=== PATIENT | female | born 1940 | race Caucasian/White ===

== ENCOUNTER 2020-02-29 08:32 | Outpatient (CLI) | payer MEDICARE, SELFPAY ==
[2020-02-29 09:10] LABS: Basophils Absolute Auto 0.1 K/mm3 (0.0-0.1); Basophils Percent Auto 1.2 % (0.2-1.2); Eosinophils Absolute Auto 0.9 K/mm3 (0-0.3); Eosinophils Percent Auto 10.5 % (0-4.4); Hemoglobin 12.3 g/dL (12.0-15.0); Immature Granulocyte Absolute 0.03 K/mm3 (0.00-0.031); Immature Granulocyte Percent A 0.4 % (0-0.5); Lymphocytes Absolute Auto 2.34 K/mm3 (0.9-3.2); Lymphocytes Percent Auto 28.6 % (18.3-44.2); Mean Corpuscular HGB Conc 31.5 g/dl (32-36); Mean Corpuscular Hemoglobin 29.5 pg (26-34); Mean Corpuscular Volume 93.5 fl (80-100); Mean Platelet Volume 9.7 fl (7.4-10.4); Monocytes Absolute Auto 0.5 K/mm3 (0.1-0.6); Monocytes Percent Auto 5.5 % (2.6-8.5); Neutrophils Absolute Auto 4.4 K/mm3 (1.3-6.7); Neutrophils Percent Auto 53.8 % (45.5-73.1); Platelet Count Result 266 k/mm3 (150-375); Red Blood Count 4.17 M/mm3 (4.2-5.4); Red Cell Distribution Width 13.2 % (11.5-14.5); White Blood Count 8.2 K/mm3 (4.5-10.0)
[2020-02-29 09:19] LABS: Hemoglobin A1C 6.5 % (<5.7)
[2020-02-29 09:22] LABS: Alanine Aminotransferase 9 U/L (4-35); Alkaline Phosphatase 69 U/L (38-126); Aspartate Amino Transferase 20 U/L (14-36); Bilirubin,Total < 0.1 mg/dL (0.2-1.3); Blood Urea Nitrogen 19 mg/dL (7-17); Carbon Dioxide 26 mmol/L (22-30); Chloride 103 mmol/L (98-107); Cholesterol 100 mg/dL (0-200); Estimated Glomerular Filt Rate > 60; Glucose 110 mg/dL (65-105); HDL Direct 25 mg/dL; Potassium 4.1 mmol/L (3.4-5.0); Sodium 139 mmol/L (137-145); Triglycerides 174 mg/dL (<150); Uric Acid 5.6 mg/dL (2.5-7.5)
[2020-02-29 09:33] LABS: LDL Cholesterol Direct 48 mg/dL
[2020-02-29 09:51] LABS: Total Triiodothyronine (T3) 0.96 NG/ML (0.97-1.69)
[2020-02-29 10:04] LABS: Free T4 Free Thyroxine 1.19 ng/mL (0.78-2.19); Vitamin D 25 Hydroxy 30.6 ng/mL
[2020-02-29 15:39] LABS: Creatinine Urine 116.5 mg/dL
[2020-02-29 15:44] LABS: MALB Creatinine Ratio 34.9 mg/g (0-30); Microalbumin Urine Random 40.7 mg/L (0-16.7)
== END 2020-02-29 08:33 | disposition home or self-care (01) ==
PROVIDERS: PCP Family Medicine; Visit Provider Nurse Practitioner Family
DX: E11.42 Type 2 diabetes mellitus with diabetic polyneuropathy (principal); E78.1 Pure hyperglyceridemia; E78.2 Mixed hyperlipidemia; E03.9 Hypothyroidism, unspecified; R53.83 Other fatigue; I10 Essential (primary) hypertension; M10.9 Gout, unspecified; E55.9 Vitamin D deficiency, unspecified; R80.9 Proteinuria, unspecified
CPT/HCPCS: 36415; 80053; 80061; 82043; 82306; 83036; 84439; 84443; 84480; 84550; 85025

== ENCOUNTER 2020-05-04 14:08 | Observation (INO) | payer MEDICARE, SELFPAY ==
[2020-05-04] VITALS (14 sets, daily range): BP systolic 97–158; BP diastolic 53–98; PULSE 75–97; RESP 10–24; TEMP 36.3–36.4; O2SAT 95–100
--- NOTE | ~2020-05-04 | CT_ITS ---
EXAMINATION: CT brain wo con INDICATION: Confusion COMPARISON: 08/03/2016 TECHNIQUE: Standard unenhanced head CT. The dose-length product (DLP) was 681.00 mGy-cm. The mA was a djusted according to patient size. Iterative reconstruction technique was employed. FINDINGS: There is no acute intraparenchymal hemorrhage. No evidence of mass lesion. No evidence of a cute infarction. There is mild periventricular and subcortical hypodensity probably related to small vessel ischemic disease. There is mild prominence of the sulci and ventricles related to cerebral atr ophy. Intracranial calcified cerebral atherosclerosis is noted. There are no extra-axial collections. There is no mass effect or midline shift. Changes in the globes are likely from ocular lens surgery. The visualized sinuses and mastoid air cells are well aerated. IMPRESSION: 1. No acute intracranial abnormality. 2. Age related findings. Reviewed, dictated and finalized at location A.
--- NOTE | ~2020-05-04 | XR_ITS ---
XR hip RT 2V w AP pelvis 05/04/2020 16:24 Indication: Right hip pain after fall Procedure: AP pelvis and 2 views right hip Comparison: 09/10/2013 Findings: There are is mild osteoarthritis of the hips. No acute fracture or traumatic malalignment. No focal soft tissue abnormality. No radiopaque foreign bodies. Note is made of slight internal rotat ion of the right hip, possibly positional. Impression: 1: No acute fracture. Reviewed, dictated and finalized at location A. Impression: 1: No acute fracture.
--- NOTE | ~2020-05-04 | XR_ITS ---
XR chest 1V 05/04/2020 16:25 Indication: Confusion. Smoker. Diabetes. Procedure: AP view of the chest Comparison: Comparison to multiple prior studies sequentially, with oldest reviewed study dated 10/19. Findings: Borderline heart size. The lateral upper lobe infiltrates. Shallow inspiration. No pleural effusion or pneumothorax. There are cholecystectomy clips. Impression: 1: Bilateral upper lobe infiltrates may represent atelectasis/scarring or pneumonia. Cannot exclude m ediastinal lymphadenopathy. Reviewed, dictated and finalized at location A. Impression: 1: Bilateral upper lobe infiltrates may represent atelectasis/scarring or pneum onia. Cannot exclude mediastinal lymphadenopathy.
--- NOTE | 2020-05-04 14:14 | ECG_ITS ---
Measurements Intervals [place] Rate: 95 P: 18 SD: 154 QRS: 14 QRSD: 85 T: 77 QT: 314 QTc: 395 Interpretive Statements SINUS RHYTHM BORDERLINE R WAVE PROGRESSION, ANTERIOR LEADS BASELINE ARTIFACT- II, III BORDERLINE ECG Electronically Signed On 05-04-2020 14:30:51 CDT by Enrico Garcia D.O.
[2020-05-04] MEDS: SODIUM CHLORIDE 0.9% IV 1,000 ML 999 ML IV CONT (14:25)
[2020-05-04 14:35] LABS: Glucose Point of Care 143 (65-105)
--- NOTE | 2020-05-04 14:36 | ED.AMS ---
HPI - Altered Mental Status General Chief Complaint: Altered Mental Status Stated Complaint: UNRESPONSIVE EPISODE Time Seen by Provider: 05/04/20 14:14 Source: family and EMS History of Present Illness HPI narrative: 80 years old white female brought to the emergency room by ambulance with unresponsiveness. Patient was seen last time okay at 1:30 AM, usually patient sleeps up to 1 PM every day. Today her try to give her extra time for sleeping, after 1 PM try to wake up and was unresponsive. reports that patient been to 3 different physician this week and 4 other physicians last week with a lot of adjustment of medications. Patient also on fentanyl patch for chronic scoliosis and chronic back pain and peripheral neuropathy. History of diabetes, hypertension, hyperlipidemia, hypothyroidism. The denies that patient smokes, drink or use drugs. Patient received the Narcan by ambulance without any effect. At 1630 patient became awake, alert and oriented x4, denying any symptoms. Related Data Home Medications Medication Instructions Recorded Confirmed fentanyl 75 mcg/hr transdermal 1 patch TRANSDERM Q72H 07/14/19 patch gabapentin 800 mg tablet 800 mg PO DAILY 07/14/19 insulin glargine 100 unit/mL (3 100 unit SUB-Q DAILY 07/14/19 mL) subcutaneous pen metoprolol succinate 50 mg capsule 50 mg PO DAILY 07/14/19 sprinkle, ext. release 24 hr amlodipine 5 PO 05/04/20 hydrocodone-acetaminophen 05/04/20 Allergies Allergy/AdvReac Type Severity Reaction Status Date / Time codeine Allergy Severe SYNCOPAL Verified 07/14/19 13:34 SPELLS Penicillins Allergy Unknown Anaphylaxis Verified 07/14/19 13:34 Review of Systems Review of Systems: ROS unobtainable: Yes unobtainable due to mental status PMFSH Past Medical History Medical History Charcot's joint, right ankle and foot Diabetes Diabetic ulcer of right foot Lower extremity weakness Vision loss Social History Social History Smoking status: Former smoker Smoking end date: 08/12/86 Alcohol intake: never Gender identity (if verbalized by the patient): Female Exam Narrative: Exam Narrative: General appearance: Well-developed, well-nourished, unresponsive, responds to painful stimulation by withdrawing arms. Skin: Normal color Head: Normocephalic, nontraumatic Eyes: Clear conjunctiva ENT: Oropharynx normal, ears normal, nose normal Neck: Supple, nontender Chest and respiratory: Airway patent, no respiratory distress, no accessory muscle use Heart: Regular rate/rhythm Abdomen: Soft, nontender, no organomegaly, quiet bowel sounds Vascular: Normal peripheral pulses, normal capillary refill. Musculoskeletal: Normal range of motion, nontender back, right lower leg is shortened and externally rotated compared to the left 1 Neurologic: Responding only to painful stimulation by arm withdrawal. Course Course Emergency Course: Stable Reevaluation(s) Reevaluation #1: Currently patient is awake, alert oriented x4, denying any symptoms. Patient denies any fever, headache, flank bite, muscle aches,. Patient feels great and would like to go home Date: 05/04/20 Time: 16:56 Vital Signs Vital signs: Vital Signs Pulse Rate 97 05/04/20 14:11 Respiratory Rate 24 H 05/04/20 14:11 Blood Pressure 158/74 H 05/04/20 14:11 Pulse Oximetry 99 05/04/20 14:11 Temperature 36.3 C L 05/04/20 16:32 Pulse Rate 87 05/04/20 16:32 Respiratory Rate 10 L 05/04/20 16:32 Blood Pressure 104/53 L 05/04/20 16:32 Pulse Oximetry 95 05/04/20 16:32 MDM - Alter
[2020-05-04 14:40] LABS: Alveolar/Arterial O2 Gradient 126.3 mmHg; Base Excess ABG -1.7 mEq/l (+/-2.0); Fractional Inspired Oxygen 36 %; HCO3 ABG 24.1 mEq/l (22.0-26.0); Oxygen Content ABG 17.9 %vol (16.0-22.0); Oxyhemoglobin 94.1 % THb (90.0-100.0); PCO2 ABG 44.9 mmHg (35.0-45.0); PO2 ABG 78.3 mmHg (80.0-100.0); PO2 FiO2 Ratio Arterial Blood 2.18 %; Total Hemoglobin 13.5 g/dL (12.0-18.0); pH ABG 7.348 (7.350-7.450)
[2020-05-04 14:42] LABS: Device NASAL CANNULA; Site Drawn LEFT BRACHIAL
[2020-05-04 15:14] LABS: Add Urine Microscopic? YES; Appearance Urine Clear (Clear); Bilirubin Urine Negative (Negative); Blood Urine Negative (Negative); Color Urine Yellow (Yellow); Glucose Urine UA Negative (Negative); Ketones Urine Negative (Negative); Leukocyte Esterase Ur Negative LEU/UL (Negative); Mucus Urine Rare /lpf; Nitrate Urine Negative (Negative); Protein Urine 1+ mg/dL (Negative); RBC Urine 21-50 /hpf (0-2); Specific Grav Ur 1.025 (1.001-1.035); Squamous Epithelial Cell Urine Rare /hpf (Few); Urobilinogen Urine Negative mg/dL (<2.0); WBC Urine 0-3 /hpf
[2020-05-04 15:34] LABS: Basophils Absolute Auto 0.1 K/mm3 (0.0-0.1); Basophils Percent Auto 0.5 % (0.2-1.2); Eosinophils Absolute Auto 0.4 K/mm3 (0-0.3); Eosinophils Percent Auto 3.2 % (0-4.4); Hematocrit 41.4 % (37.0-47.0); Hemoglobin 12.7 g/dL (12.0-15.0); Immature Granulocyte Absolute 0.13 K/mm3 (0.00-0.031); Immature Granulocyte Percent A 1.2 % (0-0.5); Lymphocytes Absolute Auto 1.47 K/mm3 (0.9-3.2); Lymphocytes Percent Auto 13.3 % (18.3-44.2); Mean Corpuscular HGB Conc 30.7 g/dl (32-36); Mean Corpuscular Hemoglobin 30.7 pg (26-34); Mean Platelet Volume 9.4 fl (7.4-10.4); Monocytes Absolute Auto 0.6 K/mm3 (0.1-0.6); Monocytes Percent Auto 5.3 % (2.6-8.5); Neutrophils Absolute Auto 8.5 K/mm3 (1.3-6.7); Neutrophils Percent Auto 76.5 % (45.5-73.1); Platelet Count Result 338 k/mm3 (150-375); Red Blood Count 4.14 M/mm3 (4.2-5.4); Red Cell Distribution Width 13.4 % (11.5-14.5); White Blood Count 11.1 K/mm3 (4.5-10.0)
[2020-05-04 15:39] LABS: Amphetamine Screen Urine Negative (Negative); Barbiturate Screen Urine Negative (Negative); Benzodiazepines Screen Urine Negative (Negative); Cannabinoid Screen Urine Negative (Negative); Cocaine Screen Urine Negative (Negative); Methadone Screen Urine Negative (Negative); Opiate Screen Urine Positive (Negative); Phencyclidine Screen Urine Negative (Negative)
[2020-05-04 15:49] LABS: Alanine Aminotransferase 13 U/L (4-35); Albumin Level 3.3 g/dL (3.5-5.1); Alkaline Phosphatase 62 U/L (38-126); Anion Gap 5 mmol/L (8-16); Aspartate Amino Transferase 19 U/L (14-36); Bilirubin,Total 0.3 mg/dL (0.2-1.3); Blood Urea Nitrogen 40 mg/dL (7-17); Calcium 8.3 mg/dL (8.4-10.2); Carbon Dioxide 25 mmol/L (22-30); Chloride 104 mmol/L (98-107); Creatine Kinase 54 U/L (30-135); Estimated CRCL calculation 39 ml/min; Estimated Glomerular Filt Rate 54; Glucose 159 mg/dL (65-105); Lactic Acid Reflex 2.2 mmol/L (0.7-2.1); Potassium 4.9 mmol/L (3.4-5.0); Sodium 134 mmol/L (137-145)
[2020-05-04 15:50] LABS: INR 1.1; Prothrombin Time 13.4 Seconds (11.1-14.7)
[2020-05-04 15:51] LABS: Partial Thromboplastin Time 28.5 SECONDS (22.3-36.8)
--- NOTE | 2020-05-04 17:41 | PC.NURSE ---
Patient now A&Ox4, speech clear and able to follow commands.
[2020-05-04 17:52] LABS: Ammonia < 9 umol/L (9-30)
[2020-05-04 18:32] LABS: Reflex Lactic Acid Yes or No Add Lactic
[2020-05-04 19:13] LABS: Lactic Acid 1.3 mmol/L (0.7-2.1)
--- NOTE | 2020-05-04 19:40 | ADMGEN ---
This patient, Melissa Rodriguez, was admitted to 3 [facility] Surg Room 304-01. Patient/family oriented to hospital policies and general routines including ID bracelet, bed and alarms, visiting hours, pain management, procedures, bathroom and other care routines, personal items, smoking policy, room service/diet, and visiting hours. Valuables list has been completed. Information on how to activate the Rapid Response Team has been discussed. Patient/Family are encouraged to report perceived risks to care and to ask questions if they do not understand what they are told or what they should do.
[2020-05-05] VITALS (8 sets, daily range): BP systolic 114–149; BP diastolic 57–79; PULSE 79–105; RESP 12–18; TEMP 36.5–36.9; O2SAT 95–98
[2020-05-05 00:15] LABS: Glucose Point of Care 181 (65-105)
[2020-05-05] MEDS: LEVOTHYROXINE SODIUM 100 MCG TABLET PO (05:46)
[2020-05-05 07:49] LABS: Anion Gap 5 mmol/L (8-16); Blood Urea Nitrogen 26 mg/dL (7-17); Carbon Dioxide 26 mmol/L (22-30); Chloride 103 mmol/L (98-107); Estimated CRCL calculation 53 ml/min; Estimated Glomerular Filt Rate > 60; Glucose 168 mg/dL (65-105); Potassium 4.5 mmol/L (3.4-5.0); Sodium 134 mmol/L (137-145)
[2020-05-05 08:05] LABS: Glucose Point of Care 156 (65-105)
[2020-05-05 09:03] LABS: Glucose Point of Care 188 (65-105)
[2020-05-05] MEDS: GABAPENTIN 400 MG CAPSULE 800 MG PO ×2 (09:37→12:40)
[2020-05-05] MEDS: NORTRIPTYLINE HCL 25 MG CAPSULE 50 MG PO (09:38)
[2020-05-05] MEDS: INSULIN GLARGINE (*BKC) 100 UNITS/ML 22 UNITS SUB-Q (09:38)
[2020-05-05] MEDS: DOXYCYCLINE HYCLATE 100 MG TABLET PO (09:38)
[2020-05-05] MEDS: amLODIPine BESYLATE 5 MG TABLET 10 MG PO (09:40)
[2020-05-05] MEDS: PROPRANOLOL HCL 20 MG TABLET PO (09:40)
--- NOTE | 2020-05-05 09:56 | PM.SD ---
Same Day Admit/Disch: HPI History of Present Illness Chief complaint: Unresponsiveness/Opiod dependent Narrative: Melissa Rodriguez is a 80 year old female with known hypertension, hypercholesterolemia, DMII, DDD and scoliosis with subsequent chronic back pain on chronic opioids, peripheral neuropathy who presented to the ED on 05/04 via EMS from home with reports of being unresponsive. Patient is now A&Ox4 for me. She is a fair historian and understands she was unarousable yesterday, but is unable to tell me details about what brought her in to the hospital. Most history obtained via EMR and (with patient's permission). states she had a good day the day prior and states she stayed up fairly late (until about 0130 on 05/04); she was in her normal state of health. On morning of 05/04, states she was difficult to arouse and called her son who is an RN; took vitals which were reportedly normal and was still unable to arouse the patient after multiple attempts that morning and afternoon; the son thus instructed the to call 911. Per ER and job lithographer notes, Narcan was given en route to the ED with little effect and multiple fentanyl patches were removed from the patient. The patient reportedly then became arousable around 16:30 yesterday afternoon, near her baseline mentation. It was suspected patient likely had unintentional opioid overdose vs polypharmacy and was admitted for this reason. Today, patient only is complaining of her chronic bilateral lower extremity pain and chronic back pain; requesting pain medication. No other complaints at the moment. Denies f/c/s, recent illness, myalgias/arthralgias, headaches, dizziness, lightheadedness, changes in v/h, cp/palpitations, sob/cough, n/v/d/c, abd pain, changes in BMs, dysuria, hematuria, cloudy urine, calf pain/swelling. Upon examination and further questioning, an abrasion is noted over left knee which she states she received after she fell at home. She and her note that she has been falling recently and is concerned she is becoming deconditioned as she has not been moving as much. Patient states she may be interested in Home Health therapy if she qualifies. While in the ED, patient was noted to be hypoxic and placed on 4L O2 NC which has since been weaned down to RA PMFSH Past Medical History Medical History Charcot's joint, right ankle and foot DDD (degenerative disc disease) Diabetes Diabetic ulcer of right foot GERD (gastroesophageal reflux disease) History of amputation of right great toe History of trigger finger Hypercholesteremia Hypertension Hypothyroid Lower extremity weakness Melanoma Nose Neuropathy Osteomyelitis Vision loss Surgical History Surgical History History of appendectomy History of bladder surgery Bladder tie up History of cholecystectomy (~1992) History of hysterectomy (~1983) History of tonsillectomy Family History Family History Mother Emphysema lung Father Emphysema lung Sibling Hypertension Emphysema lung Social History Social History (Updated 05/05/20 @ 10:10 by Delvin Resendiz PA-C) Social History: Patient lives at home with her Pritesh. She wishes to be a Full Code. Her PCP is Dr. Cristina. Smoking status: Former smoker Second hand tobacco smoke exposure: No Smoking end date: 08/12/87 Alcohol intake: never Substance use: never Gender identity (if verbalized by the patient): Female Spiritual care concerns: No Same Day Admit/Disch: Med Pre-admit Medications Home Medications Medication Instructions Recorded Confirmed Type fentanyl 75 mcg/hr transdermal 1 patch TRANSDERM Q72H 07/14/19 05/04/20 History patch gabapentin 800 mg tablet 800 mg PO TID 07/14/19 05/04/20 History insulin glargine 100 unit
[2020-05-05] MEDS: HYDROcodone/acetaminophen (*CRX) 5-325 MG TABLET 1 TAB PO (10:37)
[2020-05-05 12:50] LABS: Glucose Point of Care 189 (65-105)
--- NOTE | 2020-05-05 13:27 | PC.NURSE ---
On 05/05/20, the student, [Yas Hernandez ], provided care and completed [facility] documentation on this patient. I have reviewed the student's documentation and agree with the findings.
== END 2020-05-05 15:15 | disposition home health service (06) ==
LOC: ANHED 17:01 → ANH3MEDSUR 17:15
PROVIDERS: Admitting Provider Family Medicine; Emergency Provider Emergency Medicine; PCP Family Medicine; Visit Provider Physician Assistant
DX: J96.01 Acute respiratory failure with hypoxia (principal); F11.20 Opioid dependence, uncomplicated; I10 Essential (primary) hypertension; E11.40 Type 2 diabetes mellitus with diabetic neuropathy, unspecified; E78.00 Pure hypercholesterolemia, unspecified; M41.9 Scoliosis, unspecified; G89.29 Other chronic pain; M54.9 Dorsalgia, unspecified; M79.605 Pain in left leg; M79.604 Pain in right leg; R53.1 Weakness; E03.9 Hypothyroidism, unspecified; K21.9 Gastro-esophageal reflux disease without esophagitis; Z79.4 Long term (current) use of insulin; Z87.891 Personal history of nicotine dependence
CPT/HCPCS: 36415; 36600; 51701; 70450; 71045; 73502; 80048; 80053; 80307; 81001; 82140; 82550; 82805; 82948; 83605; 84443; 85025; 85610; 85730; 87040; 93005; 96360; 97161; 99285; A9270; G0378; J1815; J7030

== ENCOUNTER 2020-05-17 15:05 | Inpatient (IN) | payer MEDICARE, SELFPAY ==
[2020-05-17] VITALS (8 sets, daily range): BP systolic 112–137; BP diastolic 56–81; PULSE 70–109; RESP 18–28; TEMP 36.2–37.1; O2SAT 95–99; BMI 19.9
--- NOTE | ~2020-05-17 | CT_ITS ---
EXAMINATION: CT brain wo con INDICATION: Altered mental status COMPARISON: 05/04/2020 TECHNIQUE: Standard unenhanced head CT. The dose-length product (DLP) was 605.33 mGy-cm. The mA was a djusted according to patient size. Iterative reconstruction technique was employed. FINDINGS: There is no acute intraparenchymal hemorrhage. No evidence of mass lesion. No evidence of a cute infarction. There is mild periventricular and subcortical hypodensity probably related to small vessel ischemic disease. There is mild prominence of the sulci and ventricles related to cerebral atr ophy. Intracranial calcified cerebral atherosclerosis is noted. There are no extra-axial collections. There is no mass effect or midline shift. Changes in the globes are likely from ocular lens surgery. There is mild mucosal thickening of the paranasal sinuses. IMPRESSION: 1. No acute intracranial abnormality. 2. Age related findings. Reviewed, dictated and finalized at location A.
--- NOTE | ~2020-05-17 | XR_ITS ---
EXAMINATION: XR chest 1V DATE: 05/17/2020 16:31 INDICATION: Transient alteration of awareness TECHNIQUE: frontal view of the chest was obtained. COMPARISON: Chest radiograph dated 05/04/2020 FINDINGS: Persistent small lung volumes with mild elevation of the right hemidiaphragm. No focal airspace opaci ties, pulmonary edema, pleural effusion or pneumothorax. Cardiomediastinal silhouette is within hina l limits for AP technique. Post cystectomy clips in the right upper quadrant. Moderate to severe thor acic and upper lumbar spondylosis. IMPRESSION: 1. Chronic small lung volumes with no acute cardiopulmonary disease. Reviewed, dictated and finalized at location A.
--- NOTE | 2020-05-17 15:13 | ECG_ITS ---
Measurements Intervals [place] Rate: 102 P: 61 MA: 164 QRS: 46 QRSD: 94 T: 73 QT: 342 QTc: 446 Interpretive Statements SINUS TACHYCARDIA BASELINE ARTIFACT- I, II, III, AVL, AVF BORDERLINE ECG Electronically Signed On 05-17-2020 15:20:51 CDT by Enrico Garcia D.O.
[2020-05-17 15:21] LABS: Basophils Absolute Auto 0.1 K/mm3 (0.0-0.1); Basophils Percent Auto 0.5 % (0.2-1.2); Eosinophils Absolute Auto 0.1 K/mm3 (0-0.3); Eosinophils Percent Auto 0.4 % (0-4.4); Hematocrit 34.3 % (37.0-47.0); Hemoglobin 10.9 g/dL (12.0-15.0); Immature Granulocyte Percent A 1.1 % (0-0.5); Lymphocytes Absolute Auto 2.33 K/mm3 (0.9-3.2); Lymphocytes Percent Auto 12.6 % (18.3-44.2); Mean Corpuscular HGB Conc 31.8 g/dl (32-36); Mean Corpuscular Hemoglobin 30.9 pg (26-34); Mean Corpuscular Volume 97.2 fl (80-100); Mean Platelet Volume 9.9 fl (7.4-10.4); Monocytes Absolute Auto 0.6 K/mm3 (0.1-0.6); Monocytes Percent Auto 3.2 % (2.6-8.5); Neutrophils Absolute Auto 15.2 K/mm3 (1.3-6.7); Neutrophils Percent Auto 82.2 % (45.5-73.1); Platelet Count Result 354 k/mm3 (150-375); Red Blood Count 3.53 M/mm3 (4.2-5.4); White Blood Count 18.5 K/mm3 (4.5-10.0)
[2020-05-17 15:32] LABS: Alanine Aminotransferase 10 U/L (4-35); Albumin Level 3.4 g/dL (3.5-5.1); Alkaline Phosphatase 60 U/L (38-126); Anion Gap 13 mmol/L (8-16); Aspartate Amino Transferase 18 U/L (14-36); Bilirubin,Total 0.2 mg/dL (0.2-1.3); Blood Urea Nitrogen 16 mg/dL (7-17); Calcium 8.7 mg/dL (8.4-10.2); Carbon Dioxide 21 mmol/L (22-30); Chloride 103 mmol/L (98-107); Estimated CRCL calculation 35 ml/min; Estimated Glomerular Filt Rate 54; Glucose 152 mg/dL (65-105); Sodium 137 mmol/L (137-145)
[2020-05-17 16:04] LABS: Add Urine Microscopic? YES; Appearance Urine Clear (Clear); Bilirubin Urine Negative (Negative); Blood Urine 2+ (Negative); Color Urine Yellow (Yellow); Glucose Urine UA Negative (Negative); Ketones Urine Negative (Negative); Leukocyte Esterase Ur Negative LEU/UL (Negative); Mucus Urine Rare /lpf; Nitrate Urine Negative (Negative); Protein Urine Negative (Negative); RBC Urine >75 /hpf (0-2); Specific Grav Ur 1.015 (1.001-1.035); Squamous Epithelial Cell Urine Rare /hpf (Few); Urobilinogen Urine Negative mg/dL (<2.0); WBC Urine 0-3 /hpf
--- NOTE | 2020-05-17 16:06 | ED.GENADULT ---
HPI - General Adult General Chief complaint: Weakness Stated complaint: LETHARGY/CONFUSION Time Seen by Provider: 05/17/20 15:24 Source: patient and EMS History of Present Illness HPI narrative: Patient is a 80 y/o female brought in by EMS for altered mental status and low BP today. states that patient had low BS of 44 last night. He gave her juice, feed her and brought her BS up. This morning, patient was acting confused. Visiting nurse was checking on her this morning and found her BP was 80/50. states that he removed Fentanyl patch. EMS was summoned and patient was given IVF and brought here. Patient is poor historian and unable to provide reliable history. Related Data Home Medications Medication Instructions Recorded Confirmed fentanyl 75 mcg/hr transdermal 1 patch TRANSDERM Q72H 07/14/19 05/17/20 patch gabapentin 800 mg tablet 800 mg PO TID 07/14/19 05/17/20 insulin glargine 100 unit/mL (3 30 unit SUB-Q QAM AND QPM 07/14/19 05/17/20 mL) subcutaneous pen amlodipine 10 mg PO DAILY 05/04/20 05/17/20 doxycycline hyclate 100 mg PO BID 05/04/20 05/17/20 hydrocodone-acetaminophen 1 tablet PO Q6H PRN 05/04/20 05/17/20 levothyroxine 100 mcg PO QAM 05/04/20 05/17/20 losartan 50 mg PO QPM 05/04/20 05/17/20 metformin 1,000 mg PO BID 05/04/20 05/17/20 mometasone 1 applic TOPICAL DAILY 05/04/20 05/17/20 nortriptyline 50 mg PO BID 05/04/20 05/17/20 pramipexole 0.75 mg PO TID 05/04/20 05/17/20 propranolol 20 mg PO Q12H 05/04/20 05/17/20 Allergies Allergy/AdvReac Type Severity Reaction Status Date / Time codeine Allergy Severe SYNCOPAL Verified 05/17/20 15:10 SPELLS Penicillins Allergy Unknown Anaphylaxis Verified 05/17/20 15:10 Review of Systems Review of Systems: ROS unobtainable: Yes unobtainable due to mental status PMFSH Past Medical History Medical History (Updated 05/18/20 @ 14:44 by Moni Morales MD) Charcot's joint, right ankle and foot Chronic pain DDD (degenerative disc disease) Diabetes Diabetic nephropathy Diabetic ulcer of right foot GERD (gastroesophageal reflux disease) History of amputation of right great toe History of trigger finger Hypercholesteremia Hypertension Hypothyroid Lower extremity weakness Melanoma Nose Neuropathy Osteomyelitis Vision loss Surgical History Surgical History (Updated 05/17/20 @ 22:06 by Florina Garcia DO) History of appendectomy History of bladder suspension procedure History of cholecystectomy (~1992) History of hysterectomy (~1983) History of tonsillectomy Family History Family History Mother Emphysema lung Father Emphysema lung Sibling Hypertension Emphysema lung Social History Social History Social History: Patient lives at home with her Pritesh. She wishes to be a Full Code. Her PCP is Dr. Cristina. Smoking packs per day: 1 Smoking cigarettes per day: 20.0 Years smoked: 10 Smoking pack-years: 10.00 Smoking status: Former smoker Second hand tobacco smoke exposure: No Smoking end date: 08/12/87 Alcohol intake: former Substance use: never Gender identity (if verbalized by the patient): Female Spiritual care concerns: No Exam Const: General: no acute distress and ill appearing Orientation/consciousness: oriented to person, oriented to place and confusion HENMT: Head: normocephalic Ears: external ears normal General nose exam: Normal external nose present Eyes: General: appearance normal, both eyes and all related structures Conjunctivae: conjunctivae normal Neck: Neck: normal visual inspection and full ROM Chest: Chest palpation & inspection: normal inspection of the chest and no tenderness Resp: Effort & Inspection: normal respiratory effort Auscultation: clear to auscultation bilaterally Cardio: Rate: regular rate Rhythm: regular rhythm GI: GI Palp: No abdominal
[2020-05-17 17:00] LABS: Lactic Acid Reflex 2.9 mmol/L (0.7-2.1)
[2020-05-17 19:47] LABS: Reflex Lactic Acid Yes or No Add Lactic
[2020-05-17 20:28] LABS: Lactic Acid 1.2 mmol/L (0.7-2.1)
--- NOTE | 2020-05-17 20:30 | ADMGEN ---
This patient, Melissa Rodriguez, was admitted to [facility] Surg Room 317-01. Patient/family oriented to hospital policies and general routines including ID bracelet, bed and alarms, visiting hours, pain management, procedures, bathroom and other care routines, personal items, smoking policy, room service/diet, and visiting hours. Valuables list has been completed. Information on how to activate the Rapid Response Team has been discussed. Patient/Family are encouraged to report perceived risks to care and to ask questions if they do not understand what they are told or what they should do.
--- NOTE | 2020-05-17 21:57 | PM.IMHP ---
H&P: HPI History of Present Illness Date/Time: 05/17/20 22:30 Chief complaint: altered mental status Narrative: Melissa Rodriguez is a 80 year old female with a past medical history of hypertension, insulin-dependent diabetes mellitus and chronic opioid dependence who presented to the ER from home via EMS due to altered mental status. The patient evidently had a low blood sugar the night before down to 44. Her has been summer child caregiver juice and food and her blood sugar came up to the 80s. This morning the patient was acting confused again in the visiting nurse checked the patient's blood pressure and found to be 80/50. The removed the patient's fentanyl patches. According to the EMS radio report the patient had [address] The patient was given IV fluids in the field and brought to the ER. The patient is relatively good historian reported that she has been feeling well since her last hospitalization in April. She presented at that time for an unintentional narcotic overdose. Her symptoms were similar to her presentation today. She denies any nausea, vomiting, fever, chills, cough, congestion or recent ill contacts. She has chronic wound to her right 3rd toe and prior amputation of her right great toe. She has chronic pain in her feet and back bilaterally. She denies any dysuria, hematuria, hematochezia or melena. She has not had any recent changes in her home medications. Her glucoses at home have been running in the low 100s. Her Accu-Cheks at bedtime running right at 100. In the ER the patient's white count was noted to be elevated 18,000 her lactic acid was elevated at 2.9. The patient had received Levaquin in the ER prior to blood cultures being drawn. ER physician had also written for vancomycin. The patient's blood pressure was normal on arrival to the ER and has remained normal since admission. Review of Systems Review of Systems: Narrative: 12 systems were reviewed with pertinent positives and negatives per HPI. Except as documented in the HPI, all other systems were reviewed and are negative. [facility] Past Medical History Medical History (Updated 05/18/20 @ 01:54 by Florina Garcia DO) Charcot's joint, right ankle and foot Chronic pain DDD (degenerative disc disease) Diabetes Diabetic nephropathy Diabetic ulcer of right foot GERD (gastroesophageal reflux disease) History of amputation of right great toe History of trigger finger Hypercholesteremia Hypertension Hypothyroid Lower extremity weakness Melanoma Nose Neuropathy Osteomyelitis Vision loss Surgical History Surgical History (Updated 05/17/20 @ 22:06 by Florina Garcia DO) History of appendectomy History of bladder suspension procedure History of cholecystectomy (~1992) History of hysterectomy (~1983) History of tonsillectomy Family History Family History Mother Emphysema lung Father Emphysema lung Sibling Hypertension Emphysema lung Social History Social History Social History: Patient lives at home with her Pritesh. She wishes to be a Full Code. Her PCP is Dr. Cristina. Smoking packs per day: 1 Smoking cigarettes per day: 20.0 Years smoked: 10 Smoking pack-years: 10.00 Smoking status: Former smoker Second hand tobacco smoke exposure: No Smoking end date: 08/12/87 Alcohol intake: former Substance use: never Gender identity (if verbalized by the patient): Female Spiritual care concerns: No Meds Home Medications and Allergies Home Medications Medication Instructions Recorded Confirmed Type fentanyl 75 mcg/hr transdermal 1 patch TRANSDERM Q72H 07/14/19 05/17/20 History patch gabapentin 800 mg tablet 800 mg PO TID 07/14/19 05/17/20 History insulin glargine 100 unit/mL (3 30 unit SUB-Q QAM AND QPM 07/14/19 05/17/20 History mL) subcutaneous pen amlodipine 10 mg
[2020-05-17] MEDS: PRAMIPEXOLE 0.25 MG TABLET 0.75 MG PO (23:52)
[2020-05-17] MEDS: LOSARTAN POTASSIUM 50 MG TABLET PO (23:52)
[2020-05-17] MEDS: PROPRANOLOL HCL 20 MG TABLET PO (23:52)
[2020-05-18] VITALS (14 sets, daily range): BP systolic 93–154; BP diastolic 57–77; PULSE 80–99; RESP 16–18; TEMP 36.6–37.3; O2SAT 91–98; BMI 19.9
[2020-05-18 01:13] LABS: Glucose Point of Care 127 (65-105)
--- NOTE | 2020-05-18 01:21 | PC.NURSE ---
05/17/2020 0051 The LR bolus finished after the patient had 2 IVPB that had to be ran first.
[2020-05-18] MEDS: LEVOTHYROXINE SODIUM 100 MCG TABLET PO (05:55)
[2020-05-18 06:17] LABS: Basophils Absolute Auto 0.1 K/mm3 (0.0-0.1); Basophils Percent Auto 0.6 % (0.2-1.2); Eosinophils Absolute Auto 0.1 K/mm3 (0-0.3); Eosinophils Percent Auto 1.3 % (0-4.4); Hematocrit 33.5 % (37.0-47.0); Hemoglobin 10.7 g/dL (12.0-15.0); Immature Granulocyte Absolute 0.11 K/mm3 (0.00-0.031); Lymphocytes Absolute Auto 1.52 K/mm3 (0.9-3.2); Lymphocytes Percent Auto 14.4 % (18.3-44.2); Mean Corpuscular HGB Conc 31.9 g/dl (32-36); Mean Corpuscular Hemoglobin 30.5 pg (26-34); Mean Corpuscular Volume 95.4 fl (80-100); Mean Platelet Volume 10.1 fl (7.4-10.4); Monocytes Absolute Auto 0.5 K/mm3 (0.1-0.6); Monocytes Percent Auto 4.3 % (2.6-8.5); Neutrophils Absolute Auto 8.2 K/mm3 (1.3-6.7); Neutrophils Percent Auto 78.4 % (45.5-73.1); Platelet Count Result 318 k/mm3 (150-375); Red Blood Count 3.51 M/mm3 (4.2-5.4); Red Cell Distribution Width 13.6 % (11.5-14.5); White Blood Count 10.5 K/mm3 (4.5-10.0)
[2020-05-18] MEDS: HYDROcodone/acetaminophen (*CRX) 5-325 MG TABLET 1 TAB PO ×2 (08:10→23:27)
[2020-05-18 08:32] LABS: Anion Gap 10 mmol/L (8-16); Blood Urea Nitrogen 9 mg/dL (7-17); Calcium 8.7 mg/dL (8.4-10.2); Carbon Dioxide 27 mmol/L (22-30); Chloride 102 mmol/L (98-107); Estimated CRCL calculation 53 ml/min; Estimated Glomerular Filt Rate > 60; Glucose 81 mg/dL (65-105); Potassium 3.5 mmol/L (3.4-5.0); Sodium 139 mmol/L (137-145)
[2020-05-18 09:14] LABS: Thyroid Stimulating Hormone Reflex 0.883 uIU/mL (0.465-4.68)
[2020-05-18] MEDS: GABAPENTIN 300 MG CAPSULE 600 MG PO ×2 (09:32→17:28)
[2020-05-18] MEDS: amLODIPine BESYLATE 5 MG TABLET 10 MG PO (09:33)
[2020-05-18] MEDS: PRAMIPEXOLE 0.25 MG TABLET 0.75 MG PO ×3 (09:33→17:28)
[2020-05-18] MEDS: DOXYCYCLINE HYCLATE 100 MG TABLET PO ×2 (09:33→17:28)
[2020-05-18] MEDS: ENOXAPARIN 40 MG/0.4 ML SYRINGE SUB-Q (09:33)
[2020-05-18] MEDS: PROPRANOLOL HCL 20 MG TABLET PO ×2 (09:34→22:04)
[2020-05-18] MEDS: NORTRIPTYLINE HCL 25 MG CAPSULE 50 MG PO ×2 (09:34→17:28)
[2020-05-18] MEDS: metFORMIN HCL 500 MG TABLET 1000 MG PO ×2 (09:45→17:29)
[2020-05-18] MEDS: MAGNESIUM SULF 2 GM/WATER 50ML 2 GM/50 ML BAG IVPB (09:46)
--- NOTE | 2020-05-18 10:22 | PM.IMPN ---
Progress Note: A&P Assessment and Plan (1) Opioid dependence: Qualifiers: Substance use status: uncomplicated Qualified Code(s): F11.20 - Opioid dependence, uncomplicated Code(s): F11.20 - Opioid dependence, uncomplicated Status: Acute Assessment and Plan: Per EMS radio report the patient had [address] Patient denies this and thinks she only had one on at the time. Same issues on previous hospital stay as well. She is open to just staying with PO norco for now. Will hold the patient's home fentanyl patch; likely continue to hold after discharge as it appears patient may not be able to manage this Will continue at decreased home [place] to 1 tablet every 8 hours as needed. Monitor F/u with PCP for further adjustments (2) Diabetes: Code(s): E11.9 - Type 2 diabetes mellitus without complications Status: Acute Assessment and Plan: The patient has been euglycemic here but it sounds as if she has been running lower at home. A1c 6.0. She takes Lantus 30 u Qam and Qpm Will hold the patient's long-acting insulin for now; if this improves, then will start with 30 u lantus at night. director of retention consult has been placed Continue home metformin Accuchecks ACHS, hypoglycemia protocol, correctional insulin, diabetic diet (3) Leukocytosis: Code(s): D72.829 - Elevated white blood cell count, unspecified Status: Acute Assessment and Plan: Uncertain etiology. WBC 10.5k today. The patient is not having fevers. She does have a wound to her right foot however this does not appear to be acutely infected. The patient had received Levaquin and vancomycin from the ER; which have sinced been stopped.. Blood cultures are pending but they were drawn after Levaquin administration. Will hold off on any additional antibiotic administration at this time as patient does not appear to have an obvious source of acute infection. Will continue to monitor. Will repeat CBC in a.m. (4) Hypothyroid: Code(s): E03.9 - Hypothyroidism, unspecified Status: Acute Assessment and Plan: TSH WNL continue home levothyroxine (5) Neuropathy: Code(s): G62.9 - Polyneuropathy, unspecified Status: Acute Assessment and Plan: Cr cl 35 yesterday; pharmacy recommended reducing dose and frequency continue reduced dosing/frequency of home gabapentin BMP in the morning; if improved, then will likely discharge on home dose (6) Hypertension: Code(s): I10 - Essential (primary) hypertension Status: Acute Assessment and Plan: BP 120s sys this morning Continue home anytihypertensives Subjective Date/time seen: 05/18/20 10:22 Interval history: Patient is a 80 yo F with history of hypertension, insulin-dependent diabetes mellitus and chronic opioid dependence known to myself from previous hospital stay last month who is seen in follow up for episode of hypoglycemia and subsequent unresponsiveness while at home; patient also had [address] in field per EMS radio report. Today, patient feel well. No complaints today. She is A&Ox4. She does not occasionally having an upset stomach that comes and goes; this has been going on for several weeks and is not related to any meals or movement, etc. Otherwise no other complaints. She also has been placed on Doxycycline as outpatient, but does not know why or by whom; does not report any signs or symptoms of infection. Denies f/c/s, myalgias/arthralgias, headaches, dizziness, lightheadedness, cp/palpitations, sob/cough, n/v/d/c, abd pain, changes in BMs, dysuria, hematuria, cloudy urine, calf pain/swelling. Review of Systems Review of Systems: All sy
[2020-05-18 12:02] LABS: Glucose Point of Care 155 (65-105)
[2020-05-18] MEDS: TRIAMCINOLONE ACET 0.1% CREAM 15 GM TUBE 1 APPLIC TOPICAL (17:28)
[2020-05-18] MEDS: LOSARTAN POTASSIUM 50 MG TABLET PO (17:28)
[2020-05-18 17:46] LABS: Glucose Point of Care 103 (65-105)
[2020-05-18 23:15] LABS: Glucose Point of Care 139 (65-105)
[2020-05-19] VITALS: PULSE 84
[2020-05-19 02:00] VITALS: BP 127/76; PULSE 85; RESP 16; TEMP 36.9; O2SAT 94
[2020-05-19 04:00] VITALS: PULSE 88
[2020-05-19 05:16] VITALS: BP 125/79; PULSE 84; RESP 16; TEMP 37; O2SAT 95
[2020-05-19] MEDS: LEVOTHYROXINE SODIUM 100 MCG TABLET PO (05:47)
[2020-05-19 06:41] LABS: Basophils Absolute Auto 0.1 K/mm3 (0.0-0.1); Basophils Percent Auto 0.7 % (0.2-1.2); Eosinophils Absolute Auto 0.2 K/mm3 (0-0.3); Eosinophils Percent Auto 1.6 % (0-4.4); Hematocrit 32.4 % (37.0-47.0); Hemoglobin 10.6 g/dL (12.0-15.0); Immature Granulocyte Absolute 0.11 K/mm3 (0.00-0.031); Lymphocytes Percent Auto 15.1 % (18.3-44.2); Mean Corpuscular HGB Conc 32.7 g/dl (32-36); Mean Corpuscular Volume 91.8 fl (80-100); Mean Platelet Volume 9.2 fl (7.4-10.4); Monocytes Absolute Auto 0.6 K/mm3 (0.1-0.6); Monocytes Percent Auto 5.6 % (2.6-8.5); Neutrophils Absolute Auto 8.1 K/mm3 (1.3-6.7); Platelet Count Result 322 k/mm3 (150-375); Red Blood Count 3.53 M/mm3 (4.2-5.4); Red Cell Distribution Width 13.4 % (11.5-14.5); White Blood Count 10.6 K/mm3 (4.5-10.0)
[2020-05-19 06:55] LABS: Anion Gap 10 mmol/L (8-16); Blood Urea Nitrogen 8 mg/dL (7-17); Calcium 8.8 mg/dL (8.4-10.2); Carbon Dioxide 26 mmol/L (22-30); Chloride 103 mmol/L (98-107); Estimated CRCL calculation 53 ml/min; Estimated Glomerular Filt Rate > 60; Glucose 134 mg/dL (65-105); Magnesium 1.2 mg/dL (1.6-2.3); Potassium 3.6 mmol/L (3.4-5.0); Sodium 139 mmol/L (137-145)
[2020-05-19 08:24] LABS: Glucose Point of Care 130 (65-105)
--- NOTE | 2020-05-19 08:33 | PM.DS ---
DS: Admitting Diagnosis Admitting Diagnosis Admitting Diagnosis: altered mental status DS: Discharge Diagnosis Discharge Diagnosis (1) Opioid dependence: Qualifiers: Substance use status: uncomplicated Qualified Code(s): F11.20 - Opioid dependence, uncomplicated Code(s): F11.20 - Opioid dependence, uncomplicated Status: Acute Assessment and Plan: Per EMS radio report the patient had [address] Patient denies this and thinks she only had one on at the time. Same issues on previous hospital stay as well. She is open to just staying with PO norco for now. Will hold the patient's home fentanyl patch at discharge Will continue at decreased home [place] to 1 tablet every 8 hours as needed as she seemed to have tolerated during her stay F/u with PCP for further adjustments (2) Diabetes: Code(s): E11.9 - Type 2 diabetes mellitus without complications Status: Acute Assessment and Plan: The patient has been euglycemic here but it sounds as if she has been running lower at home. A1c 6.0. She takes Lantus 30 u Qam and Qpm, although states they have been in the process of decreasing this already. 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 WBC 10.6k today; stable. The patient is not having fevers. She does have a wound to her right foot however this does not appear to be acutely infected; Wound Care recs noted. The patient had received Levaquin and vancomycin from the ER; which have since been stopped. Blood cultures are negative to date but they were drawn after Levaquin administration. Will hold off on any additional antibiotic administration at this time as patient does not appear to have an obvious source of acute infection. CBC in 1 week F/u with PCP (4) Hypothyroid: Code(s): E03.9 - Hypothyroidism, unspecified Status: Acute Assessment and Plan: TSH WNL continue home levothyroxine (5) Neuropathy: Code(s): G62.9 - Polyneuropathy, unspecified Status: Acute Assessment and Plan: Cr cl 35 yesterday; pharmacy recommended reducing dose and frequency Will resume at home dose (6) Hypertension: Code(s): I10 - Essential (primary) hypertension Status: Acute Assessment and Plan: BP 120s sys this morning Continue home anytihypertensives (7) Hypomagnesemia: Code(s): E83.42 - Hypomagnesemia Status: Acute Assessment and Plan: Mag 1.2 today; replaced prior to discharge Mag level in 1 week F/u with PCP DS: Summary Hospital Course Reason for hospitalization: AMS, hypoglycemic event at home Hospital Course: Patient is a 80 yo F with past medical history of hypertension, insulin-dependent diabetes mellitus and chronic opioid dependence who presented to the ER on 05/17 from home via EMS due to altered mental status. The patient evidently had a low blood sugar the night before down to 44 but improved with juice. HH nurse visiting house took blood pressure and found to be 80/50 thus EMS was summoned. Per EMS radio report, patient also had [address] Patient was given IV fluids in the field and brought to the ER. While in the ER, she was found to have leukocytosis and was given IV l
[2020-05-19] MEDS: MAGNESIUM SULF 2 GM/WATER 50ML 2 GM/50 ML BAG IVPB (08:39)
[2020-05-19] MEDS: ENOXAPARIN 40 MG/0.4 ML SYRINGE SUB-Q (08:44)
[2020-05-19] MEDS: GABAPENTIN 300 MG CAPSULE 600 MG PO (08:44)
[2020-05-19] MEDS: amLODIPine BESYLATE 5 MG TABLET 10 MG PO (08:44)
[2020-05-19] MEDS: PRAMIPEXOLE 0.25 MG TABLET 0.75 MG PO (08:44)
[2020-05-19 08:45] VITALS: PULSE 96
[2020-05-19] MEDS: TRIAMCINOLONE ACET 0.1% CREAM 15 GM TUBE 1 APPLIC TOPICAL (08:45)
[2020-05-19] MEDS: SILVERGEL (ELTA) 45 ML 1 APPLIC TOPICAL (08:45)
[2020-05-19] MEDS: DOXYCYCLINE HYCLATE 100 MG TABLET PO (08:45)
[2020-05-19] MEDS: PROPRANOLOL HCL 20 MG TABLET PO (08:45)
[2020-05-19] MEDS: metFORMIN HCL 500 MG TABLET 1000 MG PO (08:45)
[2020-05-19] MEDS: NORTRIPTYLINE HCL 25 MG CAPSULE 50 MG PO (08:46)
[2020-05-19] MEDS: HYDROcodone/acetaminophen (*CRX) 5-325 MG TABLET 1 TAB PO (10:58)
[2020-05-19] MEDS: INSULIN GLARGINE (*BKC) 100 UNITS/ML 15 UNITS SUB-Q (11:00)
== END 2020-05-19 11:45 | disposition home health service (06) | DRG 948 ==
LOC: ANHED 17:00 → ANH3MEDSUR 19:35
PROVIDERS: Emergency Medicine; Internal Medicine; Physician Assistant; Admitting Provider Family Medicine; Emergency Provider Emergency Medicine; PCP Family Medicine; Visit Provider Internal Medicine
DX: R41.82 Altered mental status, unspecified (principal); F11.20 Opioid dependence, uncomplicated; G89.29 Other chronic pain; E11.621 Type 2 diabetes mellitus with foot ulcer; L97.519 Non-pressure chronic ulcer of other part of right foot with unspecified severity; E11.610 Type 2 diabetes mellitus with diabetic neuropathic arthropathy; E11.21 Type 2 diabetes mellitus with diabetic nephropathy; E11.40 Type 2 diabetes mellitus with diabetic neuropathy, unspecified; I10 Essential (primary) hypertension; E03.9 Hypothyroidism, unspecified; D72.829 Elevated white blood cell count, unspecified; E78.00 Pure hypercholesterolemia, unspecified; E83.42 Hypomagnesemia; Z79.4 Long term (current) use of insulin; Z87.891 Personal history of nicotine dependence; Z85.820 Personal history of malignant melanoma of skin; Z89.411 Acquired absence of right great toe
CPT/HCPCS: 36415; 51701; 70450; 71045; 80048; 80053; 81001; 83036; 83605; 83735; 84443; 85025; 87040; 93005; 96365; 96367; 96372; 97161; 97165; 99285; A9270; G0378; J1650; J1815; J1956; J3370; J3475; J7120

== ENCOUNTER 2020-05-26 09:25 | Outpatient (CLI) | payer MEDICARE, SELFPAY ==
[2020-05-26 10:16] LABS: Hematocrit 38.3 % (37.0-47.0); Hemoglobin 12.2 g/dL (12.0-15.0); Mean Corpuscular HGB Conc 31.9 g/dl (32-36); Mean Corpuscular Hemoglobin 30.4 pg (26-34); Mean Corpuscular Volume 95.5 fl (80-100); Mean Platelet Volume 9.7 fl (7.4-10.4); Platelet Count Result 370 k/mm3 (150-375); Red Blood Count 4.01 M/mm3 (4.2-5.4); Red Cell Distribution Width 13.8 % (11.5-14.5); White Blood Count 10.4 K/mm3 (4.5-10.0)
[2020-05-26 10:20] LABS: Anion Gap 12 mmol/L (8-16); Blood Urea Nitrogen 12 mg/dL (7-17); Calcium 9.5 mg/dL (8.4-10.2); Carbon Dioxide 27 mmol/L (22-30); Chloride 104 mmol/L (98-107); Estimated Glomerular Filt Rate > 60; Glucose 122 mg/dL (65-105); Magnesium 1.4 mg/dL (1.6-2.3); Potassium 4.2 mmol/L (3.4-5.0); Sodium 143 mmol/L (137-145)
== END 2020-05-26 09:26 | disposition home or self-care (01) ==
LOC: ANHLAB 09:29
PROVIDERS: PCP Family Medicine; Visit Provider Physician Assistant
DX: D72.829 Elevated white blood cell count, unspecified (principal); R41.82 Altered mental status, unspecified; E83.42 Hypomagnesemia
CPT/HCPCS: 36415; 80048; 83735; 85027

== ENCOUNTER 2020-10-13 10:18 | Outpatient (CLI) | payer MEDICARE, SELFPAY ==
[2020-10-13 10:47] LABS: Basophils Absolute Auto 0.1 K/mm3 (0.0-0.1); Basophils Percent Auto 1.2 % (0.2-1.2); Eosinophils Absolute Auto 0.4 K/mm3 (0-0.3); Eosinophils Percent Auto 3.6 % (0-4.4); Hematocrit 44.2 % (37.0-47.0); Hemoglobin 14.1 g/dL (12.0-15.0); Immature Granulocyte Absolute 0.04 K/mm3 (0.00-0.031); Immature Granulocyte Percent A 0.4 % (0-0.5); Lymphocytes Absolute Auto 2.26 K/mm3 (0.9-3.2); Lymphocytes Percent Auto 23.4 % (18.3-44.2); Mean Corpuscular HGB Conc 31.9 g/dl (32-36); Mean Corpuscular Hemoglobin 30.7 pg (26-34); Mean Corpuscular Volume 96.3 fl (80-100); Monocytes Absolute Auto 0.5 K/mm3 (0.1-0.6); Neutrophils Absolute Auto 6.4 K/mm3 (1.3-6.7); Neutrophils Percent Auto 66.4 % (45.5-73.1); Platelet Count Result 333 k/mm3 (150-375); Red Blood Count 4.59 M/mm3 (4.2-5.4); Red Cell Distribution Width 14.2 % (11.5-14.5); White Blood Count 9.6 K/mm3 (4.5-10.0)
[2020-10-13 10:59] LABS: Alanine Aminotransferase 10 U/L (4-35); Albumin Level 4.4 g/dL (3.5-5.1); Alkaline Phosphatase 64 U/L (38-126); Anion Gap 10 mmol/L (8-16); Aspartate Amino Transferase 21 U/L (14-36); Bilirubin,Total 0.5 mg/dL (0.2-1.3); Blood Urea Nitrogen 17 mg/dL (7-17); Calcium 9.5 mg/dL (8.4-10.2); Carbon Dioxide 24 mmol/L (22-30); Chloride 108 mmol/L (98-107); Estimated Glomerular Filt Rate > 60; Glucose 115 mg/dL (65-105); Potassium 4.3 mmol/L (3.4-5.0); Sodium 142 mmol/L (137-145)
[2020-10-13 11:30] LABS: Thyroid Stimulating Hormone 0.356 uIU/mL (0.465-4.680); Total Triiodothyronine (T3) 0.75 NG/ML (0.97-1.69)
[2020-10-13 11:49] LABS: Free T4 Free Thyroxine 1.28 ng/mL (0.78-2.19)
== END 2020-10-13 10:19 | disposition home or self-care (01) ==
PROVIDERS: PCP Family Medicine; Visit Provider Nurse Practitioner
DX: R63.4 Abnormal weight loss (principal); E03.9 Hypothyroidism, unspecified
CPT/HCPCS: 36415; 80053; 84439; 84443; 84480; 85025

== ENCOUNTER 2021-01-16 09:10 | Outpatient (CLI) | payer MEDICARE, SELFPAY ==
[2021-01-16 10:25] LABS: Free T4 Free Thyroxine 1.15 ng/mL (0.78-2.19)
[2021-01-16 16:20] LABS: Total Triiodothyronine (T3) 0.97 NG/ML (0.97-1.69)
== END 2021-01-16 09:11 | disposition home or self-care (01) ==
LOC: ANHLAB 09:15
PROVIDERS: PCP Family Medicine; Visit Provider Nurse Practitioner
DX: E03.9 Hypothyroidism, unspecified (principal)
CPT/HCPCS: 36415; 84439; 84443; 84480

== ENCOUNTER 2021-04-18 11:48 | Outpatient (CLI) | payer MEDICARE, SELFPAY ==
[2021-04-18 14:06] LABS: Total Triiodothyronine (T3) 0.88 NG/ML (0.97-1.69)
[2021-04-18 14:31] LABS: Free T4 Free Thyroxine 1.37 ng/mL (0.78-2.19)
== END 2021-04-18 11:49 | disposition home or self-care (01) ==
LOC: ANHLAB 11:52
PROVIDERS: PCP Family Medicine; Visit Provider Nurse Practitioner
DX: E03.9 Hypothyroidism, unspecified (principal)
CPT/HCPCS: 36415; 84439; 84443; 84480

== ENCOUNTER 2021-07-27 07:41 | Outpatient (RCR) | payer MEDICARE, SELFPAY ==
[2021-05-04 12:58] VITALS: BMI 20.2
== END 2021-08-02 23:59 | disposition home or self-care (01) ==
LOC: ANHWOC 07:41
PROVIDERS: PCP Family Medicine; Visit Provider Family Medicine
DX: S90.821D Blister (nonthermal), right foot, subsequent encounter (principal); S90.424D Blister (nonthermal), right lesser toe(s), subsequent encounter
CPT/HCPCS: 99212; A9270; G0463

== ENCOUNTER 2021-11-16 07:32 | Outpatient (RCR) | payer MEDICARE, SELFPAY ==
[2021-08-03 00:03] VITALS: BMI 20.2
== END 2021-11-22 23:59 | disposition home or self-care (01) ==
LOC: ANHWOC 07:32
PROVIDERS: PCP Family Medicine; Visit Provider Family Medicine
DX: S90.821D Blister (nonthermal), right foot, subsequent encounter (principal); S90.424D Blister (nonthermal), right lesser toe(s), subsequent encounter
CPT/HCPCS: 99212; 99213; A9270; G0463

== ENCOUNTER 2022-02-22 11:17 | Outpatient (CLI) | payer MEDICARE, SELFPAY ==
[2022-02-22 11:53] LABS: Basophils Absolute Auto 0.1 K/mm3 (0.0-0.1); Basophils Percent Auto 1.5 % (0.2-1.2); Eosinophils Percent Auto 12.3 % (0-4.4); Hematocrit 42.3 % (37.0-47.0); Hemoglobin 13.1 g/dL (12.0-15.0); Immature Granulocyte Absolute 0.02 K/mm3 (0.00-0.031); Immature Granulocyte Percent A 0.3 % (0-0.5); Lymphocytes Absolute Auto 1.43 K/mm3 (0.9-3.2); Lymphocytes Percent Auto 17.9 % (18.3-44.2); Mean Corpuscular Hemoglobin 31.9 pg (26-34); Mean Corpuscular Volume 102.9 fl (80-100); Mean Platelet Volume 10.3 fl (7.4-10.4); Monocytes Absolute Auto 0.5 K/mm3 (0.1-0.6); Platelet Count Result 237 k/mm3 (150-375); Red Blood Count 4.11 M/mm3 (4.2-5.4); Red Cell Distribution Width 11.5 % (11.5-14.5)
[2022-02-22 12:13] LABS: Alanine Aminotransferase 14 U/L (6-35); Albumin Level 4.6 g/dL (3.5-5.1); Alkaline Phosphatase 87 U/L (38-126); Anion Gap 8 mmol/L (8-16); Aspartate Amino Transferase 20 U/L (14-36); Bilirubin,Total 0.5 mg/dL (0.2-1.3); Blood Urea Nitrogen 15 mg/dL (7-17); Calcium 9.2 mg/dL (8.4-10.2); Carbon Dioxide 27 mmol/L (22-30); Chloride 105 mmol/L (98-107); Estimated Glomerular Filt Rate > 60; Glucose 261 mg/dL (65-110); Potassium 4.9 mmol/L (3.4-5.0); Sodium 140 mmol/L (137-145)
[2022-02-22 12:35] LABS: Hemoglobin A1C 8.4 % (<5.7)
[2022-02-22 15:44] LABS: Erythrocyte Sedimentation Rate 18 mm/hr (0-20)
== END 2022-02-22 11:18 | disposition home or self-care (01) ==
LOC: ANHLAB 11:25
PROVIDERS: PCP Family Medicine; Visit Provider Nurse Practitioner Family
DX: S99.929A Unspecified injury of unspecified foot, initial encounter (principal); L97.519 Non-pressure chronic ulcer of other part of right foot with unspecified severity; E11.621 Type 2 diabetes mellitus with foot ulcer; M14.671 Charcot's joint, right ankle and foot
CPT/HCPCS: 36415; 80053; 83036; 85025; 85652; 86140

== ENCOUNTER 2022-03-07 12:22 | Outpatient (CLI) | payer MEDICARE, SELFPAY ==
--- NOTE | 2022-03-07 12:30 | ECG_ITS ---
Measurements Intervals [place] Rate: 76 P: 38 NJ: 150 QRS: 5 QRSD: 84 T: 56 QT: 381 QTc: 431 Interpretive Statements SINUS RHYTHM BASELINE ARTIFACT- I, II, III, AVR, AVL, AVF, V3-V6 NORMAL ECG Electronically Signed On 03-07-2022 12:49:58 CDT by Enrico Garcia D.O.
== END 2022-03-07 12:23 | disposition home or self-care (01) ==
LOC: ANHSURGERY 12:28
PROVIDERS: PCP Family Medicine; Visit Provider Orthopaedic Surgery
DX: Z01.810 Encounter for preprocedural cardiovascular examination (principal); E78.00 Pure hypercholesterolemia, unspecified; E11.9 Type 2 diabetes mellitus without complications
CPT/HCPCS: 93005

== ENCOUNTER 2022-03-08 02:12 | Day surgery (SDC) | payer MEDICARE, SELFPAY ==
[2022-03-05 09:06] VITALS: BMI 22.5
--- NOTE | 2022-03-05 09:16 | PC.NURSE ---
Report to the Outpatient Waiting Room, entrance under the green pavilion located off [facility], at time 6:00 on date 03/08/22. OR Time: 8:00. - You and your visitor will be asked a series of questions to screen for COVID 19 for your protection. - Only one visitor is allowed at this time. - The patient visitor is requested to leave or wait in car when not with patient. - A mask is required within the hospital. Patients may have clear liquids (water, carbonated beverages, clear teas, apple juice) until 3 hours prior to surgery (5:00) with a maximum of 20 ounces. - No food from midnight until time of surgery Take the following medications with a SIP of water the morning of surgery: AMLODIPINE, GABAPENTIN, LEVOTHYROXINE, PRAMIPEXOLE, PROPRANOLOL, PAIN PILL (IF NEEDED) Medications to discontinue per physician: N/A Date to take last dose: N/A Please no make-up, nail serbian, hairspray, perfume, deodorant, or body powder the day of surgery. No jewelry (including any body piercings) or valuables the day of surgery, leave them at home. Please take a shower or bath the night before, or the morning of, surgery with an antibacterial soap. Wear comfortable, loose fitting clothing. - Jewelry must be removed prior to entering the operating room. Rings and piercings that are not removed may be cut off. - The hospital will not accept responsibility for valuables. - Please leave all valuables, including medications, at home the day of surgery. If you are going home after surgery, a licensed local [place] truck driver must drive you home. - NO public transportation without another adult. - We recommend that an adult stay with you for 24 hours following discharge. - We also recommend that you do not drive, make important decision, drink alcoholic beverages, or take any drugs that were not prescribed by your health care provider for at least 24 hours after your discharge time. Follow any additional instructions given to you from your surgeon. If you or anyone in your household have experienced Covid symptoms in the past week, please notify your surgeon or the nurse liaison at the phone number below for possible testing. Telephone instructions given to PT - CHARISSE MORRIS and asked if any additional questions and then verbalized understanding. Patient advised to call surgeon office or pre surgery nurse liaison [phone] if any additional questions.
--- NOTE | 2022-03-07 13:37 | WPDANESEPPF ---
Anes - Initial Pre Proc Eval Procedure: Operation Date: 03/08/22 08:00 Proposed Procedures p Right Foot Transmetatarsal Amputation - Floyd Hale MD Date/Time: 03/07/22 13:37 Surgeon: Floyd Hale MD Pre Op Diagnosis: rt foot exposed ortho hardware, diabetic foot ulce Patient Data Age: 81 Gender: F Height: 1.6 m Weight: 57.61 kg Allergies Allergy/AdvReac Type Severity Reaction Status Date / Time codeine Allergy Severe SYNCOPAL Verified 03/08/22 06:21 SPELLS Penicillins Allergy Unknown Anaphylaxis Verified 03/08/22 06:21 Home Medications Medication Instructions Recorded Confirmed Type gabapentin 800 mg tablet 800 mg PO TID 07/14/19 03/08/22 History amlodipine 5 mg tablet 10 mg PO DAILY 05/04/20 03/08/22 History levothyroxine 100 mcg tablet 100 mcg PO QAM 05/04/20 03/08/22 History losartan 50 mg tablet 50 mg PO QPM 05/04/20 03/08/22 History metformin 1,000 mg tablet 1,000 mg PO BID 05/04/20 03/08/22 History pramipexole 0.75 mg tablet 0.75 mg PO TID 05/04/20 03/08/22 History propranolol 20 mg tablet 20 mg PO Q12H 05/04/20 03/08/22 History naloxone 4 mg/actuation nasal 4 mg intranasal Q3M PRN opioid 05/05/20 03/05/22 Rx spray (Narcan) overdose #2 ea glucose 4 gram chewable tablet 4 g PO Q15M PRN hypoglycemia #10 05/19/20 03/05/22 Rx tabs hydrocodone 5 mg-acetaminophen 325 1 tablet PO Q8H PRN Pain (Scale 05/19/20 03/08/22 Rx mg tablet Score 4-6) #0 tabs silver 200 mcg/gram topical gel 1 applic topical PRN PRN Wound 05/19/20 03/05/22 Rx (Silver-Sept) Care #45 grams insulin glargine 100 unit/mL (3 5 unit subcut QAM 05/04/21 03/08/22 History mL) subcutaneous pen (Basaglar KwikPen U-100 Insulin) Patient hx anesthesia problems: none Family hx anesthesia problems: none Results Review: All pre-operative results and documents have been reviewed as part of the pre-operative evaluation. [facility] Past Medical History Medical History (Updated 02/20/22 @ 16:19 by AMANDA Salguero) Charcot's joint, right ankle and foot Chronic pain DDD (degenerative disc disease) Diabetes Diabetic nephropathy Diabetic ulcer of right foot Exposed orthopaedic hardware GERD (gastroesophageal reflux disease) History of amputation of right great toe History of trigger finger Hypercholesteremia Hypertension Hypothyroid Lower extremity weakness Melanoma Nose Neuropathy Osteomyelitis Vision loss Surgical History Surgical History History of appendectomy History of bladder suspension procedure History of cholecystectomy (~1992) History of hysterectomy (~1983) History of tonsillectomy Family History Family History Mother Emphysema lung Father Emphysema lung Sibling Hypertension Emphysema lung Social History Social History Social History: Patient lives at home with her Pritesh. She wishes to be a Full Code. Her PCP is Dr. Cristina. Smoking packs per day: 1 Smoking cigarettes per day: 20.0 Years smoked: 10 Smoking pack-years: 10.00 Smoking status: Former smoker Tobacco type: cigarettes Second hand tobacco smoke exposure: No Smoking end date: 08/12/87 Additional smoking assessment comments: QUIT IN THE 'S Alcohol intake: former Substance use: never Substance use type: does not use Living arrangements: with family Gender identity (if verbalized by the patient): Female Spiritual care concerns: No Anes - Eval Final PreProcedure Day of Procedure 03/07/22 13:37 Patient weight: obese Heart: regular rate and rhythm Lungs: clear to auscultation and normal air movement Airway: Mallampati scale class II Neurological: alert and oriented Last oral intake: >/= 8 hours ASA classification: III Emergent: no Anesthetic plan: proceed Anesthesia type and monitoring: general LMA Results Review: All
[2022-03-08] VITALS (10 sets, daily range): BP systolic 103–139; BP diastolic 56–90; PULSE 60–68; RESP 12–16; TEMP 36.3–37.1; O2SAT 91–97
--- NOTE | ~2022-03-08 | XR_ITS ---
EXAMINATION: XR surgery orthopedic DATE: 03/08/2022 09:20 INDICATION: Amputation of the toes of the right foot. TECHNIQUE: 2 fluoroscopic images of the right forefoot were obtained during procedure performed by Dr Cathleen Hale. Radiologist was not present for the imaging or procedure. The amount of fluoroscopy time u sed during this procedure was 0.1 minutes. COMPARISON: 02/20/2022 FINDINGS: Amputation of the first second fifth toes and heads of the metatarsals with osteotomies across the ne cks of the first second fifth metatarsals. No fractures identified. 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 Expected small amount of soft tissue gas at the operative bed. IMPRESSION: 1. Expected appearance post distal transmetatarsal osteotomies for amputations of the first-fifth toe s. See procedure note for further detail. Reviewed, dictated and finalized at location A. IMPRESSION: 1. Expected appearance post distal transmetatarsal osteotomies for amputations of the first-fifth toes. See procedure note for further detail.
[2022-03-08] MEDS: LACTATED RINGERS 1,000 ML 30 ML IV CONT (07:11)
[2022-03-08] MEDS: KETOROLAC 15 MG/ML VIAL (*BKC) IV PUSH (07:11)
--- NOTE | 2022-03-08 07:20 | PM.IMHP ---
H&P: HPI History of Present Illness Date/Time: 03/08/22 07:20 Chief Complaint: Right foot ulcer, deformity Narrative: 81yo woman with peripheral neuropathy and right toe ulcers with exposed hardware and bone. Unrelieved with standard wound care and po abx. Review of Systems Constitutional: Constitutional: Denies fever(s) Eyes: Eyes: Denies blurry vision ENT: Reports Normal hearing present Cardiovascular: Cardiovascular: Denies chest pain and Denies dyspnea Respiratory: Respiratory: Denies dyspnea and Denies wheezing Gastrointestinal: Gastrointestinal: Denies abdominal pain Genitourinary: Genitourinary: Denies urinary urgency Musculoskeletal: Musculoskeletal: Reports as per HPI and Denies numbness Integumentary/Breasts: Skin/Breast: Denies changing lesions and Denies sores Neurologic: Reports Normal hearing present, Denies behavioral changes, Denies confusion, Denies numbness and Denies convulsions Psychiatric: Psychiatric: Denies behavioral changes, Denies confusion and Denies hallucinations Endocrine: Endocrine: Denies heat intolerance Hematologic/Lymphatic: Hematologic/Lymphatic: Denies easy bleeding Allergic/Immunologic: Allergic/Immunologic: Denies wheezing PMFSH Past Medical History Medical History Charcot's joint, right ankle and foot Chronic pain DDD (degenerative disc disease) Diabetes Diabetic nephropathy Diabetic ulcer of right foot Exposed orthopaedic hardware GERD (gastroesophageal reflux disease) History of amputation of right great toe History of trigger finger Hypercholesteremia Hypertension Hypothyroid Lower extremity weakness Melanoma Nose Neuropathy Osteomyelitis Vision loss Surgical History Surgical History History of appendectomy History of bladder suspension procedure History of cholecystectomy (~1992) History of hysterectomy (~1983) History of tonsillectomy Family History Family History Mother Emphysema lung Father Emphysema lung Sibling Hypertension Emphysema lung Social History Social History Social History: Patient lives at home with her Pritesh. She wishes to be a Full Code. Her PCP is Dr. Cristina. Smoking packs per day: 1 Smoking cigarettes per day: 20.0 Years smoked: 10 Smoking pack-years: 10.00 Smoking status: Former smoker Tobacco type: cigarettes Second hand tobacco smoke exposure: No Smoking end date: 08/12/87 Additional smoking assessment comments: QUIT IN THE Alcohol intake: former Substance use: never Substance use type: does not use Living arrangements: with family Gender identity (if verbalized by the patient): Female Spiritual care concerns: No Meds Home Medications and Allergies Home Medications Medication Instructions Recorded Confirmed Type gabapentin 800 mg tablet 800 mg PO TID 07/14/19 03/08/22 History amlodipine 5 mg tablet 10 mg PO DAILY 05/04/20 03/08/22 History levothyroxine 100 mcg tablet 100 mcg PO QAM 05/04/20 03/08/22 History losartan 50 mg tablet 50 mg PO QPM 05/04/20 03/08/22 History metformin 1,000 mg tablet 1,000 mg PO BID 05/04/20 03/08/22 History pramipexole 0.75 mg tablet 0.75 mg PO TID 05/04/20 03/08/22 History propranolol 20 mg tablet 20 mg PO Q12H 05/04/20 03/08/22 History naloxone 4 mg/actuation nasal 4 mg intranasal Q3M PRN opioid 05/05/20 03/05/22 Rx spray (Narcan) overdose #2 ea glucose 4 gram chewable tablet 4 g PO Q15M PRN hypoglycemia #10 05/19/20 03/05/22 Rx tabs hydrocodone 5 mg-acetaminophen 325 1 tablet PO Q8H PRN Pain (Scale 05/19/20 03/08/22 Rx mg tablet Score 4-6) #0 tabs silver 200 mcg/gram topical gel 1 applic topical PRN PRN Wound 05/19/20 03/05/22 Rx (Silver-Sept) Care #45 grams insulin glargine 100 unit/mL (3 5 unit sub
--- NOTE | 2022-03-08 07:28 | WPDHPUPDATE1 ---
History and Physical Update Update Date/Time: 03/08/22 07:28 History and Physical has been reviewed, including an updated exam of the patient. There are NO changes in the patient's condition. Risks, benefits, and alternatives have been discussed and questions answered. Patient agrees to proceed with procedure.
[2022-03-08] MEDS: ceFAZolin 2 GM/D5W 50 ML 2 GM/50 ML BAG IVPB (08:07)
[2022-03-08] MEDS: BUPIVACAINE HCL 0.5% PF 30 ML VIAL INFILTRATE (08:26)
--- NOTE | 2022-03-08 09:37 | P.OP_ITS ---
Procedure Note - Detailed Date of Procedure 03/08/22 Pre-op Diagnosis rt foot exposed ortho hardware, diabetic foot ulce Post-op Diagnosis Same Procedure Performed Right foot transmetatarsal amputation. 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 Deformity of the lesser toes noted with exposed hardware from previous surgery. Patient has failed standard wound care treatment and is at risk for infection. Presents for operative treatment. There does not appear to be any way to salvage the toes. She is indicated for transmetatarsal amputation. Description of Procedure Patient identified in the preoperative holding. Informed consent given. Operative extremity marked. Patient received intravenous antibiotics. Patient brought to the operating room where underwent general anesthetic by anesthesia team. Positioned supine on operating room table. Time-out performed confirming the patient, site of the surgery and the plan. Right foot prepped draped usual sterile surgical fashion using ChloraPrep skin solution. The surgical incision utilizing a plantar based skin flap closure was mapped out on the foot with marker pen. Local anesthetic with 0.5% Marcaine was used. Elliptical incision was then made at the base of the lesser toes with a 15 blade knife. Hemostasis was controlled electrocautery. Dissection was then carried down to the neck of the metatarsals and retractors were placed. The sagittal saw was then used to sequentially cut the 1st through 5th metatarsals. This was then brought forward and released off of the plantar soft tissue as 1 specimen. The lesser toes were passed off as a specimen. Any exposed tendon or non viable tissue was debrided using a rongeur and the knife. Tourniquet was then let down which had been inflated at the start of the case. Any bleeding points were coagulated. Wound then thoroughly irrigated with saline solution. Deep tissue closed with 2-0 Vicryl interrupted suture. Subcutaneous tissue repaired with 3-0 Monocryl interrupted suture and skin repaired with 3-0 Prolene interrupted suture. Sterile dressing applied. The patient was then woken from anesthesia, extubated and taken to the recovery room in stable condition. All sponge, needle, instrument counts were correct at the end of the case. Estimated Blood Loss -10.0 Tourniquet Time 22 Drains No Packing No Pathology Yes (Transmetatarsal amputation lesser toe specimen) Complications None Condition Stable Disposition PACU
[2022-03-08 09:52] LABS: Glucose Point of Care 203 mg/dl (65-105)
--- NOTE | 2022-03-08 10:26 | SUR.PHASEI ---
dr covington aware glucose is 203. no orders at this time.
== END 2022-03-08 11:55 | disposition home or self-care (01) ==
PROVIDERS: PCP Family Medicine; Visit Provider Orthopaedic Surgery
PROC: (CPT 28805; principal; 2022-03-08 08:00)
DX: E11.621 Type 2 diabetes mellitus with foot ulcer (principal); L97.519 Non-pressure chronic ulcer of other part of right foot with unspecified severity; T84.89XA Other specified complication of internal orthopedic prosthetic devices, implants and grafts, initial encounter; Y83.8 Other surgical procedures as the cause of abnormal reaction of the patient, or of later complication, without mention of misadventure at the time of the procedure; E11.42 Type 2 diabetes mellitus with diabetic polyneuropathy; E11.610 Type 2 diabetes mellitus with diabetic neuropathic arthropathy; E11.21 Type 2 diabetes mellitus with diabetic nephropathy; I10 Essential (primary) hypertension; E78.00 Pure hypercholesterolemia, unspecified; E03.9 Hypothyroidism, unspecified; K21.9 Gastro-esophageal reflux disease without esophagitis; G89.29 Other chronic pain; Z87.891 Personal history of nicotine dependence; Z79.84 Long term (current) use of oral hypoglycemic drugs; Z79.4 Long term (current) use of insulin; Z79.891 Long term (current) use of opiate analgesic
CPT/HCPCS: 28805; 82948; 88305; 88311; 99199; J0690; J1885; J2405; J2704; J3010; J7120

== ENCOUNTER 2022-03-13 07:14 | Outpatient (RCR) | payer MEDICARE, SELFPAY ==
[2021-11-23 00:03] VITALS: BMI 20.2
--- NOTE | 2022-03-13 08:46 | PM.PNORT ---
Progress Note: A&P Assessment and Plan (1) S/P transmetatarsal amputation of foot: Code(s): Z89.439 - Acquired absence of unspecified foot Status: Acute Assessment and Plan: 5 days status post right foot transmetatarsal amputation. Incision remains well approximated. Sutures intact. Blister on the dorsal aspect of the lateral forefoot consistent with patient's previous history of blistering. Not related to surgical intervention. Recommend beginning daily dressing changes with transfer dressing, antifungal powder and covering dry. Patient to continue fracture boot with weight-bearing on the heel to avoid wound dehiscence. Patient to follow-up in 1 week for re-evaluation. We will plan for suture removal at 3 weeks postop. Patient may benefit from a viktor wound VAC dressing for optimal closure of the transmetatarsal amputation. We will await slowed drainage to begin wound VAC dressing. Patient and educated on dressing changes. 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 Reviewed signs and symptoms of infection including fever, chills, night sweats, nausea, vomiting, diarrhea, changes to the wound bed or purulent drainage to report to the ED immediately. Patient verbalized understanding. (3) Charcot's joint, right ankle and foot: Code(s): M14.671 - Charcot's joint, right ankle and foot Status: Acute Subjective Subjective Date/Time Seen: 03/13/22 08:46 Post Op day: 5 (Right TMA) Interval history: 81-year-old female presents to the [facility] 5 days status post right transmetatarsal amputation. No complaints in the interim. Doing well currently. Review of Systems Review of Systems: All systems reviewed & are unremarkable except as noted in HPI and below Exam Const: General: comfortable Resp: Effort & Inspection: normal respiratory effort Skin: Wounds: wounds noted ( See extremity) Extrem: Other: right transmetatarsal amputation with incision well approximated. Blister on the dorsal aspect of the foot which is common for the patient. Not related to surgical intervention. Moderate amount of serosanguineous drainage on dressing. Surrounding tissue without signs of active infection. No malodor. No purulence. Psych: Affect: normal affect Objective Data Meds/Results Medications: Active Medications Generic Name Dose Route Start Last Admin Trade Name Freq PRN Reason Stop Dose Admin Gentamicin Sulfate 1 applic 01/11/22 12:45 Gentamicin Sulfate 0.1% Oint 15 Gm Tube TOPICAL 04/13/22 23:55 PRN PRN Wound Care Tolnaftate 1 applic 01/11/22 12:45 Tolnaftate 1% Powder 45 Gm Btl TOPICAL 04/13/22 23:55 PRN PRN Wound Care Wound Care/Dressing Products 1 patch 01/11/22 12:45 Mepilex Transfer Drsg 6x8 TOPICAL 04/13/22 23:55 PRN PRN Wound Care
== END 2022-03-14 23:59 | disposition home or self-care (01) ==
LOC: ANHWOC 07:14
PROVIDERS: PCP Family Medicine; Referring Provider Nurse Practitioner Family; Visit Provider Orthopaedic Surgery
DX: S90.821D Blister (nonthermal), right foot, subsequent encounter (principal); S90.424D Blister (nonthermal), right lesser toe(s), subsequent encounter
CPT/HCPCS: 99212; A9270; G0463

== ENCOUNTER 2022-05-29 07:15 | Outpatient (RCR) | payer MEDICARE, SELFPAY ==
[2022-03-15 00:04] VITALS: BMI 20.2
--- NOTE | 2022-03-20 09:47 | P.PNOP_ITS ---
Progress Note: A&P Assessment and Plan (1) S/P transmetatarsal amputation of foot: Code(s): Z89.439 - Acquired absence of unspecified foot Status: Acute Assessment and Plan: 1 week, 5 days status post right foot transmetatarsal amputation. Incision remains well approximated. Sutures intact. Blister on the dorsal aspect of the lateral forefoot consistent with patient's previous history of blistering, impr oving. Not related to surgical intervention. Recommend continuing daily dressing changes with transfer dressing, antifungal powder, gentamicin to blister and covering dry. Patient to continue fracture boot with weight-bearing on the heel to avoid wound dehiscence. Patient to follow-up in 1 week for re-evaluation. We will plan for suture removal in 1 week postop. Patient may benefit from a viktor wound VAC dressing for optimal closure of the transmetatarsal amputation. We will await slowed drainage to begin wound VAC dressing, possibly next week if not closed. Patient and educated on dressing changes. 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 Reviewed signs and symptoms of infection including fever, chills, night sweats, nausea, vomiting, diarrhea, changes to the wound bed or purulent drainage to report to the ED immediately. Patient verbalized understanding. (3) Charcot's joint, right ankle and foot: Code(s): M14.671 - Charcot's joint, right ankle and foot Status: Acute Subjective Subjective Date/Time Seen: 03/20/22 09:47 Post Op day: 5 (1 week, 5 days s/p Right TMA) Interval history: 81-year-old female presents to the [facility] 1 week, 5 days status post right transmetatarsal amputation. No complaints in the interim. Doing well currently. Review of Systems Review of Systems: All systems reviewed & are unremarkable except as noted in HPI and below Exam Const: General: comfortable Resp: Effort & Inspection: normal respiratory effort Skin: Wounds: wounds noted ( See extremity) Extrem: Other: Right transmetatarsal amputation with incision well approximated. Blister on the dorsal aspect of the foot which is common for the patient. Not related to surgical intervention. Moderate amount of serosanguineous drainage on dressing. Surrounding tissue without signs of active infection. No malodor. No purulence. Psych: Affect: normal affect
--- NOTE | 2022-03-27 09:05 | P.PNOP_ITS ---
Progress Note: A&P Assessment and Plan (1) S/P transmetatarsal amputation of foot: Code(s): Z89.439 - Acquired absence of unspecified foot Status: Acute Assessment and Plan: Three weeks right transmetatarsal amputation. Improved healing. Sutures removed today. No open areas or areas of drainage. Continue with current dressing changes daily. May wash and bathe. Follow-up in 1 week for reassessment. Continue with fracture boot in the Interim. (2) Diabetes: Qualifiers: Diabetes mellitus type: type 2 Diabetes mellitus fdc insulin use: unspecified fdc insulin use status Diabetes mellitus complication status: with neurologic complications Diabetes mellitus complication detail: with polyneuropathy Qualified Code(s): E11.42 - Type 2 diabetes mellitus with diabetic polyneuropathy Code(s): E11.9 - Type 2 diabetes mellitus without complications Status: Acute Assessment and Plan: Discussed importance of proper nutrition, diabetic diet and medication compliance for optimal healing. Reviewed signs and symptoms of infection including fever, chills, night sweats, nausea, vomiting, diarrhea, changes to the wound bed or purulent drainage to report to the ED immediately. Patient verbalized understanding. (3) Charcot's joint, right ankle and foot: Code(s): M14.671 - Charcot's joint, right ankle and foot Status: Acute Subjective Subjective Date/Time Seen: 03/27/22 09:05 Post Op day: 19 Principal diagnosis: RT transmet Interval history: 81-year-old female presents to the [facility] clinic 2 week, 5 days status post right transmetatarsal amputation. No complaints in the interim. Doing well currently. Daily dressing changes. Minimal drainage. No pain. Exam Const: General: comfortable Resp: Effort & Inspection: normal respiratory effort Extrem: Other: Right transmetatarsal amputation with incision well approximated. Improved healing. No drainage. Surrounding tissue without signs of active infection. No malodor. No purulence. Psych: Affect: normal affect Objective Data Meds/Results Medications: Active Medications Generic Name Dose Route Start Last Admin Trade Name Freq PRN Reason Stop Dose Admin Gentamicin Sulfate 1 applic 03/20/22 09:00 Gentamicin Sulfate 0.1% Oint 15 Gm Tube TOPICAL 06/20/22 23:55 PRN PRN Wound Care Tolnaftate 1 applic 03/20/22 08:30 Tolnaftate 1% Powder 45 Gm Btl TOPICAL 06/20/22 23:55 PRN PRN Wound Care Wound Care/Dressing Products 1 patch 03/20/22 09:00 Mepilex Transfer Drsg 6x8 TOPICAL 06/20/22 23:55 PRN PRN Wound Care
--- NOTE | 2022-04-03 09:20 | PM.PNORT ---
Progress Note: A&P Assessment and Plan (1) S/P transmetatarsal amputation of foot: Code(s): Z89.439 - Acquired absence of unspecified foot Status: Acute Assessment and Plan: 3.5 weeks s/p right transmetatarsal amputation. Improved healing. Wound closed. No open areas or areas of drainage. Continue with current dressing changes daily. May wash and bathe. Follow-up in 1 week for reassessment. Continue with fracture boot in the interim. Patient will require custom orthotics/prosthesis/depth shoes. Patient requires custom fabricated orthosis. The patient is unable to be fit with a pre fabricated orthosis. Patient's condition is expected duration of greater than 1 year. Due to the patients orthopedic status with bone and soft tissue deformity, weakness, neurologic involvement custom fabricating is necessary to prevent tissue injury. The patient requires a custom orthosis for the above condition. 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 Reviewed signs and symptoms of infection including fever, chills, night sweats, nausea, vomiting, diarrhea, changes to the wound bed or purulent drainage to report to the ED immediately. Patient verbalized understanding. (3) Charcot's joint, right ankle and foot: Code(s): M14.671 - Charcot's joint, right ankle and foot Status: Acute Subjective Subjective Date/Time Seen: 04/03/22 09:20 Principal diagnosis: RT transmet Interval history: 81-year-old female presents to the [facility] wound clinic 3 weeks, 5 days status post right transmetatarsal amputation. No complaints in the interim. Doing well currently. Daily dressing changes. Minimal drainage. No pain. Exam Const: General: comfortable Resp: Effort & Inspection: normal respiratory effort Skin: Wounds: wounds noted ( See extremity) Extrem: Other: Right transmetatarsal amputation with incision well approximated. Improved healing. No drainage. Surrounding tissue without signs of active infection. No malodor. No purulence. Psych: Affect: normal affect Objective Data Meds/Results Medications: Active Medications Generic Name Dose Route Start Last Admin Trade Name Geoffq PRN Reason Stop Dose Admin Gentamicin Sulfate 1 applic 03/20/22 09:00 Gentamicin Sulfate 0.1% Oint 15 Gm Tube TOPICAL 06/20/22 23:55 PRN PRN Wound Care Tolnaftate 1 applic 03/20/22 08:30 Tolnaftate 1% Powder 45 Gm Btl TOPICAL 06/20/22 23:55 PRN PRN Wound Care Wound Care/Dressing Products 1 patch 03/20/22 09:00 Mepilex Transfer Drsg 6x8 TOPICAL 06/20/22 23:55 PRN PRN Wound Care
--- NOTE | 2022-04-10 09:07 | PM.PNORT ---
Progress Note: A&P Assessment and Plan (1) S/P transmetatarsal amputation of foot: Code(s): Z89.439 - Acquired absence of unspecified foot Status: Acute Assessment and Plan: 4.5 weeks s/p right transmetatarsal amputation. Incision well healed. No open skin/irritation on dorsal foot as previously noted. She does have a new small blister on the dorsal foot which is not open. Patient/ believe this is due to pressure from the fracture boot. Recommended adding Mepilex foam. Patient waiting for shoes/inserts to be made by [facility]. Follow-up in 3 weeks for reevaluation. Contact office sooner for signs of infection/new wounds. Continue fracture boot. Patient requires custom fabricated orthosis. The patient is unable to be fit with a pre fabricated orthosis. Patient's condition is expected duration of greater than 1 year. Due to the patients orthopedic status with bone and soft tissue deformity, weakness, neurologic involvement custom fabricating is necessary to prevent tissue injury. The patient requires a custom orthosis for the above condition. 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 Reviewed signs and symptoms of infection including fever, chills, night sweats, nausea, vomiting, diarrhea, changes to the wound bed or purulent drainage to report to the ED immediately. Patient verbalized understanding. (3) Charcot's joint, right ankle and foot: Code(s): M14.671 - Charcot's joint, right ankle and foot Status: Acute Subjective Subjective Date/Time Seen: 04/10/22 09:07 Principal diagnosis: RT transmet Interval history: 81-year-old female presents to the [facility] clinic 4 weeks, 5 days status post right transmetatarsal amputation. No complaints in the interim. Doing well currently. No open wounds. Small new blister on dorsal midfoot. Review of Systems Review of Systems: All systems reviewed & are unremarkable except as noted in HPI and below Exam Const: General: comfortable Resp: Effort & Inspection: normal respiratory effort Skin: Wounds: wounds noted ( See extremity) Extrem: Other: Right transmetatarsal amputation with incision well approximated. Improved healing. No drainage. Surrounding tissue without signs of active infection. No malodor. No purulence. Psych: Affect: normal affect Objective Data Meds/Results Medications: Active Medications Generic Name Dose Route Start Last Admin Trade Name Freq PRN Reason Stop Dose Admin Gentamicin Sulfate 1 applic 03/20/22 09:00 Gentamicin Sulfate 0.1% Oint 15 Gm Tube TOPICAL 06/20/22 23:55 PRN PRN Wound Care Tolnaftate 1 applic 03/20/22 08:30 Tolnaftate 1% Powder 45 Gm Btl TOPICAL 06/20/22 23:55 PRN PRN Wound Care Wound Care/Dressing Products 1 patch 03/20/22 09:00 Mepilex Transfer Drsg 6x8 TOPICAL 06/20/22 23:55 PRN PRN Wound Care
--- NOTE | 2022-05-01 12:15 | PCWOUND ---
WOCN NOTE Patient did not show up for appointment, left message.
--- NOTE | 2022-05-08 09:10 | P.PNOP_ITS ---
Progress Note: A&P Assessment and Plan (1) S/P transmetatarsal amputation of foot: Code(s): Z89.439 - Acquired absence of unspecified foot Status: Acute Assessment and Plan: 7.5 weeks s/p right transmetatarsal amputation. Incision well healed. Recurrent open skin/irritation on dorsal foot as previously noted. Continue daily dressing changes with gentamicin, Mepilex foam and antifungal powder. Patient waiting for shoes/inserts to be made by [facility]. Follow-up in 3 weeks for reevaluation. Contact office sooner for signs of infection/new wounds. Continue fracture boot. Patient requires custom fabricated orthosis. The patient is unable to be fit with a pre fabricated orthosis. Patient's condition is expected duration of greater than 1 year. Due to the patients orthopedic status with bone and soft tissue deformity, weakness, neurologic involvement custom fabricating is necessary to prevent tissue injury. The patient requires a custom orthosis for the above condition. 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 Reviewed signs and symptoms of infection including fever, chills, night sweats, nausea, vomiting, diarrhea, changes to the wound bed or purulent drainage to report to the ED immediately. Patient verbalized understanding. (3) Charcot's joint, right ankle and foot: Code(s): M14.671 - Charcot's joint, right ankle and foot Status: Acute Subjective Subjective Date/Time Seen: 05/08/22 09:10 Principal diagnosis: RT transmet Interval history: 81-year-old female presents to the [facility] wound clinic 7 weeks, 5 days status post right transmetatarsal amputation. No complaints in the interim. Doing well currently. Small recurrent blister on dorsal midfoot. Review of Systems Review of Systems: All systems reviewed & are unremarkable except as noted in HPI and below Exam Const: General: comfortable Resp: Effort & Inspection: normal respiratory effort Skin: Wounds: wounds noted ( See extremity) Extrem: Other: Right transmetatarsal amputation with incision well approximated. Improved healing. No drainage. Surrounding tissue without signs of active infection. No malodor. No purulence Open wound on the dorsal midfoot measures 2.5x1.0x0.1cm, 100% red/pink. Recurrent blister. Psych: Affect: normal affect Objective Data Meds/Results Medications: Active Medications Generic Name Dose Route Start Last Admin Trade Name Freq PRN Reason Stop Dose Admin Gentamicin Sulfate 1 applic 03/20/22 09:00 Gentamicin Sulfate 0.1% Oint 15 Gm Tube TOPICAL 06/20/22 23:55 PRN PRN Wound Care Tolnaftate 1 applic 03/20/22 08:30 Tolnaftate 1% Powder 45 Gm Btl TOPICAL 06/20/22 23:55 PRN PRN Wound Care Wound Care/Dressing Products 1 patch 03/20/22 09:00 Mepilex Transfer Drsg 6x8 TOPICAL 06/20/22 23:55 PRN PRN Wou
--- NOTE | 2022-05-29 09:22 | PM.PNORT ---
Progress Note: A&P Assessment and Plan (1) S/P transmetatarsal amputation of foot: Code(s): Z89.439 - Acquired absence of unspecified foot Status: Acute Assessment and Plan: 3 months status post right transmetatarsal amputation. Wound well healed. Waiting for custom insert with prosthetic. Will contact prosthetic company to try and facilitate. May continue with diabetic shoe in the interim. Daily skin check. Notify office for any changes. Otherwise follow-up in 2 months FOR EVALUATION PROSTHESIS. Subjective Subjective Date/Time Seen: 05/29/22 09:22 Post Op day: Three mo (3 mos) Principal diagnosis: RT transmet Interval history: 81-year-old female presents to the [facility] wound clinic 11 weeks, 5 days status post right transmetatarsal amputation. No complaints in the interim. Doing well currently. blister on dorsal midfoot healed. Exam Const: General: comfortable Resp: Effort & Inspection: normal respiratory effort Skin: Wounds: wounds noted ( See extremity) Extrem: Other: Right transmetatarsal amputation with incision well approximated. Well healed. No drainage/ no open areas. Surrounding tissue without signs of active infection. No malodor. No purulence Psych: Affect: normal affect Objective Data Meds/Results Medications: Active Medications Generic Name Dose Route Start Last Admin Trade Name Freq PRN Reason Stop Dose Admin Gentamicin Sulfate 1 applic 03/20/22 09:00 Gentamicin Sulfate 0.1% Oint 15 Gm Tube TOPICAL 06/20/22 23:55 PRN PRN Wound Care Tolnaftate 1 applic 03/20/22 08:30 Tolnaftate 1% Powder 45 Gm Btl TOPICAL 06/20/22 23:55 PRN PRN Wound Care Wound Care/Dressing Products 1 patch 03/20/22 09:00 Mepilex Transfer Drsg 6x8 TOPICAL 06/20/22 23:55 PRN PRN Wound Care Wound Care/Dressing Products 1 each 05/08/22 12:43 Foam Bandage (Mepilex 4x4) Bandage TOPICAL 08/07/22 23:55 PRN PRN Wound Care
== END 2022-06-18 23:59 | disposition home or self-care (01) ==
LOC: ANHWOC 07:15
PROVIDERS: PCP Family Medicine; Referring Provider Nurse Practitioner Family; Visit Provider Orthopaedic Surgery
DX: E11.621 Type 2 diabetes mellitus with foot ulcer (principal); L97.511 Non-pressure chronic ulcer of other part of right foot limited to breakdown of skin; M14.671 Charcot's joint, right ankle and foot
CPT/HCPCS: 99212; 99213; A9270; G0463

== ENCOUNTER 2022-07-31 08:26 | Outpatient (RCR) | payer MEDICARE, SELFPAY ==
--- NOTE | 2022-07-31 09:01 | PM.IMHP ---
H&P: HPI History of Present Illness Date/Time: 07/31/22 09:01 Chief Complaint: Right foot Charcot with transmetatarsal amputation Narrative: patient returns to [facility] for re-evaluation of the right foot. Five months status post transmetatarsal amputation. Still awaiting custom prosthesis. She has fabricated her own prosthesis in the interim. Review of Systems Constitutional: Constitutional: Denies fever(s) Eyes: Eyes: Denies blurry vision ENT: Reports Normal hearing present Cardiovascular: Cardiovascular: Denies chest pain and Denies dyspnea Respiratory: Respiratory: Denies dyspnea and Denies wheezing Gastrointestinal: Gastrointestinal: Denies abdominal pain Genitourinary: Genitourinary: Denies urinary urgency Musculoskeletal: Musculoskeletal: Reports as per HPI and Denies numbness Integumentary/Breasts: Skin/Breast: Denies changing lesions and Denies sores Neurologic: Reports Normal hearing present, Denies behavioral changes, Denies confusion, Denies numbness and Denies convulsions Psychiatric: Psychiatric: Denies behavioral changes, Denies confusion and Denies hallucinations Endocrine: Endocrine: Denies heat intolerance Hematologic/Lymphatic: Hematologic/Lymphatic: Denies easy bleeding Allergic/Immunologic: Allergic/Immunologic: Denies wheezing PMFSH Past Medical History Medical History Charcot's joint, right ankle and foot Chronic pain DDD (degenerative disc disease) Diabetes Diabetic nephropathy Diabetic ulcer of right foot Exposed orthopaedic hardware GERD (gastroesophageal reflux disease) History of amputation of right great toe History of trigger finger Hypercholesteremia Hypertension Hypothyroid Lower extremity weakness Melanoma Nose Neuropathy Osteomyelitis Vision loss Surgical History Surgical History History of appendectomy History of bladder suspension procedure History of cholecystectomy (~1992) History of hysterectomy (~1983) History of tonsillectomy S/P transmetatarsal amputation of foot Family History Family History Mother Emphysema lung Father Emphysema lung Sibling Hypertension Emphysema lung Social History Social History Social History: Patient lives at home with her Pritesh. She wishes to be a Full [employer]. Her PCP is Dr. Cristina. Smoking packs per day: 1 Smoking cigarettes per day: 20.0 Years smoked: 10 Smoking pack-years: 10.00 Smoking status: Former smoker Tobacco type: cigarettes Second hand tobacco smoke exposure: No Smoking end date: 08/12/87 Additional smoking assessment comments: QUIT IN THE Alcohol intake: former Substance use: never Substance use type: does not use Gender identity (if verbalized by the patient): Female Spiritual care concerns: No Meds Home Medications and Allergies Home Medications Medication Instructions Recorded Confirmed Type gabapentin 800 mg tablet 800 mg PO TID 07/14/19 03/20/22 History amlodipine 5 mg tablet 10 mg PO DAILY 05/04/20 03/20/22 History levothyroxine 100 mcg tablet 100 mcg PO QAM 05/04/20 03/20/22 History losartan 50 mg tablet 50 mg PO QPM 05/04/20 03/20/22 History metformin 1,000 mg tablet 1,000 mg PO BID 05/04/20 03/20/22 History pramipexole 0.75 mg tablet 0.75 mg PO TID 05/04/20 03/20/22 History propranolol 20 mg tablet 20 mg PO Q12H 05/04/20 03/20/22 History naloxone 4 mg/actuation nasal 4 mg intranasal Q3M PRN opioid 05/05/20 03/20/22 Rx spray (Narcan) overdose #2 ea glucose 4 gram chewable tablet 4 g PO Q15M PRN hypoglycemia #10 05/19/20 03/20/22 Rx tabs hydrocodone 5 mg-acetaminophen 325 1 tablet PO Q8H PRN Pain (Scale 05/19/20 03/20/22 Rx mg tablet Score 4-6) #0 tabs silver 200 mcg/gram topical
== END 2022-09-14 15:16 | disposition home or self-care (01) ==
LOC: ANHWOC 08:26
PROVIDERS: PCP Family Medicine; Referring Provider Orthopaedic Surgery; Visit Provider Nurse Practitioner Family
DX: E11.621 Type 2 diabetes mellitus with foot ulcer (principal); L97.511 Non-pressure chronic ulcer of other part of right foot limited to breakdown of skin; M14.671 Charcot's joint, right ankle and foot
CPT/HCPCS: 99212; G0463

== ENCOUNTER 2023-02-14 12:10 | Outpatient (CLI) | payer MEDICARE, SELFPAY ==
[2023-02-14 13:02] LABS: Basophils Absolute Auto 0.2 K/mm3 (0.0-0.1); Basophils Percent Auto 1.7 % (0.2-1.2); Eosinophils Absolute Auto 1.2 K/mm3 (0-0.3); Eosinophils Percent Auto 13.2 % (0-4.4); Hematocrit 42.9 % (37.0-47.0); Hemoglobin 13.1 g/dL (12.0-15.0); Immature Granulocyte Absolute 0.07 K/mm3 (0.00-0.031); Immature Granulocyte Percent A 0.8 % (0-0.5); Lymphocytes Absolute Auto 1.68 K/mm3 (0.9-3.2); Lymphocytes Percent Auto 18.7 % (18.3-44.2); Mean Corpuscular HGB Conc 30.5 g/dl (32-36); Mean Corpuscular Hemoglobin 31.5 pg (26-34); Mean Corpuscular Volume 103.1 fl (80-100); Monocytes Absolute Auto 0.5 K/mm3 (0.1-0.6); Monocytes Percent Auto 5.6 % (2.6-8.5); Neutrophils Absolute Auto 5.4 K/mm3 (1.3-6.7); Platelet Count Result 284 k/mm3 (150-375); Red Blood Count 4.16 M/mm3 (4.2-5.4)
[2023-02-14 13:24] LABS: Alanine Aminotransferase 24 U/L (6-35); Albumin Level 4.5 g/dL (3.5-5.1); Alkaline Phosphatase 56 U/L (38-126); Anion Gap 13 mmol/L (8-16); Aspartate Amino Transferase 35 U/L (14-36); Bilirubin,Total 0.3 mg/dL (0.2-1.3); Blood Urea Nitrogen 13 mg/dL (7-17); Carbon Dioxide 15 mmol/L (22-30); Chloride 113 mmol/L (98-107); Cholesterol 133 mg/dL (0-200); Estimated Glomerular Filt Rate > 60; Glucose 188 mg/dL (65-110); HDL Direct 34 mg/dL; Potassium 4.7 mmol/L (3.4-5.0); Sodium 141 mmol/L (137-145); Triglycerides 501 mg/dL (<150)
[2023-02-14 13:29] LABS: LDL Cholesterol Direct 39 mg/dL
[2023-02-14 13:41] LABS: Free T4 Free Thyroxine 1.23 ng/mL (0.78-2.19)
[2023-02-14 13:48] LABS: Hemoglobin A1C 8.4 % (<5.7); Thyroid Stimulating Hormone 0.188 uIU/mL (0.465-4.680); Total Triiodothyronine (T3) 0.85 NG/ML (0.97-1.69)
== END 2023-02-14 12:11 | disposition home or self-care (01) ==
PROVIDERS: PCP Family Medicine; Visit Provider Nurse Practitioner Adult Health
DX: I10 Essential (primary) hypertension (principal); E55.9 Vitamin D deficiency, unspecified; E11.9 Type 2 diabetes mellitus without complications; E78.5 Hyperlipidemia, unspecified; R53.1 Weakness; R53.83 Other fatigue
CPT/HCPCS: 36415; 80053; 80061; 83036; 84439; 84443; 84480; 85025

== ENCOUNTER 2023-02-16 11:12 | Outpatient (NON) | payer MEDICARE, SELFPAY ==
[2023-02-16 11:55] LABS: Creatinine Urine 92.7 mg/dL
[2023-02-16 12:00] LABS: Microalbumin Urine Random 130.7 mg/L (0-16.7)
== END 2023-02-16 11:13 | disposition home or self-care (01) ==
PROVIDERS: PCP Family Medicine; Visit Provider Family Medicine
DX: E55.9 Vitamin D deficiency, unspecified (principal); I10 Essential (primary) hypertension; E11.9 Type 2 diabetes mellitus without complications; E78.5 Hyperlipidemia, unspecified; R53.1 Weakness; R53.83 Other fatigue
CPT/HCPCS: 82043

== ENCOUNTER 2023-10-16 09:44 | Outpatient (CLI) | payer MEDICARE, SELFPAY ==
[2023-10-16 10:22] LABS: Basophils Absolute Auto 0.1 K/mm3 (0.0-0.1); Eosinophils Absolute Auto 0.5 K/mm3 (0-0.3); Eosinophils Percent Auto 4.8 % (0-4.4); Hematocrit 44.7 % (37.0-47.0); Hemoglobin 13.3 g/dL (12.0-15.0); Immature Granulocyte Percent A 0.9 % (0-0.5); Lymphocytes Absolute Auto 1.45 K/mm3 (0.9-3.2); Mean Corpuscular HGB Conc 29.8 g/dl (32-36); Mean Corpuscular Volume 104.2 fl (80-100); Mean Platelet Volume 9.9 fl (7.4-10.4); Monocytes Absolute Auto 0.4 K/mm3 (0.1-0.6); Monocytes Percent Auto 3.8 % (2.6-8.5); Neutrophils Absolute Auto 8.6 K/mm3 (1.3-6.7); Neutrophils Percent Auto 76.5 % (45.5-73.1); Platelet Count Result 351 k/mm3 (150-375); Red Blood Count 4.29 M/mm3 (4.2-5.4); Red Cell Distribution Width 13.4 % (11.5-14.5); White Blood Count 11.2 K/mm3 (4.5-10.0)
[2023-10-16 10:41] LABS: Hypochromasia 1+ (NORMAL); Platelet Estimate Adequate (Adequate); Schistocytes None Seen (NORMAL)
[2023-10-16 10:45] LABS: Hemoglobin A1C 8.4 % (<5.7)
[2023-10-16 10:47] LABS: Alanine Aminotransferase 15 U/L (6-35); Albumin Level 4.4 g/dL (3.5-5.1); Alkaline Phosphatase 95 U/L (38-126); Anion Gap 15 mmol/L (8-16); Aspartate Amino Transferase 24 U/L (14-36); Bilirubin,Total 0.6 mg/dL (0.2-1.3); Blood Urea Nitrogen 11 mg/dL (7-17); Calcium 9.5 mg/dL (8.4-10.2); Carbon Dioxide 15 mmol/L (22-30); Chloride 111 mmol/L (98-107); Cholesterol 164 mg/dL (0-200); Estimated Glomerular Filt Rate > 60; Glucose 178 mg/dL (65-110); HDL Direct 42 mg/dL; Potassium 4.5 mmol/L (3.4-5.0); Sodium 141 mmol/L (137-145); Triglycerides 322 mg/dL (<150)
[2023-10-16 11:00] LABS: LDL Cholesterol Direct 67 mg/dL
[2023-10-16 11:07] LABS: Free T4 Free Thyroxine 0.67 ng/mL (0.78-2.19)
== END 2023-10-16 09:45 | disposition home or self-care (01) ==
PROVIDERS: PCP Family Medicine; Visit Provider Family Medicine
DX: I10 Essential (primary) hypertension (principal); E11.9 Type 2 diabetes mellitus without complications; E78.5 Hyperlipidemia, unspecified; Z13.29 Encounter for screening for other suspected endocrine disorder
CPT/HCPCS: 36415; 80053; 80061; 83036; 84439; 84443; 84480; 85025

== ENCOUNTER 2024-04-09 11:40 | Outpatient (CLI) | payer MEDICARE, SELFPAY ==
[2024-04-09 12:25] LABS: Basophils Absolute Auto 0.1 K/mm3 (0.0-0.1); Basophils Percent Auto 0.8 % (0.2-1.2); Eosinophils Absolute Auto 0.9 K/mm3 (0-0.3); Eosinophils Percent Auto 8.2 % (0-4.4); Hematocrit 36.7 % (37.0-47.0); Hemoglobin 11.2 g/dL (12.0-15.0); Immature Granulocyte Absolute 0.07 K/mm3 (0.00-0.031); Immature Granulocyte Percent A 0.6 % (0-0.5); Lymphocytes Absolute Auto 1.86 K/mm3 (0.9-3.2); Lymphocytes Percent Auto 16.4 % (18.3-44.2); Mean Corpuscular HGB Conc 30.5 g/dl (32-36); Mean Corpuscular Hemoglobin 31.2 pg (26-34); Mean Corpuscular Volume 102.2 fl (80-100); Monocytes Absolute Auto 0.5 K/mm3 (0.1-0.6); Monocytes Percent Auto 4.6 % (2.6-8.5); Neutrophils Absolute Auto 7.8 K/mm3 (1.3-6.7); Neutrophils Percent Auto 69.4 % (45.5-73.1); Platelet Count Result 374 k/mm3 (150-375); Red Blood Count 3.59 M/mm3 (4.2-5.4); Red Cell Distribution Width 12.2 % (11.5-14.5); White Blood Count 11.3 K/mm3 (4.5-10.0)
[2024-04-09 12:48] LABS: Alanine Aminotransferase 8 U/L (6-35); Albumin Level 4.1 g/dL (3.5-5.1); Alkaline Phosphatase 56 U/L (38-126); Anion Gap 12 mmol/L (4-12); Aspartate Amino Transferase 17 U/L (14-36); Bilirubin,Total 0.3 mg/dL (0.2-1.3); Blood Urea Nitrogen 19 mg/dL (7-17); Calcium 9.4 mg/dL (8.4-10.2); Carbon Dioxide 24 mmol/L (22-30); Chloride 106 mmol/L (98-107); Cholesterol 116 mg/dL (0-200); Estimated Glomerular Filt Rate > 60; Glucose 149 mg/dL (65-110); HDL Direct 28 mg/dL; Potassium 4.4 mmol/L (3.4-5.0); Sodium 142 mmol/L (137-145); Triglycerides 167 mg/dL (<150)
[2024-04-09 12:59] LABS: LDL Cholesterol Direct 51 mg/dL
[2024-04-09 14:43] LABS: Hemoglobin A1C 8.5 % (<5.7)
== END 2024-04-09 11:41 | disposition home or self-care (01) ==
PROVIDERS: PCP Family Medicine; Visit Provider Registered Nurse
DX: E78.5 Hyperlipidemia, unspecified (principal); E11.9 Type 2 diabetes mellitus without complications; I10 Essential (primary) hypertension
CPT/HCPCS: 36415; 80053; 80061; 83036; 85025

== ENCOUNTER 2024-04-17 12:26 | Outpatient (CLI) | payer MEDICARE, SELFPAY ==
--- NOTE | 2024-04-17 13:00 | ECG_ITS ---
Test Date: 2024-04-17 13:08:01 Measurements Intervals [place] Rate: 70 P: 47 RI: 163 QRS: 4 QRSD: 85 T: 40 QT: 399 QTc: 431 Interpretive Statements SINUS RHYTHM BASELINE ARTIFACT- I, III, AVR, AVL, AVF, V1-V6 NORMAL ECG No previous ECG available for comparison Electronically Signed On 04-17-2024 15:33:03 CDT by Enrico Garcia D.O.
== END 2024-04-17 12:27 | disposition home or self-care (01) ==
PROVIDERS: PCP Family Medicine; Visit Provider Orthopaedic Surgery
DX: Z01.818 Encounter for other preprocedural examination (principal); E78.00 Pure hypercholesterolemia, unspecified; I10 Essential (primary) hypertension
CPT/HCPCS: 93005

== ENCOUNTER 2024-04-23 01:26 | Day surgery (SDC) | payer MEDICARE, SELFPAY ==
[2024-04-15 14:57] VITALS: BMI 21.2
--- NOTE | 2024-04-15 15:13 | PC.NURSE ---
Report to the Outpatient Waiting Room, entrance under the green pavilion located off [facility], at time on date . Planned Procedure Time: .? Time changes happen often and if your time is changed the preop area will call you the afternoon before. - You and your visitor will be asked to self-screen and do not enter if you have any COVID symptoms. Please call surgeon if you need to reschedule. - A mask is optional within the hospital at this time. Patients may have clear liquids (water, carbonated beverages, clear teas, apple juice) until 3 hours prior to surgery (09:00am) with a maximum of 20 ounces. - No food from midnight until time of surgery and no smoking Take only the following medications with a SIP of water on the morning of surgery: ___Amlodipine, Gabapentin, and Propanalol. Hydrocodone as needed for pain DO NOT STOP ANY OF YOUR OTHER PRESCRIPTION MEDICATIONS PRIOR TO SURGERY EXCEPT THE FOLLOWING Medications to discontinue per physician None Date to take last dose____None Please no make-up, nail yoruba, hairspray, perfume, deodorant, or body powder the day of surgery.? No jewelry (including any body piercings) or valuables the day of surgery, leave them at home.? Please take a shower or bath the night before, or the morning of, surgery with an antibacterial soap.? Wear comfortable, loose fitting clothing.? - Jewelry must be removed prior to entering the operating room.? Rings and piercings that are not removed may be cut off. - The hospital will not accept responsibility for valuables.? - Please leave all valuables, including medications, at home the day of surgery. If you are going home after surgery, a licensed class c driver must drive you home.? - NO public transportation without another adult if you receive anesthesia. - We recommend that an adult stay with you for 24 hours following discharge. - We also recommend that you do not drive, make important decision, drink alcoholic beverages, or take any drugs that were not prescribed by your health care provider for at least 24 hours after your discharge time. Follow any additional instructions given to you from your surgeon. Telephone instructions given to __patient and asked if any additional questions and then verbalized understanding. Patient advised to call surgeon office or pre surgery nurse liaison [phone] if any additional questions.
[2024-04-23] VITALS (7 sets, daily range): BP systolic 126–159; BP diastolic 66–92; PULSE 60–69; RESP 12–18; TEMP 36.4; O2SAT 95–100
--- NOTE | ~2024-04-23 | XR_ITS ---
EXAMINATION: XR surgery orthopedic DATE: 04/23/2024 13:54 INDICATION: Left foot transmetatarsal amputation TECHNIQUE: 4 fluoroscopic images of the left forefoot were obtained during procedure performed by Dr. Hale. Radiologist was not present for the imaging or procedure. The amount of fluoroscopy time us ed during this procedure was 0.1 minutes. COMPARISON: 04/14/2024 FINDINGS: Left forefoot amputation with osteotomies extending across the distal diaphysis of the first-fifth me tatarsals. Expected soft tissue tissue gas along the amputation margin which remains open at the time of imaging. IMPRESSION: 1. Expected appearance during left first-fifth transmetatarsal forefoot amputation. Reviewed, dictated and finalized at location B. IMPRESSION: 1. Expected appearance during left first-fifth transmetatarsal forefoot amputat ion.
--- NOTE | 2024-04-23 07:30 | WPDHPUPDATE1 ---
History and Physical Update Update Date/Time: 04/23/24 07:30 History and Physical has been reviewed, including an updated exam of the patient. There are NO changes in the patient's condition. Risks, benefits, and alternatives have been discussed and questions answered. Patient agrees to proceed with procedure.
[2024-04-23] MEDS: ACETAMINOPHEN 500 MG TABLET 1000 MG PO (11:04)
[2024-04-23] MEDS: KETOROLAC 15 MG/ML VIAL (*BKC) IV PUSH (11:06)
--- NOTE | 2024-04-23 12:23 | WPDANESEPPF ---
Anes - Initial Pre Proc Eval Procedure: Operation Date: 04/23/24 12:00 Proposed Procedures p Left Foot Transmetatarsal Amputation - Floyd Hale MD Date/Time: 04/23/24 12:23 Surgeon: Floyd Hale MD Pre Op Diagnosis: Left Foot Ulcer Patient Data Age: 84 Gender: F Height: 1.65 m Weight: 58.6 kg Last Vital Signs Temp 36.4 C L 04/23/24 10:19 Pulse 69 04/23/24 10:19 Resp 18 04/23/24 10:19 BP 126/70 04/23/24 10:19 Pulse Ox 95 04/23/24 10:19 O2 Del Method Room Air 04/23/24 10:19 Allergies Allergy/AdvReac Type Severity Reaction Status Date / Time codeine Allergy Severe SYNCOPAL Verified 04/23/24 10:28 SPELLS psyllium Allergy Severe Anaphylactic Verified 04/23/24 10:28 Shock Penicillins Allergy Unknown Anaphylaxis Verified 04/23/24 10:28 Home Medications Medication Instructions Recorded Confirmed Type gabapentin 800 mg tablet 800 mg PO TID 07/14/19 04/23/24 History amlodipine 5 mg tablet 10 mg PO DAILY 05/04/20 04/23/24 History levothyroxine 100 mcg tablet 100 mcg PO QAM 05/04/20 04/23/24 History losartan 50 mg tablet 50 mg PO QPM 05/04/20 04/23/24 History metformin 1,000 mg tablet 1,000 mg PO BID 05/04/20 04/23/24 History pramipexole 0.75 mg tablet 0.75 mg PO HS 05/04/20 04/23/24 History propranolol 20 mg tablet 20 mg PO Q12H 05/04/20 04/23/24 History naloxone 4 mg/actuation nasal 4 mg intranasal Q3M PRN opioid 05/05/20 04/23/24 Rx spray (Narcan) overdose #2 ea glucose 4 gram chewable tablet 4 g PO Q15M PRN hypoglycemia #10 05/19/20 04/23/24 Rx tabs gabapentin 100 mg capsule 100 mg PO TID 04/15/24 04/23/24 History hydrocodone 5 mg-acetaminophen 325 2 tablet PO Q6H PRN pain 04/15/24 04/23/24 History mg tablet insulin degludec 100 unit/mL (3 28 unit subcut HS 04/15/24 04/23/24 History mL) subcutaneous pen (Tresiba FlexTouch U-100 insulin) tacrolimus 0.1 % topical ointment 1 applic topical DAILY 04/15/24 04/23/24 History Patient hx anesthesia problems: none Family hx anesthesia problems: none Results Review: All pre-operative results and documents have been reviewed as part of the pre-operative evaluation. FORMERLY [facility], [facility]–1983 Past Medical History Medical History Charcot's joint, right ankle and foot Chronic pain DDD (degenerative disc disease) Diabetes Diabetic nephropathy Diabetic neuropathy associated with diabetes mellitus due to underlying condition Diabetic ulcer of right foot Exposed orthopaedic hardware Gangrene due to arterial insufficiency GERD (gastroesophageal reflux disease) History of trigger finger Hypercholesteremia Hypertension Hypothyroid Lower extremity weakness Melanoma Nose Neuropathy Osteomyelitis Vision loss Surgical History Surgical History History of amputation of right great toe History of appendectomy History of bladder suspension procedure History of cholecystectomy (~1992) History of hysterectomy (~1983) History of tonsillectomy S/P transmetatarsal amputation of foot Family History Family History Mother Emphysema lung Father Emphysema lung Sibling Hypertension Emphysema lung Social History Social History Social History: Patient lives at home with her Pritesh. She wishes to be a [employer]. Her PCP is Dr. Cristina. Smoking packs per day: 1 Smoking cigarettes per day: 20.0 Years smoked: 10 Smoking pack-years: 10.00 Smoking status: Former smoker Tobacco type: cigarettes Second hand tobacco smoke exposure: No Smoking end date: 08/12/87 Additional smoking assessment comments: QUIT IN THE 'S Alcohol intake: never Substance use: never Substance use type: does not use Living arrangements: with family Additional living arrangements comments:
[2024-04-23 12:39] LABS: Glucose Point of Care 179 mg/dl (65-105)
[2024-04-23] MEDS: ceFAZolin 2 GM/D5W 50 ML 2 GM/50 ML BAG IVPB (12:43)
[2024-04-23] MEDS: LACTATED RINGERS 1,000 ML 30 ML IV CONT (14:17)
--- NOTE | 2024-04-23 14:38 | W.PM.PROC2 ---
Procedure Note - Detailed Date of Procedure 04/23/24 Pre-op Diagnosis Left Foot Ulcer, Gangrene hallux Post-op Diagnosis Same Procedure Performed left transmetatarsal amputation, Excisional debridement of diabetic foot ulcer including muscular layer. 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 Status post transmetatarsal amputation on the right side. Presented with left plantar diabetic foot ulcer at the forefoot level with gangrene of the hallux and extending to the 2nd toe. Gangrene involving most of the hallux and at risk of infection with the ulcer and decreased blood flow. Presents for operative treatment. Findings Dry gangrene of the hallux from the mid proximal phalanx distal to the tip. Dysvascular and necrotic changes the distal tip the 2nd toe. Plantar diabetic foot ulcer which measures 3 x 4 cm. Description of Procedure Patient identified in the preoperative holding. Informed consent given. Operative extremity marked. Patient received intravenous antibiotics. Patient brought to the operating room where underwent general anesthetic by anesthesia team. Positioned supine on operating room table. Time-out performed confirming the patient, site of the surgery and the plan. Left foot prepped and draped in usual sterile surgical fashion using Betadine prep solution. There was an ulcer on the plantar aspect of the left forefoot which measured 4 x 3 cm and involved the muscular layer. 15 blade knife used to sharply excise skin, subcutaneous tissue and muscle from the ulcer site in the surrounding wound which was passed off. Any necrotic or devitalized tissue was excised and passed off. Viable tissue left in place. Wound then thoroughly irrigated and the ulcer closed with 3 0 Prolene interrupted suture. Gangrene of the hallux and 2nd toe then addressed. Dry gangrene of the hallux and dysvascular changes of the tip of the 2nd toe. No ability to heal the wound and no soft tissue coverage of the bone, Transmetatarsal amputation was indicated. Fifteen blade knife used to make fishmouth shaped incision at the base of the hallux and lesser toes. Hemostasis controlled with electrocautery. dissection carried from the dorsum of the foot to the metatarsal neck level of the hallux. Soft tissue elevated medially and laterally to allow for retractors to be placed. Distal 1st metatarsal Osteotomy performed with a sagittal saw. process was repeated for the lesser metatarsals from metatarsal 2 through 5 with retractors placed at the neck level and sagittal saw used to perform osteotomy from dorsum to plantar. Distal and of the metatarsal metatarsophalangeal joint and toe were then dissected from the soft tissue and the entire amputation specimen with 5 toes was passed off. Hemostasis controlled electrocautery. Any tendon elements were brought out of the wound and sharply transected. Thorough irrigation done. bone Ends smoothed with a rongeur. Wound thoroughly irrigated again. Wound closed with 2 0 Vicryl interrupted suture for the deep tissue and 3 O Prolene interrupted sutures for the skin. Sterile dressings applied. Patient awoke from anesthesia, extubated and taken to the recovery room in stable condition. All sponge needle and instrument counts correct at the end the case. Implants None Estimated Blood Loss 50 Tourniquet Time Total Tourniquet Time: 0 Drains No Packing No Pathology None sent Complications None Condition Stable Disposition PACU [facility] Billing Surgery - Charge Forward: Surgery Billing ([id number], [id number])
== END 2024-04-23 15:54 | disposition home or self-care (01) ==
PROVIDERS: PCP Family Medicine; Visit Provider Orthopaedic Surgery
PROC: (CPT 28805; principal; 2024-04-23 12:00)
DX: I96 Gangrene, not elsewhere classified (principal); E11.621 Type 2 diabetes mellitus with foot ulcer; L97.523 Non-pressure chronic ulcer of other part of left foot with necrosis of muscle; E11.610 Type 2 diabetes mellitus with diabetic neuropathic arthropathy; E11.40 Type 2 diabetes mellitus with diabetic neuropathy, unspecified; E11.21 Type 2 diabetes mellitus with diabetic nephropathy; M81.0 Age-related osteoporosis without current pathological fracture; G89.29 Other chronic pain; K21.9 Gastro-esophageal reflux disease without esophagitis; E78.00 Pure hypercholesterolemia, unspecified; I10 Essential (primary) hypertension; E03.9 Hypothyroidism, unspecified; Z79.84 Long term (current) use of oral hypoglycemic drugs; Z79.891 Long term (current) use of opiate analgesic; Z79.4 Long term (current) use of insulin; Z98.890 Other specified postprocedural states; Z89.411 Acquired absence of right great toe; Z90.49 Acquired absence of other specified parts of digestive tract; Z85.820 Personal history of malignant melanoma of skin; Z87.891 Personal history of nicotine dependence
CPT/HCPCS: 28805; 11043; 82948; 88305; 88311; 93005; 99199; A9270; J0690; J1885; J2405; J2704; J7120

== ENCOUNTER 2024-05-18 11:46 | Inpatient (IN) | payer MEDICARE, SELFPAY ==
[2024-05-18] VITALS (17 sets, daily range): BP systolic 121–192; BP diastolic 64–123; PULSE 103–141; RESP 16–30; TEMP 36.7–40.2; O2SAT 97–100; BMI 22.1
--- NOTE | ~2024-05-18 | CT_ITS ---
EXAMINATION: CT foot LT wo con DATE: 05/19/2024 10:50 INDICATION: Sepsis. TECHNIQUE: Computed tomography (CT) of the left foot was performed without intravenous contrast. Auto mated exposure control and iterative reconstruction technique were employed. The dose-length product was 536.81 mGy-cm. COMPARISON: Left foot radiographs 05/18/2024, 04/28/2024, 04/23/24 FINDINGS: There are changes of transmetatarsal amputation of the forefoot. There is gas in the first metatarsal with erosions of the medial base of first metatarsal. There are fractures of the plantar a spect of the ends of the stumps of the third and fourth metatarsals, which is a change from 04/23/24. There is early callus at the sites of amputation. There is soft tissue gas in the distal forefoot. IMPRESSION: 1. Osteomyelitis involving first metatarsal. 2. Fractures of the plantar aspects of the ends of the stumps of the third and fourth metatarsals, wh ich is a change from 04/23/2024. 3. Soft tissue gas in the distal forefoot. Reviewed, dictated and finalized at location A. IMPRESSION: 1. Osteomyelitis involving first metatarsal. 2. Fractures of the plantar aspects of the ends of the stumps of the third and fourth metatarsals, which is a change from 04/23/2024. 3. Soft tissue gas in the distal forefoot.
--- NOTE | ~2024-05-18 | XR_ITS ---
EXAMINATION: XR abdomen gastric tube insert DATE: 05/20/2024 14:02 INDICATION: Nasogastric tube placement. TECHNIQUE: An upright view of the abdomen was obtained. COMPARISON: None. FINDINGS: The lower abdomen is excluded. There are no dilated loops of bowel. The nasogastric tube ti p is in the stomach. Surgical clips in the right upper quadrant are likely from cholecystectomy. IMPRESSION: 1. Nasogastric tube tip in the stomach. Reviewed, dictated and finalized at location A.
--- NOTE | ~2024-05-18 | CT_ITS ---
CT cervical spine wo con Ordering provider: Delfino Cleary MD History: . Bacteremia . Comparison: None. Technique: CT of the cervical spine was performed without contrast. Sagittal and coronal reformatted images were also obtained and reviewed. Automated exposure control and iterative reconstruction emily hnique were employed. The dose-length product was 199.73 mGy-cm. FINDINGS: VERTEBRAE: Fusion of C6 and C7. No subluxation or acute fracture. The occipital condyles are intact. Degenerative changes. Bifid spinous process of C7 DISC SPACES: Degenerative disc disease at the level of C3-C4, C4-C5, C5-C6 and C6-C7. Multilevel unco vertebral joint osteoarthritic changes. Bilateral narrowing of the foramina at the level of C3-C4, C4 -C5 and C5-6. PARASPINOUS SOFT TISSUES: Bilateral carotid atherosclerotic changes. Nasogastric tube is seen. IMPRESSION: No acute osseous abnormality cervical spine. Multilevel degenerative disc disease, uncovertebral joint osteoarthritic changes, intervertebral fora kim narrowing and facet joint Reviewed, dictated and finalized at location A. IMPRESSION: No acute osseous abnormality cervical spine. Multilevel degenerative disc disease, uncovertebral joint osteoarthritic change s, intervertebral foraminal narrowing and facet joint
--- NOTE | ~2024-05-18 | XR_ITS ---
EXAMINATION: XR abdomen gastric tube rechec DATE: 05/22/2024 11:00 INDICATION: Nasogastric tube placement. TECHNIQUE: A supine view of the abdomen was obtained. COMPARISON: Abdomen radiograph 05/20/2024 FINDINGS: The lower abdomen is excluded. There are no dilated loops of bowel. The nasogastric tube ti p is in the stomach. Surgical clips in the right upper quadrant are likely from cholecystectomy. IMPRESSION: 1. Nasogastric tube tip in the stomach. Reviewed, dictated and finalized at location A.
--- NOTE | ~2024-05-18 | XR_ITS ---
EXAMINATION: XR lumbar puncture diagnostic DATE: 05/21/2024 18:03 INDICATION: Neck pain. Staphylococcus bacteremia. TECHNIQUE: The skin overlying the L2-L3 level was prepped and draped in usual sterile fashion. Subcu taneous 1% lidocaine was used for local anesthesia. A 20 gauge spinal needle was advanced under fluo roscopic guidance. The needle was removed and the entry site was cleaned and dressed. There were no immediate complications. Fluoroscopy exposure time was 0.1 minutes. The total number of images was 1. FINDINGS: Real-time fluoroscopy demonstrates the needle at the L2-L3 level. The opening pressure was 20 cm water (Normal range is variably defined as 6-20 cm water and up to 25 cm water in obese patient s. Pressure >25 cm water is one of the modified Dandy criteria for idiopathic intracranial hypertensi on). 15 mL of clear, pale yellow fluid was collected in 4 tubes. IMPRESSION: 1. Successful fluoro-guided lumbar puncture. 2. Abnormal pale yellow color of the fluid. Reviewed, dictated and finalized at location A.
--- NOTE | ~2024-05-18 | CT_ITS ---
EXAMINATION: CT chest abdomen pelvis wo con DATE: 05/21/2024 12:59 INDICATION: Fever. Bacteremia. TECHNIQUE: Computed tomography (CT) of the chest, abdomen, and pelvis was performed without intraveno us contrast. Automated exposure control and iterative reconstruction technique were employed. The dos e-length product was 654.80 mGy-cm. COMPARISON: CT 05/19/2024 FINDINGS: CHEST CT: There is mild scarring at the lung apices. There is chronic peripheral septal thickening in anterior left upper lobe. There is dependent atelectasis bilaterally. A calcified right lung nodule and calcif ied right hilar lymph nodes are consistent with old granulomatous disease. There are small pleural ef fusions. Left thyroid lobe is absent. The heart size is normal. There are coronary artery calcificati ons. There is a small pericardial effusion. The nasogastric tube tip is in the stomach. There is theo re cervical and thoracic spondylosis. ABDOMEN/PELVIS CT: There is moderate intrahepatic biliary duct dilatation. The spleen is normal. There are changes of ch olecystectomy. The common duct is dilated to 16 mm. The pancreas and adrenal glands are normal. There are cysts in the kidneys measuring up to 3.6 cm on the left. There is a 6 mm stone in right kidney. There are 2 stones in left kidney with the larger measuring 6 mm. The bladder is decompressed by Fole y catheter. There are no dilated loops of bowel. There is liquid stool in the colon suggesting diarrh ea. The appendix is normal. There is calcified atherosclerosis of the aorta and many of the other art eries. There are no pathologically enlarged lymph nodes. There is no free intraperitoneal fluid. Ther e is severe lumbar spondylosis. IMPRESSION: 1. Small pleural effusions. 2. Small pericardial effusion. 3. Moderate intrahepatic and extrahepatic biliary duct dilatation status post cholecystectomy. Consid er MRCP. Reviewed, dictated and finalized at location A. IMPRESSION: 1. Small pleural effusions. 2. Small pericardial effusion. 3. Moderate intrahepatic and extrahepatic biliary duct dilatation status post c holecystectomy. Consider MRCP.
--- NOTE | ~2024-05-18 | CT_ITS ---
Clinical Indication: Pain CT Scan of the Neck, Chest, Abdomen, and Pelvis without Contrast: Technique: Contiguous sections were acquired throughout the neck, chest, abdomen, and pelvis without IV contrast administration. Dose reduction technique was used on this scan by utilizing automated exp osure control and iterative reconstruction technique. The dose-length product (DLP) was 1087.60 mGy-c m. Findings: No abnormal soft tissue mass or lymphadenopathy seen in the neck. No fluid collection or cy stic lesion seen. Parapharyngeal fat preserved bilaterally. Parotid and submandibular glands are unre markable. Visualized aerodigestive tract unremarkable. Visualized paranasal sinuses and mastoid air c ells are clear. There is no evidence of any significant mediastinal, hilar or axillary lymphadenopathy. The mediastin al soft tissues appear normal. There is no evidence of pleural or pericardial effusion. Pulmonary evaluation suboptimal due to respiratory motion artifact. There is mild right basilar atele ctatic change. No suspicious pulmonary nodule or consolidation evident. The liver, spleen, pancreas, adrenals and right kidney are within normal limits. Dilated common bile duct is probably related to prior cholecystectomy. 8 mm nonobstructing left renal stone present. Ther e are atherosclerotic calcifications of the aorta. No lymphadenopathy. No bowel obstruction or bowel wall thickening. There is no evidence to suggest acute appendicitis. Vang catheter in place in the urinary bladder. No pelvic mass evident. No ascites. Extensive degener ative change of the spine noted. Impression: No acute abnormality evident. 8 mm nonobstructing left renal stone. Mild bibasilar atelectatic change. Dilated common bile duct is probably related to prior cholecystectomy. Reviewed, dictated and finalized at [facility]. Impression: No acute abnormality evident. 8 mm nonobstructing left renal stone. Mild bibasilar atelectatic change. Dilated common bile duct is probably related to prior cholecystectomy.
--- NOTE | ~2024-05-18 | XR_ITS ---
EXAMINATION: XR foot LT min 3V DATE: 05/18/2024 13:56 INDICATION: Left foot wound. TECHNIQUE: 3 views of left foot were obtained. COMPARISON: Left foot radiographs 04/28/2024, 04/14/2024 FINDINGS: There are changes of transmetatarsal amputation of the forefoot. There is irregularity of t he distal ends of the metatarsals. No acute fracture. Joint spaces are normal. Again seen is soft tis nino gas in the forefoot, which may be from recent surgery. IMPRESSION: 1. Irregularity of the distal ends of the bones status post transmetatarsal amputation without change , which may be the normal postoperative appearance. No specific evidence of osteomyelitis. Reviewed, dictated and finalized at location A. IMPRESSION: 1. Irregularity of the distal ends of the bones status post transmetatarsal amp utation without change, which may be the normal postoperative appearance. No sp ecific evidence of osteomyelitis.
--- NOTE | ~2024-05-18 | CT_ITS ---
EXAMINATION: CT brain wo con DATE: 05/19/2024 10:50 INDICATION: Altered level of consciousness. TECHNIQUE: Computed tomography (CT) of the head was performed without intravenous contrast. The mA wa s adjusted according to patient size. Iterative reconstruction technique was employed. The dose-lengt h product was 681.00 mGy-cm. COMPARISON: Head CT 05/17/2020 FINDINGS: There is an old infarct in right occipital lobe. There are scattered areas of low attenuati on in the cerebral white matter. There are old infarcts in the bilateral basal ganglia. There is no i ntracranial hemorrhage, acute infarction, or abnormal intracranial mass lesion. The ventricles are no rmal in size. There is mild mucosal thickening in the paranasal sinuses. There are likely changes of ocular lens replacement surgeries. The mastoid air cells are normal. IMPRESSION: 1. 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 2. Mild nonspecific cerebral white matter disease, which likely represents chronic small vessel ische flynn disease. Reviewed, dictated and finalized at location A. IMPRESSION: 1. 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 2. Mild nonspecific cerebral white matter disease, which likely represents log cooker inez small vessel ischemic disease.
--- NOTE | 2024-05-18 12:01 | ECG_ITS ---
Test Date: 2024-05-18 12:04:21 Measurements Intervals [place] Rate: 114 P: 40 [place]: 122 QRS: 5 QRSD: 80 T: 83 QT: 305 QTc: 420 Interpretive Statements SINUS TACHYCARDIA ALTERNATES WITH ECTOPIC ATRIAL RHYTHM POSSIBLE RIGHT VENTRICULAR CONDUCTION DELAY [RSR (QR) IN V1/V2] ABNORMAL RHYTHM ECG Compared to ECG 04/17/2024 13:08:01 ECTOPIC, NON SINUS ATRIAL RHYTHM NOTED Electronically Signed On 05-18-2024 14:44:24 CDT by Josiah Aaron M.D.
[2024-05-18 12:08] LABS: Glucose Point of Care > 500 mg/dl (65-105)
[2024-05-18 12:30] LABS: Alveolar/Arterial O2 Gradient 36.7 mmHg; Carboxyhemoglobin 0.8 % THb (0-2.0); Fractional Inspired Oxygen 21 %; HCO3 ABG 6.6 mEq/l (22.0-26.0); Methemoglobin ABG 0.1 %THb (0-1.5); Oxygen Content ABG 17.4 %vol (16.0-22.0); Oxygen Saturation ABG 96.4 % (95.0-100.0); Oxyhemoglobin 96.3 % THb (90.0-100.0); PO2 ABG 94.7 mmHg (80.0-100.0); PO2 FiO2 Ratio Arterial Blood 4.51 %; Reduced Hemoglobin 2.8 %THb (0-5.0); Total Hemoglobin 12.8 g/dL (12.0-18.0)
[2024-05-18 12:31] LABS: Device ROOM AIR; PCO2 ABG 15.3 mmHg (35.0-45.0); Site Drawn RIGHT BRACHIAL; pH ABG 7.255 (7.350-7.450)
--- NOTE | 2024-05-18 12:38 | ED.GENADULT ---
HPI - General Adult General Chief complaint: Wound/Laceration Stated complaint: pain all over Time Seen by Provider: 05/18/24 11:59 History of Present Illness HPI narrative: Patient is an 84-year-old female who present to ER with hyperglycemia. Patient is awake alert but from a provide a very thorough history. She reports she is being cared for by her and that he felt he could no longer care for her and sent her to the ER. She recently had a midfoot amputation left side performed last month. She was seen 1 week ago and there is no dehiscence the wound. Patient reports that she has run out of her insulin at home and has not been taking it. Ketones small upon entering room. Patient frail and ill-appearing. Related Data Home Medications Medication Instructions Recorded Confirmed gabapentin 800 mg tablet 800 mg PO TID 07/14/19 05/18/24 amlodipine 5 mg tablet 10 mg PO DAILY 05/04/20 05/18/24 levothyroxine 100 mcg tablet 100 mcg PO QAM 05/04/20 05/18/24 losartan 50 mg tablet 50 mg PO QPM 05/04/20 05/18/24 metformin 1,000 mg tablet 1,000 mg PO BID 05/04/20 05/18/24 pramipexole 0.75 mg tablet 0.75 mg PO HS 05/04/20 05/18/24 propranolol 20 mg tablet 20 mg PO Q12H 05/04/20 05/18/24 gabapentin 100 mg capsule 100 mg PO TID 04/15/24 05/18/24 insulin degludec 100 unit/mL (3 28 unit subcut HS 04/15/24 05/18/24 mL) subcutaneous pen (Tresiba FlexTouch U-100 insulin) tacrolimus 0.1 % topical ointment 1 applic topical DAILY 04/15/24 05/18/24 Allergies Allergy/AdvReac Type Severity Reaction Status Date / Time codeine Allergy Severe SYNCOPAL Verified 05/12/24 09:52 SPELLS psyllium Allergy Severe Anaphylactic Verified 05/12/24 09:52 Shock Penicillins Allergy Unknown Anaphylaxis Verified 05/12/24 09:52 Review of Systems Review of Systems: ROS unobtainable: Yes unobtainable due to medical condition PMFSH Past Medical History Medical History Charcot foot due to diabetes mellitus Charcot's joint, right ankle and foot Chronic pain Closed trimalleolar fracture of right ankle with delayed healing DDD (degenerative disc disease) Diabetes Diabetic nephropathy Diabetic neuropathy associated with diabetes mellitus due to underlying condition Diabetic ulcer of right foot Diabetic ulcer of toe of right foot associated with type 2 diabetes mellitus Exposed orthopaedic hardware Gangrene due to arterial insufficiency GERD (gastroesophageal reflux disease) History of trigger finger Hypercholesteremia Hypertension Hypothyroid Lower extremity weakness Melanoma Nose Neuropathy Non-pressure chronic ulcer of other part of right foot with muscle involvement without evidence of necrosis Osteomyelitis Polyneuropathy associated with underlying disease Type 2 diabetes mellitus with diabetic autonomic (poly)neuropathy Vision loss Surgical History Surgical History History of amputation of right great toe History of appendectomy History of bladder suspension procedure History of cholecystectomy (~1992) History of hysterectomy (~1983) History of tonsillectomy S/P transmetatarsal amputation of foot Family History Family History Mother Emphysema lung Father Emphysema lung Sibling Hypertension Emphysema lung Social History Social History Social History: Patient lives at home with her Pritesh. She wishes to be a [employer]. Her PCP is Dr. Cristina. Smoking packs per day: 1 Smoking cigarettes per day: 20.0 Years smoked: 10 Smoking pack-years: 10.00 Smoking status: Former smoker Tobacco type: cigarettes Second hand tobacco smoke exposure: No Smoking end date: 08/12/87 Additional smoking assessment comments: Unknown smoking end date and pack years Alcohol intake: never Substance use: never Substance use type: does not use Living arrangements: with family Additional living arrangements comments: Gender identity (if verbalized by the patient): Female Spiritual care concerns: No Exam Narrative: GENERAL: Ill-appearing, thin, and in mild distress. HEAD: Normocephalic, atraumatic. ENT: Dry mucous membranes. NECK: Supple. CHEST: Clear to auscultation. No respiratory distress. HEART: Tachycardic and regular. Normal peripheral pulses. ABDOMEN: Soft, nontender, nondistended. EXTREMITIES: Normal range of motion. No edema. Nonhealing left midfoot amputation is moist and foul in odor. No surrounding cellulitis pertinent drainage. Well-healed right midfoot amputation. SKIN: Warm, dry, no rash. NEURO: Alert and oriented x1. Course Course Emergency Course: Discussed with director experimental medicine and accepted by hospitalist. Ortho consulted. Broad spectrum abx for wound infection. Received 2L NS, insulin bolus >30 ml/kg, started on insulin drip and IVF. Critically ill. Vital Signs Vital signs: Vital Signs Temperature 98.1 F 05/18/24 11:50 Pulse Rate 119 H 05/18/24 11:50 Respiratory Rate 16 05/18/24 11:50 Blood Pressure 192/74 H 05/18/24 11:50 Pulse Oximetry 98 05/18/24 11:50 Oxygen Delivery Room Air 05/18/24 11:50 Temperature 103.2 F H 05/18/24 19:54 Pulse Rate 103 H 05/18/24 17:30 Respiratory Rate 21 H 05/18/24 17:30 Blood Pressure 121/84 05/18/24 18:01 Pulse Oximetry 100 05/18/24 17:30 Oxygen Delivery Room Air 05/18/24 11:56 Medical Decision Making Vital Signs Vital Signs: Vital Signs Temperature 98.1 F 05/18/24 11:50 Pulse Rate 119 H 05/18/24 11:50 Respiratory Rate 16 05/18/24 11:50 Blood Pressure 192/74 H 05/18/24 11:50 Pulse Oximetry 98 05/18/24 11:50 Oxygen Delivery Room Air 05/18/24 11:50 Temperature 103.2 F H 05/18/24 19:54 Pulse Rate 103 H 05/18/24 17:30 Respiratory Rate 21 H 05/18/24 17:30 Blood Pressure 121/84 05/18/24 18:01 Pulse Oximetry 100 05/18/24 17:30 Oxygen Delivery Room Air 05/18/24 11:56 Lab Data 05/18/24 12:38 05/18/24 18:45 Labs: Lab Results 05/18/24 05/18/24 05/18/24 Range/Units 12:00 12:13 12:37 WBC (4.5-10.0) K/mm3 RBC (4.2-5.4) M/mm3 Hgb (12.0-15.0) g/dL Hct (37.0-47.0) % MCV (80-100) fl MCH (26-34) pg MCHC (32-36) g/dl RDW (11.5-14.5) % Plt Count (150-375) k/mm3 MPV (7.4-10.4) fl Immature Gran % (Auto) (0-0.5) % Neut % (Auto) (45.5-73.1) % Lymph % (Auto) (18.3-44.2) % [place] % (Auto) (2.6-8.5) % Eos % (Auto) (0-4.4) % Baso % (Auto) (0.2-1.2) % Lymph # (Auto) (0.9-3.2) K/mm3 [place] # (Auto) (0.1-0.6) K/mm3 Eos # (Auto) (0-0.3) K/mm3 Baso # (Auto) (0.0-0.1) K/mm3 Abs Immat Gran (auto) (0.00-0.031) K/mm3 Absolute Neuts (auto) (1.3-6.7) K/mm3 Absolute Nucleated RBC (0.0-0.012) K/mm3 Nucleated RBC % (0.0-0.2) % Methemoglobin 0.1 (0-1.5) %THb Sodium (137-145) mmol/L Potassium (3.4-5.0) mmol/L Chloride (98-107) mmol/L Carbon Dioxide (22-30) mmol/L Anion Gap (4-12) mmol/L BUN (7-17) mg/dL Creatinine (0.7-1.0) mg/dL Estim Creat Clear Calc ml/min Estimated GFR (59 - ) Glucose (65-110) mg/dL POC Capillary Glucose > 500 H* (65-105) mg/dl Lactic Acid 2.5 H (0.7-2.0) mmol/L Calcium (8.4-10.2) mg/dL Phosphorus (2.5-4.5) mg/dL Magnesium (1.6-2.3) mg/dL Total Bilirubin (0.2-1.3) mg/dL AST (14-36) U/L ALT (6-35) U/L Alkaline Phosphatase (38-126) U/L Total Protein (6.3-8.2) g/dL Albumin (3.5-5.1) g/dL Beta-Hydroxybutyrate/Acetoacetate (0.02-0.27) mmol/L TSH (Reflex) (0.465-4.68) uIU/mL Random Cortisol Urine Color (Yellow) Urine Appearance (Clear) Urine pH (5.0-9.0) Ur Specific [place] (1.001-1.035) Urine Protein (Negative) mg/dL Urine Glucose (UA) (Negative) mg/dL Urine Ketones (Negative) mg/dL Ur Blood (Man) (Negative) Urine Nitrate (Negative) Urine Bilirubin (Negative) Urine Urobilinogen (<2.0) mg/dL Leukocyte Esterase Rfl (Negative) EMILEE/UL Urine RBC (0-2) /hpf Urine WBC (0-3) /hpf Ur Squamous Epith Cells (Few) /hpf Urine Bacteria /hpf Urine Casts 05/18/24 05/18/24 05/18/24 Range/Units 12:38 12:41 13:19 WBC 9.5 (4.5-10.0) K/mm3 RBC 3.76 L (4.2-5.4) M/mm3 Hgb 10.9 L (12.0-15.0) g/dL Hct 36.1 L (37.0-47.0) % MCV 96.0 (80-100) fl MCH 29.0 (26-34) pg MCHC 30.2 L (32-36) g/dl RDW 14.6 H (11.5-14.5) % Plt Count 263 (150-375) k/mm3 MPV 11.8 H (7.4-10.4) fl Immature Gran % (Auto) 1.5 H (0-0.5) % Neut % (Auto) 89.4 H (45.5-73.1) % Lymph % (Auto) 4.2 L (18.3-44.2) % [place] % (Auto) 3.4 (2.6-8.5) % Eos % (Auto) 1.0 (0-4.4) % Baso % (Auto) 0.5 (0.2-1.2) % Lymph # (Auto) 0.40 L (0.9-3.2) K/mm3 [place] # (Auto) 0.3 (0.1-0.6) K/mm3 Eos # (Auto) 0.1 (0-0.3) K/mm3 Baso # (Auto) 0.1 (0.0-0.1) K/mm3 Abs Immat Gran (auto) 0.14 H (0.00-0.031) K/mm3 Absolute Neuts (auto) 8.5 H (1.3-6.7) K/mm3 Absolute Nucleated RBC 0.000 (0.0-0.012) K/mm3 Nucleated RBC % 0.0 (0.0-0.2) % Methemoglobin (0-1.5) %THb Sodium (137-145) mmol/L Potassium (3.4-5.0) mmol/L Chloride (98-107) mmol/L Carbon Dioxide (22-30) mmol/L Anion Gap (4-12) mmol/L BUN (7-17) mg/dL Creatinine (0.7-1.0) mg/dL Estim Creat Clear Calc ml/min Estimated GFR (59 - ) Glucose (65-110) mg/dL POC Capillary Glucose (65-105) mg/dl Lactic Acid (0.7-2.0) mmol/L Calcium (8.4-10.2) mg/dL Phosphorus (2.5-4.5) mg/dL Magnesium (1.6-2.3) mg/dL Total Bilirubin (0.2-1.3) mg/dL AST (14-36) U/L ALT (6-35) U/L Alkaline Phosphatase (38-126) U/L Total Protein (6.3-8.2) g/dL Albumin (3.5-5.1) g/dL Beta-Hydroxybutyrate/Acetoacetate 5.62 H (0.02-0.27) mmol/L TSH (Reflex) 2.140 (0.465-4.68) uIU/mL Random Cortisol Urine Color Yellow (Yellow) Urine Appearance Clear (Clear) Urine pH 5.5 (5.0-9.0) Ur Specific [place] 1.028 (1.001-1.035) Urine Protein 3+ H (Negative) mg/dL Urine Glucose (UA) 3+ H (Negative) mg/dL Urine Ketones 3+ H (Negative) mg/dL Ur Blood (Man) 2+ H (Negative) Urine Nitrate Positive H (Negative) Urine Bilirubin Negative (Negative) Urine Urobilinogen 0.2 (<2.0) mg/dL Leukocyte Esterase Rfl Negative (Negative) EMILEE/UL Urine RBC 0-2 (0-2) /hpf Urine WBC 0-5 (0-3) /hpf Ur Squamous Epith Cells None seen (Few) /hpf Urine Bacteria Rare /hpf Urine Casts 3-5 05/18/24 05/18/24 05/18/24 Range/Units 13:49 14:25 15:05 WBC (4.5-10.0) K/mm3 RBC (4.2-5.4) M/mm3 Hgb (12.0-15.0) g/dL Hct (37.0-47.0) % MCV (80-100) fl MCH (26-34) pg MCHC (32-36) g/dl RDW (11.5-14.5) % Plt Count (150-375) k/mm3 MPV (7.4-10.4) fl Immature Gran % (Auto) (0-0.5) % Neut % (Auto) (45.5-73.1) % Lymph % (Auto) (18.3-44.2) % [place] % (Auto) (2.6-8.5) % Eos % (Auto) (0-4.4) % Baso % (Auto) (0.2-1.2) % Lymph # (Auto) (0.9-3.2) K/mm3 [place] # (Auto) (0.1-0.6) K/mm3 Eos # (Auto) (0-0.3) K/mm3 Baso # (Auto) (0.0-0.1) K/mm3 Abs Immat Gran (auto) (0.00-0.031) K/mm3 Absolute Neuts (auto) (1.3-6.7) K/mm3 Absolute Nucleated RBC (0.0-0.012) K/mm3 Nucleated RBC % (0.0-0.2) % Methemoglobin (0-1.5) %THb Sodium 142 (137-145) mmol/L Potassium 3.8 (3.4-5.0) mmol/L Chloride 112 H (98-107) mmol/L Carbon Dioxide < 5 L (22-30) mmol/L Anion Gap (4-12) mmol/L BUN 20 H (7-17) mg/dL Creatinine 0.90 (0.7-1.0) mg/dL Estim Creat Clear Calc 32 ml/min Estimated GFR 60 (59 - ) Glucose 468 H (65-110) mg/dL POC Capillary Glucose > 500 H* 459 H (65-105) mg/dl Lactic Acid (0.7-2.0) mmol/L Calcium 9.9 (8.4-10.2) mg/dL Phosphorus 2.9 (2.5-4.5) mg/dL Magnesium 1.7 (1.6-2.3) mg/dL Total Bilirubin 0.4 (0.2-1.3) mg/dL AST 34 (14-36) U/L ALT 28 (6-35) U/L Alkaline Phosphatase 130 H (38-126) U/L Total Protein 8.0 (6.3-8.2) g/dL Albumin 3.6 (3.5-5.1) g/dL Beta-Hydroxybutyrate/Acetoacetate (0.02-0.27) mmol/L TSH (Reflex) (0.465-4.68) uIU/mL Random Cortisol Pending Urine Color (Yellow) Urine Appearance (Clear) Urine pH (5.0-9.0) Ur Specific [place] (1.001-1.035) Urine Protein (Negative) mg/dL Urine Glucose (UA) (Negative) mg/dL Urine Ketones (Negative) mg/dL Ur Blood (Man) (Negative) Urine Nitrate (Negative) Urine Bilirubin (Negative) Urine Urobilinogen (<2.0) mg/dL Leukocyte Esterase Rfl (Negative) EMILEE/UL Urine RBC (0-2) /hpf Urine WBC (0-3) /hpf Ur Squamous Epith Cells (Few) /hpf Urine Bacteria /hpf Urine Casts ABG Data ABG results: 05/18/24 12:13 Puncture Site Right brachial ABG pH 7.255 L* ABG pCO2 15.3 L* ABG pO2 94.7 ABG PO2/FiO2 Ratio 4.51 ABG HCO3 6.6 L ABG O2 Saturation 96.4 ABG O2 Content 17.4 ABG Base Excess -18.0 A-a Gradient 36.7 Oxyhemoglobin 96.3 Carboxyhemoglobin 0.8 Reduced Hemoglobin 2.8 Total Hemoglobin 12.8 O2 Delivery Device Room air O2 Liters/Min Not Reportable FiO2 21 Imaging Data Radiologist's impression: ITS Impressions Foot X-Ray 05/18/24 14:50 IMPRESSION: 1. Irregularity of the distal ends of the bones status post transmetatarsal amputation without change, which may be the normal postoperative appearance. No specific evidence of osteomyelitis. ECG Data EKG #1: ECG completion date: 05/18/24 ECG completion time: 12:04 EKG Interpretation: tachycardia (114), sinus rhythm, non-specific ST changes, normal QRS, normal QT and NL axis Critical Care Time Critical Care Time Critical Care Time: Yes Total Critical Care Time: 35 Discharge Plan Discharge Clinical Impression: DKA (diabetic ketoacidosis), Postoperative wound infection Patient Disposition: Still a Patient Condition: Critical
[2024-05-18] MEDS: SODIUM CHLORIDE 0.9% IV 1,000 ML 999 ML IV CONT ×2 (12:48→13:53)
[2024-05-18] MEDS: INSULIN HUMAN REGULAR (*BKC) 100 UNITS/ML 8 UNITS IV PUSH (12:48)
[2024-05-18 12:54] LABS: Basophils Absolute Auto 0.1 K/mm3 (0.0-0.1); Basophils Percent Auto 0.5 % (0.2-1.2); Eosinophils Absolute Auto 0.1 K/mm3 (0-0.3); Hematocrit 36.1 % (37.0-47.0); Hemoglobin 10.9 g/dL (12.0-15.0); Immature Granulocyte Absolute 0.14 K/mm3 (0.00-0.031); Immature Granulocyte Percent A 1.5 % (0-0.5); Lymphocytes Percent Auto 4.2 % (18.3-44.2); Mean Corpuscular HGB Conc 30.2 g/dl (32-36); Mean Platelet Volume 11.8 fl (7.4-10.4); Monocytes Absolute Auto 0.3 K/mm3 (0.1-0.6); Monocytes Percent Auto 3.4 % (2.6-8.5); Neutrophils Absolute Auto 8.5 K/mm3 (1.3-6.7); Neutrophils Percent Auto 89.4 % (45.5-73.1); Platelet Count Result 263 k/mm3 (150-375); Red Blood Count 3.76 M/mm3 (4.2-5.4); Red Cell Distribution Width 14.6 % (11.5-14.5); White Blood Count 9.5 K/mm3 (4.5-10.0)
[2024-05-18 13:02] LABS: Lactic Acid Reflex 2.5 mmol/L (0.7-2.0)
[2024-05-18 13:29] LABS: Beta-Hydroxybutyrate/Acetoacetate 5.62 mmol/L (0.02-0.27)
[2024-05-18 13:36] LABS: Add Urine Microscopic? YES; Appearance Urine Clear (Clear); Bacteria Urine Rare /hpf; Bilirubin Urine Negative (Negative); Blood Urine 2+ (Negative); Color Urine Yellow (Yellow); Glucose Urine UA 3+ mg/dL (Negative); Ketones Urine 3+ mg/dL (Negative); Leukocyte Esterase Ur Negative LEU/UL (Negative); Nitrate Urine Positive (Negative); Protein Urine 3+ mg/dL (Negative); RBC Urine 0-2 /hpf (0-2); Specific Grav Ur 1.028 (1.001-1.035); Squamous Epithelial Cell Urine None Seen /hpf (Few); Urobilinogen Urine 0.2 mg/dL (<2.0); WBC Urine 0-5 /hpf (0-3); pH Urine 5.5 (5.0-9.0)
[2024-05-18 13:51] LABS: Glucose Point of Care > 500 mg/dl (65-105)
[2024-05-18] MEDS: INSULIN HUMAN REGULAR (*BKC) 100 UNITS in SODIUM CHLORIDE 0.9% IV 99 ML IV CONT (15:05)
[2024-05-18 15:12] LABS: Glucose Point of Care 459 mg/dl (65-105)
[2024-05-18] MEDS: SODIUM CHLORIDE 0.9% IV 1,000 ML 150 ML IV CONT ×2 (15:14→23:36)
[2024-05-18 15:34] LABS: Alanine Aminotransferase 28 U/L (6-35); Albumin Level 3.6 g/dL (3.5-5.1); Alkaline Phosphatase 130 U/L (38-126); Aspartate Amino Transferase 34 U/L (14-36); Bilirubin,Total 0.4 mg/dL (0.2-1.3); Blood Urea Nitrogen 20 mg/dL (7-17); Calcium 9.9 mg/dL (8.4-10.2); Carbon Dioxide < 5 mmol/L (22-30); Chloride 112 mmol/L (98-107); Estimated CRCL calculation 32 ml/min; Estimated Glomerular Filt Rate 60; Glucose 468 mg/dL (65-110); Magnesium 1.7 mg/dL (1.6-2.3); Phosphorus 2.9 mg/dL (2.5-4.5); Potassium 3.8 mmol/L (3.4-5.0); Sodium 142 mmol/L (137-145)
[2024-05-18 15:50] LABS: Reflex Lactic Acid Yes or No Add Lactic
[2024-05-18] MEDS: CEFEPIME 2 GM/NS 50 ML 2 GM/50 ML BAG IVPB (16:05)
[2024-05-18] MEDS: metroNIDAZOLE 500 MG/ISO 100ML 500 MG/100 ML BAG 100 MG IVPB ×2 (16:06→23:15)
[2024-05-18 16:19] LABS: Glucose Point of Care 425 mg/dl (65-105)
[2024-05-18] MEDS: VANCOMYCIN 1,250 MG/NS 250 ML 1,250 MG/250 ML BAG 166.67 MG IVPB (16:26)
--- NOTE | 2024-05-18 16:35 | P.HP_ITS ---
H&P: HPI History of Present Illness Date/Time: 05/18/24 16:35 Chief Complaint: DKA, diabetic foot infection with sepsis Narrative: This is an 84-year-old female patient admitted to the ICU with diagnosis of DKA sepsis left diabetic foot infection altered mental status. Per patient's patient has not been feeling well for about 5 days and has not been wanting to take her medication at home. Patient's was very upset at time of my evaluation and the patient had altered mentation unable to answer questions. Additional information received by reviewing records from previous visits as well as emergency department visit. Reports show that patient had a left midfoot amputation about 3 weeks ago she has been at home has been states he can no longer take care of her. She has run out of insulin and surgical site reported to have dehisced. This was bandaged thoroughly and not removed by this provider for visualization. Patient found to be in DKA with severely depleted carbon dioxide, elevated beta hydroxybutyrate, elevated serum glucose and arterial pH of 7.25. Patient exhibiting Kussmaul respirations leading to hyperventilation syndrome with initial pCO2 of 15. Patient will open eyes to pain and loud voice not following commands not answering questions mumbling unintelligibly. Patient also noted to be afebrile in the ICU with increased tachycardia. Now throwing frequent PVCs on bedside telemetry monitoring per my independent interpretation. Review of Systems Review of Systems: ROS unobtainable: Yes unobtainable due to medical condition PMFSH Past Medical History Medical History Charcot foot due to diabetes mellitus Charcot's joint, right ankle and foot Chronic pain Closed trimalleolar fracture of right ankle with delayed healing DDD (degenerative disc disease) Diabetes Diabetic nephropathy Diabetic neuropathy associated with diabetes mellitus due to underlying condition Diabetic ulcer of right foot Diabetic ulcer of toe of right foot associated with type 2 diabetes mellitus Exposed orthopaedic hardware Gangrene due to arterial insufficiency GERD (gastroesophageal reflux disease) History of trigger finger Hypercholesteremia Hypertension Hypothyroid Lower extremity weakness Melanoma Nose Neuropathy Non-pressure chronic ulcer of other part of right foot with muscle involvement without evidence of necrosis Osteomyelitis Polyneuropathy associated with underlying disease Type 2 diabetes mellitus with diabetic autonomic (poly)neuropathy Vision loss Surgical History Surgical History History of amputation of right great toe History of appendectomy History of bladder suspension procedure History of cholecystectomy (~1992) History of hysterectomy (~1983) History of tonsillectomy S/P transmetatarsal amputation of foot Family History Family History Mother Emphysema lung Father Emphysema lung Sibling Hypertension Emphysema lung Social History Social History Social History: Patient lives at home with her Pritesh. She wishes to be a Full [employer]. Her PCP is Dr. Cristina. Smoking packs per day: 1 Smoking cigarettes per day: 20.0 Years smoked: 10 Smoking pack-years: 10.00 Smoking status: Former smoker Tobacco type: cigarettes Second hand tobacco smoke exposure: No Smoking end date: 08/12/87 Additional smoking assessment comments: Unknown smoking end date and pack years Alcohol intake: never Substance use: never Substance use type: does not use Living arrangements: with family Additional living arrangements comments: Gender identity (if verbalized by the patient): Female Spiritual care concerns: No Meds Home Medications and Allergies Home Medications Medication Instructions Recorded Confirmed Type gabapentin 800 mg tablet 800 mg PO TID 07/14/19 05/18/24 History amlodipine 5 mg tablet 10 mg PO DAILY 05/04/20 05/18/24 History levothyroxine 100 mcg tablet 100 mcg PO QAM 05/04/20 05/18/24 History losartan 50 mg tablet 50 mg PO QPM 05/04/20 05/18/24 History metformin 1,000 mg tablet 1,000 mg PO BID 05/04/20 05/18/24 History pramipexole 0.75 mg tablet 0.75 mg PO HS 05/04/20 05/18/24 History propranolol 20 mg tablet 20 mg PO Q12H 05/04/20 05/18/24 History glucose 4 gram chewable tablet 4 g PO Q15M PRN hypoglycemia #10 05/19/20 05/18/24 Rx tabs gabapentin 100 mg capsule 100 mg PO TID 04/15/24 05/18/24 History insulin degludec 100 unit/mL (3 28 unit subcut HS 04/15/24 05/18/24 History mL) subcutaneous pen (Tresiba FlexTouch U-100 insulin) tacrolimus 0.1 % topical ointment 1 applic topical DAILY 04/15/24 05/18/24 History hydrocodone 5 mg-acetaminophen 325 2 tablet PO Q6H PRN pain #30 tabs 04/23/24 05/18/24 Rx mg tablet Allergies Allergy/AdvReac Type Severity Reaction Status Date / Time codeine Allergy Severe SYNCOPAL Verified 05/12/24 09:52 SPELLS psyllium Allergy Severe Anaphylactic Verified 05/12/24 09:52 Shock Penicillins Allergy Unknown Anaphylaxis Verified 05/12/24 09:52 Vital Signs Vital Signs - 24 hr 05/18/24 11:50 05/18/24 11:56 05/18/24 11:56 Temperature 36.7 C Pulse Rate 119 H 119 H Respiratory Rate 16 Blood Pressure 192/74 H Pulse Oximetry 98 99 Oxygen Delivery Room Air Room Air 05/18/24 14:48 05/18/24 14:48 05/18/24 15:01 Temperature Pulse Rate 108 H 110 H 105 H Respiratory Rate 30 H 17 17 Blood Pressure 172/79 H 172/79 H 162/70 H Pulse Oximetry 100 100 100 Oxygen Delivery 05/18/24 15:16 Temperature Pulse Rate 108 H Respiratory Rate 17 Blood Pressure 167/67 H Pulse Oximetry 99 Oxygen Delivery Exam Narrative: GENERAL: Ill-appearing, thin, altered mental status and Kussmaul respirations HEAD: Normocephalic, atraumatic. ENT: Dry mucous membranes. NECK: Supple. CHEST: Clear to auscultation. HEART: Tachycardic and regular with missed beats correlating to PVCs on bedside monitor. Normal peripheral pulses. ABDOMEN: Soft, nontender, nondistended. EXTREMITIES: Normal range of motion. No edema. Left midfoot amputation with clean bandaging/adithya wrap in place, defer exam to Orthopedis/Wound care tomorrow. SKIN: Hot to touch, dry, no rash. NEURO: Responds to painful stimuli and loud verbal, mumbling unintelligibly, not following commands but does localize to pain H&P: Results Labs Labs: Short CBC 05/18/24 Range/Units 12:38 WBC 9.5 (4.5-10.0) K/mm3 Hgb 10.9 L (12.0-15.0) g/dL Hct 36.1 L (37.0-47.0) % Plt Count 263 (150-375) k/mm3 BMP 05/18/24 14:25 Sodium 142 Potassium 3.8 Chloride 112 H Carbon Dioxide < 5 L BUN 20 H Creatinine 0.90 Glucose 468 H Calcium 9.9 Liver Function 05/18/24 Range/Units 14:25 Total Bilirubin 0.4 (0.2-1.3) mg/dL AST 34 (14-36) U/L ALT 28 (6-35) U/L Alkaline Phosphatase 130 H (38-126) U/L Albumin 3.6 (3.5-5.1) g/dL Urine 05/18/24 Range/Units 13:19 Urine Color Yellow (Yellow) Urine Appearance Clear (Clear) Urine pH 5.5 (5.0-9.0) Ur Specific [place] 1.028 (1.001-1.035) Urine Protein 3+ H (Negative) mg/dL Urine Glucose (UA) 3+ H (Negative) mg/dL ABG ABG results: PH 7.255, pCO2 critically low at 15.3, PO2 94.7, HC03 significantly low at 6.6, base excess -18 Interpretation: Metabolic acidosis with severe yet incomplete respiratory compensation mechanism Pulse Oximetry SpO2 results: 98-100% on room air Attestation: I personally reviewed and interpreted this pulse oximetry as follows: Interpretation: No need for supplemental oxygenation at this time ECG Attestation: I personally reviewed and interpreted this ECG as follows: ECG completion date: 05/18/24 ECG completion time: 12:04 Prior ECG tracings: available for review Interpretation: Sinus tachycardia with alternating ectopic atrial rhythm, rate of 114 OK interval 122, QRS duration 80, QTC 420, QRS axis 5, no STEMI Imaging Left foot x-ray: Radiologist's impression: EXAMINATION: XR foot LT min 3V DATE: 05/18/2024 13:56 INDICATION: Left foot wound. TECHNIQUE: 3 views of left foot were obtained. COMPARISON: Left foot radiographs 04/28/2024, 04/14/2024 FINDINGS: There are changes of transmetatarsal amputation of the forefoot. There is irregularity of the distal ends of the metatarsals. No acute fracture. Joint spaces are normal. Again seen is soft tissue gas in the forefoot, which may be from recent surgery. IMPRESSION: 1. Irregularity of the distal ends of the bones status post transmetatarsal amputation without change, which may be the normal postoperative appearance. No specific evidence of osteomyelitis. Reviewed, dictated and finalized at location A. Assessment and Plan Assessment and plan (1) Diabetic ketoacidosis: Code(s): E11.10 - Type 2 diabetes mellitus with ketoacidosis without coma Status: Acute Assessment and Plan: Admit to ICU on insulin drip Anion gap unable to be calculated on initial complete metabolic panel due to CO2 less than 5 Q.4 hour metabolic panel and q.1 hour fingerstick glucose Altered level of consciousness on admission Full code status Hyperglycemia with metabolic acidosis and over compensation driving respiratory pCO2 very low Carbon dioxide less than 5 on CMP, HC03 6.6 on ABG Beta hydroxybutyrate 5.62 Patient given IV fluids and initiated on insulin drip in the emergency department Potassium being repleted with IV fluids Patient's mentation worsening, patient febrile and Kussmaul's leading to hyperventilation Bicarb 100 mEq IV push x1 and start 150 mEQ in 1 liter D5W at 50 mL/hr in addition to DKA order set fluids and 1 liter bolus LR (2) Diabetic foot infection: Code(s): E11.628 - Type 2 diabetes mellitus with other skin complications; L08.9 - Local infection of the skin and subcutaneous tissue, unspecified Status: Acute Assessment and Plan: Left foot s/p partial amputation with dehiscence and foul smelling wound reported by ER Cefepime, Flagyl, vancomycin initiated in the emergency department Orthopedics consulted as Dr. Crabtree has done prior amputation Wound consult ordered by Orthopedics Defer exam to consulting service (3) Sepsis: Qualifiers: Sepsis acute organ dysfunction status: unspecified Sepsis type: sepsis due to unspecified organism Qualified Code(s): A41.9 - Sepsis, unspecified organism Code(s): A41.9 - Sepsis, unspecified organism Status: Acute Assessment and Plan: Tachycardia, tachypnea, elevated lactic acid Patient is on cefepime Flagyl vancomycin for diabetic foot infection Altered LOC noted (4) Hypothyroid: Code(s): E03.9 - Hypothyroidism, unspecified Status: Acute Assessment and Plan: IV levothyroxine ordered along with TSH to assess for possible myxedema coma given altered LOC and not taking meds at home properly TSH normal (5) Abnormal urinalysis: Code(s): R82.90 - Unspecified abnormal findings in urine Status: Acute Assessment and Plan: Nitrate positive urine negative leukocyte esterase 0-5 white blood cells, urine culture in process and patient already receiving antibiotics for foot infection (6) Anemia: Code(s): D64.9 - Anemia, unspecified Status: Acute Assessment and Plan: Mild anemia noted on admission, prior history of mild anemia Will recheck in AM and expect drop s/p IV fluids Iron and B12/Folate labs ordered Iron low along with low saturation, elevated ferritin and normal b12/folate Consider iron transfusion tomorrow Plan Admit to ICU on insulin drip with Q 4 hour metabolic panels and q.1 hour fingerstick glucose until anion gap closes Code status: Full VTE prophylaxis: SCD due to anemia GI prophylaxis: famotidine IV BID Due to a high probability of clinically significant, life threatening deterioration, the patient required my highest level of preparedness to intervene emergently and I personally spent this critical care time directly and personally managing the patient. This critical care time included obtaining a history; examining the patient; pulse oximetry; ordering and review of studies; arranging urgent treatment with development of a management plan; evaluation of patient's response to treatment; frequent reassessment; and discussions with other providers. It was exclusive of separately billable procedures and treating other patients and teaching time. Please see Assessment and Plan section and the rest of the note for further information on patient assessment and treatment. Critical Care time: 85 minutes Quality VTE Prophylaxis VTE prophylaxis: mechanical ordered If No VTE Prophylaxis Answer both mechanical and pharmacologic: Reason no pharmacologic proph: medical contraindication active bleeding/bleeding risk Hospitalist MIPS Advance Care Plan I have confirmed that the patient's Advanced Care Plan is present, code status is documented, or surrogate decision maker is listed in patient medical record.: Yes Medication Reconciliation I have utilized all available resources to obtain, update and review the patients current medications (includes all prescriptions, OTC, herbals, cannabis, and nutritional supplements).: Yes The patient is not eligible for med reconciliation; the patient is in a emergent medical situation where delaying treatment would jeopardize the patients health.: Yes
--- NOTE | 2024-05-18 16:55 | PC.NURSE ---
Attempted to Call ICU for report at this time. Dry Mop Maker states that the nurse is bust right now and will call me in a few minutes.
[2024-05-18 17:25] LABS: Glucose Point of Care 375 mg/dl (65-105)
--- NOTE | 2024-05-18 18:48 | ADMGEN ---
This patient, Melissa Rodriguez, was admitted to Intensive Care Unit-7. Patient/family oriented to hospital policies and general routines including ID bracelet, bed and alarms, visiting hours, pain management, procedures, bathroom and other care routines, personal items, smoking policy, room service/diet, and visiting hours. Information on how to activate the Rapid Response Team has been discussed. Patient/Family are encouraged to report perceived risks to care and to ask questions if they do not understand what they are told or what they should do.
[2024-05-18 18:50] LABS: Glucose Point of Care 292 mg/dl (65-105)
[2024-05-18 19:18] LABS: Lactic Acid 2.9 mmol/L (0.7-2.0)
[2024-05-18 19:21] LABS: Blood Urea Nitrogen 16 mg/dL (7-17); Calcium 9.4 mg/dL (8.4-10.2); Carbon Dioxide < 5 mmol/L (22-30); Chloride 114 mmol/L (98-107); Estimated CRCL calculation 40 ml/min; Estimated Glomerular Filt Rate > 60; Glucose 331 mg/dL (65-110); Potassium 3.6 mmol/L (3.4-5.0); Sodium 142 mmol/L (137-145)
[2024-05-18] MEDS: SODIUM BICARBONATE 8.4% 50 MEQ/50 ML SYRINGE 100 MEQ IV PUSH (19:45)
[2024-05-18] MEDS: LACTATED RINGERS 1,000 ML 999 ML IV CONT (19:50)
[2024-05-18] MEDS: ACETAMINOPHEN 650 MG SUPPOSITORY RECTAL (19:54)
[2024-05-18 20:11] LABS: Glucose Point of Care 187 mg/dl (65-105)
[2024-05-18 20:12] LABS: Alveolar/Arterial O2 Gradient 55.5 mmHg; Carboxyhemoglobin 0.7 % THb (0-2.0); Fractional Inspired Oxygen 21 %; HCO3 ABG 16.2 mEq/l (22.0-26.0); Methemoglobin ABG 0.3 %THb (0-1.5); Oxygen Saturation ABG 94.9 % (95.0-100.0); Oxyhemoglobin 94.5 % THb (90.0-100.0); PO2 ABG 67.2 mmHg (80.0-100.0); Reduced Hemoglobin 4.5 %THb (0-5.0); Total Hemoglobin 10.5 g/dL (12.0-18.0); pH ABG 7.472 (7.350-7.450)
[2024-05-18] MEDS: LEVOTHYROXINE SODIUM INJ 100 MCG/5 ML VIAL 50 MCG IV PUSH (20:13)
[2024-05-18] MEDS: KCL 20 MEQ/D5/0.45% SOD CHL 1,000 ML 150 ML IV CONT (20:13)
[2024-05-18 20:14] LABS: Device ROOM AIR; Modified Allen's Test Pass; PCO2 ABG 22.6 mmHg (35.0-45.0); Site Drawn RIGHT RADIAL
[2024-05-18] MEDS: FAMOTIDINE 20 MG/2 ML VIAL IV PUSH (20:14)
[2024-05-18 20:18] LABS: MRSA (PCR) NOT DETECTED (NOT DETECTE)
[2024-05-18] MEDS: fentaNYL CITRATE INJ (*CRX) 100 MCG/2 ML VIAL 25 MCG IV PUSH (20:48)
[2024-05-18] MEDS: SODIUM BICARBONATE 8.4% 150 MEQ in DEXTROSE 5% 1,000 ML 950 ML 50 MEQ IV CONT (20:49)
[2024-05-18] MEDS: KCL 20 MEQ/SW 100 ML 100 ML 50 MEQ IVPB ×2 (20:50→23:46)
[2024-05-18] MEDS: KETOROLAC 15 MG/ML VIAL (*BKC) 10 MG IV PUSH (21:34)
[2024-05-18 21:37] LABS: Glucose Point of Care 212 mg/dl (65-105)
[2024-05-18 21:47] LABS: Iron 30 ug/dL (37-170)
[2024-05-18 21:51] LABS: Folic Acid 5.5 ng/mL (2.76->20)
[2024-05-18 21:55] LABS: Percent Iron Saturation 16 % (20-50)
[2024-05-18 22:50] LABS: Glucose Point of Care 297 mg/dl (65-105)
[2024-05-18 23:24] LABS: Anion Gap 16 mmol/L (4-12); Blood Urea Nitrogen 14 mg/dL (7-17); Calcium 8.8 mg/dL (8.4-10.2); Carbon Dioxide 12 mmol/L (22-30); Chloride 113 mmol/L (98-107); Estimated CRCL calculation 46 ml/min; Estimated Glomerular Filt Rate > 60; Glucose 311 mg/dL (65-110); Potassium 3.3 mmol/L (3.4-5.0); Sodium 141 mmol/L (137-145)
[2024-05-18 23:32] LABS: Glucose Point of Care 286 mg/dl (65-105)
[2024-05-19] VITALS (22 sets, daily range): BP systolic 118–159; BP diastolic 55–106; PULSE 91–123; RESP 18–33; TEMP 38.1–39.9; O2SAT 94–100; BMI 22.5
[2024-05-19 01:53] LABS: Glucose Point of Care 202 mg/dl (65-105)
[2024-05-19 01:53] LABS: Glucose Point of Care 257 mg/dl (65-105)
[2024-05-19 03:08] LABS: Glucose Point of Care 249 mg/dl (65-105)
--- NOTE | 2024-05-19 03:43 | PC.NURSE ---
Dr. Quiñones was contacted regarding inability to draw blood from the patient at this time despite multiple sticks. She VRBO to drop the insulin GTT to 1 and do not titrate it until we can obtain labs, which will hopefully be when the next agricultural extension specialist comes in at 0400.
[2024-05-19] MEDS: ACETAMINOPHEN 650 MG SUPPOSITORY RECTAL ×4 (04:21→23:40)
[2024-05-19 04:24] LABS: Glucose Point of Care 219 mg/dl (65-105)
[2024-05-19 04:37] LABS: Hematocrit 28.8 % (37.0-47.0); Hemoglobin 9.4 g/dL (12.0-15.0); Mean Corpuscular HGB Conc 32.6 g/dl (32-36); Mean Corpuscular Hemoglobin 29.1 pg (26-34); Mean Corpuscular Volume 89.2 fl (80-100); Platelet Count Result 215 k/mm3 (150-375); Red Blood Count 3.23 M/mm3 (4.2-5.4); Red Cell Distribution Width 14.3 % (11.5-14.5); White Blood Count 10.2 K/mm3 (4.5-10.0)
[2024-05-19 04:54] LABS: Lactic Acid Reflex 1.7 mmol/L (0.7-2.0)
[2024-05-19 04:57] LABS: Alanine Aminotransferase 28 U/L (6-35); Alkaline Phosphatase 121 U/L (38-126); Anion Gap 14 mmol/L (4-12); Aspartate Amino Transferase 78 U/L (14-36); Bilirubin,Total 0.4 mg/dL (0.2-1.3); Blood Urea Nitrogen 13 mg/dL (7-17); Calcium 8.6 mg/dL (8.4-10.2); Carbon Dioxide 15 mmol/L (22-30); Chloride 112 mmol/L (98-107); Estimated CRCL calculation 46 ml/min; Estimated Glomerular Filt Rate > 60; Glucose 255 mg/dL (65-110); Magnesium 1.1 mg/dL (1.6-2.3); Potassium 3.1 mmol/L (3.4-5.0); Sodium 141 mmol/L (137-145)
[2024-05-19 05:20] LABS: Band Neutrophils Percent 9 % (0-6); Lymphocytes Absolute Manual 0.51 K/mm3 (1.1-4.5); Monocytes Absolute Manual 0.61 K/mm3 (0.1-0.90); Monocytes Percent Manual 6 % (3-9); Neutrophils Absolute Manual 9.07 K/mm3 (1.7-7.2); Neutrophils Percent Manual 80 % (46-73); Platelet Estimate Adequate (Adequate); Total Cells Counted 100
[2024-05-19 05:21] LABS: Anisocytosis 1+; Burr Cells 1+; Schistocytes None Seen; Tear Drop Cells 1+
[2024-05-19 05:26] LABS: Erythrocyte Sedimentation Rate > 140 mm/hr (0-20)
[2024-05-19 05:27] LABS: Base Excess ABG -6.3 mEq/l (+/-2.0); Fractional Inspired Oxygen 21 %; HCO3 ABG 15.3 mEq/l (22.0-26.0); Oxygen Content ABG 13.4 %vol (16.0-22.0); Oxygen Saturation ABG 95.5 % (95.0-100.0); Oxyhemoglobin 94.7 % THb (90.0-100.0); PO2 ABG 68.5 mmHg (80.0-100.0); PO2 FiO2 Ratio Arterial Blood 3.26 %
[2024-05-19 05:28] LABS: Procalcitonin 12.6 ng/mL
[2024-05-19 05:28] LABS: Device OTHER DEVICE; Modified Allen's Test Pass; PCO2 ABG 20.2 mmHg (35.0-45.0); Site Drawn RIGHT RADIAL
[2024-05-19 05:29] LABS: pH ABG 7.497 (7.350-7.450)
[2024-05-19 05:30] LABS: Glucose Point of Care 257 mg/dl (65-105)
[2024-05-19 05:35] LABS: CRP 41.4 mg/dL (<1.0)
[2024-05-19] MEDS: fentaNYL CITRATE INJ (*CRX) 100 MCG/2 ML VIAL 25 MCG IV PUSH (06:25)
[2024-05-19] MEDS: metroNIDAZOLE 500 MG/ISO 100ML 500 MG/100 ML BAG 100 MG IVPB (06:56)
[2024-05-19] MEDS: CEFEPIME 1 GM/NS 50 ML 1 GM/50 ML BAG IVPB ×2 (06:57→17:04)
[2024-05-19 07:05] LABS: Glucose Point of Care 278 mg/dl (65-105)
[2024-05-19 07:53] LABS: Glucose Point of Care 297 mg/dl (65-105)
[2024-05-19] MEDS: FAMOTIDINE 20 MG/2 ML VIAL IV PUSH ×2 (08:44→20:31)
[2024-05-19] MEDS: MAGNESIUM SULF 2 GM/WATER 50ML 2 GM/50 ML BAG IVPB (08:45)
[2024-05-19] MEDS: POTASSIUM CHLORIDE INJ 40 MEQ in SODIUM CHLORIDE 0.9% IV 500 ML 130 MEQ IVPB ×2 (08:45→13:39)
[2024-05-19] MEDS: TACROLIMUS 0.1% 30 GM OINTMENT 1 APPLIC TOPICAL (08:45)
--- NOTE | 2024-05-19 08:48 | P.CONIN_ITS ---
Assessment and Plan Assessment and plan (1) DKA (diabetic ketoacidosis): Code(s): E11.10 - Type 2 diabetes mellitus with ketoacidosis without coma Status: Acute Assessment and Plan: DKA secondary to noncompliance and sepsis Patient was given IVF bolus and and is on infusion which will be continued Patient is currently on Insulin infusion and Q1H glucose monitoring being done Serial labs are being done Replace electrolytes as needed npo (2) Sepsis: Qualifiers: Sepsis acute organ dysfunction status: unspecified Sepsis type: sepsis due to unspecified organism Qualified Code(s): A41.9 - Sepsis, unspecified organism Code(s): A41.9 - Sepsis, unspecified organism Status: Acute Assessment and Plan: Patient has sepsis secondary to postop wound infection of the foot and possible UTI Foot x-ray 1. Irregularity of the distal ends of the bones status post transmetatarsal amputation without change, which may be the normal postoperative appearance. No specific evidence of osteomyelitis. Patient was seen by Orthopedics today and recommended local wound care at this time and no surgical intervention. Wound care consult and local wound care Blood cultures are growing Gram-positive cocci in clusters Urine cultures pending Lactic acid has normalized Continue IV fluids but discontinue IV fluids with bicarb Continue vancomycin, Flagyl and cefepime Obtain CT scan of neck chest abdomen foot to lack of good history (3) Postoperative wound infection: Code(s): T81.49XA - Infection following a procedure, other surgical site, initial encounter Status: Acute Assessment and Plan: See above (4) UTI (urinary tract infection): Code(s): N39.0 - Urinary tract infection, site not specified Status: Acute Assessment and Plan: See above (5) Pain: Code(s): R52 - Pain, unspecified Status: Acute Assessment and Plan: P.r.n. analgesic ordered (6) Encephalopathy: Code(s): G93.40 - Encephalopathy, unspecified Status: Acute Assessment and Plan: Nonfocal exam. Likely toxic metabolic encephalopathy. Will obtain head CT. (7) Hypothyroid: Code(s): E03.9 - Hypothyroidism, unspecified Status: Acute Assessment and Plan: Continue levothyroxine (8) Electrolyte abnormality: Code(s): E87.8 - Other disorders of electrolyte and fluid balance, not elsewhere classified Status: Acute Assessment and Plan: Replace low potassium and magnesium Plan DVT prophylaxis -Lovenox Nutrition - npo Code Status - Full Code Case discussed with orthopedics. Dr. Hale recommends local wound care at this time I had long discussion with patient's regarding patient's code status. He is struggling to make decision. I answered all his questions. He needs more time before making final decision.. Patient is full code at this time Total Critical Care Time - 40 minutes Due to a high probability of clinically significant, life threatening deterioration, the patient required my highest level of preparedness to intervene emergently and I personally spent this critical care time directly and personally managing the patient. This critical care time included obtaining a history; examining the patient; pulse oximetry; ordering and review of studies; arranging urgent treatment with development of a management plan; evaluation of patient's response to treatment; frequent reassessment; and discussions with other providers. It was exclusive of separately billable procedures and treating other patients and teaching time. Please see Assessment and Plan section and the rest of the note for further information on patient assessment and treatment [facility]ber Consult Note Consult date: 05/19/24 Reason for consult: DKA HPI: Melsisa Rodriguez is a 84 year old female with past medical history of diabetes and status post left transmetatarsal amputation and excisional debridement of diabetic foot ulcer of left foot on 04/23/24 presented to ER yesterday with chief complaint of feeling sick. Patient has been feeling unwell for last few days and not been a taking her regular medications. In ER patient was confused and unable to provide any meaningful history and history was obtained from patient's . Patient's states that he was unable to take care of her. She had run out of insulin and he felt that she was sick and did not give her medications. Her surgical wound also looked abnormal. Workup in the ER showed patient having elevated blood sugar, elevated beta hydroxybutyrate and metabolic acidosis. Patient was also tachycardic. Patient was given IV fluid bolus and started on IV fluids. Patient was started on broad-spectrum antibiotics. Patient was started on insulin infusion. Patient was admitted to ICU for further evaluation management. This morning when I evaluated the patient she is confused awake follows commands but appears uncomfortable. She states she came to the hospital because she was feeling sick. She is unable to provide any other meaningful detailed. On asking she was having pain she answered yes but again not tell me much details. Patient's states that she started complaining of pain in her neck but then she started hurting all over. He does not believe the patient had fever at home. She states that she is feeling cold. I was not able to obtain any other review of systems. Review of Systems Review of Systems: ROS unobtainable: Yes unobtainable due to medical condition and unobtainable due to mental status [facility] Past Medical History Medical History Charcot foot due to diabetes mellitus Charcot's joint, right ankle and foot Chronic pain Closed trimalleolar fracture of right ankle with delayed healing DDD (degenerative disc disease) Diabetes Diabetic nephropathy Diabetic neuropathy associated with diabetes mellitus due to underlying condition Diabetic ulcer of right foot Diabetic ulcer of toe of right foot associated with type 2 diabetes mellitus Exposed orthopaedic hardware Gangrene due to arterial insufficiency GERD (gastroesophageal reflux disease) History of trigger finger Hypercholesteremia Hypertension Hypothyroid Lower extremity weakness Melanoma Nose Neuropathy Non-pressure chronic ulcer of other part of right foot with muscle involvement without evidence of necrosis Osteomyelitis Polyneuropathy associated with underlying disease Type 2 diabetes mellitus with diabetic autonomic (poly)neuropathy Vision loss Surgical History Surgical History History of amputation of right great toe History of appendectomy History of bladder suspension procedure History of cholecystectomy (~1992) History of hysterectomy (~1983) History of tonsillectomy S/P transmetatarsal amputation of foot Family History Family History Mother Emphysema lung Father Emphysema lung Sibling Hypertension Emphysema lung Social History Social History Social History: Patient lives at home with her Pritesh. She wishes to be a Full Code. Her PCP is Dr. Cristina. Smoking packs per day: 1 Smoking cigarettes per day: 20.0 Years smoked: 10 Smoking pack-years: 10.00 Smoking status: Former smoker Tobacco type: cigarettes Second hand tobacco smoke exposure: No Smoking end date: 08/12/87 Additional smoking assessment comments: Unknown smoking end date and pack years Alcohol intake: never Substance use: never Substance use type: does not use Living arrangements: with family Additional living arrangements comments: Gender identity (if verbalized by the patient): Female Spiritual care concerns: No Meds Home Medications and Allergies Home Medications Medication Instructions Recorded Confirmed Type gabapentin 800 mg tablet 800 mg PO TID 07/14/19 05/18/24 History amlodipine 5 mg tablet 10 mg PO DAILY 05/04/20 05/18/24 History levothyroxine 100 mcg tablet 100 mcg PO QAM 05/04/20 05/18/24 History losartan 50 mg tablet 50 mg PO QPM 05/04/20 05/18/24 History metformin 1,000 mg tablet 1,000 mg PO BID 05/04/20 05/18/24 History pramipexole 0.75 mg tablet 0.75 mg PO HS 05/04/20 05/18/24 History propranolol 20 mg tablet 20 mg PO Q12H 05/04/20 05/18/24 History glucose 4 gram chewable tablet 4 g PO Q15M PRN hypoglycemia #10 05/19/20 05/18/24 Rx tabs gabapentin 100 mg capsule 100 mg PO TID 04/15/24 05/18/24 History insulin degludec 100 unit/mL (3 28 unit subcut HS 04/15/24 05/18/24 History mL) subcutaneous pen (Tresiba FlexTouch U-100 insulin) tacrolimus 0.1 % topical ointment 1 applic topical DAILY 04/15/24 05/18/24 History hydrocodone 5 mg-acetaminophen 325 2 tablet PO Q6H PRN pain #30 tabs 04/23/24 05/18/24 Rx mg tablet Allergies Allergy/AdvReac Type Severity Reaction Status Date / Time psyllium Allergy Severe Anaphylactic Verified 05/12/24 09:52 Shock Penicillins Allergy Unknown Anaphylaxis Verified 05/19/24 08:24 Vital Signs Vital Signs - 24 hr 05/18/24 11:50 05/18/24 11:56 05/18/24 11:56 Temperature 36.7 C Pulse Rate 119 H 119 H Respiratory Rate 16 Blood Pressure 192/74 H Pulse Oximetry 98 99 Oxygen Delivery Room Air Room Air Oxygen Flow Rate Fraction of Inspired Oxygen 05/18/24 14:48 05/18/24 14:48 05/18/24 15:01 Temperature Pulse Rate 108 H 110 H 105 H Respiratory Rate 30 H 17 17 Blood Pressure 172/79 H 172/79 H 162/70 H Pulse Oximetry 100 100 100 Oxygen Delivery Oxygen Flow Rate Fraction of Inspired Oxygen 05/18/24 15:16 05/18/24 15:31 05/18/24 15:46 Temperature Pulse Rate 108 H 104 H 113 H Respiratory Rate 17 22 H 18 Blood Pressure 167/67 H 155/70 H 161/123 H Pulse Oximetry 99 100 99 Oxygen Delivery Oxygen Flow Rate Fraction of Inspired Oxygen 05/18/24 16:01 05/18/24 16:31 05/18/24 16:45 Temperature Pulse Rate 108 H 110 H 113 H Respiratory Rate 23 H 27 H 25 H Blood Pressure 167/69 H 167/64 H 159/81 H Pulse Oximetry 100 100 Oxygen Delivery Oxygen Flow Rate Fraction of Inspired Oxygen 05/18/24 17:00 05/18/24 17:15 05/18/24 17:30 Temperature Pulse Rate 109 H 107 H 103 H Respiratory Rate 25 H 18 21 H Blood Pressure 152/74 H 163/75 H 156/77 H Pulse Oximetry 100 Oxygen Delivery Oxygen Flow Rate Fraction of Inspired Oxygen 05/18/24 18:01 05/18/24 19:54 05/19/24 02:25 Temperature 39.6 C H Pulse Rate 111 H Respiratory Rate Blood Pressure 121/84 Pulse Oximetry 96 Oxygen Delivery CPAP Oxygen Flow Rate Fraction of Inspired Oxygen 05/18/24 20:00 05/18/24 22:00 05/18/24 20:00 Temperature 39.7 C H Pulse Rate 141 H 122 H 132 H Respiratory Rate 26 H Blood Pressure 166/68 H Pulse Oximetry 97 Oxygen Delivery Oxygen Flow Rate Fraction of Inspired Oxygen 05/18/24 22:00 05/19/24 00:00 05/19/24 02:00 Temperature 40.2 C H Pulse Rate 122 H 115 H 112 H Respiratory Rate 26 H Blood Pressure 163/86 H Pulse Oximetry 100 Oxygen Delivery Oxygen Flow Rate Fraction of Inspired Oxygen 05/19/24 00:00 05/19/24 02:00 05/19/24 04:21 Temperature 39.3 C H 39.0 C H 39.9 C H Pulse Rate 111 H 112 H Respiratory Rate 25 H 18 Blood Pressure 121/55 L 129/106 H Pulse Oximetry 100 96 Oxygen Delivery Oxygen Flow Rate Fraction of Inspired Oxygen 05/19/24 04:00 05/19/24 04:00 05/19/24 06:00 Temperature 39.8 C H Pulse Rate 123 H 123 H 115 H Respiratory Rate 24 H Blood Pressure 149/70 H Pulse Oximetry 96 Oxygen Delivery Oxygen Flow Rate Fraction of Inspired Oxygen 05/19/24 06:00 05/19/24 00:00 05/19/24 04:00 Temperature 39.4 C H Pulse Rate 115 H Respiratory Rate 28 H Blood Pressure 158/75 H Pulse Oximetry 96 96 96 Oxygen Delivery Nasal Cannula CPAP Oxygen Flow Rate 4 Fraction of Inspired Oxygen 05/19/24 08:33 Temperature Pulse Rate Respiratory Rate Blood Pressure Pulse Oximetry 97 Oxygen Delivery Room Air Oxygen Flow Rate Fraction of Inspired Oxygen 21 Exam Narrative: General: Old frail female who is in mild distress secondary to pain, awake alert partially oriented Lungs/Chest: Trachea central Clear BS B/L, No crackles or wheezing. Cardiac: Tachycardic, regular Normal S1 S2. No murmurs Circulation: Pedal pulses are intact and symmetrical. Abdomen: Normal bowel sounds.. Soft. NT. ND. 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 Patient's foot was just examiner Orthopedics and a new dressing was placed I did not remove dressing again to examine the patient since it was already examine by wound and Orthopedics : Vang in place Neurologic: Follows commands. Moves all 4 extremities PERRL, AO x1 to place Skin: No Rash Results Labs 05/19/24 04:32 05/19/24 09:55 Labs: Impressions Foot X-Ray 05/18/24 14:50 IMPRESSION: 1. Irregularity of the distal ends of the bones status post transmetatarsal amputation without change, which may be the normal postoperative appearance. No specific evidence of osteomyelitis. Short CBC 05/18/24 05/19/24 Range/Units 12:38 04:32 WBC 9.5 10.2 H (4.5-10.0) K/mm3 Hgb 10.9 L 9.4 L (12.0-15.0) g/dL Hct 36.1 L 28.8 L (37.0-47.0) % Plt Count 263 215 (150-375) k/mm3 BMP 05/18/24 05/18/24 05/18/24 14:25 18:45 23:03 Sodium 142 142 141 Potassium 3.8 3.6 3.3 L Chloride 112 H 114 H 113 H Carbon Dioxide < 5 L < 5 L 12 L BUN 20 H 16 14 Creatinine 0.90 0.70 0.60 L Glucose 468 H 331 H 311 H Calcium 9.9 9.4 8.8 05/19/24 04:32 Sodium 141 Potassium 3.1 L Chloride 112 H Carbon Dioxide 15 L BUN 13 Creatinine 0.60 L Glucose 255 H Calcium 8.6 Liver Function 05/18/24 05/19/24 Range/Units 14:25 04:32 Total Bilirubin 0.4 0.4 (0.2-1.3) mg/dL AST 34 78 H (14-36) U/L ALT 28 28 (6-35) U/L Alkaline Phosphatase 130 H 121 (38-126) U/L Albumin 3.6 3.0 L (3.5-5.1) g/dL Urine 05/18/24 Range/Units 13:19 Urine Color Yellow (Yellow) Urine Appearance Clear (Clear) Urine pH 5.5 (5.0-9.0) Ur Specific [place] 1.028 (1.001-1.035) Urine Protein 3+ H (Negative) mg/dL Urine Glucose (UA) 3+ H (Negative) mg/dL ECG Interpretation: Sinus tachycardia with PACs Hospitalist MIPS Advance Care Plan I have confirmed that the patient's Advanced Care Plan is present, code status is documented, or surrogate decision maker is listed in patient medical record.: Yes Medication Reconciliation I have utilized all available resources to obtain, update and review the patients current medications (includes all prescriptions, OTC, herbals, cannabis, and nutritional supplements).: Yes
[2024-05-19 09:07] LABS: Glucose Point of Care 270 mg/dl (65-105)
[2024-05-19 09:48] LABS: Glucose Point of Care 306 mg/dl (65-105)
[2024-05-19] MEDS: MORPHINE SULFATE (*CRX) 2 MG/ML INJ IV PUSH ×3 (09:51→23:46)
[2024-05-19] MEDS: ENOXAPARIN 40 MG/0.4 ML SYRINGE SUB-Q (09:51)
[2024-05-19 10:14] LABS: Anion Gap 17 mmol/L (4-12); Blood Urea Nitrogen 12 mg/dL (7-17); Calcium 8.7 mg/dL (8.4-10.2); Carbon Dioxide 15 mmol/L (22-30); Chloride 109 mmol/L (98-107); Estimated CRCL calculation 40 ml/min; Estimated Glomerular Filt Rate > 60; Glucose 296 mg/dL (65-110); Sodium 141 mmol/L (137-145)
[2024-05-19] MEDS: KCL 20 MEQ/D5/0.45% SOD CHL 1,000 ML 150 ML IV CONT ×2 (11:10→22:31)
[2024-05-19 11:11] LABS: Glucose Point of Care 218 mg/dl (65-105)
[2024-05-19 11:49] LABS: Glucose Point of Care 154 mg/dl (65-105)
[2024-05-19] MEDS: SOD HYPOCHLORITE 1/4 STRENGTH 473 ML 1 APPLIC TOPICAL ×2 (12:34→20:32)
[2024-05-19 12:44] LABS: Glucose Point of Care 177 mg/dl (65-105)
[2024-05-19] MEDS: CLINDAMYCIN 600 MG/D5W 50 ML 600 MG/50 ML PIGGYBACK 100 MG IVPB ×2 (13:12→20:32)
[2024-05-19 13:54] LABS: Glucose Point of Care 197 mg/dl (65-105)
[2024-05-19 14:37] LABS: Glucose Point of Care 216 mg/dl (65-105)
[2024-05-19 14:48] LABS: Anion Gap 18 mmol/L (4-12); Blood Urea Nitrogen 10 mg/dL (7-17); Calcium 8.5 mg/dL (8.4-10.2); Carbon Dioxide 13 mmol/L (22-30); Chloride 110 mmol/L (98-107); Estimated CRCL calculation 40 ml/min; Estimated Glomerular Filt Rate > 60; Glucose 231 mg/dL (65-110); Potassium 3.5 mmol/L (3.4-5.0); Sodium 141 mmol/L (137-145)
--- NOTE | 2024-05-19 15:04 | PM.CNOR ---
Assessment and Plan Assessment and plan (1) Wound dehiscence, surgical: Qualifiers: Encounter type: subsequent encounter Qualified Code(s): T81.31XD - Disruption of external operation (surgical) wound, not elsewhere classified, subsequent encounter Code(s): T81.31XA - Disruption of external operation (surgical) wound, not elsewhere classified, initial encounter Status: Acute Assessment and Plan: patient under orthopedic service. 4 weeks status post left transmetatarsal amputation for gangrene. Known risk for wound dehiscence and wound healing problems given arterial insufficiency, neuropathy, diabetes. Some necrotic tissue and drainage at the end of the left foot wound dehiscence but overall does not look too bad. No erythema and no swelling. Reviewed with the patient's . Wound care team consult to start Dakin's solution dressing changes left foot. Started on antibiotics. We will continue to follow and monitor. CT scan of the left foot shows postsurgical changes. Would be fairly early to have osteomyelitis changes but will continue to monitor. Currently with Dakin's dressing changes and IV antibiotics. Patient is not a surgical candidate at this time given her medical and clinical picture (2) Diabetic ketoacidosis: Qualifiers: Diabetes mellitus type: type 2 Diabetes mellitus complication detail: without coma Qualified Code(s): E11.10 - Type 2 diabetes mellitus with ketoacidosis without coma Code(s): E11.10 - Type 2 diabetes mellitus with ketoacidosis without coma Status: Acute (3) Type 2 diabetes mellitus with diabetic autonomic (poly)neuropathy: Qualifiers: Diabetes mellitus correction insulin use: with correction use Qualified Code(s): E11.43 - Type 2 diabetes mellitus with diabetic autonomic (poly)neuropathy; Z79.4 - principal developer (current) use of insulin Code(s): E11.43 - Type 2 diabetes mellitus with diabetic autonomic (poly)neuropathy Status: Acute (4) Polyneuropathy associated with underlying disease: Code(s): G63 - Polyneuropathy in diseases classified elsewhere Status: Acute (5) Gangrene due to arterial insufficiency: Code(s): I77.1 - Stricture of artery; I96 - Gangrene, not elsewhere classified Status: Acute History of Present Illness HPI Consult date: 05/19/24 Requesting physician: Jae Smith MD Chief complaint: dka,post op wound infection Narrative: 84-year-old woman known to the Orthopedic Service for diabetes with neuropathy as well as peripheral arterial disease and previous foot ulcerations. Status post right transmetatarsal amputation. More recently 4 weeks status post left transmetatarsal amputation noted to be complicated by wound dehiscence at the 3 week postoperative mercedes. Over the weekend developed hyperglycemia and was admitted through the emergency room Yesterday. Patient was seen in the orthopedic office last week where sutures from left foot were removed. Some wound dehiscence and soft tissue necrosis were noted at that time. Patient does have peripheral arterial disease And is at increased risk for wound dehiscence and poor wound healing. Review of Systems Constitutional: Constitutional: Denies fever(s) Eyes: Eyes: Denies blurry vision ENT: Reports Normal hearing present Cardiovascular: Cardiovascular: Denies chest pain and Denies dyspnea Respiratory: Respiratory: Denies dyspnea and Denies wheezing Gastrointestinal: Gastrointestinal: Denies abdominal pain Genitourinary: Genitourinary: Denies urinary urgency Musculoskeletal: Musculoskeletal: Reports as per HPI and Denies numbness Integumentary/Breasts: Skin/Breast: Denies changing lesions and Denies sores Neurologic: Reports Normal hearing present, Denies behavioral changes, Denies confusion, Denies numbness and Denies convulsions Psychiatric: Psychiatric: Denies behavioral changes, Denies confusion and Denies hallucinations Endocrine: Endocrine: Denies heat intolerance Hematologic/Lymphatic: Hematologic/Lymphatic: Denies easy bleeding Allergic/Immunologic: Allergic/Immunologic: Denies wheezing [facility] Past Medical History Medical History (Updated 05/19/24 @ 15:15 by Floyd Hale MD) Charcot foot due to diabetes mellitus Charcot's joint, right ankle and foot Chronic pain Closed trimalleolar fracture of right ankle with delayed healing DDD (degenerative disc disease) Diabetes Diabetic nephropathy Diabetic neuropathy associated with diabetes mellitus due to underlying condition Diabetic ulcer of right foot Diabetic ulcer of toe of right foot associated with type 2 diabetes mellitus Exposed orthopaedic hardware Gangrene due to arterial insufficiency GERD (gastroesophageal reflux disease) History of trigger finger Hypercholesteremia Hypertension Hypothyroid Lower extremity weakness Melanoma Nose Neuropathy Non-pressure chronic ulcer of other part of right foot with muscle involvement without evidence of necrosis Osteomyelitis Polyneuropathy associated with underlying disease Type 2 diabetes mellitus with diabetic autonomic (poly)neuropathy Vision loss Wound dehiscence, surgical Surgical History Surgical History History of amputation of right great toe History of appendectomy History of bladder suspension procedure History of cholecystectomy (~1992) History of hysterectomy (~1983) History of tonsillectomy S/P transmetatarsal amputation of foot Family History Family History Mother Emphysema lung Father Emphysema lung Sibling Hypertension Emphysema lung Social History Social History Social History: Patient lives at home with her Pritesh. She wishes to be a Full Code. Her PCP is Dr. Cristina. Smoking packs per day: 1 Smoking cigarettes per day: 20.0 Years smoked: 10 Smoking pack-years: 10.00 Smoking status: Former smoker Tobacco type: cigarettes Second hand tobacco smoke exposure: No Smoking end date: 08/12/87 Additional smoking assessment comments: Unknown smoking end date and pack years Alcohol intake: never Substance use: never Substance use type: does not use Living arrangements: with family Additional living arrangements comments: Gender identity (if verbalized by the patient): Female Spiritual care concerns: No Meds Home Medications and Allergies Home Medications Medication Instructions Recorded Confirmed Type gabapentin 800 mg tablet 800 mg PO TID 07/14/19 05/18/24 History amlodipine 5 mg tablet 10 mg PO DAILY 05/04/20 05/18/24 History levothyroxine 100 mcg tablet 100 mcg PO QAM 05/04/20 05/18/24 History losartan 50 mg tablet 50 mg PO QPM 05/04/20 05/18/24 History metformin 1,000 mg tablet 1,000 mg PO BID 05/04/20 05/18/24 History pramipexole 0.75 mg tablet 0.75 mg PO HS 05/04/20 05/18/24 History propranolol 20 mg tablet 20 mg PO Q12H 05/04/20 05/18/24 History glucose 4 gram chewable tablet 4 g PO Q15M PRN hypoglycemia #10 05/19/20 05/18/24 Rx tabs gabapentin 100 mg capsule 100 mg PO TID 04/15/24 05/18/24 History insulin degludec 100 unit/mL (3 28 unit subcut HS 04/15/24 05/18/24 History mL) subcutaneous pen (Tresiba FlexTouch U-100 insulin) tacrolimus 0.1 % topical ointment 1 applic topical DAILY 04/15/24 05/18/24 History hydrocodone 5 mg-acetaminophen 325 2 tablet PO Q6H PRN pain #30 tabs 04/23/24 05/18/24 Rx mg tablet Allergies Allergy/AdvReac Type Severity Reaction Status Date / Time psyllium Allergy Severe Anaphylactic Verified 05/12/24 09:52 Shock Penicillins Allergy Unknown Anaphylaxis Verified 05/19/24 08:24 Vital Signs Vital Signs - 24 hr 05/18/24 15:16 05/18/24 15:31 05/18/24 15:46 Temperature Pulse Rate 108 H 104 H 113 H Respiratory Rate 17 22 H 18 Blood Pressure 167/67 H 155/70 H 161/123 H Pulse Oximetry 99 100 99 Oxygen Delivery Oxygen Flow Rate Fraction of Inspired Oxygen 05/18/24 16:01 05/18/24 16:31 05/18/24 16:45 Temperature Pulse Rate 108 H 110 H 113 H Respiratory Rate 23 H 27 H 25 H Blood Pressure 167/69 H 167/64 H 159/81 H Pulse Oximetry 100 100 Oxygen Delivery Oxygen Flow Rate Fraction of Inspired Oxygen 05/18/24 17:00 05/18/24 17:15 05/18/24 17:30 Temperature Pulse Rate 109 H 107 H 103 H Respiratory Rate 25 H 18 21 H Blood Pressure 152/74 H 163/75 H 156/77 H Pulse Oximetry 100 Oxygen Delivery Oxygen Flow Rate Fraction of Inspired Oxygen 05/18/24 18:01 05/18/24 19:54 05/19/24 02:25 Temperature 103.2 F H Pulse Rate 111 H Respiratory Rate Blood Pressure 121/84 Pulse Oximetry 96 Oxygen Delivery CPAP Oxygen Flow Rate Fraction of Inspired Oxygen 05/18/24 20:00 05/18/24 22:00 05/18/24 20:00 Temperature 103.5 F H Pulse Rate 141 H 122 H 132 H Respiratory Rate 26 H Blood Pressure 166/68 H Pulse Oximetry 97 Oxygen Delivery Oxygen Flow Rate Fraction of Inspired Oxygen 05/18/24 22:00 05/19/24 00:00 05/19/24 02:00 Temperature 104.4 F H Pulse Rate 122 H 115 H 112 H Respiratory Rate 26 H Blood Pressure 163/86 H Pulse Oximetry 100 Oxygen Delivery Oxygen Flow Rate Fraction of Inspired Oxygen 05/19/24 00:00 05/19/24 02:00 05/19/24 04:21 Temperature 102.8 F H 102.2 F H 103.8 F H Pulse Rate 111 H 112 H Respiratory Rate 25 H 18 Blood Pressure 121/55 L 129/106 H Pulse Oximetry 100 96 Oxygen Delivery Oxygen Flow Rate Fraction of Inspired Oxygen 05/19/24 04:00 05/19/24 04:00 05/19/24 06:00 Temperature 103.7 F H Pulse Rate 123 H 123 H 115 H Respiratory Rate 24 H Blood Pressure 149/70 H Pulse Oximetry 96 Oxygen Delivery Oxygen Flow Rate Fraction of Inspired Oxygen 05/19/24 06:00 05/19/24 00:00 05/19/24 04:00 Temperature 103.0 F H Pulse Rate 115 H Respiratory Rate 28 H Blood Pressure 158/75 H Pulse Oximetry 96 96 96 Oxygen Delivery Nasal Cannula CPAP Oxygen Flow Rate 4 Fraction of Inspired Oxygen 05/19/24 09:52 05/19/24 08:33 05/19/24 08:00 Temperature 102 F H 101.2 F H Pulse Rate 120 H Respiratory Rate 22 H Blood Pressure 159/82 H Pulse Oximetry 97 98 Oxygen Delivery Room Air Oxygen Flow Rate Fraction of Inspired Oxygen 21 05/19/24 10:00 05/19/24 10:50 05/19/24 08:00 Temperature 101.9 F H 101.3 F H Pulse Rate 101 H 120 H Respiratory Rate 26 H Blood Pressure 143/58 H Pulse Oximetry 96 Oxygen Delivery Oxygen Flow Rate Fraction of Inspired Oxygen 05/19/24 10:00 05/19/24 08:00 05/19/24 12:00 Temperature Pulse Rate 101 H 120 H 99 Respiratory Rate 22 H 24 H Blood Pressure Pulse Oximetry 98 96 Oxygen Delivery Room Air Room Air Oxygen Flow Rate Fraction of Inspired Oxygen 05/19/24 12:00 05/19/24 12:00 05/19/24 14:00 Temperature 101.5 F H Pulse Rate 99 99 114 H Respiratory Rate 24 H Blood Pressure 121/74 Pulse Oximetry 97 Oxygen Delivery Oxygen Flow Rate Fraction of Inspired Oxygen 05/19/24 14:00 05/19/24 13:59 Temperature 102.4 F H 102.5 F H Pulse Rate 114 H Respiratory Rate 23 H Blood Pressure 154/78 H Pulse Oximetry 96 Oxygen Delivery Oxygen Flow Rate Fraction of Inspired Oxygen Exam Const: General: in distress mild and ill appearing acutely; No comfortable Orientation/consciousness: oriented to person HENMT: Head: normal to inspection, normocephalic and atraumatic Neck: Neck: supple and nontender Chest: Chest palpation & inspection: normal inspection of the chest Resp: Effort & Inspection: abnormal respiratory pattern ( CPAP in place.) Extrem: Right upper extremity: normal to inspection Left upper extremity: normal to inspection Right lower extremity: ankle Details: normal to inspection, abnormal ROM Details: with range as follows (ankle dorsiflexion -10 degrees, plantar flexion 40?, inversion 15?, eversion 15?) and other ( good stability all directions); no tenderness, no swelling and no ecchymosis and foot Details: abnormal to inspection ( Status post transmetatarsal amputation with good healing), vascular exam Details: abnormal capillary refill ( transmetatarsal amputation); dorsalis pedis pulse absent, posterior tibial pulse absent and capillary refill abnormal, tendon exam Details: active flexion abnormal and active extension abnormal, motor-sensory exam Details: light-touch abnormal ( foot) and other ( surgical incision well healed) Left lower extremity: ankle Details: normal to inspection and abnormal ROM Details: with range as follows (ankle dorsiflexion -10 degrees, plantar flexion 40?, inversion 15?, eversion 15?); no tenderness and no swelling and foot Details: normal capillary refill, abnormal to inspection ( status post transmetatarsal amputation), vascular exam Details: abnormal capillary refill (foot); dorsalis pedis pulse absent, posterior tivial pulse absent and capillary refill abnormal, tendon exam active flexion abnormal of the great toe and active extension abnormal of the great toe and motor-sensory exam light-touch abnormal ( foot); no tenderness and no crepitus Other: left foot transmetatarsal amputation with wound dehiscence across the distal medial and distal lateral aspects. Necrotic tissue present in the wound bed. Purulent drainage noted and foul odor. No surrounding erythema and minimal swelling. No exposed bone Or tendon. Results Labs 05/19/24 04:32 05/19/24 14:29 Labs: Abnormal lab results 05/18/24 05/18/24 05/18/24 Range/Units 14:25 15:05 16:13 WBC (4.5-10.0) K/mm3 RBC (4.2-5.4) M/mm3 Hgb (12.0-15.0) g/dL Hct (37.0-47.0) % MPV (7.4-10.4) fl Neutrophils % (Manual) (46-73) % Band Neutrophils % (0-6) % Lymphocytes % (Manual) (18-44) % Abs Neuts (Manual) (1.7-7.2) K/mm3 Abs Lymphs (Manual) (1.1-4.5) K/mm3 ESR (0-20) mm/hr ABG pH (7.350-7.450) ABG pCO2 (35.0-45.0) mmHg ABG pO2 (80.0-100.0) mmHg ABG HCO3 (22.0-26.0) mEq/l ABG O2 Saturation (95.0-100.0) % ABG O2 Content (16.0-22.0) %vol Total Hemoglobin (12.0-18.0) g/dL Potassium (3.4-5.0) mmol/L Chloride 112 H (98-107) mmol/L Carbon Dioxide < 5 L (22-30) mmol/L Anion Gap (4-12) mmol/L BUN 20 H (7-17) mg/dL Creatinine (0.7-1.0) mg/dL Glucose 468 H (65-110) mg/dL POC Capillary Glucose 459 H 425 H (65-105) mg/dl Lactic Acid (0.7-2.0) mmol/L Magnesium (1.6-2.3) mg/dL Iron (37-170) ug/dL TIBC (261-462) ug/dL % Saturation (20-50) % Ferritin (11.1-264) ng/mL AST (14-36) U/L Alkaline Phosphatase 130 H (38-126) U/L C-Reactive Protein (<1.0) mg/dL Albumin (3.5-5.1) g/dL Beta-Hydroxybutyrate/Acetoacetate (0.02-0.27) mmol/L 05/18/24 05/18/24 05/18/24 Range/Units 17:22 18:38 18:45 WBC (4.5-10.0) K/mm3 RBC (4.2-5.4) M/mm3 Hgb (12.0-15.0) g/dL Hct (37.0-47.0) % MPV (7.4-10.4) fl Neutrophils % (Manual) (46-73) % Band Neutrophils % (0-6) % Lymphocytes % (Manual) (18-44) % Abs Neuts (Manual) (1.7-7.2) K/mm3 Abs Lymphs (Manual) (1.1-4.5) K/mm3 ESR (0-20) mm/hr ABG pH (7.350-7.450) ABG pCO2 (35.0-45.0) mmHg ABG pO2 (80.0-100.0) mmHg ABG HCO3 (22.0-26.0) mEq/l ABG O2 Saturation (95.0-100.0) % ABG O2 Content (16.0-22.0) %vol Total Hemoglobin (12.0-18.0) g/dL Potassium (3.4-5.0) mmol/L Chloride 114 H (98-107) mmol/L Carbon Dioxide < 5 L (22-30) mmol/L Anion Gap (4-12) mmol/L BUN (7-17) mg/dL Creatinine (0.7-1.0) mg/dL Glucose 331 H (65-110) mg/dL POC Capillary Glucose 375 H 292 H (65-105) mg/dl Lactic Acid 2.9 H (0.7-2.0) mmol/L Magnesium (1.6-2.3) mg/dL Iron 30 L (37-170) ug/dL TIBC 187 L (261-462) ug/dL % Saturation 16 L (20-50) % Ferritin 774.00 H (11.1-264) ng/mL AST (14-36) U/L Alkaline Phosphatase (38-126) U/L C-Reactive Protein (<1.0) mg/dL Albumin (3.5-5.1) g/dL Beta-Hydroxybutyrate/Acetoacetate (0.02-0.27) mmol/L 05/18/24 05/18/24 05/18/24 Range/Units 20:07 20:08 21:01 WBC (4.5-10.0) K/mm3 RBC (4.2-5.4) M/mm3 Hgb (12.0-15.0) g/dL Hct (37.0-47.0) % MPV (7.4-10.4) fl Neutrophils % (Manual) (46-73) % Band Neutrophils % (0-6) % Lymphocytes % (Manual) (18-44) % Abs Neuts (Manual) (1.7-7.2) K/mm3 Abs Lymphs (Manual) (1.1-4.5) K/mm3 ESR (0-20) mm/hr ABG pH 7.472 H (7.350-7.450) ABG pCO2 22.6 L* (35.0-45.0) mmHg ABG pO2 67.2 L (80.0-100.0) mmHg ABG HCO3 16.2 L (22.0-26.0) mEq/l ABG O2 Saturation 94.9 L (95.0-100.0) % ABG O2 Content 14.0 L (16.0-22.0) %vol Total Hemoglobin 10.5 L (12.0-18.0) g/dL Potassium (3.4-5.0) mmol/L Chloride (98-107) mmol/L Carbon Dioxide (22-30) mmol/L Anion Gap (4-12) mmol/L BUN (7-17) mg/dL Creatinine (0.7-1.0) mg/dL Glucose (65-110) mg/dL POC Capillary Glucose 187 H 212 H (65-105) mg/dl Lactic Acid (0.7-2.0) mmol/L Magnesium (1.6-2.3) mg/dL Iron (37-170) ug/dL TIBC (261-462) ug/dL % Saturation (20-50) % Ferritin (11.1-264) ng/mL AST (14-36) U/L Alkaline Phosphatase (38-126) U/L C-Reactive Protein (<1.0) mg/dL Albumin (3.5-5.1) g/dL Beta-Hydroxybutyrate/Acetoacetate (0.02-0.27) mmol/L 05/18/24 05/18/24 05/18/24 Range/Units 22:41 23:03 23:30 WBC (4.5-10.0) K/mm3 RBC (4.2-5.4) M/mm3 Hgb (12.0-15.0) g/dL Hct (37.0-47.0) % MPV (7.4-10.4) fl Neutrophils % (Manual) (46-73) % Band Neutrophils % (0-6) % Lymphocytes % (Manual) (18-44) % Abs Neuts (Manual) (1.7-7.2) K/mm3 Abs Lymphs (Manual) (1.1-4.5) K/mm3 ESR (0-20) mm/hr ABG pH (7.350-7.450) ABG pCO2 (35.0-45.0) mmHg ABG pO2 (80.0-100.0) mmHg ABG HCO3 (22.0-26.0) mEq/l ABG O2 Saturation (95.0-100.0) % ABG O2 Content (16.0-22.0) %vol Total Hemoglobin (12.0-18.0) g/dL Potassium 3.3 L (3.4-5.0) mmol/L Chloride 113 H (98-107) mmol/L Carbon Dioxide 12 L (22-30) mmol/L Anion Gap 16 H (4-12) mmol/L BUN (7-17) mg/dL Creatinine 0.60 L (0.7-1.0) mg/dL Glucose 311 H (65-110) mg/dL POC Capillary Glucose 297 H 286 H (65-105) mg/dl Lactic Acid (0.7-2.0) mmol/L Magnesium (1.6-2.3) mg/dL Iron (37-170) ug/dL TIBC (261-462) ug/dL % Saturation (20-50) % Ferritin (11.1-264) ng/mL AST (14-36) U/L Alkaline Phosphatase (38-126) U/L C-Reactive Protein (<1.0) mg/dL Albumin (3.5-5.1) g/dL Beta-Hydroxybutyrate/Acetoacetate (0.02-0.27) mmol/L 05/19/24 05/19/24 05/19/24 Range/Units 00:32 01:50 03:00 WBC (4.5-10.0) K/mm3 RBC (4.2-5.4) M/mm3 Hgb (12.0-15.0) g/dL Hct (37.0-47.0) % MPV (7.4-10.4) fl Neutrophils % (Manual) (46-73) % Band Neutrophils % (0-6) % Lymphocytes % (Manual) (18-44) % Abs Neuts (Manual) (1.7-7.2) K/mm3 Abs Lymphs (Manual) (1.1-4.5) K/mm3 ESR (0-20) mm/hr ABG pH (7.350-7.450) ABG pCO2 (35.0-45.0) mmHg ABG pO2 (80.0-100.0) mmHg ABG HCO3 (22.0-26.0) mEq/l ABG O2 Saturation (95.0-100.0) % ABG O2 Content (16.0-22.0) %vol Total Hemoglobin (12.0-18.0) g/dL Potassium (3.4-5.0) mmol/L Chloride (98-107) mmol/L Carbon Dioxide (22-30) mmol/L Anion Gap (4-12) mmol/L BUN (7-17) mg/dL Creatinine (0.7-1.0) mg/dL Glucose (65-110) mg/dL POC Capillary Glucose 202 H 257 H 249 H (65-105) mg/dl Lactic Acid (0.7-2.0) mmol/L Magnesium (1.6-2.3) mg/dL Iron (37-170) ug/dL TIBC (261-462) ug/dL % Saturation (20-50) % Ferritin (11.1-264) ng/mL AST (14-36) U/L Alkaline Phosphatase (38-126) U/L C-Reactive Protein (<1.0) mg/dL Albumin (3.5-5.1) g/dL Beta-Hydroxybutyrate/Acetoacetate (0.02-0.27) mmol/L 05/19/24 05/19/24 05/19/24 Range/Units 04:21 04:32 05:20 WBC 10.2 H (4.5-10.0) K/mm3 RBC 3.23 L (4.2-5.4) M/mm3 Hgb 9.4 L (12.0-15.0) g/dL Hct 28.8 L (37.0-47.0) % MPV 11.0 H (7.4-10.4) fl Neutrophils % (Manual) 80 H (46-73) % Band Neutrophils % 9 H (0-6) % Lymphocytes % (Manual) 5.0 L (18-44) % Abs Neuts (Manual) 9.07 H (1.7-7.2) K/mm3 Abs Lymphs (Manual) 0.51 L (1.1-4.5) K/mm3 ESR > 140 H (0-20) mm/hr ABG pH 7.497 H (7.350-7.450) ABG pCO2 20.2 L* (35.0-45.0) mmHg ABG pO2 68.5 L (80.0-100.0) mmHg ABG HCO3 15.3 L (22.0-26.0) mEq/l ABG O2 Saturation (95.0-100.0) % ABG O2 Content 13.4 L (16.0-22.0) %vol Total Hemoglobin 10.0 L (12.0-18.0) g/dL Potassium 3.1 L (3.4-5.0) mmol/L Chloride 112 H (98-107) mmol/L Carbon Dioxide 15 L (22-30) mmol/L Anion Gap 14 H (4-12) mmol/L BUN (7-17) mg/dL Creatinine 0.60 L (0.7-1.0) mg/dL Glucose 255 H (65-110) mg/dL POC Capillary Glucose 219 H (65-105) mg/dl Lactic Acid (0.7-2.0) mmol/L Magnesium 1.1 L (1.6-2.3) mg/dL Iron (37-170) ug/dL TIBC (261-462) ug/dL % Saturation (20-50) % Ferritin (11.1-264) ng/mL AST 78 H (14-36) U/L Alkaline Phosphatase (38-126) U/L C-Reactive Protein 41.4 H (<1.0) mg/dL Albumin 3.0 L (3.5-5.1) g/dL Beta-Hydroxybutyrate/Acetoacetate 0.50 H (0.02-0.27) mmol/L 05/19/24 05/19/24 05/19/24 Range/Units 05:28 06:50 07:42 WBC (4.5-10.0) K/mm3 RBC (4.2-5.4) M/mm3 Hgb (12.0-15.0) g/dL Hct (37.0-47.0) % MPV (7.4-10.4) fl Neutrophils % (Manual) (46-73) % Band Neutrophils % (0-6) % Lymphocytes % (Manual) (18-44) % Abs Neuts (Manual) (1.7-7.2) K/mm3 Abs Lymphs (Manual) (1.1-4.5) K/mm3 ESR (0-20) mm/hr ABG pH (7.350-7.450) ABG pCO2 (35.0-45.0) mmHg ABG pO2 (80.0-100.0) mmHg ABG HCO3 (22.0-26.0) mEq/l ABG O2 Saturation (95.0-100.0) % ABG O2 Content (16.0-22.0) %vol Total Hemoglobin (12.0-18.0) g/dL Potassium (3.4-5.0) mmol/L Chloride (98-107) mmol/L Carbon Dioxide (22-30) mmol/L Anion Gap (4-12) mmol/L BUN (7-17) mg/dL Creatinine (0.7-1.0) mg/dL Glucose (65-110) mg/dL POC Capillary Glucose 257 H 278 H 297 H (65-105) mg/dl Lactic Acid (0.7-2.0) mmol/L Magnesium (1.6-2.3) mg/dL Iron (37-170) ug/dL TIBC (261-462) ug/dL % Saturation (20-50) % Ferritin (11.1-264) ng/mL AST (14-36) U/L Alkaline Phosphatase (38-126) U/L C-Reactive Protein (<1.0) mg/dL Albumin (3.5-5.1) g/dL Beta-Hydroxybutyrate/Acetoacetate (0.02-0.27) mmol/L 05/19/24 05/19/24 05/19/24 Range/Units 08:42 09:44 09:55 WBC (4.5-10.0) K/mm3 RBC (4.2-5.4) M/mm3 Hgb (12.0-15.0) g/dL Hct (37.0-47.0) % MPV (7.4-10.4) fl Neutrophils % (Manual) (46-73) % Band Neutrophils % (0-6) % Lymphocytes % (Manual) (18-44) % Abs Neuts (Manual) (1.7-7.2) K/mm3 Abs Lymphs (Manual) (1.1-4.5) K/mm3 ESR (0-20) mm/hr ABG pH (7.350-7.450) ABG pCO2 (35.0-45.0) mmHg ABG pO2 (80.0-100.0) mmHg ABG HCO3 (22.0-26.0) mEq/l ABG O2 Saturation (95.0-100.0) % ABG O2 Content (16.0-22.0) %vol Total Hemoglobin (12.0-18.0) g/dL Potassium 3.0 L (3.4-5.0) mmol/L Chloride 109 H (98-107) mmol/L Carbon Dioxide 15 L (22-30) mmol/L Anion Gap 17 H (4-12) mmol/L BUN (7-17) mg/dL Creatinine (0.7-1.0) mg/dL Glucose 296 H (65-110) mg/dL POC Capillary Glucose 270 H 306 H (65-105) mg/dl Lactic Acid (0.7-2.0) mmol/L Magnesium (1.6-2.3) mg/dL Iron (37-170) ug/dL TIBC (261-462) ug/dL % Saturation (20-50) % Ferritin (11.1-264) ng/mL AST (14-36) U/L Alkaline Phosphatase (38-126) U/L C-Reactive Protein (<1.0) mg/dL Albumin (3.5-5.1) g/dL Beta-Hydroxybutyrate/Acetoacetate (0.02-0.27) mmol/L 05/19/24 05/19/24 05/19/24 Range/Units 11:09 11:42 12:41 WBC (4.5-10.0) K/mm3 RBC (4.2-5.4) M/mm3 Hgb (12.0-15.0) g/dL Hct (37.0-47.0) % MPV (7.4-10.4) fl Neutrophils % (Manual) (46-73) % Band Neutrophils % (0-6) % Lymphocytes % (Manual) (18-44) % Abs Neuts (Manual) (1.7-7.2) K/mm3 Abs Lymphs (Manual) (1.1-4.5) K/mm3 ESR (0-20) mm/hr ABG pH (7.350-7.450) ABG pCO2 (35.0-45.0) mmHg ABG pO2 (80.0-100.0) mmHg ABG HCO3 (22.0-26.0) mEq/l ABG O2 Saturation (95.0-100.0) % ABG O2 Content (16.0-22.0) %vol Total Hemoglobin (12.0-18.0) g/dL Potassium (3.4-5.0) mmol/L Chloride (98-107) mmol/L Carbon Dioxide (22-30) mmol/L Anion Gap (4-12) mmol/L BUN (7-17) mg/dL Creatinine (0.7-1.0) mg/dL Glucose (65-110) mg/dL POC Capillary Glucose 218 H 154 H 177 H (65-105) mg/dl Lactic Acid (0.7-2.0) mmol/L Magnesium (1.6-2.3) mg/dL Iron (37-170) ug/dL TIBC (261-462) ug/dL % Saturation (20-50) % Ferritin (11.1-264) ng/mL AST (14-36) U/L Alkaline Phosphatase (38-126) U/L C-Reactive Protein (<1.0) mg/dL Albumin (3.5-5.1) g/dL Beta-Hydroxybutyrate/Acetoacetate (0.02-0.27) mmol/L 05/19/24 05/19/24 05/19/24 Range/Units 13:37 14:29 14:34 WBC (4.5-10.0) K/mm3 RBC (4.2-5.4) M/mm3 Hgb (12.0-15.0) g/dL Hct (37.0-47.0) % MPV (7.4-10.4) fl Neutrophils % (Manual) (46-73) % Band Neutrophils % (0-6) % Lymphocytes % (Manual) (18-44) % Abs Neuts (Manual) (1.7-7.2) K/mm3 Abs Lymphs (Manual) (1.1-4.5) K/mm3 ESR (0-20) mm/hr ABG pH (7.350-7.450) ABG pCO2 (35.0-45.0) mmHg ABG pO2 (80.0-100.0) mmHg ABG HCO3 (22.0-26.0) mEq/l ABG O2 Saturation (95.0-100.0) % ABG O2 Content (16.0-22.0) %vol Total Hemoglobin (12.0-18.0) g/dL Potassium (3.4-5.0) mmol/L Chloride 110 H (98-107) mmol/L Carbon Dioxide 13 L (22-30) mmol/L Anion Gap 18 H (4-12) mmol/L BUN (7-17) mg/dL Creatinine (0.7-1.0) mg/dL Glucose 231 H (65-110) mg/dL POC Capillary Glucose 197 H 216 H (65-105) mg/dl Lactic Acid (0.7-2.0) mmol/L Magnesium (1.6-2.3) mg/dL Iron (37-170) ug/dL TIBC (261-462) ug/dL % Saturation (20-50) % Ferritin (11.1-264) ng/mL AST (14-36) U/L Alkaline Phosphatase (38-126) U/L C-Reactive Protein (<1.0) mg/dL Albumin (3.5-5.1) g/dL Beta-Hydroxybutyrate/Acetoacetate (0.02-0.27) mmol/L H & H 05/18/24 05/19/24 Range/Units 12:38 04:32 Hgb 10.9 L 9.4 L (12.0-15.0) g/dL Hct 36.1 L 28.8 L (37.0-47.0) % All other labs normal. Diagnostic results Ankle/Foot x-ray: image reviewed ( left foot radiographs show transmetatarsal amputation with no interval change compared to surgical radiographs. Irregular appearing distal aspect of the 4th and 5th metatarsal consistent with debridement at the time of surgery.) Ankle/Foot CT: image reviewed ( Left foot CT scan shows postsurgical changes of the distal aspect of the metatarsals including surgical debridement of the distal medial aspect of the 1st metatarsal and the ends of the 4th and 5th metatarsals. No new changes in bone appreciated. Soft tissue gas consistent with wound dehiscence )
[2024-05-19 15:45] LABS: Glucose Point of Care 250 mg/dl (65-105)
[2024-05-19] MEDS: VANCOMYCIN 1,000 MG/NS 250 ML 1,000 MG/250 ML BAG 250 MG IVPB (15:46)
--- NOTE | 2024-05-19 15:51 | P.PNIM_ITS ---
Progress Note: A&P Assessment and Plan (1) DKA (diabetic ketoacidosis): Code(s): E11.10 - Type 2 diabetes mellitus with ketoacidosis without coma Status: Acute Assessment and Plan: DKA secondary to noncompliance and sepsis Patient was given IVF bolus and and is on infusion which will be continued Patient is currently on Insulin infusion and Q1H glucose monitoring being done Serial labs are being done Replace electrolytes as needed npo (2) Sepsis: Qualifiers: Sepsis acute organ dysfunction status: unspecified Sepsis type: sepsis due to unspecified organism Qualified Code(s): A41.9 - Sepsis, unspecified organism Code(s): A41.9 - Sepsis, unspecified organism Status: Acute Assessment and Plan: Patient has sepsis secondary to postop wound infection of the foot and possible UTI Foot x-ray 1. Irregularity of the distal ends of the bones status post transmetatarsal amputation without change, which may be the normal postoperative appearance. No specific evidence of osteomyelitis. Patient was seen by Orthopedics and recommended local wound care at this time and no surgical intervention. Wound care consult and local wound care Blood cultures are growing Gram-positive cocci in clusters Urine cultures pending Lactic acid has normalized Continue IV fluids but discontinue IV fluids with bicarb Continue vancomycin, Flagyl and cefepime CT chest neck abdomen: No acute abnormality. 8 mm left renal stone nonobstructing. Dilated common bile duct due to prior cholecystectomy. Mild bibasilar atelectatic changes. Foot CT with osteomyelitis involving 1st metatarsal. Fracture of the plantar aspect of the ends of the stumps of the 3rd and 4th metatarsal which is changed from 04/23/2024. Soft tissue gas in the distal forefoot. (3) Postoperative wound infection: Code(s): T81.49XA - Infection following a procedure, other surgical site, initial enc ounter Status: Acute Assessment and Plan: See above (4) UTI (urinary tract infection): Code(s): N39.0 - Urinary tract infection, site not specified Status: Acute Assessment and Plan: See above (5) Pain: Code(s): R52 - Pain, unspecified Status: Acute Assessment and Plan: P.r.n. analgesic ordered (6) Encephalopathy: Code(s): G93.40 - Encephalopathy, unspecified Status: Acute Assessment and Plan: Nonfocal exam. Likely toxic metabolic encephalopathy. Will obtain head CT. (7) Hypothyroid: Code(s): E03.9 - Hypothyroidism, unspecified Status: Acute Assessment and Plan: Continue levothyroxine (8) Electrolyte abnormality: Code(s): E87.8 - Other disorders of electrolyte and fluid balance, not elsewhere classified Status: Acute Assessment and Plan: Replace low potassium and magnesium Plan DVT prophylaxis -Lovenox Nutrition - npo Code Status - Full Code Subjective Date/time seen: 05/19/24 15:51 Interval history: Events noted. Patient remains febrile. Confusion persist. Family at bedside and discussed with him Review of Systems Review of Systems: ROS unobtainable: Yes unobtainable due to mental status Exam Narrative: General: Old frail female somnolent not in acute distress Lungs/Chest: Trachea central Clear BS B/L, No crackles or wheezing. Cardiac: Mildly Tachycardic, regular Normal S1 S2. No murmurs Circulation: Pedal pulses are intact and symmetrical. Abdomen: Normal bowel sounds.. Soft. NT. ND. 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 Left foot status post amputation from midfoot with dressing in place : Vang in place Neurologic: Somnolent moving all extremities Skin: No Rash Objective Data Vital Signs Vital Signs: Vital Signs - 24 hr 05/18/24 16:01 05/18/24 16:31 05/18/24 16:45 Temperature Pulse Rate 108 H 110 H 113 H Respiratory Rate 23 H 27 H 25 H Blood Pressure 167/69 H 167/64 H 159/81 H Pulse Oximetry 100 100 Oxygen Delivery Oxygen Flow Rate Fraction of Inspired Oxygen 05/18/24 17:00 05/18/24 17:15 05/18/24 17:30 Temperature Pulse Rate 109 H 107 H 103 H Respiratory Rate 25 H 18 21 H Blood Pressure 152/74 H 163/75 H 156/77 H Pulse Oximetry 100 Oxygen Delivery Oxygen Flow Rate Fraction of Inspired Oxygen 05/18/24 18:01 05/18/24 19:54 05/19/24 02:25 Temperature 103.2 F H Pulse Rate 111 H Respiratory Rate Blood Pressure 121/84 Pulse Oximetry 96 Oxygen Delivery CPAP Oxygen Flow Rate Fraction of Inspired Oxygen 05/18/24 20:00 05/18/24 22:00 05/18/24 20:00 Temperature 103.5 F H Pulse Rate 141 H 122 H 132 H Respiratory Rate 26 H Blood Pressure 166/68 H Pulse Oximetry 97 Oxygen Delivery Oxygen Flow Rate Fraction of Inspired Oxygen 05/18/24 22:00 05/19/24 00:00 05/19/24 02:00 Temperature 104.4 F H Pulse Rate 122 H 115 H 112 H Respiratory Rate 26 H Blood Pressure 163/86 H Pulse Oximetry 100 Oxygen Delivery Oxygen Flow Rate Fraction of Inspired Oxygen 05/19/24 00:00 05/19/24 02:00 05/19/24 04:21 Temperature 102.8 F H 102.2 F H 103.8 F H Pulse Rate 111 H 112 H Respiratory Rate 25 H 18 Blood Pressure 121/55 L 129/106 H Pulse Oximetry 100 96 Oxygen Delivery Oxygen Flow Rate Fraction of Inspired Oxygen 05/19/24 04:00 05/19/24 04:00 05/19/24 06:00 Temperature 103.7 F H Pulse Rate 123 H 123 H 115 H Respiratory Rate 24 H Blood Pressure 149/70 H Pulse Oximetry 96 Oxygen Delivery Oxygen Flow Rate Fraction of Inspired Oxygen 05/19/24 06:00 05/19/24 00:00 05/19/24 04:00 Temperature 103.0 F H Pulse Rate 115 H Respiratory Rate 28 H Blood Pressure 158/75 H Pulse Oximetry 96 96 96 Oxygen Delivery Nasal Cannula CPAP Oxygen Flow Rate 4 Fraction of Inspired Oxygen 05/19/24 09:52 05/19/24 08:33 05/19/24 08:00 Temperature 102 F H 101.2 F H Pulse Rate 120 H Respiratory Rate 22 H Blood Pressure 159/82 H Pulse Oximetry 97 98 Oxygen Delivery Room Air Oxygen Flow Rate Fraction of Inspired Oxygen 21 05/19/24 10:00 05/19/24 10:50 05/19/24 08:00 Temperature 101.9 F H 101.3 F H Pulse Rate 101 H 120 H Respiratory Rate 26 H Blood Pressure 143/58 H Pulse Oximetry 96 Oxygen Delivery Oxygen Flow Rate Fraction of Inspired Oxygen 05/19/24 10:00 05/19/24 08:00 05/19/24 12:00 Temperature Pulse Rate 101 H 120 H 99 Respiratory Rate 22 H 24 H Blood Pressure Pulse Oximetry 98 96 Oxygen Delivery Room Air Room Air Oxygen Flow Rate Fraction of Inspired Oxygen 05/19/24 12:00 05/19/24 12:00 05/19/24 14:00 Temperature 101.5 F H Pulse Rate 99 99 114 H Respiratory Rate 24 H Blood Pressure 121/74 Pulse Oximetry 97 Oxygen Delivery Oxygen Flow Rate Fraction of Inspired Oxygen 05/19/24 14:00 05/19/24 13:59 05/19/24 14:55 Temperature 102.4 F H 102.5 F H 102.5 F H Pulse Rate 114 H Respiratory Rate 23 H Blood Pressure 154/78 H Pulse Oximetry 96 Oxygen Delivery Oxygen Flow Rate Fraction of Inspired Oxygen Intake/Output Intake/Output: Intake & Output 05/16/24 05/17/24 05/18/24 05/19/24 23:59 23:59 23:59 23:59 Intake Total 3445.1 2136.2 Output Total 1750 1000 Balance 1695.1 1136.2 Meds/Results Medications: Active Medications Generic Name Dose Route Start Last Admin Trade Name Freq PRN Reason Stop Dose Admin Acetaminophen 650 mg 05/19/24 09:33 05/19/24 13:59 Acetaminophen 650 Mg Suppository RECTAL 650 mg Q4H PRN Administration Mild Pain (1-3) or Fever Dextrose 12.5 gm 05/18/24 14:38 Dextrose 50% 25 Gm/50 Ml Syringe IV PUSH PRN PRN Hypoglycemia Protocol Enoxaparin Sodium 40 mg 05/19/24 09:10 05/19/24 09:51 Enoxaparin 40 Mg/0.4 Ml Syringe SUB-Q 40 mg DAILY JESSICA Administration Famotidine 20 mg 05/18/24 21:00 05/19/24 08:44 Famotidine 20 Mg/2 Ml Vial IV PUSH 20 mg Q12HR JESSICA Administration Glucagon 1 mg 05/18/24 14:38 Glucagon For Inj 1 Mg Vial IM PRN PRN Hypoglycemia Protocol Glucose 15 gm 05/18/24 14:38 Glucose Oral Gel 15 Gm Of Glucse In 37.5 Gm Tube PO PRN PRN Hypoglycemia Protocol Potassium Chloride/Dextrose/Sod Cl 1,000 mls @ 150 mls/hr 05/18/24 14:40 05/19/24 11:10 Kcl 20 Meq/D5/0.45% Sod Chl IV CONT 150 mls/hr .Q6H40M JESSICA Administration Dextrose/Sodium Chloride 1,000 mls @ 150 mls/hr 05/18/24 14:40 Dextrose 5% Sodium Chloride 0.45% IV CONT .Q6H40M [facility] Insulin Human Regular 100 100 mls @ 2 mls/hr 05/18/24 15:00 05/19/24 15:40 units/ Sodium Chloride IV CONT 1 units/hr .Q24H JESSICA 1 mls/hr Titration Protocol 2 UNITS/HR Dextrose 1,000 mls @ 100 mls/hr 05/18/24 14:38 Dextrose 5% 1,000 Ml IVPB PRN PRN Hypoglycemia Protocol Cefepime HCl 1 gm in 50 mls @ 100 mls/hr 05/19/24 06:00 05/19/24 06:57 Maxipime 1 Gm/Ns 50 Ml IVPB 100 mls/hr Q12H JESSICA Administration Vancomycin HCl 1,000 mg in 250 mls @ 250 mls/hr 05/19/24 16:00 05/19/24 15:46 Vancomycin 1,000 Mg/Ns 250 Ml IVPB 250 mls/hr Q24H JESSICA Administration Clindamycin Phosphate 600 mg in 50 mls @ 100 mls/hr 05/19/24 13:00 05/19/24 13:12 Clindamycin 600 Mg/D5w 50 Ml IVPB 100 mls/hr Q8H [facility] Administration Potassium Chloride 40 meq/ 520 mls @ 130 mls/hr 05/19/24 13:30 05/19/24 13:39 Sodium Chloride IVPB 05/19/24 17:29 130 mls/hr ONCE ONE Administration Levothyroxine Sodium 50 mcg 05/18/24 19:55 05/18/24 20:13 Levothyroxine Sodium Inj 100 Mcg/5 Ml Vial IV PUSH 50 mcg DAILY@0630 [facility] Administration Morphine Sulfate 2 mg 05/19/24 09:32 05/19/24 13:59 Morphine Sulfate (*Crx) 2 Mg/Ml Inj IV PUSH 2 mg Q3H PRN Administration Pain Rated 4-6 Morphine Sulfate 4 mg 05/19/24 09:33 Morphine Sulfate (*Crx) 4 Mg/Ml Inj IV PUSH Q3H PRN Pain Rated 7-10 Ondansetron HCl 4 mg 05/18/24 15:55 Ondansetron Inj 4 Mg/2 Ml Vial IV PUSH Q4H PRN Nausea Sodium Hypochlorite 1 applic 05/19/24 09:00 05/19/24 12:34 Sod Hypochlorite 1/4 Strength 473 Ml TOPICAL 1 applic Q12HR JESSICA Administration Tacrolimus 1 applic 05/19/24 09:00 05/19/24 08:45 Tacrolimus 0.1% 30 Gm Ointment TOPICAL 1 applic DAILY JESSICA Administration Radiology Results: ITS Impressions Foot X-Ray 05/18/24 14:50 IMPRESSION: 1. Irregularity of the distal ends of the bones status post transmetatarsal amputation without change, which may be the normal postoperative appearance. No specific evidence of osteomyelitis. Head CT 05/19/24 10:52 IMPRESSION: 1. 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 2. Mild nonspecific cerebral white matter disease, which likely represents chronic small vessel ischemic disease. Neck/Chest/Abdomen/Pelvis CT 05/19/24 11:56 Impression: No acute abnormality evident. 8 mm nonobstructing left renal stone. Mild bibasilar atelectatic change. Dilated common bile duct is probably related to prior cholecystectomy. Foot CT 05/19/24 12:31 IMPRESSION: 1. Osteomyelitis involving first metatarsal. 2. Fractures of the plantar aspects of the ends of the stumps of the third and fourth metatarsals, which is a change from 04/23/2024. 3. Soft tissue gas in the distal forefoot. Labs Labs: Laboratory Results - last 24 hr 05/18/24 05/18/24 05/18/24 12:41 14:25 16:13 WBC RBC Hgb Hct MCV MCH MCHC RDW Plt Count MPV Immature Gran % (Auto) Neut % (Auto) Lymph % (Auto) [place] % (Auto) Eos % (Auto) Baso % (Auto) Lymph # (Auto) [place] # (Auto) Eos # (Auto) Baso # (Auto) Abs Immat Gran (auto) Absolute Neuts (auto) Absolute Nucleated RBC Total Counted Neutrophils % (Manual) Band Neutrophils % Lymphocytes % (Manual) Monocytes % (Manual) Nucleated RBC % Abs Neuts (Manual) Abs Lymphs (Manual) Abs Monocytes (Manual) Platelet Estimate Anisocytosis Tear Drop Cells [place] Cells Schistocytes ESR Puncture Site ABG pH ABG pCO2 ABG pO2 ABG PO2/FiO2 Ratio ABG HCO3 ABG O2 Saturation ABG O2 Content ABG Base Excess A-a Gradient Oxyhemoglobin Carboxyhemoglobin Methemoglobin Reduced Hemoglobin Total Hemoglobin O2 Delivery Device O2 Liters/Min FiO2 Sodium Potassium Chloride Carbon Dioxide Anion Gap BUN Creatinine Estim Creat Clear Calc Estimated GFR Glucose POC Capillary Glucose 425 H Lactic Acid Calcium Magnesium Iron TIBC % Saturation Ferritin Total Bilirubin AST ALT Alkaline Phosphatase C-Reactive Protein Total Protein Albumin Vitamin B12 Folate Beta-Hydroxybutyrate/Acetoacetate Procalcitonin TSH (Reflex) 2.140 Random Cortisol 103.00 Nasal MRSA (PCR) 05/18/24 05/18/24 05/18/24 17:22 18:38 18:43 WBC RBC Hgb Hct MCV MCH MCHC RDW Plt Count MPV Immature Gran % (Auto) Neut % (Auto) Lymph % (Auto) [place] % (Auto) Eos % (Auto) Baso % (Auto) Lymph # (Auto) [place] # (Auto) Eos # (Auto) Baso # (Auto) Abs Immat Gran (auto) Absolute Neuts (auto) Absolute Nucleated RBC Total Counted Neutrophils % (Manual) Band Neutrophils % Lymphocytes % (Manual) Monocytes % (Manual) Nucleated RBC % Abs Neuts (Manual) Abs Lymphs (Manual) Abs Monocytes (Manual) Platelet Estimate Anisocytosis Tear Drop Cells Ana M Cells Schistocytes ESR Puncture Site ABG pH ABG pCO2 ABG pO2 ABG PO2/FiO2 Ratio ABG HCO3 ABG O2 Saturation ABG O2 Content ABG Base Excess A-a Gradient Oxyhemoglobin Carboxyhemoglobin Methemoglobin Reduced Hemoglobin Total Hemoglobin O2 Delivery Device O2 Liters/Min FiO2 Sodium Potassium Chloride Carbon Dioxide Anion Gap BUN Creatinine Estim Creat Clear Calc Estimated GFR Glucose POC Capillary Glucose 375 H 292 H Lactic Acid Calcium Magnesium Iron TIBC % Saturation Ferritin Total Bilirubin AST ALT Alkaline Phosphatase C-Reactive Protein Total Protein Albumin Vitamin B12 Folate Beta-Hydroxybutyrate/Acetoacetate Procalcitonin TSH (Reflex) Random Cortisol Nasal MRSA (PCR) Not detected 05/18/24 05/18/24 05/18/24 18:45 20:07 20:08 WBC RBC Hgb Hct MCV MCH MCHC RDW Plt Count MPV Immature Gran % (Auto) Neut % (Auto) Lymph % (Auto) [place] % (Auto) Eos % (Auto) Baso % (Auto) Lymph # (Auto) [place] # (Auto) Eos # (Auto) Baso # (Auto) Abs Immat Gran (auto) Absolute Neuts (auto) Absolute Nucleated RBC Total Counted Neutrophils % (Manual) Band Neutrophils % Lymphocytes % (Manual) Monocytes % (Manual) Nucleated RBC % Abs Neuts (Manual) Abs Lymphs (Manual) Abs Monocytes (Manual) Platelet Estimate Anisocytosis Tear Drop Cells [place] Cells Schistocytes ESR Puncture Site Right radial ABG pH 7.472 H ABG pCO2 22.6 L* ABG pO2 67.2 L ABG PO2/FiO2 Ratio 3.20 ABG HCO3 16.2 L ABG O2 Saturation 94.9 L ABG O2 Content 14.0 L ABG Base Excess -6.0 A-a Gradient 55.5 Oxyhemoglobin 94.5 Carboxyhemoglobin 0.7 Methemoglobin 0.3 Reduced Hemoglobin 4.5 Total Hemoglobin 10.5 L O2 Delivery Device Room air O2 Liters/Min Not Reportable FiO2 21 Sodium 142 Potassium 3.6 Chloride 114 H Carbon Dioxide < 5 L Anion Gap BUN 16 Creatinine 0.70 Estim Creat Clear Calc 40 Estimated GFR > 60 Glucose 331 H POC Capillary Glucose 187 H Lactic Acid 2.9 H Calcium 9.4 Magnesium Iron 30 L TIBC 187 L % Saturation 16 L Ferritin 774.00 H Total Bilirubin AST ALT Alkaline Phosphatase C-Reactive Protein Total Protein Albumin Vitamin B12 269.0 Folate 5.5 Beta-Hydroxybutyrate/Acetoacetate Procalcitonin TSH (Reflex) Random Cortisol Nasal MRSA (PCR) 05/18/24 05/18/24 05/18/24 21:01 22:41 23:03 WBC RBC Hgb Hct MCV MCH MCHC RDW Plt Count MPV Immature Gran % (Auto) Neut % (Auto) Lymph % (Auto) [place] % (Auto) Eos % (Auto) Baso % (Auto) Lymph # (Auto) [place] # (Auto) Eos # (Auto) Baso # (Auto) Abs Immat Gran (auto) Absolute Neuts (auto) Absolute Nucleated RBC Total Counted Neutrophils % (Manual) Band Neutrophils % Lymphocytes % (Manual) Monocytes % (Manual) Nucleated RBC % Abs Neuts (Manual) Abs Lymphs (Manual) Abs Monocytes (Manual) Platelet Estimate Anisocytosis Tear Drop Cells [place] Cells Schistocytes ESR Puncture Site ABG pH ABG pCO2 ABG pO2 ABG PO2/FiO2 Ratio ABG HCO3 ABG O2 Saturation ABG O2 Content ABG Base Excess A-a Gradient Oxyhemoglobin Carboxyhemoglobin Methemoglobin Reduced Hemoglobin Total Hemoglobin O2 Delivery Device O2 Liters/Min FiO2 Sodium 141 Potassium 3.3 L Chloride 113 H Carbon Dioxide 12 L Anion Gap 16 H BUN 14 Creatinine 0.60 L Estim Creat Clear Calc 46 Estimated GFR > 60 Glucose 311 H POC Capillary Glucose 212 H 297 H Lactic Acid Calcium 8.8 Magnesium Iron TIBC % Saturation Ferritin Total Bilirubin AST ALT Alkaline Phosphatase C-Reactive Protein Total Protein Albumin Vitamin B12 Folate Beta-Hydroxybutyrate/Acetoacetate Procalcitonin TSH (Reflex) Random Cortisol Nasal MRSA (PCR) 05/18/24 05/19/24 05/19/24 23:30 00:32 01:50 WBC RBC Hgb Hct MCV MCH MCHC RDW Plt Count MPV Immature Gran % (Auto) Neut % (Auto) Lymph % (Auto) [place] % (Auto) Eos % (Auto) Baso % (Auto) Lymph # (Auto) [place] # (Auto) Eos # (Auto) Baso # (Auto) Abs Immat Gran (auto) Absolute Neuts (auto) Absolute Nucleated RBC Total Counted Neutrophils % (Manual) Band Neutrophils % Lymphocytes % (Manual) Monocytes % (Manual) Nucleated RBC % Abs Neuts (Manual) Abs Lymphs (Manual) Abs Monocytes (Manual) Platelet Estimate Anisocytosis Tear Drop Cells [place] Cells Schistocytes ESR Puncture Site ABG pH ABG pCO2 ABG pO2 ABG PO2/FiO2 Ratio ABG HCO3 ABG O2 Saturation ABG O2 Content ABG Base Excess A-a Gradient Oxyhemoglobin Carboxyhemoglobin Methemoglobin Reduced Hemoglobin Total Hemoglobin O2 Delivery Device O2 Liters/Min FiO2 Sodium Potassium Chloride Carbon Dioxide Anion Gap BUN Creatinine Estim Creat Clear Calc Estimated GFR Glucose POC Capillary Glucose 286 H 202 H 257 H Lactic Acid Calcium Magnesium Iron TIBC % Saturation Ferritin Total Bilirubin AST ALT Alkaline Phosphatase C-Reactive Protein Total Protein Albumin Vitamin B12 Folate Beta-Hydroxybutyrate/Acetoacetate Procalcitonin TSH (Reflex) Random Cortisol Nasal MRSA (PCR) 05/19/24 05/19/24 05/19/24 03:00 04:21 04:32 WBC 10.2 H RBC 3.23 L Hgb 9.4 L Hct 28.8 L MCV 89.2 D MCH 29.1 MCHC 32.6 RDW 14.3 Plt Count 215 MPV 11.0 H Immature Gran % (Auto) Not Reportable Neut % (Auto) Not Reportable Lymph % (Auto) Not Reportable [place] % (Auto) Not Reportable Eos % (Auto) Not Reportable Baso % (Auto) Not Reportable Lymph # (Auto) Not Reportable [place] # (Auto) Not Reportable Eos # (Auto) Not Reportable Baso # (Auto) Not Reportable Abs Immat Gran (auto) Not Reportable Absolute Neuts (auto) Not Reportable Absolute Nucleated RBC Not Reportable Total Counted 100 Neutrophils % (Manual) 80 H Band Neutrophils % 9 H Lymphocytes % (Manual) 5.0 L Monocytes % (Manual) 6 Nucleated RBC % Not Reportable Abs Neuts (Manual) 9.07 H Abs Lymphs (Manual) 0.51 L Abs Monocytes (Manual) 0.61 Platelet Estimate Adequate Anisocytosis 1+ Tear Drop Cells 1+ Ana M Cells 1+ Schistocytes None seen ESR > 140 H Puncture Site ABG pH ABG pCO2 ABG pO2 ABG PO2/FiO2 Ratio ABG HCO3 ABG O2 Saturation ABG O2 Content ABG Base Excess A-a Gradient Oxyhemoglobin Carboxyhemoglobin Methemoglobin Reduced Hemoglobin Total Hemoglobin O2 Delivery Device O2 Liters/Min FiO2 Sodium 141 Potassium 3.1 L Chloride 112 H Carbon Dioxide 15 L Anion Gap 14 H BUN 13 Creatinine 0.60 L Estim Creat Clear Calc 46 Estimated GFR > 60 Glucose 255 H POC Capillary Glucose 249 H 219 H Lactic Acid 1.7 Calcium 8.6 Magnesium 1.1 L Iron TIBC % Saturation Ferritin Total Bilirubin 0.4 AST 78 H ALT 28 Alkaline Phosphatase 121 C-Reactive Protein 41.4 H Total Protein 7.0 Albumin 3.0 L Vitamin B12 Folate Beta-Hydroxybutyrate/Acetoacetate 0.50 H Procalcitonin 12.6 TSH (Reflex) Random Cortisol Nasal MRSA (PCR) 05/19/24 05/19/24 05/19/24 05:20 05:28 06:50 WBC RBC Hgb Hct MCV MCH MCHC RDW Plt Count MPV Immature Gran % (Auto) Neut % (Auto) Lymph % (Auto) [place] % (Auto) Eos % (Auto) Baso % (Auto) Lymph # (Auto) [place] # (Auto) Eos # (Auto) Baso # (Auto) Abs Immat Gran (auto) Absolute Neuts (auto) Absolute Nucleated RBC Total Counted Neutrophils % (Manual) Band Neutrophils % Lymphocytes % (Manual) Monocytes % (Manual) Nucleated RBC % Abs Neuts (Manual) Abs Lymphs (Manual) Abs Monocytes (Manual) Platelet Estimate Anisocytosis Tear Drop Cells [place] Cells Schistocytes ESR Puncture Site Right radial ABG pH 7.497 H ABG pCO2 20.2 L* ABG pO2 68.5 L ABG PO2/FiO2 Ratio 3.26 ABG HCO3 15.3 L ABG O2 Saturation 95.5 ABG O2 Content 13.4 L ABG Base Excess -6.3 A-a Gradient 57.0 Oxyhemoglobin 94.7 Carboxyhemoglobin Methemoglobin Reduced Hemoglobin Total Hemoglobin 10.0 L O2 Delivery Device Other device O2 Liters/Min Not Reportable FiO2 21 Sodium Potassium Chloride Carbon Dioxide Anion Gap BUN Creatinine Estim Creat Clear Calc Estimated GFR Glucose POC Capillary Glucose 257 H 278 H Lactic Acid Calcium Magnesium Iron TIBC % Saturation Ferritin Total Bilirubin AST ALT Alkaline Phosphatase C-Reactive Protein Total Protein Albumin Vitamin B12 Folate Beta-Hydroxybutyrate/Acetoacetate Procalcitonin TSH (Reflex) Random Cortisol Nasal MRSA (PCR) 05/19/24 05/19/24 05/19/24 07:42 08:42 09:44 WBC RBC Hgb Hct MCV MCH MCHC RDW Plt Count MPV Immature Gran % (Auto) Neut % (Auto) Lymph % (Auto) [place] % (Auto) Eos % (Auto) Baso % (Auto) Lymph # (Auto) [place] # (Auto) Eos # (Auto) Baso # (Auto) Abs Immat Gran (auto) Absolute Neuts (auto) Absolute Nucleated RBC Total Counted Neutrophils % (Manual) Band Neutrophils % Lymphocytes % (Manual) Monocytes % (Manual) Nucleated RBC % Abs Neuts (Manual) Abs Lymphs (Manual) Abs Monocytes (Manual) Platelet Estimate Anisocytosis Tear Drop Cells Ana M Cells Schistocytes ESR Puncture Site ABG pH ABG pCO2 ABG pO2 ABG PO2/FiO2 Ratio ABG HCO3 ABG O2 Saturation ABG O2 Content ABG Base Excess A-a Gradient Oxyhemoglobin Carboxyhemoglobin Methemoglobin Reduced Hemoglobin Total Hemoglobin O2 Delivery Device O2 Liters/Min FiO2 Sodium Potassium Chloride Carbon Dioxide Anion Gap BUN Creatinine Estim Creat Clear Calc Estimated GFR Glucose POC Capillary Glucose 297 H 270 H 306 H Lactic Acid Calcium Magnesium Iron TIBC % Saturation Ferritin Total Bilirubin AST ALT Alkaline Phosphatase C-Reactive Protein Total Protein Albumin Vitamin B12 Folate Beta-Hydroxybutyrate/Acetoacetate Procalcitonin TSH (Reflex) Random Cortisol Nasal MRSA (PCR) 05/19/24 05/19/24 05/19/24 09:55 11:09 11:42 WBC RBC Hgb Hct MCV MCH MCHC RDW Plt Count MPV Immature Gran % (Auto) Neut % (Auto) Lymph % (Auto) [place] % (Auto) Eos % (Auto) Baso % (Auto) Lymph # (Auto) [place] # (Auto) Eos # (Auto) Baso # (Auto) Abs Immat Gran (auto) Absolute Neuts (auto) Absolute Nucleated RBC Total Counted Neutrophils % (Manual) Band Neutrophils % Lymphocytes % (Manual) Monocytes % (Manual) Nucleated RBC % Abs Neuts (Manual) Abs Lymphs (Manual) Abs Monocytes (Manual) Platelet Estimate Anisocytosis Tear Drop Cells [place] Cells Schistocytes ESR Puncture Site ABG pH ABG pCO2 ABG pO2 ABG PO2/FiO2 Ratio ABG HCO3 ABG O2 Saturation ABG O2 Content ABG Base Excess A-a Gradient Oxyhemoglobin Carboxyhemoglobin Methemoglobin Reduced Hemoglobin Total Hemoglobin O2 Delivery Device O2 Liters/Min FiO2 Sodium 141 Potassium 3.0 L Chloride 109 H Carbon Dioxide 15 L Anion Gap 17 H BUN 12 Creatinine 0.70 Estim Creat Clear Calc 40 Estimated GFR > 60 Glucose 296 H POC Capillary Glucose 218 H 154 H Lactic Acid Calcium 8.7 Magnesium Iron TIBC % Saturation Ferritin Total Bilirubin AST ALT Alkaline Phosphatase C-Reactive Protein Total Protein Albumin Vitamin B12 Folate Beta-Hydroxybutyrate/Acetoacetate Procalcitonin TSH (Reflex) Random Cortisol Nasal MRSA (PCR) 05/19/24 05/19/24 05/19/24 12:41 13:37 14:29 WBC RBC Hgb Hct MCV MCH MCHC RDW Plt Count MPV Immature Gran % (Auto) Neut % (Auto) Lymph % (Auto) [place] % (Auto) Eos % (Auto) Baso % (Auto) Lymph # (Auto) [place] # (Auto) Eos # (Auto) Baso # (Auto) Abs Immat Gran (auto) Absolute Neuts (auto) Absolute Nucleated RBC Total Counted Neutrophils % (Manual) Band Neutrophils % Lymphocytes % (Manual) Monocytes % (Manual) Nucleated RBC % Abs Neuts (Manual) Abs Lymphs (Manual) Abs Monocytes (Manual) Platelet Estimate Anisocytosis Tear Drop Cells Ana M Cells Schistocytes ESR Puncture Site ABG pH ABG pCO2 ABG pO2 ABG PO2/FiO2 Ratio ABG HCO3 ABG O2 Saturation ABG O2 Content ABG Base Excess A-a Gradient Oxyhemoglobin Carboxyhemoglobin Methemoglobin Reduced Hemoglobin Total Hemoglobin O2 Delivery Device O2 Liters/Min FiO2 Sodium 141 Potassium 3.5 Chloride 110 H Carbon Dioxide 13 L Anion Gap 18 H BUN 10 Creatinine 0.70 Estim Creat Clear Calc 40 Estimated GFR > 60 Glucose 231 H POC Capillary Glucose 177 H 197 H Lactic Acid Calcium 8.5 Magnesium Iron TIBC % Saturation Ferritin Total Bilirubin AST ALT Alkaline Phosphatase C-Reactive Protein Total Protein Albumin Vitamin B12 Folate Beta-Hydroxybutyrate/Acetoacetate Procalcitonin TSH (Reflex) Random Cortisol Nasal MRSA (PCR) 05/19/24 05/19/24 14:34 15:40 WBC RBC Hgb Hct MCV MCH MCHC RDW Plt Count MPV Immature Gran % (Auto) Neut % (Auto) Lymph % (Auto) [place] % (Auto) Eos % (Auto) Baso % (Auto) Lymph # (Auto) [place] # (Auto) Eos # (Auto) Baso # (Auto) Abs Immat Gran (auto) Absolute Neuts (auto) Absolute Nucleated RBC Total Counted Neutrophils % (Manual) Band Neutrophils % Lymphocytes % (Manual) Monocytes % (Manual) Nucleated RBC % Abs Neuts (Manual) Abs Lymphs (Manual) Abs Monocytes (Manual) Platelet Estimate Anisocytosis Tear Drop Cells Ana M Cells Schistocytes ESR Puncture Site ABG pH ABG pCO2 ABG pO2 ABG PO2/FiO2 Ratio ABG HCO3 ABG O2 Saturation ABG O2 Content ABG Base Excess A-a Gradient Oxyhemoglobin Carboxyhemoglobin Methemoglobin Reduced Hemoglobin Total Hemoglobin O2 Delivery Device O2 Liters/Min FiO2 Sodium Potassium Chloride Carbon Dioxide Anion Gap BUN Creatinine Estim Creat Clear Calc Estimated GFR Glucose POC Capillary Glucose 216 H 250 H Lactic Acid Calcium Magnesium Iron TIBC % Saturation Ferritin Total Bilirubin AST ALT Alkaline Phosphatase C-Reactive Protein Total Protein Albumin Vitamin B12 Folate Beta-Hydroxybutyrate/Acetoacetate Procalcitonin TSH (Reflex) Random Cortisol Nasal MRSA (PCR)
[2024-05-19 17:03] LABS: Glucose Point of Care 268 mg/dl (65-105)
[2024-05-19] MEDS: KCL 20 MEQ/SW 100 ML 100 ML 50 MEQ IVPB (17:05)
[2024-05-19 18:46] LABS: Glucose Point of Care 229 mg/dl (65-105)
[2024-05-19 18:46] LABS: Glucose Point of Care 215 mg/dl (65-105)
[2024-05-19 19:41] LABS: Magnesium 1.9 mg/dL (1.6-2.3)
[2024-05-19 19:42] LABS: Anion Gap 14 mmol/L (4-12); Blood Urea Nitrogen 12 mg/dL (7-17); Calcium 8.3 mg/dL (8.4-10.2); Carbon Dioxide 14 mmol/L (22-30); Chloride 113 mmol/L (98-107); Estimated CRCL calculation 40 ml/min; Estimated Glomerular Filt Rate > 60; Glucose 245 mg/dL (65-110); Sodium 141 mmol/L (137-145)
[2024-05-19] MEDS: SODIUM CHLORIDE 0.9% IV 1,000 ML 150 ML IV CONT (21:30)
[2024-05-19 22:25] LABS: Glucose Point of Care 239 mg/dl (65-105)
[2024-05-19 22:25] LABS: Glucose Point of Care 241 mg/dl (65-105)
[2024-05-19 22:25] LABS: Glucose Point of Care 258 mg/dl (65-105)
[2024-05-19 23:31] LABS: Anion Gap 18 mmol/L (4-12); Blood Urea Nitrogen 12 mg/dL (7-17); Calcium 8.3 mg/dL (8.4-10.2); Carbon Dioxide 10 mmol/L (22-30); Chloride 112 mmol/L (98-107); Estimated CRCL calculation 40 ml/min; Estimated Glomerular Filt Rate > 60; Glucose 249 mg/dL (65-110); Potassium 3.8 mmol/L (3.4-5.0); Sodium 140 mmol/L (137-145)
[2024-05-20] VITALS (20 sets, daily range): BP systolic 123–163; BP diastolic 62–84; PULSE 87–123; RESP 19–37; TEMP 37.8–39.2; O2SAT 88–99
--- NOTE | 2024-05-20 | ECHO_ITS ---
Patient Info Name: Melissa Rodriguez Age: 84 years : 1940 Gender: Female Ht: 61 in Wt: 126 lbs BSA: 1.58 m2 HR: 100 bpm BP: 138 / 62 mmHg Heart Rhythm: Sinus Rhythm Technical Quality: Fair Exam Date: 05/20/2024 12:22 PM Exam Location: Echo Lab Patient Status: Inpatient Admit Date: 05/18/2024 Staff Ordering Physician: Delfino Cleary MD Director Commercial Sales: Ashwini Cage [facility] Attending Provider: Randall Ruano MD Exam Type: CA echo doppler color flow Study Info Indications - staph Bacteremia Complete two-dimensional, color flow and Doppler transthoracic echocardiogram is performed. Summary 1. Complete two-dimensional, color flow and Doppler transthoracic echocardiogram is performed. 2. Normal left ventricular size and overall mildly reduced systolic function. 3. Akinesis of the apical anterior wall, apex, apical inferior wall and apical lateral wall. 4. Wall motion abnormalities suspicious for previous infarction of these segments or takotsubo stress cardiomyopathy. 5. Minor tricuspid and pulmonic regurgitation. 6. No valvular vegetations identified. Left Ventricle Left ventricular chamber dimension is normal. Left ventricular systolic function is mildly reduced, estimated at 40-45%. The left ventricular diastolic function is grade I diastolic dysfunction. Right Ventricle Right ventricular chamber dimension is normal. Left Atria Left atrial chamber dimension is normal. Right Atria Right atrial chamber dimension is normal. Aortic Valve The aortic valve is normal. Pulmonic Valve The pulmonic valve is normal. There is mild pulmonic regurgitation. Mitral Valve The mitral valve has normal leaflets. Tricuspid Valve The tricuspid valve leaflets are normal. There is mild tricuspid valve regurgitation. Pericardium/Pleural The pericardium appears normal. Aorta The aortic root size at the sinus of Valsalva is normal. Left Ventricular Outflow Tract Name Value Normal LVOT 2D LVOT Diameter 2.1 cm LVOT Doppler LVOT Peak Gradient 3 mmHg LVOT Mean Gradient 1 mmHg LVOT VTI 15 cm LVOT VTI/AV VTI Ratio 0.7 LVOT Stroke Volume 49 ml LVOT CO 4.5 l/min LVOT CI 2.9 l/min/m2 Pulmonic Valve Name Value Normal PV Doppler PV Peak Gradient 4 mmHg PV Regurgitation Doppler WI Peak End Diastolic Velocity 84 cm/s Mitral Valve Name Value Normal MV Doppler MV Decel [place] 750 cm/s2 MV PHT 29 ms MV Area (PHT) 7.6 cm2 4.0-5.0 MV Diastolic Function MV E Peak Velocity 75 cm/s MV A Peak Velocity 104 cm/s MV E/A 0.7 MV Decel Time 100 ms Tricuspid Valve Name Value Normal TV Regurgitation Doppler TR Peak Velocity 320 cm/s TR Peak Gradient 29 mmHg Aorta Name Value Normal Ascending Aorta Ao Root Diameter (MM) 2.5 cm Ao Root Diam Index (MM) 1.6 cm/m2 Aortic Valve Name Value Normal AV Doppler AV Peak Velocity 126 cm/s AV Peak Gradient 6 mmHg AV Mean Gradient 3 mmHg AV VTI 20 cm AV Area (Cont Eq VTI) 2.5 cm2 >=3.0 AV Area (Cont Eq Juan A) 2.2 cm2 AV Regurgitation 2D LVOT Area 3.3 cm2 Ventricles Name Value Normal LV Dimensions 2D/MM IVS Diastolic Thickness (2D) 0.7 cm 0.6-1.0 IVS Diastole Thickness (MM) 1.1 cm 0.6-0.9 LVID Diastole (2D) 4.9 cm 3.8-5.2 LVID Diastole (MM) 5.8 cm 3.8-5.2 LVIW Diastolic Thickness (2D) 0.9 cm 0.6-0.9 LVIW Diastolic Thickness (MM) 1.0 cm 0.6-0.9 LVID Systole (2D) 3.4 cm 2.2-3.5 LVID Systole (MM) 4.2 cm 2.2-3.5 LVOT Diameter 2.1 cm LV Mass (2D Cubed) 136.28 g 67.00-162.00 LV Mass Index (2D Cubed) 86 g/m2 43-95 Relative Wall Thickness (2D) 0.38 LV Mass (MM Cubed) 234.24 g 67.00-162.00 LV Mass Index (MM Cubed) 148 g/m2 43-95 Relative Wall Thickness (MM) 0.34 LV Fractional Shortening/Ejection Fraction 2D/MM LV Fractional Shortening (2D) 31 % 27-45 LV Fractional Shortening (MM) 27 % 27-45 LV EF (MM Teicholz) 52 % 54-74 LV EF (2D Teicholz) 58 % 54-74 LV Diastolic Volume (4C MOD) 71 ml LV EF (4C MOD) 40 % LV Diastolic Volume (2C MOD) 69 ml LV EF (2C MOD) 41 % LV Diastolic Volume (BP MOD) 70 ml 46-106 LV Diastolic Volume Index (BP MOD) 45 ml/m2 29-61 LV Systolic Volume (BP MOD) 41 ml 14-42 LV Systolic Volume Index (BP MOD) 26 ml/m2 8-24 LV EF (BP MOD) 41 % 54-74 LV Diastolic Length (4C) 7.9 cm LV Systolic Length (4C) 7.6 cm LV Stroke Volume (4C MOD) 28 ml Atria Name Value Normal LA Dimensions LA Dimension (MM) 3.7 cm 2.7-3.8 LA Volume (4C A-L) 42 ml LA Volume (BP A-L) 53 ml RA Dimensions RA Area (4C) 10.2 cm2 <=18.0 Report Signatures
[2024-05-20 00:19] LABS: Glucose Point of Care 205 mg/dl (65-105)
[2024-05-20 00:23] LABS: Glucose Point of Care 263 mg/dl (65-105)
[2024-05-20 02:26] LABS: Glucose Point of Care 209 mg/dl (65-105)
[2024-05-20 02:26] LABS: Glucose Point of Care 209 mg/dl (65-105)
[2024-05-20] MEDS: INSULIN HUMAN REGULAR (*BKC) 100 UNITS in SODIUM CHLORIDE 0.9% IV 99 ML IV CONT (02:54)
[2024-05-20 03:38] LABS: Glucose Point of Care 196 mg/dl (65-105)
[2024-05-20 03:56] LABS: Anion Gap 15 mmol/L (4-12); Blood Urea Nitrogen 12 mg/dL (7-17); Calcium 8.4 mg/dL (8.4-10.2); Carbon Dioxide 15 mmol/L (22-30); Chloride 110 mmol/L (98-107); Estimated CRCL calculation 40 ml/min; Estimated Glomerular Filt Rate > 60; Glucose 201 mg/dL (65-110); Potassium 3.6 mmol/L (3.4-5.0); Sodium 140 mmol/L (137-145)
[2024-05-20] MEDS: MORPHINE SULFATE (*CRX) 2 MG/ML INJ IV PUSH ×2 (05:00→16:56)
[2024-05-20] MEDS: CLINDAMYCIN 600 MG/D5W 50 ML 600 MG/50 ML PIGGYBACK 100 MG IVPB ×2 (05:26→13:48)
[2024-05-20] MEDS: ACETAMINOPHEN 650 MG SUPPOSITORY RECTAL (06:02)
[2024-05-20] MEDS: CEFEPIME 1 GM/NS 50 ML 1 GM/50 ML BAG IVPB ×2 (06:10→16:57)
[2024-05-20] MEDS: MORPHINE SULFATE (*CRX) 4 MG/ML INJ IV PUSH ×4 (06:16→22:11)
[2024-05-20 06:44] LABS: Glucose Point of Care 211 mg/dl (65-105)
[2024-05-20 06:44] LABS: Glucose Point of Care 310 mg/dl (65-105)
[2024-05-20 06:44] LABS: Glucose Point of Care 237 mg/dl (65-105)
[2024-05-20 07:12] LABS: Hematocrit 32.1 % (37.0-47.0); Hemoglobin 10.2 g/dL (12.0-15.0); Mean Corpuscular HGB Conc 31.8 g/dl (32-36); Mean Corpuscular Hemoglobin 29.3 pg (26-34); Mean Corpuscular Volume 92.2 fl (80-100); Mean Platelet Volume 12.3 fl (7.4-10.4); Platelet Count Result 173 k/mm3 (150-375); Red Blood Count 3.48 M/mm3 (4.2-5.4); Red Cell Distribution Width 14.6 % (11.5-14.5); White Blood Count 10.9 K/mm3 (4.5-10.0)
[2024-05-20] MEDS: KCL 20 MEQ/D5/0.45% SOD CHL 1,000 ML 150 ML IV CONT (07:30)
[2024-05-20 07:34] LABS: Anion Gap 16 mmol/L (4-12); Blood Urea Nitrogen 12 mg/dL (7-17); Carbon Dioxide 12 mmol/L (22-30); Chloride 111 mmol/L (98-107); Potassium 3.8 mmol/L (3.4-5.0); Sodium 139 mmol/L (137-145)
[2024-05-20 07:35] LABS: Alanine Aminotransferase 34 U/L (6-35); Albumin Level 3.3 g/dL (3.5-5.1); Alkaline Phosphatase 155 U/L (38-126); Aspartate Amino Transferase 118 U/L (14-36); Calcium 8.3 mg/dL (8.4-10.2); Estimated CRCL calculation 40 ml/min; Estimated Glomerular Filt Rate > 60; Glucose 280 mg/dL (65-110); Magnesium 1.6 mg/dL (1.6-2.3)
[2024-05-20 07:49] LABS: Glucose Point of Care 285 mg/dl (65-105)
--- NOTE | 2024-05-20 07:59 | P.PNOP_ITS ---
Progress Note: A&P Assessment and Plan (1) UTI (urinary tract infection): Qualifiers: Urinary tract infection type: acute cystitis Hematuria presence: without hematuria Qualified Code(s): N30.00 - Acute cystitis without hematuria Code(s): N39.0 - Urinary tract infection, site not specified Status: Acute Assessment and Plan: Urine cultures with Staph aureus. Blood cultures with Staph aureus. Patient sepsis secondary to urinary tract infection with bacteremia. Left foot without signs of infection. (2) Wound dehiscence, surgical: Qualifiers: Encounter type: subsequent encounter Qualified Code(s): T81.31XD - Disruption of external operation (surgical) wound, not elsewhere classified, subsequent encounter Code(s): T81.31XA - Disruption of external operation (surgical) wound, not elsewhere classified, initial encounter Status: Acute Assessment and Plan: CT scan reviewed which shows postsurgical changes and no new findings of infection. Dressing changes morning. Overall appearance of foot improved with Dakin's dressing changes. No active drainage, no erythema, no swelling. Plan to continue with Dakin's dressing changes b.i.d. no surgical indication at this time. (3) S/P transmetatarsal amputation of foot: Qualifiers: Laterality: left Qualified Code(s): Z89.432 - Acquired absence of left foot Code(s): Z89.439 - Acquired absence of unspecified foot Status: Acute Assessment and Plan: 4 weeks status post left TMA. Complicated by wound dehiscence in patient with diabetes, neuropathy, arterial disease. Continue with current care with offloading, pressure relief and dressing changes b.i.d. Subjective Subjective Date/Time Seen: 05/20/24 07:59 Post Op day: 27days Principal diagnosis: LT TMA Interval history: Patient still in ICU. On CPAP. Left foot dressing change. Exam Const: General: in distress mild and ill appearing acutely; No comfortable Orientation/consciousness: oriented to person HENMT: Head: normal to inspection, normocephalic and atraumatic Neck: Neck: supple and nontender Chest: Chest palpation & inspection: normal inspection of the chest Resp: Effort & Inspection: abnormal respiratory pattern ( CPAP in place.) Extrem: Right upper extremity: normal to inspection Left upper extremity: normal to inspection Right lower extremity: ankle Details: normal to inspection, abnormal ROM Details: with range as follows (ankle dorsiflexion -10 degrees, plantar flexion 40?, inversion 15?, eversion 15?) and other ( good stability all directions); no tenderness, no swelling and no ecchymosis and foot Details: abnormal to inspection ( Status post transmetatarsal amputation with good healing), vascular exam Details: abnormal capillary refill ( transmetatarsal amputation); dorsalis pedis pulse absent, posterior tibial pulse absent and capillary refill abnormal, tendon exam Details: active flexion abnormal and active extension abnormal, motor-sensory exam Details: light-touch abnormal ( foot) and other ( surgical incision well healed) Left lower extremity: ankle Details: normal to inspection and abnormal ROM Details: with range as follows (ankle dorsiflexion -10 degrees, plantar flexion 40?, inversion 15?, eversion 15?); no tenderness and no swelling and foot Details: normal capillary refill, abnormal to inspection ( status post transmetatarsal amputation), vascular exam Details: abnormal capillary refill (foot); dorsalis pedis pulse absent, posterior tivial pulse absent and capillary refill abnormal, tendon exam active flexion abnormal of the great toe and active extension abnormal of the great toe and motor-sensory exam light-touch abnormal ( foot); no tenderness and no crepitus Other: left foot transmetatarsal amputation with wound dehiscence across the distal medial and distal lateral aspects. Necrotic tissue present in the wound bed. Purulent drainage noted and foul odor. No surrounding erythema and minimal swelling. No exposed bone Or tendon. Objective Data Vital Signs Vital Signs: Vital Signs - 24 hr 05/19/24 09:52 05/19/24 08:33 05/19/24 08:00 Temperature 102 F H 101.2 F H Pulse Rate 120 H Respiratory Rate 22 H Blood Pressure 159/82 H Pulse Oximetry 97 98 Oxygen Delivery Room Air Fraction of Inspired Oxygen 21 05/19/24 10:00 05/19/24 10:50 05/19/24 08:00 Temperature 101.9 F H 101.3 F H Pulse Rate 101 H 120 H Respiratory Rate 26 H Blood Pressure 143/58 H Pulse Oximetry 96 Oxygen Delivery Fraction of Inspired Oxygen 05/19/24 10:00 05/19/24 08:00 05/19/24 12:00 Temperature Pulse Rate 101 H 120 H 99 Respiratory Rate 22 H 24 H Blood Pressure Pulse Oximetry 98 96 Oxygen Delivery Room Air Room Air Fraction of Inspired Oxygen 05/19/24 12:00 05/19/24 12:00 05/19/24 14:00 Temperature 101.5 F H Pulse Rate 99 99 114 H Respiratory Rate 24 H Blood Pressure 121/74 Pulse Oximetry 97 Oxygen Delivery Fraction of Inspired Oxygen 05/19/24 14:00 05/19/24 13:59 05/19/24 14:55 Temperature 102.4 F H 102.5 F H 102.5 F H Pulse Rate 114 H Respiratory Rate 23 H Blood Pressure 154/78 H Pulse Oximetry 96 Oxygen Delivery Fraction of Inspired Oxygen 05/19/24 16:00 05/19/24 16:00 05/19/24 16:00 Temperature 102.3 F H Pulse Rate 96 96 96 Respiratory Rate 33 H 33 H Blood Pressure 132/57 L Pulse Oximetry 95 95 Oxygen Delivery Room Air Fraction of Inspired Oxygen 05/19/24 18:00 05/19/24 18:00 05/19/24 20:00 Temperature 100.8 F H 100.6 F H Pulse Rate 91 91 100 Respiratory Rate 29 H 26 H Blood Pressure 118/63 132/72 Pulse Oximetry 94 96 Oxygen Delivery Fraction of Inspired Oxygen 05/19/24 20:00 05/19/24 20:48 05/19/24 20:00 Temperature Pulse Rate 99 96 Respiratory Rate 24 H Blood Pressure Pulse Oximetry 96 Oxygen Delivery Room Air Room Air Fraction of Inspired Oxygen 05/19/24 23:40 05/19/24 22:00 05/19/24 22:00 Temperature 101.4 F H 101.0 F H Pulse Rate 97 97 Respiratory Rate 19 Blood Pressure 131/74 Pulse Oximetry 98 Oxygen Delivery Fraction of Inspired Oxygen 05/19/24 23:59 05/20/24 00:00 05/20/24 00:00 Temperature Pulse Rate 110 H 93 Respiratory Rate Blood Pressure Pulse Oximetry 99 Oxygen Delivery CPAP Room Air Fraction of Inspired Oxygen 05/20/24 00:00 05/20/24 02:00 05/20/24 04:00 Temperature 101.5 F H 100.9 F H 100.6 F H Pulse Rate 93 99 97 Respiratory Rate 24 H 25 H 25 H Blood Pressure 138/67 132/79 134/64 Pulse Oximetry 99 98 97 Oxygen Delivery Fraction of Inspired Oxygen 05/20/24 06:02 05/20/24 02:00 05/20/24 04:00 Temperature 101.6 F H Pulse Rate 99 104 H Respiratory Rate Blood Pressure Pulse Oximetry Oxygen Delivery Fraction of Inspired Oxygen 05/20/24 06:00 05/20/24 06:00 05/20/24 04:00 Temperature 101.6 F H Pulse Rate 100 100 Respiratory Rate 25 H Blood Pressure 138/62 Pulse Oximetry 97 Oxygen Delivery Room Air Fraction of Inspired Oxygen Intake/Output Intake/Output: Intake & Output 05/17/24 05/18/24 05/19/24 05/20/24 23:59 23:59 23:59 23:59 Intake Total 3445.1 3502.3 1276.0 Output Total 1750 2400 1400 Balance 1695.1 1102.3 -124.0 Meds/Results Medications: Active Medications Generic Name Dose Route Start Last Admin Trade Name Freq PRN Reason Stop Dose Admin Acetaminophen 650 mg 05/19/24 09:33 05/20/24 06:02 Acetaminophen 650 Mg Suppository RECTAL 650 mg Q4H PRN Administration Mild Pain (1-3) or Fever Dextrose 12.5 gm 05/18/24 14:38 Dextrose 50% 25 Gm/50 Ml Syringe IV PUSH PRN PRN Hypoglycemia Protocol Enoxaparin Sodium 40 mg 05/19/24 09:10 05/19/24 09:51 Enoxaparin 40 Mg/0.4 Ml Syringe SUB-Q 40 mg DAILY JESSICA Administration Famotidine 20 mg 05/18/24 21:00 05/19/24 20:31 Famotidine 20 Mg/2 Ml Vial IV PUSH 20 mg Q12HR JESSICA Administration Glucagon 1 mg 05/18/24 14:38 Glucagon For Inj 1 Mg Vial IM PRN PRN Hypoglycemia Protocol Glucose 15 gm 05/18/24 14:38 Glucose Oral Gel 15 Gm Of Glucse In 37.5 Gm Tube PO PRN PRN Hypoglycemia Protocol Potassium Chloride/Dextrose/Sod Cl 1,000 mls @ 150 mls/hr 05/18/24 14:40 05/20/24 07:30 Kcl 20 Meq/D5/0.45% Sod Chl IV CONT 150 mls/hr .Q6H40M JESSICA Administration Dextrose/Sodium Chloride 1,000 mls @ 150 mls/hr 05/18/24 14:40 Dextrose 5% Sodium Chloride 0.45% IV CONT .Q6H40M [facility] Insulin Human Regular 100 100 mls @ 3 mls/hr 05/18/24 15:00 05/20/24 06:37 units/ Sodium Chloride IV CONT 3 units/hr .Q24H JESSICA 3 mls/hr Titration Protocol 3 UNITS/HR Dextrose 1,000 mls @ 100 mls/hr 05/18/24 14:38 Dextrose 5% 1,000 Ml IVPB PRN PRN Hypoglycemia Protocol Cefepime HCl 1 gm in 50 mls @ 100 mls/hr 05/19/24 06:00 05/20/24 06:49 Maxipime 1 Gm/Ns 50 Ml IVPB Infused Q12H JESSICA Infusion Vancomycin HCl 1,000 mg in 250 mls @ 250 mls/hr 05/19/24 16:00 05/19/24 15:46 Vancomycin 1,000 Mg/Ns 250 Ml IVPB 250 mls/hr Q24H JESSICA Administration Clindamycin Phosphate 600 mg in 50 mls @ 100 mls/hr 05/19/24 13:00 05/20/24 06:47 Clindamycin 600 Mg/D5w 50 Ml IVPB Infused Q8H JESSICA Infusion Potassium Chloride 100 mls @ 50 mls/hr 05/20/24 07:55 Kcl 20 Meq/Sw 100 Ml IVPB 05/20/24 09:54 ONCE ONE Levothyroxine Sodium 50 mcg 05/18/24 19:55 05/18/24 20:13 Levothyroxine Sodium Inj 100 Mcg/5 Ml Vial IV PUSH 50 mcg DAILY@0630 JESSICA Administration Morphine Sulfate 2 mg 05/19/24 09:32 05/20/24 05:00 Morphine Sulfate (*Crx) 2 Mg/Ml Inj IV PUSH 2 mg Q3H PRN Administration Pain Rated 4-6 Morphine Sulfate 4 mg 05/19/24 09:33 05/20/24 06:16 Morphine Sulfate (*Crx) 4 Mg/Ml Inj IV PUSH 4 mg Q3H PRN Administration Pain Rated 7-10 Ondansetron HCl 4 mg 05/18/24 15:55 Ondansetron Inj 4 Mg/2 Ml Vial IV PUSH Q4H PRN Nausea Perflutren Lipid Microsphere 0 ml 05/20/24 07:55 Perflutren Lipid Microspheres 1.5 Ml Vial Diluted To 10 Ml Total Volume IV PUSH 05/23/24 07:57 ONCE PRN adequate visualization Protocol Sodium Hypochlorite 1 applic 05/19/24 09:00 05/19/24 20:32 Sod Hypochlorite 1/4 Strength 473 Ml TOPICAL 1 applic Q12HR JESSICA Administration Tacrolimus 1 applic 05/19/24 09:00 05/19/24 08:45 Tacrolimus 0.1% 30 Gm Ointment TOPICAL 1 applic DAILY JESSICA Administration Radiology Results: ITS Impressions Foot X-Ray 05/18/24 14:50 IMPRESSION: 1. Irregularity of the distal ends of the bones status post transmetatarsal amputation without change, which may be the normal postoperative appearance. No specific evidence of osteomyelitis. Head CT 05/19/24 10:52 IMPRESSION: 1. 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 2. Mild nonspecific cerebral white matter disease, which likely represents chronic small vessel ischemic disease. Neck/Chest/Abdomen/Pelvis CT 05/19/24 11:56 Impression: No acute abnormality evident. 8 mm nonobstructing left renal stone. Mild bibasilar atelectatic change. Dilated common bile duct is probably related to prior cholecystectomy. Foot CT 05/19/24 12:31 IMPRESSION: 1. Osteomyelitis involving first metatarsal. 2. Fractures of the plantar aspects of the ends of the stumps of the third and fourth metatarsals, which is a change from 04/23/2024. 3. Soft tissue gas in the distal forefoot. Labs Labs: Laboratory Results - last 24 hr 05/19/24 05/19/24 05/19/24 08:42 09:44 09:55 WBC RBC Hgb Hct MCV MCH MCHC RDW Plt Count MPV Immature Gran % (Auto) Neut % (Auto) Lymph % (Auto) [place] % (Auto) Eos % (Auto) Baso % (Auto) Lymph # (Auto) [place] # (Auto) Eos # (Auto) Baso # (Auto) Abs Immat Gran (auto) Absolute Neuts (auto) Absolute Nucleated RBC Nucleated RBC % Sodium 141 Potassium 3.0 L Chloride 109 H Carbon Dioxide 15 L Anion Gap 17 H BUN 12 Creatinine 0.70 Estim Creat Clear Calc 40 Estimated GFR > 60 Glucose 296 H POC Capillary Glucose 270 H 306 H Calcium 8.7 Magnesium Total Bilirubin AST ALT Alkaline Phosphatase Total Protein Albumin 05/19/24 05/19/24 05/19/24 11:09 11:42 12:41 WBC RBC Hgb Hct MCV MCH MCHC RDW Plt Count MPV Immature Gran % (Auto) Neut % (Auto) Lymph % (Auto) [place] % (Auto) Eos % (Auto) Baso % (Auto) Lymph # (Auto) [place] # (Auto) Eos # (Auto) Baso # (Auto) Abs Immat Gran (auto) Absolute Neuts (auto) Absolute Nucleated RBC Nucleated RBC % Sodium Potassium Chloride Carbon Dioxide Anion Gap BUN Creatinine Estim Creat Clear Calc Estimated GFR Glucose POC Capillary Glucose 218 H 154 H 177 H Calcium Magnesium Total Bilirubin AST ALT Alkaline Phosphatase Total Protein Albumin 05/19/24 05/19/24 05/19/24 13:37 14:29 14:34 WBC RBC Hgb Hct MCV MCH MCHC RDW Plt Count MPV Immature Gran % (Auto) Neut % (Auto) Lymph % (Auto) [place] % (Auto) Eos % (Auto) Baso % (Auto) Lymph # (Auto) [place] # (Auto) Eos # (Auto) Baso # (Auto) Abs Immat Gran (auto) Absolute Neuts (auto) Absolute Nucleated RBC Nucleated RBC % Sodium 141 Potassium 3.5 Chloride 110 H Carbon Dioxide 13 L Anion Gap 18 H BUN 10 Creatinine 0.70 Estim Creat Clear Calc 40 Estimated GFR > 60 Glucose 231 H POC Capillary Glucose 197 H 216 H Calcium 8.5 Magnesium Total Bilirubin AST ALT Alkaline Phosphatase Total Protein Albumin 05/19/24 05/19/24 05/19/24 15:40 16:56 17:39 WBC RBC Hgb Hct MCV MCH MCHC RDW Plt Count MPV Immature Gran % (Auto) Neut % (Auto) Lymph % (Auto) [place] % (Auto) Eos % (Auto) Baso % (Auto) Lymph # (Auto) [place] # (Auto) Eos # (Auto) Baso # (Auto) Abs Immat Gran (auto) Absolute Neuts (auto) Absolute Nucleated RBC Nucleated RBC % Sodium Potassium Chloride Carbon Dioxide Anion Gap BUN Creatinine Estim Creat Clear Calc Estimated GFR Glucose POC Capillary Glucose 250 H 268 H 229 H Calcium Magnesium Total Bilirubin AST ALT Alkaline Phosphatase Total Protein Albumin 05/19/24 05/19/24 05/19/24 18:43 19:27 19:46 WBC RBC Hgb Hct MCV MCH MCHC RDW Plt Count MPV Immature Gran % (Auto) Neut % (Auto) Lymph % (Auto) [place] % (Auto) Eos % (Auto) Baso % (Auto) Lymph # (Auto) [place] # (Auto) Eos # (Auto) Baso # (Auto) Abs Immat Gran (auto) Absolute Neuts (auto) Absolute Nucleated RBC Nucleated RBC % Sodium 141 Potassium 4.0 Chloride 113 H Carbon Dioxide 14 L Anion Gap 14 H BUN 12 Creatinine 0.70 Estim Creat Clear Calc 40 Estimated GFR > 60 Glucose 245 H POC Capillary Glucose 215 H 241 H Calcium 8.3 L Magnesium 1.9 Total Bilirubin AST ALT Alkaline Phosphatase Total Protein Albumin 05/19/24 05/19/24 05/19/24 21:18 22:20 23:10 WBC RBC Hgb Hct MCV MCH MCHC RDW Plt Count MPV Immature Gran % (Auto) Neut % (Auto) Lymph % (Auto) [place] % (Auto) Eos % (Auto) Baso % (Auto) Lymph # (Auto) [place] # (Auto) Eos # (Auto) Baso # (Auto) Abs Immat Gran (auto) Absolute Neuts (auto) Absolute Nucleated RBC Nucleated RBC % Sodium 140 Potassium 3.8 Chloride 112 H Carbon Dioxide 10 L Anion Gap 18 H BUN 12 Creatinine 0.70 Estim Creat Clear Calc 40 Estimated GFR > 60 Glucose 249 H POC Capillary Glucose 258 H 239 H Calcium 8.3 L Magnesium Total Bilirubin AST ALT Alkaline Phosphatase Total Protein Albumin 05/19/24 05/20/24 05/20/24 23:18 00:18 01:19 WBC RBC Hgb Hct MCV MCH MCHC RDW Plt Count MPV Immature Gran % (Auto) Neut % (Auto) Lymph % (Auto) [place] % (Auto) Eos % (Auto) Baso % (Auto) Lymph # (Auto) [place] # (Auto) Eos # (Auto) Baso # (Auto) Abs Immat Gran (auto) Absolute Neuts (auto) Absolute Nucleated RBC Nucleated RBC % Sodium Potassium Chloride Carbon Dioxide Anion Gap BUN Creatinine Estim Creat Clear Calc Estimated GFR Glucose POC Capillary Glucose 205 H 263 H 209 H Calcium Magnesium Total Bilirubin AST ALT Alkaline Phosphatase Total Protein Albumin 05/20/24 05/20/24 05/20/24 02:18 03:24 03:41 WBC RBC Hgb Hct MCV MCH MCHC RDW Plt Count MPV Immature Gran % (Auto) Neut % (Auto) Lymph % (Auto) [place] % (Auto) Eos % (Auto) Baso % (Auto) Lymph # (Auto) [place] # (Auto) Eos # (Auto) Baso # (Auto) Abs Immat Gran (auto) Absolute Neuts (auto) Absolute Nucleated RBC Nucleated RBC % Sodium 140 Potassium 3.6 Chloride 110 H Carbon Dioxide 15 L Anion Gap 15 H BUN 12 Creatinine 0.70 Estim Creat Clear Calc 40 Estimated GFR > 60 Glucose 201 H POC Capillary Glucose 209 H 196 H Calcium 8.4 Magnesium Total Bilirubin AST ALT Alkaline Phosphatase Total Protein Albumin 05/20/24 05/20/24 05/20/24 04:28 05:20 06:34 WBC RBC Hgb Hct MCV MCH MCHC RDW Plt Count MPV Immature Gran % (Auto) Neut % (Auto) Lymph % (Auto) [place] % (Auto) Eos % (Auto) Baso % (Auto) Lymph # (Auto) [place] # (Auto) Eos # (Auto) Baso # (Auto) Abs Immat Gran (auto) Absolute Neuts (auto) Absolute Nucleated RBC Nucleated RBC % Sodium Potassium Chloride Carbon Dioxide Anion Gap BUN Creatinine Estim Creat Clear Calc Estimated GFR Glucose POC Capillary Glucose 211 H 237 H 310 H Calcium Magnesium Total Bilirubin AST ALT Alkaline Phosphatase Total Protein Albumin 05/20/24 05/20/24 07:02 07:46 WBC 10.9 H RBC 3.48 L Hgb 10.2 L Hct 32.1 L MCV 92.2 MCH 29.3 MCHC 31.8 L RDW 14.6 H Plt Count 173 MPV 12.3 H Immature Gran % (Auto) Not Reportable Neut % (Auto) Not Reportable Lymph % (Auto) Not Reportable [place] % (Auto) Not Reportable Eos % (Auto) Not Reportable Baso % (Auto) Not Reportable Lymph # (Auto) Not Reportable [place] # (Auto) Not Reportable Eos # (Auto) Not Reportable Baso # (Auto) Not Reportable Abs Immat Gran (auto) Not Reportable Absolute Neuts (auto) Not Reportable Absolute Nucleated RBC Not Reportable Nucleated RBC % Not Reportable Sodium 139 Potassium 3.8 Chloride 111 H Carbon Dioxide 12 L Anion Gap 16 H BUN 12 Creatinine 0.70 Estim Creat Clear Calc 40 Estimated GFR > 60 Glucose 280 H POC Capillary Glucose 285 H Calcium 8.3 L Magnesium 1.6 Total Bilirubin 1.0 AST 118 H ALT 34 Alkaline Phosphatase 155 H Total Protein 7.0 Albumin 3.3 L
[2024-05-20] MEDS: ENOXAPARIN 40 MG/0.4 ML SYRINGE SUB-Q (08:15)
[2024-05-20] MEDS: SOD HYPOCHLORITE 1/4 STRENGTH 473 ML 1 APPLIC TOPICAL ×2 (08:16→21:00)
[2024-05-20] MEDS: FAMOTIDINE 20 MG/2 ML VIAL IV PUSH ×2 (08:16→20:26)
[2024-05-20] MEDS: KCL 20 MEQ/SW 100 ML 100 ML 50 MEQ IVPB (08:17)
[2024-05-20] MEDS: TACROLIMUS 0.1% 30 GM OINTMENT 1 APPLIC TOPICAL (08:20)
[2024-05-20 08:21] LABS: Band Neutrophils Percent 13 % (0-6); Lymphocytes Absolute Manual 0.32 K/mm3 (1.1-4.5); Neutrophils Absolute Manual 10.57 K/mm3 (1.7-7.2); Neutrophils Percent Manual 84 % (46-73); Total Cells Counted 100
[2024-05-20 08:22] LABS: Burr Cells 1+; Hypochromasia 1+; Platelet Estimate Adequate (Adequate); Schistocytes None Seen
--- NOTE | 2024-05-20 08:29 | P.PNINT_ITS ---
Progress Note: A&P Assessment and Plan (1) DKA (diabetic ketoacidosis): Code(s): E11.10 - Type 2 diabetes mellitus with ketoacidosis without coma Status: Acute Assessment and Plan: DKA secondary to noncompliance and sepsis Patient was given IVF bolus and and is on infusion which will be continued Patient is currently on Insulin infusion and Q1H glucose monitoring being done Serial labs are being done Replace electrolytes as needed npo (2) Sepsis: Qualifiers: Sepsis acute organ dysfunction status: unspecified Sepsis type: sepsis due to unspecified organism Qualified Code(s): A41.9 - Sepsis, unspecified organism Code(s): A41.9 - Sepsis, unspecified organism Status: Acute Assessment and Plan: Patient has sepsis secondary to postop wound infection of the foot, osteomyelitis, staph bacteremia, Staph UTI Foot x-ray 1. Irregularity of the distal ends of the bones status post transmetatarsal amputation without change, which may be the normal postoperative appearance. No specific evidence of osteomyelitis. Foot CT 05/19 IMPRESSION: 1. Osteomyelitis involving first metatarsal. 2. Fractures of the plantar aspects of the ends of the stumps of the third and fourth metatarsals, which is a change from 04/23/2024. 3. Soft tissue gas in the distal forefoot. CT neck/chest/abdomen No acute abnormality evident. 8 mm nonobstructing left renal stone. Mild bibasilar atelectatic change. Dilated common bile duct is probably related to prior cholecystectomy. Patient was seen by Orthopedics today and recommended local wound care at this time and no surgical intervention. Wound care consult and local wound care Blood and urine cultures are growing Staph aureus Lactic acid has normalized Continue IV fluids Continue vancomycin, clindamycin and cefepime Will repeat cultures after 48 hours Will check echocardiogram (3) Postoperative wound infection: Code(s): T81.49XA - Infection following a procedure, other surgical site, initial encounter Status: Acute Assessment and Plan: See above (4) UTI (urinary tract infection): Qualifiers: Urinary tract infection type: acute cystitis Hematuria presence: without hematuria Qualified Code(s): N30.00 - Acute cystitis without hematuria Code(s): N39.0 - Urinary tract infection, site not specified Status: Acute Assessment and Plan: See above (5) Pain: Code(s): R52 - Pain, unspecified Status: Acute Assessment and Plan: P.r.n. analgesic ordered (6) Encephalopathy: Code(s): G93.40 - Encephalopathy, unspecified Status: Acute Assessment and Plan: Nonfocal exam. Likely toxic metabolic encephalopathy. Head CT IMPRESSION: 1. 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 2. Mild nonspecific cerebral white matter disease, which likely represents chronic small vessel ischemic disease. (7) Hypothyroid: Code(s): E03.9 - Hypothyroidism, unspecified Status: Acute Assessment and Plan: Continue levothyroxine (8) Electrolyte abnormality: Code(s): E87.8 - Other disorders of electrolyte and fluid balance, not elsewhere classified Status: Acute Assessment and Plan: Replace low potassium and magnesium (9) Bacteremia: Code(s): R78.81 - Bacteremia Status: Acute Assessment and Plan: See above Plan DVT prophylaxis -Lovenox Nutrition - npo Code Status - Full Code Case discussed with orthopedics. Dr. Hale recommends local wound care at this time I had long discussion with patient's regarding patient's code status. He believes the patient would not want to go on a ventilator. He has himself receive CPR in the past and did okay and believes the patient would do fine with resuscitation in case of cardiac arrest. I tried to explain him multiple times that without mechanical ventilation CPR would not be successful in the event of cardiac arrest but he was adamant and wanted to maintain the modified code status of patient be okay with receiving CPR in the event of cardiac arrest but in no case being put on a ventilator would be against her wishes. Code status has been modified in the chart as per patient's 's request Total Critical Care Time - 30 minutes Due to a high probability of clinically significant, life threatening deterioration, the patient required my highest level of preparedness to intervene emergently and I personally spent this critical care time directly and personally managing the patient. This critical care time included obtaining a history; examining the patient; pulse oximetry; ordering and review of studies; arranging urgent treatment with development of a management plan; evaluation of patient's response to treatment; frequent reassessment; and discussions with other providers. It was exclusive of separately billable procedures and treating other patients and teaching time. Please see Assessment and Plan section and the rest of the note for further information on patient assessment and treatment Subjective Date/time seen: 05/20/24 Overnight events reviewed. Continues to have fevers Wore CPAP overnight Received morphine for pain early this morning and now drowsy and arousable to painful stimuli Continues to be on IV fluids and insulin infusion Other Vitals acceptable Review of Systems Review of Systems: ROS unobtainable: Yes unobtainable due to medical condition and unobtainable due to mental status Exam Narrative: General: Old frail female who is in mild distress secondary to pain, awake alert partially oriented Lungs/Chest: Trachea central Clear BS B/L, No crackles or wheezing. Cardiac: Tachycardic, regular Normal S1 S2. No murmurs Circulation: Pedal pulses are intact and symmetrical. Abdomen: Normal bowel sounds.. Soft. NT. ND. 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 Patient's foot was just examined Orthopedics and a new dressing was placed I did not remove dressing again to examine the patient since it was already examine by wound and Orthopedics : Vang in place Neurologic: Drowsy but arousable Moves all 4 extremities PERRL, AO x1 to place Skin: No Rash Objective Data Vital Signs Vital Signs: Vital Signs - 24 hr 05/19/24 09:52 05/19/24 08:33 05/19/24 10:00 Temperature 38.8 C H 38.8 C H Pulse Rate 101 H Respiratory Rate 26 H Blood Pressure 143/58 H Pulse Oximetry 97 96 Oxygen Delivery Room Air Fraction of Inspired Oxygen 21 05/19/24 10:50 05/19/24 10:00 05/19/24 12:00 Temperature 38.5 C H Pulse Rate 101 H 99 Respiratory Rate 24 H Blood Pressure Pulse Oximetry 96 Oxygen Delivery Room Air Fraction of Inspired Oxygen 05/19/24 12:00 05/19/24 12:00 05/19/24 14:00 Temperature 38.6 C H Pulse Rate 99 99 114 H Respiratory Rate 24 H Blood Pressure 121/74 Pulse Oximetry 97 Oxygen Delivery Fraction of Inspired Oxygen 05/19/24 14:00 05/19/24 13:59 05/19/24 14:55 Temperature 39.1 C H 39.2 C H 39.2 C H Pulse Rate 114 H Respiratory Rate 23 H Blood Pressure 154/78 H Pulse Oximetry 96 Oxygen Delivery Fraction of Inspired Oxygen 05/19/24 16:00 05/19/24 16:00 05/19/24 16:00 Temperature 39.1 C H Pulse Rate 96 96 96 Respiratory Rate 33 H 33 H Blood Pressure 132/57 L Pulse Oximetry 95 95 Oxygen Delivery Room Air Fraction of Inspired Oxygen 05/19/24 18:00 05/19/24 18:00 05/19/24 20:00 Temperature 38.2 C H 38.1 C H Pulse Rate 91 91 100 Respiratory Rate 29 H 26 H Blood Pressure 118/63 132/72 Pulse Oximetry 94 96 Oxygen Delivery Fraction of Inspired Oxygen 05/19/24 20:00 05/19/24 20:48 05/19/24 20:00 Temperature Pulse Rate 99 96 Respiratory Rate 24 H Blood Pressure Pulse Oximetry 96 Oxygen Delivery Room Air Room Air Fraction of Inspired Oxygen 05/19/24 23:40 05/19/24 22:00 05/19/24 22:00 Temperature 38.6 C H 38.3 C H Pulse Rate 97 97 Respiratory Rate 19 Blood Pressure 131/74 Pulse Oximetry 98 Oxygen Delivery Fraction of Inspired Oxygen 05/19/24 23:59 05/20/24 00:00 05/20/24 00:00 Temperature Pulse Rate 110 H 93 Respiratory Rate Blood Pressure Pulse Oximetry 99 Oxygen Delivery CPAP Room Air Fraction of Inspired Oxygen 05/20/24 00:00 05/20/24 02:00 05/20/24 04:00 Temperature 38.6 C H 38.3 C H 38.1 C H Pulse Rate 93 99 97 Respiratory Rate 24 H 25 H 25 H Blood Pressure 138/67 132/79 134/64 Pulse Oximetry 99 98 97 Oxygen Delivery Fraction of Inspired Oxygen 05/20/24 06:02 05/20/24 02:00 05/20/24 04:00 Temperature 38.7 C H Pulse Rate 99 104 H Respiratory Rate Blood Pressure Pulse Oximetry Oxygen Delivery Fraction of Inspired Oxygen 05/20/24 06:00 05/20/24 06:00 05/20/24 04:00 Temperature 38.7 C H Pulse Rate 100 100 Respiratory Rate 25 H Blood Pressure 138/62 Pulse Oximetry 97 Oxygen Delivery Room Air Fraction of Inspired Oxygen 05/20/24 08:00 Temperature 37.9 C H Pulse Rate 98 Respiratory Rate 23 H Blood Pressure 133/63 Pulse Oximetry 93 Oxygen Delivery Fraction of Inspired Oxygen Intake/Output Intake/Output: Intake & Output 10/06/24 10/07/24 10/08/24 10/09/24 23:59 23:59 23:59 23:59 Intake Total 3445.1 3502.3 1364.7 Output Total 1750 2400 1400 Balance 1695.1 1102.3 -35.3 Meds/Results Medications: Active Medications Generic Name Dose Route Start Last Admin Trade Name Freq PRN Reason Stop Dose Admin Acetaminophen 650 mg 05/19/24 09:33 05/20/24 06:02 Acetaminophen 650 Mg Suppository RECTAL 650 mg Q4H PRN Administration Mild Pain (1-3) or Fever Dextrose 12.5 gm 05/18/24 14:38 Dextrose 50% 25 Gm/50 Ml Syringe IV PUSH PRN PRN Hypoglycemia Protocol Enoxaparin Sodium 40 mg 05/19/24 09:10 05/20/24 08:15 Enoxaparin 40 Mg/0.4 Ml Syringe SUB-Q 40 mg DAILY JESSICA Administration Famotidine 20 mg 05/18/24 21:00 05/20/24 08:16 Famotidine 20 Mg/2 Ml Vial IV PUSH 20 mg Q12HR JESSICA Administration Glucagon 1 mg 05/18/24 14:38 Glucagon For Inj 1 Mg Vial IM PRN PRN Hypoglycemia Protocol Glucose 15 gm 05/18/24 14:38 Glucose Oral Gel 15 Gm Of Glucse In 37.5 Gm Tube PO PRN PRN Hypoglycemia Protocol Potassium Chloride/Dextrose/Sod Cl 1,000 mls @ 100 mls/hr 05/18/24 14:40 05/20/24 08:04 Kcl 20 Meq/D5/0.45% Sod Chl IV CONT 100 mls/hr .Q10H JESSICA Infusion Dextrose/Sodium Chloride 1,000 mls @ 100 mls/hr 05/18/24 14:40 Dextrose 5% Sodium Chloride 0.45% IV CONT .Q10H JESSICA Insulin Human Regular 100 100 mls @ 3.5 mls/hr 05/18/24 15:00 05/20/24 07:50 units/ Sodium Chloride IV CONT 3.5 units/hr .Q24H JESSICA 3.5 mls/hr Titration Protocol 3.5 UNITS/HR Dextrose 1,000 mls @ 100 mls/hr 05/18/24 14:38 Dextrose 5% 1,000 Ml IVPB PRN PRN Hypoglycemia Protocol Cefepime HCl 1 gm in 50 mls @ 100 mls/hr 05/19/24 06:00 05/20/24 06:49 Maxipime 1 Gm/Ns 50 Ml IVPB Infused Q12H JESSICA Infusion Vancomycin HCl 1,000 mg in 250 mls @ 250 mls/hr 05/19/24 16:00 05/19/24 15:46 Vancomycin 1,000 Mg/Ns 250 Ml IVPB 250 mls/hr Q24H JESSICA Administration Clindamycin Phosphate 600 mg in 50 mls @ 100 mls/hr 05/19/24 13:00 05/20/24 06:47 Clindamycin 600 Mg/D5w 50 Ml IVPB Infused Q8H JESSICA Infusion Potassium Chloride 100 mls @ 50 mls/hr 05/20/24 07:55 05/20/24 08:17 Kcl 20 Meq/Sw 100 Ml IVPB 05/20/24 09:54 50 mls/hr ONCE ONE Administration Levothyroxine Sodium 50 mcg 05/18/24 19:55 05/20/24 08:17 Levothyroxine Sodium Inj 100 Mcg/5 Ml Vial IV PUSH Not Given DAILY@0630 JESSICA Morphine Sulfate 2 mg 05/19/24 09:32 05/20/24 05:00 Morphine Sulfate (*Crx) 2 Mg/Ml Inj IV PUSH 2 mg Q3H PRN Administration Pain Rated 4-6 Morphine Sulfate 4 mg 05/19/24 09:33 05/20/24 06:16 Morphine Sulfate (*Crx) 4 Mg/Ml Inj IV PUSH 4 mg Q3H PRN Administration Pain Rated 7-10 Ondansetron HCl 4 mg 05/18/24 15:55 Ondansetron Inj 4 Mg/2 Ml Vial IV PUSH Q4H PRN Nausea Perflutren Lipid Microsphere 0 ml 05/20/24 07:55 Perflutren Lipid Microspheres 1.5 Ml Vial Diluted To 10 Ml Total Volume IV PUSH 05/23/24 07:57 ONCE PRN adequate visualization Protocol Sodium Hypochlorite 1 applic 05/19/24 09:00 05/20/24 08:16 Sod Hypochlorite 1/4 Strength 473 Ml TOPICAL 1 applic Q12HR JESSICA Administration Tacrolimus 1 applic 05/19/24 09:00 05/20/24 08:20 Tacrolimus 0.1% 30 Gm Ointment TOPICAL 1 applic DAILY JESSICA Administration Radiology Results: ITS Impressions Foot X-Ray 05/18/24 14:50 IMPRESSION: 1. Irregularity of the distal ends of the bones status post transmetatarsal amputation without change, which may be the normal postoperative appearance. No specific evidence of osteomyelitis. Head CT 05/19/24 10:52 IMPRESSION: 1. 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 2. Mild nonspecific cerebral white matter disease, which likely represents chronic small vessel ischemic disease. Neck/Chest/Abdomen/Pelvis CT 05/19/24 11:56 Impression: No acute abnormality evident. 8 mm nonobstructing left renal stone. Mild bibasilar atelectatic change. Dilated common bile duct is probably related to prior cholecystectomy. Foot CT 05/19/24 12:31 IMPRESSION: 1. Osteomyelitis involving first metatarsal. 2. Fractures of the plantar aspects of the ends of the stumps of the third and fourth metatarsals, which is a change from 04/23/2024. 3. Soft tissue gas in the distal forefoot. Labs Labs: Laboratory Results - last 24 hr 05/19/24 05/19/24 05/19/24 08:42 09:44 09:55 WBC RBC Hgb Hct MCV MCH MCHC RDW Plt Count MPV Immature Gran % (Auto) Neut % (Auto) Lymph % (Auto) [place] % (Auto) Eos % (Auto) Baso % (Auto) Lymph # (Auto) [place] # (Auto) Eos # (Auto) Baso # (Auto) Abs Immat Gran (auto) Absolute Neuts (auto) Absolute Nucleated RBC Total Counted Neutrophils % (Manual) Band Neutrophils % Lymphocytes % (Manual) Nucleated RBC % Abs Neuts (Manual) Abs Lymphs (Manual) Platelet Estimate Hypochromasia Mimbres Cells Schistocytes Sodium 141 Potassium 3.0 L Chloride 109 H Carbon Dioxide 15 L Anion Gap 17 H BUN 12 Creatinine 0.70 Estim Creat Clear Calc 40 Estimated GFR > 60 Glucose 296 H POC Capillary Glucose 270 H 306 H Lactic Acid Calcium 8.7 Magnesium Total Bilirubin AST ALT Alkaline Phosphatase Total Protein Albumin 05/19/24 05/19/24 05/19/24 11:09 11:42 12:41 WBC RBC Hgb Hct MCV MCH MCHC RDW Plt Count MPV Immature Gran % (Auto) Neut % (Auto) Lymph % (Auto) [place] % (Auto) Eos % (Auto) Baso % (Auto) Lymph # (Auto) [place] # (Auto) Eos # (Auto) Baso # (Auto) Abs Immat Gran (auto) Absolute Neuts (auto) Absolute Nucleated RBC Total Counted Neutrophils % (Manual) Band Neutrophils % Lymphocytes % (Manual) Nucleated RBC % Abs Neuts (Manual) Abs Lymphs (Manual) Platelet Estimate Hypochromasia [place]imbres Cells Schistocytes Sodium Potassium Chloride Carbon Dioxide Anion Gap BUN Creatinine Estim Creat Clear Calc Estimated GFR Glucose POC Capillary Glucose 218 H 154 H 177 H Lactic Acid Calcium Magnesium Total Bilirubin AST ALT Alkaline Phosphatase Total Protein Albumin 05/19/24 05/19/24 05/19/24 13:37 14:29 14:34 WBC RBC Hgb Hct MCV MCH MCHC RDW Plt Count MPV Immature Gran % (Auto) Neut % (Auto) Lymph % (Auto) [place] % (Auto) Eos % (Auto) Baso % (Auto) Lymph # (Auto) [place] # (Auto) Eos # (Auto) Baso # (Auto) Abs Immat Gran (auto) Absolute Neuts (auto) Absolute Nucleated RBC Total Counted Neutrophils % (Manual) Band Neutrophils % Lymphocytes % (Manual) Nucleated RBC % Abs Neuts (Manual) Abs Lymphs (Manual) Platelet Estimate Hypochromasia Ana M Cells Schistocytes Sodium 141 Potassium 3.5 Chloride 110 H Carbon Dioxide 13 L Anion Gap 18 H BUN 10 Creatinine 0.70 Estim Creat Clear Calc 40 Estimated GFR > 60 Glucose 231 H POC Capillary Glucose 197 H 216 H Lactic Acid Calcium 8.5 Magnesium Total Bilirubin AST ALT Alkaline Phosphatase Total Protein Albumin 05/19/24 05/19/24 05/19/24 15:40 16:56 17:39 WBC RBC Hgb Hct MCV MCH MCHC RDW Plt Count MPV Immature Gran % (Auto) Neut % (Auto) Lymph % (Auto) [place] % (Auto) Eos % (Auto) Baso % (Auto) Lymph # (Auto) [place] # (Auto) Eos # (Auto) Baso # (Auto) Abs Immat Gran (auto) Absolute Neuts (auto) Absolute Nucleated RBC Total Counted Neutrophils % (Manual) Band Neutrophils % Lymphocytes % (Manual) Nucleated RBC % Abs Neuts (Manual) Abs Lymphs (Manual) Platelet Estimate Hypochromasia Mimbres Cells Schistocytes Sodium Potassium Chloride Carbon Dioxide Anion Gap BUN Creatinine Estim Creat Clear Calc Estimated GFR Glucose POC Capillary Glucose 250 H 268 H 229 H Lactic Acid Calcium Magnesium Total Bilirubin AST ALT Alkaline Phosphatase Total Protein Albumin 05/19/24 05/19/24 05/19/24 18:43 19:27 19:46 WBC RBC Hgb Hct MCV MCH MCHC RDW Plt Count MPV Immature Gran % (Auto) Neut % (Auto) Lymph % (Auto) [place] % (Auto) Eos % (Auto) Baso % (Auto) Lymph # (Auto) [place] # (Auto) Eos # (Auto) Baso # (Auto) Abs Immat Gran (auto) Absolute Neuts (auto) Absolute Nucleated RBC Total Counted Neutrophils % (Manual) Band Neutrophils % Lymphocytes % (Manual) Nucleated RBC % Abs Neuts (Manual) Abs Lymphs (Manual) Platelet Estimate Hypochromasia Mimbres Cells Schistocytes Sodium 141 Potassium 4.0 Chloride 113 H Carbon Dioxide 14 L Anion Gap 14 H BUN 12 Creatinine 0.70 Estim Creat Clear Calc 40 Estimated GFR > 60 Glucose 245 H POC Capillary Glucose 215 H 241 H Lactic Acid Calcium 8.3 L Magnesium 1.9 Total Bilirubin AST ALT Alkaline Phosphatase Total Protein Albumin 05/19/24 05/19/24 05/19/24 21:18 22:20 23:10 WBC RBC Hgb Hct MCV MCH MCHC RDW Plt Count MPV Immature Gran % (Auto) Neut % (Auto) Lymph % (Auto) [place] % (Auto) Eos % (Auto) Baso % (Auto) Lymph # (Auto) [place] # (Auto) Eos # (Auto) Baso # (Auto) Abs Immat Gran (auto) Absolute Neuts (auto) Absolute Nucleated RBC Total Counted Neutrophils % (Manual) Band Neutrophils % Lymphocytes % (Manual) Nucleated RBC % Abs Neuts (Manual) Abs Lymphs (Manual) Platelet Estimate Hypochromasia [place]imbres Cells Schistocytes Sodium 140 Potassium 3.8 Chloride 112 H Carbon Dioxide 10 L Anion Gap 18 H BUN 12 Creatinine 0.70 Estim Creat Clear Calc 40 Estimated GFR > 60 Glucose 249 H POC Capillary Glucose 258 H 239 H Lactic Acid Calcium 8.3 L Magnesium Total Bilirubin AST ALT Alkaline Phosphatase Total Protein Albumin 05/19/24 05/20/24 05/20/24 23:18 00:18 01:19 WBC RBC Hgb Hct MCV MCH MCHC RDW Plt Count MPV Immature Gran % (Auto) Neut % (Auto) Lymph % (Auto) [place] % (Auto) Eos % (Auto) Baso % (Auto) Lymph # (Auto) [place] # (Auto) Eos # (Auto) Baso # (Auto) Abs Immat Gran (auto) Absolute Neuts (auto) Absolute Nucleated RBC Total Counted Neutrophils % (Manual) Band Neutrophils % Lymphocytes % (Manual) Nucleated RBC % Abs Neuts (Manual) Abs Lymphs (Manual) Platelet Estimate Hypochromasia Mimbres Cells Schistocytes Sodium Potassium Chloride Carbon Dioxide Anion Gap BUN Creatinine Estim Creat Clear Calc Estimated GFR Glucose POC Capillary Glucose 205 H 263 H 209 H Lactic Acid Calcium Magnesium Total Bilirubin AST ALT Alkaline Phosphatase Total Protein Albumin 05/20/24 05/20/24 05/20/24 02:18 03:24 03:41 WBC RBC Hgb Hct MCV MCH MCHC RDW Plt Count MPV Immature Gran % (Auto) Neut % (Auto) Lymph % (Auto) [place] % (Auto) Eos % (Auto) Baso % (Auto) Lymph # (Auto) [place] # (Auto) Eos # (Auto) Baso # (Auto) Abs Immat Gran (auto) Absolute Neuts (auto) Absolute Nucleated RBC Total Counted Neutrophils % (Manual) Band Neutrophils % Lymphocytes % (Manual) Nucleated RBC % Abs Neuts (Manual) Abs Lymphs (Manual) Platelet Estimate Hypochromasia Mimbres Cells Schistocytes Sodium 140 Potassium 3.6 Chloride 110 H Carbon Dioxide 15 L Anion Gap 15 H BUN 12 Creatinine 0.70 Estim Creat Clear Calc 40 Estimated GFR > 60 Glucose 201 H POC Capillary Glucose 209 H 196 H Lactic Acid Calcium 8.4 Magnesium Total Bilirubin AST ALT Alkaline Phosphatase Total Protein Albumin 05/20/24 05/20/24 05/20/24 04:28 05:20 06:34 WBC RBC Hgb Hct MCV MCH MCHC RDW Plt Count MPV Immature Gran % (Auto) Neut % (Auto) Lymph % (Auto) [place] % (Auto) Eos % (Auto) Baso % (Auto) Lymph # (Auto) [place] # (Auto) Eos # (Auto) Baso # (Auto) Abs Immat Gran (auto) Absolute Neuts (auto) Absolute Nucleated RBC Total Counted Neutrophils % (Manual) Band Neutrophils % Lymphocytes % (Manual) Nucleated RBC % Abs Neuts (Manual) Abs Lymphs (Manual) Platelet Estimate Hypochromasia Ana M Cells Schistocytes Sodium Potassium Chloride Carbon Dioxide Anion Gap BUN Creatinine Estim Creat Clear Calc Estimated GFR Glucose POC Capillary Glucose 211 H 237 H 310 H Lactic Acid Calcium Magnesium Total Bilirubin AST ALT Alkaline Phosphatase Total Protein Albumin 05/20/24 05/20/24 07:02 07:46 WBC 10.9 H RBC 3.48 L Hgb 10.2 L Hct 32.1 L MCV 92.2 MCH 29.3 MCHC 31.8 L RDW 14.6 H Plt Count 173 MPV 12.3 H Immature Gran % (Auto) Not Reportable Neut % (Auto) Not Reportable Lymph % (Auto) Not Reportable [place] % (Auto) Not Reportable Eos % (Auto) Not Reportable Baso % (Auto) Not Reportable Lymph # (Auto) Not Reportable [place] # (Auto) Not Reportable Eos # (Auto) Not Reportable Baso # (Auto) Not Reportable Abs Immat Gran (auto) Not Reportable Absolute Neuts (auto) Not Reportable Absolute Nucleated RBC Not Reportable Total Counted 100 Neutrophils % (Manual) 84 H Band Neutrophils % 13 H Lymphocytes % (Manual) 3.0 L Nucleated RBC % Not Reportable Abs Neuts (Manual) 10.57 H Abs Lymphs (Manual) 0.32 L Platelet Estimate Adequate Hypochromasia 1+ [place]imb[place] Cells 1+ Schistocytes None seen Sodium 139 Potassium 3.8 Chloride 111 H Carbon Dioxide 12 L Anion Gap 16 H BUN 12 Creatinine 0.70 Estim Creat Clear Calc 40 Estimated GFR > 60 Glucose 280 H POC Capillary Glucose 285 H Lactic Acid Cancelled Calcium 8.3 L Magnesium 1.6 Total Bilirubin 1.0 AST 118 H ALT 34 Alkaline Phosphatase 155 H Total Protein 7.0 Albumin 3.3 L Quality VTE Prophylaxis VTE prophylaxis: mechanical ordered
[2024-05-20 08:50] LABS: Glucose Point of Care 290 mg/dl (65-105)
[2024-05-20 08:58] LABS: Creatine Kinase 95 U/L (30-135)
[2024-05-20 09:50] LABS: Glucose Point of Care 309 mg/dl (65-105)
[2024-05-20] MEDS: MAGNESIUM SULF 2 GM/WATER 50ML 2 GM/50 ML BAG IVPB (10:15)
[2024-05-20 10:49] LABS: Glucose Point of Care 333 mg/dl (65-105)
[2024-05-20 11:41] LABS: Anion Gap 14 mmol/L (4-12); Blood Urea Nitrogen 12 mg/dL (7-17); Calcium 8.2 mg/dL (8.4-10.2); Carbon Dioxide 15 mmol/L (22-30); Chloride 109 mmol/L (98-107); Estimated CRCL calculation 40 ml/min; Estimated Glomerular Filt Rate > 60; Glucose 344 mg/dL (65-110); Potassium 3.7 mmol/L (3.4-5.0); Sodium 138 mmol/L (137-145)
[2024-05-20 11:49] LABS: Glucose Point of Care 342 mg/dl (65-105)
[2024-05-20] MEDS: SODIUM BICARBONATE 8.4% 50 MEQ/50 ML SYRINGE IV PUSH (12:04)
[2024-05-20 13:39] LABS: Glucose Point of Care 293 mg/dl (65-105)
--- NOTE | 2024-05-20 13:46 | PCNFU ---
Nutrition Follow-Up Complete: Inadequate Oral Intake as related to DKA as evidenced by poor po intake reported and confusion. Goal: Meet estimated nutritional needs. Patient has limited progress towards goal. We will continue current goal. Pt current nutrition is Glucerna 1.2. Nutrition recommendation: goal rate at 50 ml/hr Last recorded weight is 57.4 kg, up from 54 kg on admit. Bowel Motility: +BM reported 05/19 Labs Reviewed:Glu 280, Alb 3.3 Meds Noted: Lovenox, Vancomycin. Skin: Left mid foot amputation Additional Notes: Patient remains NPO. Discussions in rounds regarding NGT vs oral diet. Conference Assistant has ordered NGT feedings of Glucerna 1.2. Plans to start at 20 ml/hr, recommend advancing to 50 ml/hr. Tube feedings at goal rate providing 1320 kcal/66 gm protein. Flush 30 ml a 4 hours. Will monitor weight, labs, skin, diet orders, meds daily in ICU rounds and reassessing every Saturday and Saturday.
[2024-05-20] MEDS: SODIUM BICARBONATE TAB 650 MG TABLET 1300 MG FEED TUBE ×2 (13:47→16:57)
[2024-05-20] MEDS: POTASSIUM CHLORIDE 20 MEQ PACKET (FOR LIQUID) 40 MEQ FEED TUBE (13:48)
[2024-05-20 15:37] LABS: Glucose Point of Care 338 mg/dl (65-105)
--- NOTE | 2024-05-20 16:34 | P.PNIM_ITS ---
Progress Note: A&P Assessment and Plan (1) DKA (diabetic ketoacidosis): Code(s): E11.10 - Type 2 diabetes mellitus with ketoacidosis without coma Status: Acute Assessment and Plan: DKA secondary to noncompliance and sepsis. Patient was given IVF bolus and started on IVF. Started on insulin infusion with Q1H glucose monitoring Serial labs are being done. Anion gap still open. Replace electrolytes as needed (2) Sepsis: Qualifiers: Sepsis acute organ dysfunction status: unspecified Sepsis type: sepsis due to unspecified organism Qualified Code(s): A41.9 - Sepsis, unspecified organism Code(s): A41.9 - Sepsis, unspecified organism Status: Acute Assessment and Plan: Patient has sepsis secondary to postop wound infection of the foot, osteomyelitis, staph bacteremia, Staph UTI Foot x-ray showing irregularity of the distal ends of the bones status post transmetatarsal amputation without change, which may be the normal postoperative appearance. No specific evidence of osteomyelitis. Foot CT 05/19 showing osteomyelitis involving first metatarsal. Fractures of the plantar aspects of the ends of the stumps of the third and fourth metatarsals, which is a change from 04/23/2024. Soft tissue gas in the distal forefoot. CT neck/chest/abdomen/pelvis showing no acute abnormality evident but with 8mm nonobstructing left renal stone, mild bibasilar atelectatic changes and dilated common bile duct is probably related to prior cholecystectomy. Patient was seen by Orthopedics and recommended local wound care at this time and no surgical intervention. Started on Vancomycin, Flagyl and Cefepime. Flagyl stopped and clindamycin started 05/19 Wound care consulted for local wound care Blood and urine cultures are growing Staph aureus Lactic acid has normalized but still having fevers. Continue IV fluids Continue vancomycin, clinda and cefepime. Will repeat blood cultures after 48 hours Echocardiogram pending but may need GILBERTO Consider spinal imaging if persistent bacteremia or persistent pain. (3) Postoperative wound infection: Code(s): T81.49XA - Infection following a procedure, other surgical site, initial encounter Status: Acute Assessment and Plan: See above (4) UTI (urinary tract infection): Qualifiers: Urinary tract infection type: acute cystitis Hematuria presence: without hematuria Qualified Code(s): N30.00 - Acute cystitis without hematuria Code(s): N39.0 - Urinary tract infection, site not specified Status: Acute Assessment and Plan: See above (5) Pain: Code(s): R52 - Pain, unspecified Status: Acute Assessment and Plan: P.r.n. analgesic ordered (6) Encephalopathy: Code(s): G93.40 - Encephalopathy, unspecified Status: Acute Assessment and Plan: Nonfocal exam. 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 Likely related to toxic metabolic encephalopathy. Follow (7) Hypothyroid: Code(s): E03.9 - Hypothyroidism, unspecified Status: Acute Assessment and Plan: TSH normal. Continue levothyroxine (8) Electrolyte abnormality: Code(s): E87.8 - Other disorders of electrolyte and fluid balance, not elsewhere classified Status: Acute Assessment and Plan: Replace electrolytes as needed (9) Bacteremia: Code(s): R78.81 - Bacteremia Status: Acute Assessment and Plan: See above Plan DVT prophylaxis -Lovenox Nutrition - npo Code Status - Full Code Subjective Date/time seen: 05/20/24 16:34 Interval history: 84yo female with DM, HTN, and Charcot foot here for diabetic foot infection with sepsis. Assuming care. Chart reviewed. Patient somnolent but denies chest pain or abd pain. No foot pain. States her symptoms began as neck pain Exam Narrative: Tm 102.5 101.5 147/77 110 31 94% ra Gen - NARD lying semi-recumbent with cpap via nasal pillows in place Neck - pain with flexion and rotation Chest - mildly coarse BS. CV - RRR S1/S2 Abd - Soft, protuberant, +BS, NT. Ext - No pedal edema. Right forefoot amputation. Left foot dressing clean and dry. Neuro - somnolent Psych - pleasant and cooperative Skin - Warm and dry Objective Data Vital Signs Vital Signs: Vital Signs - 24 hr 05/19/24 18:00 05/19/24 18:00 05/19/24 20:00 Temperature 100.8 F H 100.6 F H Pulse Rate 91 91 100 Respiratory Rate 29 H 26 H Blood Pressure 118/63 132/72 Pulse Oximetry 94 96 Oxygen Delivery Fraction of Inspired Oxygen 05/19/24 20:00 05/19/24 20:48 05/19/24 20:00 Temperature Pulse Rate 99 96 Respiratory Rate 24 H Blood Pressure Pulse Oximetry 96 Oxygen Delivery Room Air Room Air Fraction of Inspired Oxygen 05/19/24 23:40 05/19/24 22:00 05/19/24 22:00 Temperature 101.4 F H 101.0 F H Pulse Rate 97 97 Respiratory Rate 19 Blood Pressure 131/74 Pulse Oximetry 98 Oxygen Delivery Fraction of Inspired Oxygen 05/19/24 23:59 05/20/24 00:00 05/20/24 00:00 Temperature Pulse Rate 110 H 93 Respiratory Rate Blood Pressure Pulse Oximetry 99 Oxygen Delivery CPAP Room Air Fraction of Inspired Oxygen 05/20/24 00:00 05/20/24 02:00 05/20/24 04:00 Temperature 101.5 F H 100.9 F H 100.6 F H Pulse Rate 93 99 97 Respiratory Rate 24 H 25 H 25 H Blood Pressure 138/67 132/79 134/64 Pulse Oximetry 99 98 97 Oxygen Delivery Fraction of Inspired Oxygen 05/20/24 06:02 05/20/24 02:00 05/20/24 04:00 Temperature 101.6 F H Pulse Rate 99 104 H Respiratory Rate Blood Pressure Pulse Oximetry Oxygen Delivery Fraction of Inspired Oxygen 05/20/24 06:00 05/20/24 06:00 05/20/24 04:00 Temperature 101.6 F H Pulse Rate 100 100 Respiratory Rate 25 H Blood Pressure 138/62 Pulse Oximetry 97 Oxygen Delivery Room Air Fraction of Inspired Oxygen 05/20/24 08:00 05/20/24 09:38 05/20/24 08:00 Temperature 100.2 F H Pulse Rate 98 87 Respiratory Rate 23 H Blood Pressure 133/63 Pulse Oximetry 93 95 Oxygen Delivery Room Air Fraction of Inspired Oxygen 21 05/20/24 08:00 05/20/24 10:00 05/20/24 12:00 Temperature 100.1 F H 100.3 F H Pulse Rate 96 98 Respiratory Rate 19 25 H Blood Pressure 123/81 130/67 Pulse Oximetry 95 94 Oxygen Delivery CPAP Fraction of Inspired Oxygen 05/20/24 14:00 05/20/24 10:00 05/20/24 16:00 Temperature 100.7 F H 101.5 F H Pulse Rate 96 97 110 H Respiratory Rate 30 H 31 H Blood Pressure 134/65 147/77 H Pulse Oximetry 96 94 Oxygen Delivery Fraction of Inspired Oxygen Intake/Output Intake/Output: Intake & Output 05/17/24 05/18/24 05/19/24 05/20/24 23:59 23:59 23:59 23:59 Intake Total 3445.1 3502.3 1479.7 Output Total 1750 2400 1400 Balance 1695.1 1102.3 79.7 Meds/Results Medications: Active Medications Generic Name Dose Route Start Last Admin Trade Name Freq PRN Reason Stop Dose Admin Acetaminophen 650 mg 05/19/24 09:33 05/20/24 06:02 Acetaminophen 650 Mg Suppository RECTAL 650 mg Q4H PRN Administration Mild Pain (1-3) or Fever Dextrose 12.5 gm 05/18/24 14:38 Dextrose 50% 25 Gm/50 Ml Syringe IV PUSH PRN PRN Hypoglycemia Protocol Enoxaparin Sodium 40 mg 05/19/24 09:10 05/20/24 08:15 Enoxaparin 40 Mg/0.4 Ml Syringe SUB-Q 40 mg DAILY JESSICA Administration Famotidine 20 mg 05/18/24 21:00 05/20/24 08:16 Famotidine 20 Mg/2 Ml Vial IV PUSH 20 mg Q12HR JESSICA Administration Glucagon 1 mg 05/18/24 14:38 Glucagon For Inj 1 Mg Vial IM PRN PRN Hypoglycemia Protocol Glucose 15 gm 05/18/24 14:38 Glucose Oral Gel 15 Gm Of Glucse In 37.5 Gm Tube PO PRN PRN Hypoglycemia Protocol Potassium Chloride/Dextrose/Sod Cl 1,000 mls @ 100 mls/hr 05/18/24 14:40 05/20/24 08:04 Kcl 20 Meq/D5/0.45% Sod Chl IV CONT 100 mls/hr .Q10H JESSICA Infusion Dextrose/Sodium Chloride 1,000 mls @ 50 mls/hr 05/18/24 14:40 Dextrose 5% Sodium Chloride 0.45% IV CONT .Q20H JESSICA Insulin Human Regular 100 100 mls @ 13 mls/hr 05/18/24 15:00 05/20/24 15:45 units/ Sodium Chloride IV CONT 13 units/hr .Q7H42M JESSICA 13 mls/hr Titration Protocol 13 UNITS/HR Dextrose 1,000 mls @ 100 mls/hr 05/18/24 14:38 Dextrose 5% 1,000 Ml IVPB PRN PRN Hypoglycemia Protocol Cefepime HCl 1 gm in 50 mls @ 100 mls/hr 05/19/24 06:00 05/20/24 06:49 Maxipime 1 Gm/Ns 50 Ml IVPB Infused Q12H JESSICA Infusion Vancomycin HCl 1,000 mg in 250 mls @ 250 mls/hr 05/19/24 16:00 05/19/24 15:46 Vancomycin 1,000 Mg/Ns 250 Ml IVPB 250 mls/hr Q24H JESSICA Administration Clindamycin Phosphate 600 mg in 50 mls @ 100 mls/hr 05/19/24 13:00 05/20/24 14:18 Clindamycin 600 Mg/D5w 50 Ml IVPB Infused Q8H JESSICA Infusion Levothyroxine Sodium 50 mcg 05/18/24 19:55 05/20/24 08:17 Levothyroxine Sodium Inj 100 Mcg/5 Ml Vial IV PUSH Not Given DAILY@0630 JESSICA Morphine Sulfate 2 mg 05/19/24 09:32 05/20/24 05:00 Morphine Sulfate (*Crx) 2 Mg/Ml Inj IV PUSH 2 mg Q3H PRN Administration Pain Rated 4-6 Morphine Sulfate 4 mg 05/19/24 09:33 05/20/24 12:50 Morphine Sulfate (*Crx) 4 Mg/Ml Inj IV PUSH 4 mg Q3H PRN Administration Pain Rated 7-10 Ondansetron HCl 4 mg 05/18/24 15:55 Ondansetron Inj 4 Mg/2 Ml Vial IV PUSH Q4H PRN Nausea Perflutren Lipid Microsphere 0 ml 05/20/24 07:55 Perflutren Lipid Microspheres 1.5 Ml Vial Diluted To 10 Ml Total Volume IV PUSH 05/23/24 07:57 ONCE PRN adequate visualization Protocol Sodium Bicarbonate 1,300 mg 05/20/24 13:00 05/20/24 13:47 Sodium Bicarbonate Tab 650 Mg Tablet FEED TUBE 1,300 mg BID JESSICA Administration Sodium Hypochlorite 1 applic 05/19/24 09:00 05/20/24 08:16 Sod Hypochlorite 1/4 Strength 473 Ml TOPICAL 1 applic Q12HR JESSICA Administration Tacrolimus 1 applic 05/19/24 09:00 05/20/24 08:20 Tacrolimus 0.1% 30 Gm Ointment TOPICAL 1 applic DAILY JESSICA Administration Radiology Results: ITS Impressions Foot X-Ray 05/18/24 14:50 IMPRESSION: 1. Irregularity of the distal ends of the bones status post transmetatarsal amputation without change, which may be the normal postoperative appearance. No specific evidence of osteomyelitis. Head CT 05/19/24 10:52 IMPRESSION: 1. 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 2. Mild nonspecific cerebral white matter disease, which likely represents chronic small vessel ischemic disease. Neck/Chest/Abdomen/Pelvis CT 05/19/24 11:56 Impression: No acute abnormality evident. 8 mm nonobstructing left renal stone. Mild bibasilar atelectatic change. Dilated common bile duct is probably related to prior cholecystectomy. Foot CT 05/19/24 12:31 IMPRESSION: 1. Osteomyelitis involving first metatarsal. 2. Fractures of the plantar aspects of the ends of the stumps of the third and fourth metatarsals, which is a change from 04/23/2024. 3. Soft tissue gas in the distal forefoot. Abdomen X-Ray 05/20/24 14:10 IMPRESSION: 1. Nasogastric tube tip in the stomach. Labs Labs: Laboratory Results - last 24 hr 05/19/24 05/19/24 05/19/24 16:56 17:39 18:43 WBC RBC Hgb Hct MCV MCH MCHC RDW Plt Count MPV Immature Gran % (Auto) Neut % (Auto) Lymph % (Auto) [place] % (Auto) Eos % (Auto) Baso % (Auto) Lymph # (Auto) [place] # (Auto) Eos # (Auto) Baso # (Auto) Abs Immat Gran (auto) Absolute Neuts (auto) Absolute Nucleated RBC Total Counted Neutrophils % (Manual) Band Neutrophils % Lymphocytes % (Manual) Nucleated RBC % Abs Neuts (Manual) Abs Lymphs (Manual) Platelet Estimate Hypochromasia Osteen Cells Schistocytes Sodium Potassium Chloride Carbon Dioxide Anion Gap BUN Creatinine Estim Creat Clear Calc Estimated GFR Glucose POC Capillary Glucose 268 H 229 H 215 H Lactic Acid Calcium Magnesium Total Bilirubin AST ALT Alkaline Phosphatase Total Creatine Kinase Total Protein Albumin 05/19/24 05/19/24 05/19/24 19:27 19:46 21:18 WBC RBC Hgb Hct MCV MCH MCHC RDW Plt Count MPV Immature Gran % (Auto) Neut % (Auto) Lymph % (Auto) [place] % (Auto) Eos % (Auto) Baso % (Auto) Lymph # (Auto) [place] # (Auto) Eos # (Auto) Baso # (Auto) Abs Immat Gran (auto) Absolute Neuts (auto) Absolute Nucleated RBC Total Counted Neutrophils % (Manual) Band Neutrophils % Lymphocytes % (Manual) Nucleated RBC % Abs Neuts (Manual) Abs Lymphs (Manual) Platelet Estimate Hypochromasia Ana M Cells Schistocytes Sodium 141 Potassium 4.0 Chloride 113 H Carbon Dioxide 14 L Anion Gap 14 H BUN 12 Creatinine 0.70 Estim Creat Clear Calc 40 Estimated GFR > 60 Glucose 245 H POC Capillary Glucose 241 H 258 H Lactic Acid Calcium 8.3 L Magnesium 1.9 Total Bilirubin AST ALT Alkaline Phosphatase Total Creatine Kinase Total Protein Albumin 05/19/24 05/19/24 05/19/24 22:20 23:10 23:18 WBC RBC Hgb Hct MCV MCH MCHC RDW Plt Count MPV Immature Gran % (Auto) Neut % (Auto) Lymph % (Auto) [place] % (Auto) Eos % (Auto) Baso % (Auto) Lymph # (Auto) [place] # (Auto) Eos # (Auto) Baso # (Auto) Abs Immat Gran (auto) Absolute Neuts (auto) Absolute Nucleated RBC Total Counted Neutrophils % (Manual) Band Neutrophils % Lymphocytes % (Manual) Nucleated RBC % Abs Neuts (Manual) Abs Lymphs (Manual) Platelet Estimate Hypochromasia Osteen Cells Schistocytes Sodium 140 Potassium 3.8 Chloride 112 H Carbon Dioxide 10 L Anion Gap 18 H BUN 12 Creatinine 0.70 Estim Creat Clear Calc 40 Estimated GFR > 60 Glucose 249 H POC Capillary Glucose 239 H 205 H Lactic Acid Calcium 8.3 L Magnesium Total Bilirubin AST ALT Alkaline Phosphatase Total Creatine Kinase Total Protein Albumin 05/20/24 05/20/24 05/20/24 00:18 01:19 02:18 WBC RBC Hgb Hct MCV MCH MCHC RDW Plt Count MPV Immature Gran % (Auto) Neut % (Auto) Lymph % (Auto) [place] % (Auto) Eos % (Auto) Baso % (Auto) Lymph # (Auto) [place] # (Auto) Eos # (Auto) Baso # (Auto) Abs Immat Gran (auto) Absolute Neuts (auto) Absolute Nucleated RBC Total Counted Neutrophils % (Manual) Band Neutrophils % Lymphocytes % (Manual) Nucleated RBC % Abs Neuts (Manual) Abs Lymphs (Manual) Platelet Estimate Hypochromasia Osteen Cells Schistocytes Sodium Potassium Chloride Carbon Dioxide Anion Gap BUN Creatinine Estim Creat Clear Calc Estimated GFR Glucose POC Capillary Glucose 263 H 209 H 209 H Lactic Acid Calcium Magnesium Total Bilirubin AST ALT Alkaline Phosphatase Total Creatine Kinase Total Protein Albumin 05/20/24 05/20/24 05/20/24 03:24 03:41 04:28 WBC RBC Hgb Hct MCV MCH MCHC RDW Plt Count MPV Immature Gran % (Auto) Neut % (Auto) Lymph % (Auto) [place] % (Auto) Eos % (Auto) Baso % (Auto) Lymph # (Auto) [place] # (Auto) Eos # (Auto) Baso # (Auto) Abs Immat Gran (auto) Absolute Neuts (auto) Absolute Nucleated RBC Total Counted Neutrophils % (Manual) Band Neutrophils % Lymphocytes % (Manual) Nucleated RBC % Abs Neuts (Manual) Abs Lymphs (Manual) Platelet Estimate Hypochromasia Ana M Cells Schistocytes Sodium 140 Potassium 3.6 Chloride 110 H Carbon Dioxide 15 L Anion Gap 15 H BUN 12 Creatinine 0.70 Estim Creat Clear Calc 40 Estimated GFR > 60 Glucose 201 H POC Capillary Glucose 196 H 211 H Lactic Acid Calcium 8.4 Magnesium Total Bilirubin AST ALT Alkaline Phosphatase Total Creatine Kinase Total Protein Albumin 05/20/24 05/20/24 05/20/24 05:20 06:34 06:58 WBC RBC Hgb Hct MCV MCH MCHC RDW Plt Count MPV Immature Gran % (Auto) Neut % (Auto) Lymph % (Auto) [place] % (Auto) Eos % (Auto) Baso % (Auto) Lymph # (Auto) [place] # (Auto) Eos # (Auto) Baso # (Auto) Abs Immat Gran (auto) Absolute Neuts (auto) Absolute Nucleated RBC Total Counted Neutrophils % (Manual) Band Neutrophils % Lymphocytes % (Manual) Nucleated RBC % Abs Neuts (Manual) Abs Lymphs (Manual) Platelet Estimate Hypochromasia Osteen Cells Schistocytes Sodium Potassium Chloride Carbon Dioxide Anion Gap BUN Creatinine Estim Creat Clear Calc Estimated GFR Glucose POC Capillary Glucose 237 H 310 H Lactic Acid Calcium Magnesium Total Bilirubin AST ALT Alkaline Phosphatase Total Creatine Kinase 95 Total Protein Albumin 05/20/24 05/20/24 05/20/24 07:02 07:46 08:48 WBC 10.9 H RBC 3.48 L Hgb 10.2 L Hct 32.1 L MCV 92.2 MCH 29.3 MCHC 31.8 L RDW 14.6 H Plt Count 173 MPV 12.3 H Immature Gran % (Auto) Not Reportable Neut % (Auto) Not Reportable Lymph % (Auto) Not Reportable [place] % (Auto) Not Reportable Eos % (Auto) Not Reportable Baso % (Auto) Not Reportable Lymph # (Auto) Not Reportable [place] # (Auto) Not Reportable Eos # (Auto) Not Reportable Baso # (Auto) Not Reportable Abs Immat Gran (auto) Not Reportable Absolute Neuts (auto) Not Reportable Absolute Nucleated RBC Not Reportable Total Counted 100 Neutrophils % (Manual) 84 H Band Neutrophils % 13 H Lymphocytes % (Manual) 3.0 L Nucleated RBC % Not Reportable Abs Neuts (Manual) 10.57 H Abs Lymphs (Manual) 0.32 L Platelet Estimate Adequate Hypochromasia 1+ Ana M Cells 1+ Schistocytes None seen Sodium 139 Potassium 3.8 Chloride 111 H Carbon Dioxide 12 L Anion Gap 16 H BUN 12 Creatinine 0.70 Estim Creat Clear Calc 40 Estimated GFR > 60 Glucose 280 H POC Capillary Glucose 285 H 290 H Lactic Acid Cancelled Calcium 8.3 L Magnesium 1.6 Total Bilirubin 1.0 AST 118 H ALT 34 Alkaline Phosphatase 155 H Total Creatine Kinase Total Protein 7.0 Albumin 3.3 L 05/20/24 05/20/24 05/20/24 09:48 10:47 11:16 WBC RBC Hgb Hct MCV MCH MCHC RDW Plt Count MPV Immature Gran % (Auto) Neut % (Auto) Lymph % (Auto) [place] % (Auto) Eos % (Auto) Baso % (Auto) Lymph # (Auto) [place] # (Auto) Eos # (Auto) Baso # (Auto) Abs Immat Gran (auto) Absolute Neuts (auto) Absolute Nucleated RBC Total Counted Neutrophils % (Manual) Band Neutrophils % Lymphocytes % (Manual) Nucleated RBC % Abs Neuts (Manual) Abs Lymphs (Manual) Platelet Estimate Hypochromasia Osteen Cells Schistocytes Sodium 138 Potassium 3.7 Chloride 109 H Carbon Dioxide 15 L Anion Gap 14 H BUN 12 Creatinine 0.70 Estim Creat Clear Calc 40 Estimated GFR > 60 Glucose 344 H POC Capillary Glucose 309 H 333 H Lactic Acid Calcium 8.2 L Magnesium Total Bilirubin AST ALT Alkaline Phosphatase Total Creatine Kinase Total Protein Albumin 05/20/24 05/20/24 05/20/24 11:47 13:37 15:34 WBC RBC Hgb Hct MCV MCH MCHC RDW Plt Count MPV Immature Gran % (Auto) Neut % (Auto) Lymph % (Auto) [place] % (Auto) Eos % (Auto) Baso % (Auto) Lymph # (Auto) [place] # (Auto) Eos # (Auto) Baso # (Auto) Abs Immat Gran (auto) Absolute Neuts (auto) Absolute Nucleated RBC Total Counted Neutrophils % (Manual) Band Neutrophils % Lymphocytes % (Manual) Nucleated RBC % Abs Neuts (Manual) Abs Lymphs (Manual) Platelet Estimate Hypochromasia Ana M Cells Schistocytes Sodium Potassium Chloride Carbon Dioxide Anion Gap BUN Creatinine Estim Creat Clear Calc Estimated GFR Glucose POC Capillary Glucose 342 H 293 H 338 H Lactic Acid Calcium Magnesium Total Bilirubin AST ALT Alkaline Phosphatase Total Creatine Kinase Total Protein Albumin
[2024-05-20 16:35] LABS: Glucose Point of Care 369 mg/dl (65-105)
[2024-05-20] MEDS: INSULIN HUMAN REGULAR (*BKC) 100 UNITS in SODIUM CHLORIDE 0.9% IV 99 ML 16 UNITS IV CONT (16:55)
[2024-05-20] MEDS: KCL 20 MEQ/D5/0.45% SOD CHL 1,000 ML 100 ML IV CONT (17:14)
--- NOTE | 2024-05-20 17:45 | PC.NURSE ---
Tylenol Suppository administered @ 1745 unable to document in OCT prior to order discontinuation.
[2024-05-20 18:36] LABS: Glucose Point of Care 351 mg/dl (65-105)
--- NOTE | 2024-05-20 18:48 | PC.NURSE ---
Patient spouse at bedside for entire shift. Unsure if spouse, Pritesh, is truly comprehending patient condition and treatment plan. He states that he hasn't slept in 3 days since Melissa was admitted and is unsure what to do with himself at home without her. He also stated that if she were to i'll go right behind her. Pritesh continues to try discussing what Melissa's wishes are with her, however she is disoriented to place, situation, and time; responding only to painful stimuli and occasionally her name. He reluctant to agree to enteral nutrition via NG tube earlier in shift and was insistent that she was capable of drinking and eating despite this RN witnessing a coughing episode with a wet oral sponge at 90 degrees prior to advancing diet to clear liquids. Administrative Support Coordinator had lengthy discussion with spouse to ensure he understood. Later several conversations held regarding her decline in condition despite best efforts in correct DKA and other disease processes and I am concerned that Pritesh is unable to appropriately make decisions for her at this time. Lengthy phone call with Zackary, step son to patient, about the concerns for Pritesh own health and mental state. He stated that he will attempt to call him and see if he will go home for rest. Patient's biological son, Anshul Celaya, who lives in [place] is unable to be reached by Pritesh after several attempts. More recently after several attempts to obtain labs for BMP and Vanc trough, phlebotomy, this RN, IV access service representative, were unsuccessful. Administrative Support Coordinator notified of need for better access and orders for central line obtained, see orders. Awaiting hospitalist for placement. Unable to obtain consent from spouse currently as he is on the phone with family.
[2024-05-20 19:39] LABS: Vancomycin Trough 7.9 ug/mL (10.0-20.0)
[2024-05-20 19:49] LABS: Glucose Point of Care 310 mg/dl (65-105)
--- NOTE | 2024-05-20 19:56 | PC.NURSE ---
Dr. Cleary notified of patient's current vital signs. 146/72 110 40 90% at 6L and temp 101.8. No further O2 changes at this time. D/C IV fluids. Titrate insulin down to 5units/hr and restart insulin titration protocol. Okay to switch tylenol from suppositories to NG route.
[2024-05-20] MEDS: VANCOMYCIN 1,000 MG/NS 250 ML 1,000 MG/250 ML BAG 250 MG IVPB (20:26)
[2024-05-20 21:03] LABS: Glucose Point of Care 281 mg/dl (65-105)
[2024-05-20 22:08] LABS: Glucose Point of Care 196 mg/dl (65-105)
[2024-05-20] MEDS: ACETAMINOPHEN ELIXIR 325 MG/10.15 ML UDC 650 MG FEED TUBE (22:11)
[2024-05-20 23:20] LABS: Glucose Point of Care 175 mg/dl (65-105)
[2024-05-21] VITALS (26 sets, daily range): BP systolic 112–173; BP diastolic 62–89; PULSE 85–119; RESP 15–24; TEMP 37.6–38.4; O2SAT 95–99
[2024-05-21 00:27] LABS: Glucose Point of Care 174 mg/dl (65-105)
[2024-05-21] MEDS: MORPHINE SULFATE (*CRX) 4 MG/ML INJ IV PUSH ×2 (02:10→05:21)
[2024-05-21 03:19] LABS: Glucose Point of Care 129 mg/dl (65-105)
[2024-05-21 03:19] LABS: Glucose Point of Care 145 mg/dl (65-105)
[2024-05-21 03:26] LABS: Glucose Point of Care 119 mg/dl (65-105)
[2024-05-21 04:09] LABS: Glucose Point of Care 113 mg/dl (65-105)
[2024-05-21 05:18] LABS: Glucose Point of Care 123 mg/dl (65-105)
[2024-05-21] MEDS: ACETAMINOPHEN ELIXIR 325 MG/10.15 ML UDC 650 MG FEED TUBE ×4 (05:21→23:10)
[2024-05-21 05:26] LABS: Hematocrit 32.8 % (37.0-47.0); Hemoglobin 10.8 g/dL (12.0-15.0); Mean Corpuscular HGB Conc 32.9 g/dl (32-36); Mean Corpuscular Hemoglobin 28.6 pg (26-34); Mean Platelet Volume 12.8 fl (7.4-10.4); Platelet Count Result 232 k/mm3 (150-375); Red Blood Count 3.77 M/mm3 (4.2-5.4); Red Cell Distribution Width 14.6 % (11.5-14.5); White Blood Count 18.9 K/mm3 (4.5-10.0)
[2024-05-21 05:39] LABS: Alanine Aminotransferase 31 U/L (6-35); Albumin Level 3.2 g/dL (3.5-5.1); Alkaline Phosphatase 187 U/L (38-126); Anion Gap 15 mmol/L (4-12); Aspartate Amino Transferase 74 U/L (14-36); Bilirubin,Total 0.5 mg/dL (0.2-1.3); Blood Urea Nitrogen 15 mg/dL (7-17); Calcium 8.1 mg/dL (8.4-10.2); Carbon Dioxide 20 mmol/L (22-30); Chloride 106 mmol/L (98-107); Estimated CRCL calculation 36 ml/min; Estimated Glomerular Filt Rate > 60; Glucose 110 mg/dL (65-110); Sodium 141 mmol/L (137-145)
[2024-05-21] MEDS: CEFEPIME 1 GM/NS 50 ML 1 GM/50 ML BAG IVPB (06:04)
[2024-05-21] MEDS: POTASSIUM CHLORIDE 20 MEQ PACKET (FOR LIQUID) 40 MEQ FEED TUBE ×2 (06:05→11:58)
[2024-05-21] MEDS: LEVOTHYROXINE SODIUM INJ 100 MCG/5 ML VIAL 50 MCG IV PUSH (06:06)
[2024-05-21 06:13] LABS: Band Neutrophils Percent 3 % (0-6); Lymphocytes Absolute Manual 1.89 K/mm3 (1.1-4.5); Lymphocytes Percent Manual 10 % (18-44); Monocytes Absolute Manual 0.94 K/mm3 (0.1-0.90); Monocytes Percent Manual 5 % (3-9); Neutrophils Absolute Manual 16.06 K/mm3 (1.7-7.2); Neutrophils Percent Manual 82 % (46-73)
[2024-05-21 06:14] LABS: Platelet Estimate Adequate (Adequate); Schistocytes None Seen
[2024-05-21 06:55] LABS: Glucose Point of Care 154 mg/dl (65-105)
--- NOTE | 2024-05-21 07:52 | PM.PNORT ---
Progress Note: A&P Assessment and Plan (1) UTI (urinary tract infection): Qualifiers: Urinary tract infection type: acute cystitis Hematuria presence: without hematuria Qualified Code(s): N30.00 - Acute cystitis without hematuria Code(s): N39.0 - Urinary tract infection, site not specified Status: Acute Assessment and Plan: Urine cultures with Staph aureus. Blood cultures with Staph aureus. Patient sepsis secondary to urinary tract infection with bacteremia. Left foot without signs of infection. (2) Wound dehiscence, surgical: Qualifiers: Encounter type: subsequent encounter Qualified Code(s): T81.31XD - Disruption of external operation (surgical) wound, not elsewhere classified, subsequent encounter Code(s): T81.31XA - Disruption of external operation (surgical) wound, not elsewhere classified, initial encounter Status: Acute Assessment and Plan: Dressing changed this morning. Overall appearance of foot continues to improve with Dakin's dressing changes. No active drainage, no erythema, no swelling. Plan to continue with Dakin's dressing changes b.i.d. no surgical indication at this time. IV abx. Pressure relief heels (3) S/P transmetatarsal amputation of foot: Qualifiers: Laterality: left Qualified Code(s): Z89.432 - Acquired absence of left foot Code(s): Z89.439 - Acquired absence of unspecified foot Status: Acute Assessment and Plan: 4 weeks status post left TMA. Complicated by wound dehiscence in patient with diabetes, neuropathy, arterial disease. Continue with current care with offloading, pressure relief and dressing changes b.i.d. Subjective Subjective Date/Time Seen: 05/21/24 07:52 Post Op day: 28days Principal diagnosis: LT TMA Interval history: Patient still in ICU. On CPAP. Left foot dressing change. Exam Const: General: in distress mild and ill appearing acutely; No comfortable HENMT: Head: normal to inspection, normocephalic and atraumatic Neck: Neck: supple and nontender Chest: Chest palpation & inspection: normal inspection of the chest Resp: Effort & Inspection: abnormal respiratory pattern ( CPAP in place.) Extrem: Right upper extremity: normal to inspection Left upper extremity: normal to inspection Right lower extremity: ankle Details: normal to inspection, abnormal ROM Details: with range as follows (ankle dorsiflexion -10 degrees, plantar flexion 40?, inversion 15?, eversion 15?) and other ( good stability all directions); no tenderness, no swelling and no ecchymosis and foot Details: abnormal to inspection ( Status post transmetatarsal amputation with good healing), vascular exam Details: abnormal capillary refill ( transmetatarsal amputation); dorsalis pedis pulse absent, posterior tibial pulse absent and capillary refill abnormal, tendon exam Details: active flexion abnormal and active extension abnormal, motor-sensory exam Details: light-touch abnormal ( foot) and other ( surgical incision well healed) Left lower extremity: ankle Details: normal to inspection and abnormal ROM Details: with range as follows (ankle dorsiflexion -10 degrees, plantar flexion 40?, inversion 15?, eversion 15?); no tenderness and no swelling and foot Details: normal capillary refill, abnormal to inspection ( status post transmetatarsal amputation), vascular exam Details: abnormal capillary refill (foot); dorsalis pedis pulse absent, posterior tivial pulse absent and capillary refill abnormal, tendon exam active flexion abnormal of the great toe and active extension abnormal of the great toe and motor-sensory exam light-touch abnormal ( foot); no tenderness and no crepitus Other: left foot transmetatarsal amputation with wound dehiscence across the distal medial and distal lateral aspects. Necrotic tissue present in the wound bed. No drainage. No surrounding erythema or swelling. No exposed bone or tendon. Objective Data Vital Signs Vital Signs: Vital Signs - 24 hr 05/20/24 08:00 05/20/24 09:38 05/20/24 08:00 Temperature 100.2 F H Pulse Rate 98 87 Respiratory Rate 23 H Blood Pressure 133/63 Pulse Oximetry 93 95 Oxygen Delivery Room Air Oxygen Flow Rate Fraction of Inspired Oxygen 21 05/20/24 08:00 05/20/24 10:00 05/20/24 12:00 Temperature 100.1 F H 100.3 F H Pulse Rate 96 98 Respiratory Rate 19 25 H Blood Pressure 123/81 130/67 Pulse Oximetry 95 94 Oxygen Delivery CPAP Oxygen Flow Rate Fraction of Inspired Oxygen 05/20/24 14:00 05/20/24 10:00 05/20/24 12:00 Temperature 100.7 F H Pulse Rate 96 97 Respiratory Rate 30 H Blood Pressure 134/65 Pulse Oximetry 96 Oxygen Delivery Room Air Oxygen Flow Rate Fraction of Inspired Oxygen 05/20/24 16:00 05/20/24 16:00 05/20/24 18:00 Temperature 101.5 F H 102.5 F H Pulse Rate 110 H 121 H Respiratory Rate 31 H 30 H Blood Pressure 147/77 H 142/69 H Pulse Oximetry 94 91 Oxygen Delivery Room Air Oxygen Flow Rate Fraction of Inspired Oxygen 05/20/24 12:00 05/20/24 14:00 05/20/24 16:00 Temperature Pulse Rate 99 100 106 H Respiratory Rate Blood Pressure Pulse Oximetry Oxygen Delivery Oxygen Flow Rate Fraction of Inspired Oxygen 05/20/24 18:00 05/20/24 20:00 05/20/24 20:00 Temperature Pulse Rate 123 H 106 H Respiratory Rate Blood Pressure Pulse Oximetry 90 Oxygen Delivery High Flow Nasal Cannula Oxygen Flow Rate 6 Fraction of Inspired Oxygen 05/20/24 20:00 05/20/24 20:30 05/20/24 20:45 Temperature 101.8 F H Pulse Rate 107 H Respiratory Rate 37 H Blood Pressure 140/70 Pulse Oximetry 90 88 L 88 L Oxygen Delivery High Flow Nasal Cannula CPAP Oxygen Flow Rate 6 Fraction of Inspired Oxygen 05/20/24 22:00 05/20/24 22:00 05/20/24 22:11 Temperature 100.9 F H 100.9 F H Pulse Rate 113 H 113 H Respiratory Rate 27 H Blood Pressure 163/84 H Pulse Oximetry 95 Oxygen Delivery Oxygen Flow Rate Fraction of Inspired Oxygen 05/20/24 21:00 05/20/24 23:11 05/20/24 21:00 Temperature 100.9 F H Pulse Rate Respiratory Rate Blood Pressure Pulse Oximetry 97 97 Oxygen Delivery High Flow Nasal Cannula Autopap Oxygen Flow Rate 12 Fraction of Inspired Oxygen 05/21/24 00:00 05/21/24 00:00 05/21/24 00:13 Temperature 100.6 F H Pulse Rate 86 Respiratory Rate 21 H Blood Pressure 129/65 Pulse Oximetry 98 98 98 Oxygen Delivery High Flow Nasal Cannula Autopap Oxygen Flow Rate 6 Fraction of Inspired Oxygen 05/20/24 20:40 05/21/24 00:00 05/21/24 03:35 Temperature Pulse Rate 85 Respiratory Rate 19 Blood Pressure Pulse Oximetry 89 L 95 Oxygen Delivery High Flow Nasal Cannula Autopap Oxygen Flow Rate 8 Fraction of Inspired Oxygen 05/21/24 02:00 05/21/24 02:00 05/21/24 04:00 Temperature 99.6 F 99.8 F H Pulse Rate 93 93 93 Respiratory Rate 22 H 18 Blood Pressure 145/73 H 145/73 H Pulse Oximetry 96 96 Oxygen Delivery Oxygen Flow Rate Fraction of Inspired Oxygen 05/21/24 04:00 05/21/24 04:00 05/21/24 05:21 Temperature 100.2 F H Pulse Rate 105 H Respiratory Rate Blood Pressure Pulse Oximetry 96 Oxygen Delivery CPAP Oxygen Flow Rate 6 Fraction of Inspired Oxygen 05/21/24 06:21 05/21/24 06:00 05/21/24 06:00 Temperature 100.7 F H 100.5 F H Pulse Rate 96 96 Respiratory Rate 19 Blood Pressure 112/62 Pulse Oximetry 96 Oxygen Delivery Oxygen Flow Rate Fraction of Inspired Oxygen Intake/Output Intake/Output: Intake & Output 05/18/24 05/19/24 05/20/24 05/21/24 23:59 23:59 23:59 23:59 Intake Total 3445.1 3502.3 3370.6 462 Output Total 1750 2400 2500 1000 Balance 1695.1 1102.3 870.6 -538 Meds/Results Medications: Active Medications Generic Name Dose Route Start Last Admin Trade Name Freq PRN Reason Stop Dose Admin Acetaminophen 650 mg 05/20/24 20:01 05/21/24 05:21 Acetaminophen Elixir 325 Mg/10.15 Ml Udc FEED TUBE 650 mg Q4H PRN Administration Mild Pain (1-3) or Fever Dextrose 12.5 gm 05/18/24 14:38 Dextrose 50% 25 Gm/50 Ml Syringe IV PUSH PRN PRN Hypoglycemia Protocol Enoxaparin Sodium 40 mg 05/19/24 09:10 05/20/24 08:15 Enoxaparin 40 Mg/0.4 Ml Syringe SUB-Q 40 mg DAILY JESSICA Administration Famotidine 20 mg 05/18/24 21:00 05/20/24 20:26 Famotidine 20 Mg/2 Ml Vial IV PUSH 20 mg Q12HR JESSICA Administration Glucagon 1 mg 05/18/24 14:38 Glucagon For Inj 1 Mg Vial IM PRN PRN Hypoglycemia Protocol Glucose 15 gm 05/18/24 14:38 Glucose Oral Gel 15 Gm Of Glucse In 37.5 Gm Tube PO PRN PRN Hypoglycemia Protocol Insulin Human Regular 100 100 mls @ 1 mls/hr 05/18/24 15:00 05/21/24 06:00 units/ Sodium Chloride IV CONT 05/21/24 09:00 1 units/hr .Q24H JESSICA 1 mls/hr Titration Protocol 1 UNITS/HR Dextrose 1,000 mls @ 100 mls/hr 05/18/24 14:38 Dextrose 5% 1,000 Ml IVPB PRN PRN Hypoglycemia Protocol Cefepime HCl 1 gm in 50 mls @ 100 mls/hr 05/19/24 06:00 05/21/24 06:34 Maxipime 1 Gm/Ns 50 Ml IVPB Infused Q12H JESSICA Infusion Vancomycin HCl 1,000 mg in 250 mls @ 250 mls/hr 05/20/24 21:00 05/20/24 21:26 Vancomycin 1,000 Mg/Ns 250 Ml IVPB Infused Q12H JESSICA Infusion Insulin Aspart 3 - 6 units 05/21/24 07:45 Insulin Aspart (*Bkc) 100 Units/Ml SUB-Q Q4H JESSICA Protocol Insulin Glargine 15 units 05/21/24 07:45 Insulin Glargine (*Bkc) 100 Units/Ml SUB-Q QAM JESSICA Levothyroxine Sodium 50 mcg 05/18/24 19:55 05/21/24 06:06 Levothyroxine Sodium Inj 100 Mcg/5 Ml Vial IV PUSH 50 mcg DAILY@0630 [facility] Administration Morphine Sulfate 2 mg 05/19/24 09:32 05/20/24 16:56 Morphine Sulfate (*Crx) 2 Mg/Ml Inj IV PUSH 2 mg Q3H PRN Administration Pain Rated 4-6 Morphine Sulfate 4 mg 05/19/24 09:33 05/21/24 05:21 Morphine Sulfate (*Crx) 4 Mg/Ml Inj IV PUSH 4 mg Q3H PRN Administration Pain Rated 7-10 Ondansetron HCl 4 mg 05/18/24 15:55 Ondansetron Inj 4 Mg/2 Ml Vial IV PUSH Q4H PRN Nausea Perflutren Lipid Microsphere 0 ml 05/20/24 07:55 Perflutren Lipid Microspheres 1.5 Ml Vial Diluted To 10 Ml Total Volume IV PUSH 05/23/24 07:57 ONCE PRN adequate visualization Protocol Sodium Bicarbonate 650 mg 05/21/24 09:00 Sodium Bicarbonate Tab 650 Mg Tablet FEED TUBE BID JESSICA Sodium Hypochlorite 1 applic 05/19/24 09:00 05/20/24 21:00 Sod Hypochlorite 1/4 Strength 473 Ml TOPICAL 1 applic Q12HR JESSICA Administration Tacrolimus 1 applic 05/19/24 09:00 05/20/24 08:20 Tacrolimus 0.1% 30 Gm Ointment TOPICAL 1 applic DAILY JESSICA Administration Radiology Results: ITS Impressions Foot X-Ray 05/18/24 14:50 IMPRESSION: 1. Irregularity of the distal ends of the bones status post transmetatarsal amputation without change, which may be the normal postoperative appearance. No specific evidence of osteomyelitis. Head CT 05/19/24 10:52 IMPRESSION: 1. 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 2. Mild nonspecific cerebral white matter disease, which likely represents chronic small vessel ischemic disease. Neck/Chest/Abdomen/Pelvis CT 05/19/24 11:56 Impression: No acute abnormality evident. 8 mm nonobstructing left renal stone. Mild bibasilar atelectatic change. Dilated common bile duct is probably related to prior cholecystectomy. Foot CT 05/19/24 12:31 IMPRESSION: 1. Osteomyelitis involving first metatarsal. 2. Fractures of the plantar aspects of the ends of the stumps of the third and fourth metatarsals, which is a change from 04/23/2024. 3. Soft tissue gas in the distal forefoot. Abdomen X-Ray 05/20/24 14:10 IMPRESSION: 1. Nasogastric tube tip in the stomach. Labs Labs: Laboratory Results - last 24 hr 05/20/24 05/20/24 05/20/24 06:58 07:02 08:48 WBC RBC Hgb Hct MCV MCH MCHC RDW Plt Count MPV Immature Gran % (Auto) Neut % (Auto) Lymph % (Auto) [place] % (Auto) Eos % (Auto) Baso % (Auto) Lymph # (Auto) [place] # (Auto) Eos # (Auto) Baso # (Auto) Abs Immat Gran (auto) Absolute Neuts (auto) Absolute Nucleated RBC Total Counted 100 Neutrophils % (Manual) 84 H Band Neutrophils % 13 H Lymphocytes % (Manual) 3.0 L Monocytes % (Manual) Nucleated RBC % Abs Neuts (Manual) 10.57 H Abs Lymphs (Manual) 0.32 L Abs Monocytes (Manual) Platelet Estimate Adequate Hypochromasia 1+ [place] Cells 1+ Schistocytes None seen Sodium Potassium Chloride Carbon Dioxide Anion Gap BUN Creatinine Estim Creat Clear Calc Estimated GFR Glucose POC Capillary Glucose 290 H Lactic Acid Cancelled Calcium Magnesium Total Bilirubin AST ALT Alkaline Phosphatase Total Creatine Kinase 95 Total Protein Albumin Vancomycin Trough 05/20/24 05/20/24 05/20/24 09:48 10:47 11:16 WBC RBC Hgb Hct MCV MCH MCHC RDW Plt Count MPV Immature Gran % (Auto) Neut % (Auto) Lymph % (Auto) [place] % (Auto) Eos % (Auto) Baso % (Auto) Lymph # (Auto) [place] # (Auto) Eos # (Auto) Baso # (Auto) Abs Immat Gran (auto) Absolute Neuts (auto) Absolute Nucleated RBC Total Counted Neutrophils % (Manual) Band Neutrophils % Lymphocytes % (Manual) Monocytes % (Manual) Nucleated RBC % Abs Neuts (Manual) Abs Lymphs (Manual) Abs Monocytes (Manual) Platelet Estimate Hypochromasia [place] Cells Schistocytes Sodium 138 Potassium 3.7 Chloride 109 H Carbon Dioxide 15 L Anion Gap 14 H BUN 12 Creatinine 0.70 Estim Creat Clear Calc 40 Estimated GFR > 60 Glucose 344 H POC Capillary Glucose 309 H 333 H Lactic Acid Calcium 8.2 L Magnesium Total Bilirubin AST ALT Alkaline Phosphatase Total Creatine Kinase Total Protein Albumin Vancomycin Trough 05/20/24 05/20/24 05/20/24 11:47 13:37 15:34 WBC RBC Hgb Hct MCV MCH MCHC RDW Plt Count MPV Immature Gran % (Auto) Neut % (Auto) Lymph % (Auto) [place] % (Auto) Eos % (Auto) Baso % (Auto) Lymph # (Auto) [place] # (Auto) Eos # (Auto) Baso # (Auto) Abs Immat Gran (auto) Absolute Neuts (auto) Absolute Nucleated RBC Total Counted Neutrophils % (Manual) Band Neutrophils % Lymphocytes % (Manual) Monocytes % (Manual) Nucleated RBC % Abs Neuts (Manual) Abs Lymphs (Manual) Abs Monocytes (Manual) Platelet Estimate Hypochromasia Ana M Cells Schistocytes Sodium Potassium Chloride Carbon Dioxide Anion Gap BUN Creatinine Estim Creat Clear Calc Estimated GFR Glucose POC Capillary Glucose 342 H 293 H 338 H Lactic Acid Calcium Magnesium Total Bilirubin AST ALT Alkaline Phosphatase Total Creatine Kinase Total Protein Albumin Vancomycin Trough 05/20/24 05/20/24 05/20/24 16:28 18:29 19:06 WBC RBC Hgb Hct MCV MCH MCHC RDW Plt Count MPV Immature Gran % (Auto) Neut % (Auto) Lymph % (Auto) [place] % (Auto) Eos % (Auto) Baso % (Auto) Lymph # (Auto) [place] # (Auto) Eos # (Auto) Baso # (Auto) Abs Immat Gran (auto) Absolute Neuts (auto) Absolute Nucleated RBC Total Counted Neutrophils % (Manual) Band Neutrophils % Lymphocytes % (Manual) Monocytes % (Manual) Nucleated RBC % Abs Neuts (Manual) Abs Lymphs (Manual) Abs Monocytes (Manual) Platelet Estimate Hypochromasia [place] Cells Schistocytes Sodium Potassium Chloride Carbon Dioxide Anion Gap BUN Creatinine Estim Creat Clear Calc Estimated GFR Glucose POC Capillary Glucose 369 H 351 H Lactic Acid Calcium Magnesium Total Bilirubin AST ALT Alkaline Phosphatase Total Creatine Kinase Total Protein Albumin Vancomycin Trough 7.9 L 05/20/24 05/20/24 05/20/24 19:42 20:58 22:01 WBC RBC Hgb Hct MCV MCH MCHC RDW Plt Count MPV Immature Gran % (Auto) Neut % (Auto) Lymph % (Auto) [place] % (Auto) Eos % (Auto) Baso % (Auto) Lymph # (Auto) [place] # (Auto) Eos # (Auto) Baso # (Auto) Abs Immat Gran (auto) Absolute Neuts (auto) Absolute Nucleated RBC Total Counted Neutrophils % (Manual) Band Neutrophils % Lymphocytes % (Manual) Monocytes % (Manual) Nucleated RBC % Abs Neuts (Manual) Abs Lymphs (Manual) Abs Monocytes (Manual) Platelet Estimate Hypochromasia Ana M Cells Schistocytes Sodium Potassium Chloride Carbon Dioxide Anion Gap BUN Creatinine Estim Creat Clear Calc Estimated GFR Glucose POC Capillary Glucose 310 H 281 H 196 H Lactic Acid Calcium Magnesium Total Bilirubin AST ALT Alkaline Phosphatase Total Creatine Kinase Total Protein Albumin Vancomycin Trough 05/20/24 05/21/24 05/21/24 23:14 00:11 01:07 WBC RBC Hgb Hct MCV MCH MCHC RDW Plt Count MPV Immature Gran % (Auto) Neut % (Auto) Lymph % (Auto) [place] % (Auto) Eos % (Auto) Baso % (Auto) Lymph # (Auto) [place] # (Auto) Eos # (Auto) Baso # (Auto) Abs Immat Gran (auto) Absolute Neuts (auto) Absolute Nucleated RBC Total Counted Neutrophils % (Manual) Band Neutrophils % Lymphocytes % (Manual) Monocytes % (Manual) Nucleated RBC % Abs Neuts (Manual) Abs Lymphs (Manual) Abs Monocytes (Manual) Platelet Estimate Hypochromasia [place] Cells Schistocytes Sodium Potassium Chloride Carbon Dioxide Anion Gap BUN Creatinine Estim Creat Clear Calc Estimated GFR Glucose POC Capillary Glucose 175 H 174 H 145 H Lactic Acid Calcium Magnesium Total Bilirubin AST ALT Alkaline Phosphatase Total Creatine Kinase Total Protein Albumin Vancomycin Trough 05/21/24 05/21/24 05/21/24 02:09 03:22 04:07 WBC RBC Hgb Hct MCV MCH MCHC RDW Plt Count MPV Immature Gran % (Auto) Neut % (Auto) Lymph % (Auto) [place] % (Auto) Eos % (Auto) Baso % (Auto) Lymph # (Auto) [place] # (Auto) Eos # (Auto) Baso # (Auto) Abs Immat Gran (auto) Absolute Neuts (auto) Absolute Nucleated RBC Total Counted Neutrophils % (Manual) Band Neutrophils % Lymphocytes % (Manual) Monocytes % (Manual) Nucleated RBC % Abs Neuts (Manual) Abs Lymphs (Manual) Abs Monocytes (Manual) Platelet Estimate Hypochromasia [place] Cells Schistocytes Sodium Potassium Chloride Carbon Dioxide Anion Gap BUN Creatinine Estim Creat Clear Calc Estimated GFR Glucose POC Capillary Glucose 129 H 119 H 113 H Lactic Acid Calcium Magnesium Total Bilirubin AST ALT Alkaline Phosphatase Total Creatine Kinase Total Protein Albumin Vancomycin Trough 05/21/24 05/21/24 05/21/24 05:00 05:15 06:00 WBC 18.9 H RBC 3.77 L Hgb 10.8 L Hct 32.8 L MCV 87.0 D MCH 28.6 MCHC 32.9 RDW 14.6 H Plt Count 232 MPV 12.8 H Immature Gran % (Auto) Not Reportable Neut % (Auto) Not Reportable Lymph % (Auto) Not Reportable [place] % (Auto) Not Reportable Eos % (Auto) Not Reportable Baso % (Auto) Not Reportable Lymph # (Auto) Not Reportable [place] # (Auto) Not Reportable Eos # (Auto) Not Reportable Baso # (Auto) Not Reportable Abs Immat Gran (auto) Not Reportable Absolute Neuts (auto) Not Reportable Absolute Nucleated RBC Not Reportable Total Counted Neutrophils % (Manual) 82 H Band Neutrophils % 3 Lymphocytes % (Manual) 10 L Monocytes % (Manual) 5 Nucleated RBC % Not Reportable Abs Neuts (Manual) 16.06 H Abs Lymphs (Manual) 1.89 Abs Monocytes (Manual) 0.94 H Platelet Estimate Adequate Hypochromasia [place] Cells Schistocytes None seen Sodium 141 Potassium 3.0 L Chloride 106 Carbon Dioxide 20 L Anion Gap 15 H BUN 15 Creatinine 0.80 Estim Creat Clear Calc 36 Estimated GFR > 60 Glucose 110 POC Capillary Glucose 123 H Lactic Acid 2.0 Calcium 8.1 L Magnesium 2.0 Total Bilirubin 0.5 AST 74 H ALT 31 Alkaline Phosphatase 187 H Total Creatine Kinase Total Protein 7.0 Albumin 3.2 L Vancomycin Trough 05/21/24 06:03 WBC RBC Hgb Hct MCV MCH MCHC RDW Plt Count MPV Immature Gran % (Auto) Neut % (Auto) Lymph % (Auto) [place] % (Auto) Eos % (Auto) Baso % (Auto) Lymph # (Auto) [place] # (Auto) Eos # (Auto) Baso # (Auto) Abs Immat Gran (auto) Absolute Neuts (auto) Absolute Nucleated RBC Total Counted Neutrophils % (Manual) Band Neutrophils % Lymphocytes % (Manual) Monocytes % (Manual) Nucleated RBC % Abs Neuts (Manual) Abs Lymphs (Manual) Abs Monocytes (Manual) Platelet Estimate Hypochromasia [place] Cells Schistocytes Sodium Potassium Chloride Carbon Dioxide Anion Gap BUN Creatinine Estim Creat Clear Calc Estimated GFR Glucose POC Capillary Glucose 154 H Lactic Acid Calcium Magnesium Total Bilirubin AST ALT Alkaline Phosphatase Total Creatine Kinase Total Protein Albumin Vancomycin Trough
[2024-05-21 08:28] LABS: Glucose Point of Care 133 mg/dl (65-105)
[2024-05-21] MEDS: VANCOMYCIN 1,000 MG/NS 250 ML 1,000 MG/250 ML BAG 250 MG IVPB ×2 (08:52→22:21)
[2024-05-21] MEDS: TACROLIMUS 0.1% 30 GM OINTMENT 1 APPLIC TOPICAL (08:53)
[2024-05-21] MEDS: ENOXAPARIN 40 MG/0.4 ML SYRINGE SUB-Q (08:53)
[2024-05-21] MEDS: INSULIN GLARGINE (*BKC) 100 UNITS/ML 15 UNITS SUB-Q (08:53)
[2024-05-21] MEDS: FAMOTIDINE 20 MG/2 ML VIAL IV PUSH ×2 (08:53→21:11)
[2024-05-21] MEDS: SODIUM BICARBONATE TAB 650 MG TABLET FEED TUBE ×2 (08:54→19:06)
[2024-05-21] MEDS: SOD HYPOCHLORITE 1/4 STRENGTH 473 ML 1 APPLIC TOPICAL ×2 (08:54→21:00)
[2024-05-21 09:17] LABS: Glucose Point of Care 115 mg/dl (65-105)
--- NOTE | 2024-05-21 09:44 | WPDINTPN ---
Progress Note: A&P Assessment and Plan (1) Sepsis: Qualifiers: Sepsis acute organ dysfunction status: unspecified Sepsis type: sepsis due to unspecified organism Qualified Code(s): A41.9 - Sepsis, unspecified organism Code(s): A41.9 - Sepsis, unspecified organism Status: Acute Assessment and Plan: Patient has sepsis secondary to postop wound infection of the foot, osteomyelitis, staph bacteremia, Staph UTI Foot x-ray 1. Irregularity of the distal ends of the bones status post transmetatarsal amputation without change, which may be the normal postoperative appearance. No specific evidence of osteomyelitis. Foot CT 05/19 IMPRESSION: 1. Osteomyelitis involving first metatarsal. 2. Fractures of the plantar aspects of the ends of the stumps of the third and fourth metatarsals, which is a change from 04/23/2024. 3. Soft tissue gas in the distal forefoot. CT neck/chest/abdomen No acute abnormality evident. 8 mm nonobstructing left renal stone. Mild bibasilar atelectatic change. Dilated common bile duct is probably related to prior cholecystectomy. Patient was seen by Orthopedics and recommended local wound care at this time and no surgical intervention. Wound care consult and local wound care 05/18 Blood and urine cultures are growing Staph aureus 05/21 repeat blood cultures ordered Lactic acid has normalized Off of IV fluids Continue vancomycin and cefepime TT Echocardiogram as below and negative for any vegetations Patient continues to be afebrile and has WBC elevated Patient states the patient was complaining of neck pain prior to getting sick. Exam and history has been limited unreliable due to encephalopathy. When asked directly with the patient she states she has pain all over her body. 05/21 CT C-spine shows degenerative joint disease 05/[address] chest abdomen pelvis showed IMPRESSION: 1. Small pleural effusions. 2. Small pericardial effusion. 3. Moderate intrahepatic and extrahepatic biliary duct dilatation status post cholecystectomy. Consider MRCP. There is also possibility of meningitis or spinal cord involvement from staph bacteremia. I have increased vancomycin dose to meningitis dose. I spoke to patient's regarding GILBERTO and LP and he is agreeable to do both Will consult cardiology for GILBERTO Consult IR for LP May have to transfer patient to tertiary facility for Infectious Disease consultation if cultures remain persistently positive (2) DKA (diabetic ketoacidosis): Code(s): E11.10 - Type 2 diabetes mellitus with ketoacidosis without coma Status: Acute Assessment and Plan: DKA secondary to noncompliance and sepsis Patient was given IVF bolus and and was on infusion which will be continued Patient is currently on Insulin infusion and Q1H glucose monitoring being done Serial labs are being done Will transition patient to subcutaneous insulin Patient now on tube feeds (3) Postoperative wound infection: Code(s): T81.49XA - Infection following a procedure, other surgical site, initial encounter Status: Deleted Assessment and Plan: See above (4) UTI (urinary tract infection): Qualifiers: Hematuria presence: without hematuria Urinary tract infection type: acute cystitis Qualified Code(s): N30.00 - Acute cystitis without hematuria Code(s): N39.0 - Urinary tract infection, site not specified Status: Acute Assessment and Plan: See above (5) Pain: Code(s): R52 - Pain, unspecified Status: Acute Assessment and Plan: P.r.n. analgesic ordered (6) Encephalopathy: Code(s): G93.40 - Encephalopathy, unspecified Status: Acute Assessment and Plan: Nonfocal exam. Likely toxic metabolic encephalopathy. Head CT IMPRESSION: 1. 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 2. Mild nonspecific cerebral white matter disease, which likely represents chronic small vessel ischemic disease. (7) Hypothyroid: Code(s): E03.9 - Hypothyroidism, unspecified Status: Acute Assessment and Plan: Continue levothyroxine (8) Electrolyte abnormality: Code(s): E87.8 - Other disorders of electrolyte and fluid balance, not elsewhere classified Status: Acute Assessment and Plan: Replace low potassium and magnesium (9) Bacteremia: Code(s): R78.81 - Bacteremia Status: Acute Assessment and Plan: See above (10) Obstructive sleep apnea: Code(s): G47.33 - Obstructive sleep apnea (adult) (pediatric) Status: Acute Assessment and Plan: CPAP ordered (11) Hypoxia: Code(s): R09.02 - Hypoxemia Status: Acute Assessment and Plan: DC IV fluids CT scan ordered Plan DVT prophylaxis -Lovenox Nutrition -tube feeds Code Status -modified code with DNI Case discussed with orthopedics. Dr. Hale recommends local wound care at this time 05/20 I had long discussion with patient's regarding patient's code status. He believes the patient would not want to go on a ventilator. He has himself receive CPR in the past and did okay and believes the patient would do fine with resuscitation in case of cardiac arrest. I tried to explain him multiple times that without mechanical ventilation CPR would not be successful in the event of cardiac arrest but he was adamant and wanted to maintain the modified code status of patient be okay with receiving CPR in the event of cardiac arrest but in no case being put on a ventilator would be against her wishes. Code status has been modified in the chart as per patient's 's request 05/21 spoke to and updated patient's at bedside again today. I answered all his questions. Explained him patient's current status and current treatment plan. Explaining the patient is critically ill with high risk of mortality. I also discussed option of palliative care. Total Critical Care Time - 30 minutes Due to a high probability of clinically significant, life threatening deterioration, the patient required my highest level of preparedness to intervene emergently and I personally spent this critical care time directly and personally managing the patient. This critical care time included obtaining a history; examining the patient; pulse oximetry; ordering and review of studies; arranging urgent treatment with development of a management plan; evaluation of patient's response to treatment; frequent reassessment; and discussions with other providers. It was exclusive of separately billable procedures and treating other patients and teaching time. Please see Assessment and Plan section and the rest of the note for further information on patient assessment and treatment Subjective Date/time seen: 05/21/24 09:44 Review of Systems Review of Systems: ROS unobtainable: Yes unobtainable due to medical condition and unobtainable due to mental status Exam Narrative: General: Old frail female who is in mild distress secondary to pain, awake alert partially oriented Lungs/Chest: Trachea central Clear BS B/L, No crackles or wheezing. Cardiac: Tachycardic, regular Normal S1 S2. No murmurs Circulation: Pedal pulses are intact and symmetrical. Abdomen: Normal bowel sounds.. Soft. NT. ND. 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 Patient's foot was just examined Orthopedics and a new dressing was placed I did not remove dressing again to examine the patient since it was already examine by wound and Orthopedics : Vang in place Neurologic: Drowsy but arousable Moves all 4 extremities PERRL, AO x1 to place Skin: No Rash Objective Data Vital Signs Vital Signs: Vital Signs - 24 hr 05/20/24 10:00 05/20/24 12:00 05/20/24 14:00 Temperature 37.8 C H 37.9 C H 38.2 C H Pulse Rate 96 98 96 Respiratory Rate 19 25 H 30 H Blood Pressure 123/81 130/67 134/65 Pulse Oximetry 95 94 96 Oxygen Delivery Oxygen Flow Rate 05/20/24 10:00 05/20/24 12:00 05/20/24 16:00 Temperature 38.6 C H Pulse Rate 97 110 H Respiratory Rate 31 H Blood Pressure 147/77 H Pulse Oximetry 94 Oxygen Delivery Room Air Oxygen Flow Rate 05/20/24 16:00 05/20/24 18:00 05/20/24 12:00 Temperature 39.2 C H Pulse Rate 121 H 99 Respiratory Rate 30 H Blood Pressure 142/69 H Pulse Oximetry 91 Oxygen Delivery Room Air Oxygen Flow Rate 05/20/24 14:00 05/20/24 16:00 05/20/24 18:00 Temperature Pulse Rate 100 106 H 123 H Respiratory Rate Blood Pressure Pulse Oximetry Oxygen Delivery Oxygen Flow Rate 05/20/24 20:00 05/20/24 20:00 05/20/24 20:00 Temperature 38.8 C H Pulse Rate 106 H 107 H Respiratory Rate 37 H Blood Pressure 140/70 Pulse Oximetry 90 90 Oxygen Delivery High Flow Nasal Cannula Oxygen Flow Rate 6 05/20/24 20:30 05/20/24 20:45 05/20/24 22:00 Temperature 38.3 C H Pulse Rate 113 H Respiratory Rate 27 H Blood Pressure 163/84 H Pulse Oximetry 88 L 88 L 95 Oxygen Delivery High Flow Nasal Cannula CPAP Oxygen Flow Rate 6 05/20/24 22:00 05/20/24 22:11 05/20/24 21:00 Temperature 38.3 C H Pulse Rate 113 H Respiratory Rate Blood Pressure Pulse Oximetry 97 Oxygen Delivery High Flow Nasal Cannula Oxygen Flow Rate 12 05/20/24 23:11 05/20/24 21:00 05/21/24 00:00 Temperature 38.3 C H 38.1 C H Pulse Rate 86 Respiratory Rate 21 H Blood Pressure 129/65 Pulse Oximetry 97 98 Oxygen Delivery Autopap Oxygen Flow Rate 05/21/24 00:00 05/21/24 00:13 05/20/24 20:40 Temperature Pulse Rate Respiratory Rate Blood Pressure Pulse Oximetry 98 98 89 L Oxygen Delivery High Flow Nasal Cannula Autopap High Flow Nasal Cannula Oxygen Flow Rate 6 8 05/21/24 00:00 05/21/24 03:35 05/21/24 02:00 Temperature 37.6 C Pulse Rate 85 93 Respiratory Rate 19 22 H Blood Pressure 145/73 H Pulse Oximetry 95 96 Oxygen Delivery Autopap Oxygen Flow Rate 05/21/24 02:00 05/21/24 04:00 05/21/24 04:00 Temperature 37.7 C H Pulse Rate 93 93 105 H Respiratory Rate 18 Blood Pressure 145/73 H Pulse Oximetry 96 Oxygen Delivery Oxygen Flow Rate 05/21/24 04:00 05/21/24 05:21 05/21/24 06:21 Temperature 37.9 C H 38.2 C H Pulse Rate Respiratory Rate Blood Pressure Pulse Oximetry 96 Oxygen Delivery CPAP Oxygen Flow Rate 6 05/21/24 06:00 05/21/24 06:00 05/21/24 08:00 Temperature 38.1 C H 37.7 C H Pulse Rate 96 96 94 Respiratory Rate 19 19 Blood Pressure 112/62 128/73 Pulse Oximetry 96 99 Oxygen Delivery Oxygen Flow Rate Intake/Output Intake/Output: Intake & Output 05/18/24 05/19/24 05/20/24 05/21/24 23:59 23:59 23:59 23:59 Intake Total 3445.1 3502.3 3370.6 464.9 Output Total 1750 2400 2500 1000 Balance 1695.1 1102.3 870.6 -535.1 Meds/Results Medications: Active Medications Generic Name Dose Route Start Last Admin Trade Name Freq PRN Reason Stop Dose Admin Acetaminophen 650 mg 05/20/24 20:01 05/21/24 05:21 Acetaminophen Elixir 325 Mg/10.15 Ml Udc FEED TUBE 650 mg Q4H PRN Administration Mild Pain (1-3) or Fever Dextrose 12.5 gm 05/18/24 14:38 Dextrose 50% 25 Gm/50 Ml Syringe IV PUSH PRN PRN Hypoglycemia Protocol Enoxaparin Sodium 40 mg 05/19/24 09:10 05/21/24 08:53 Enoxaparin 40 Mg/0.4 Ml Syringe SUB-Q 40 mg DAILY JESSICA Administration Famotidine 20 mg 05/18/24 21:00 05/21/24 08:53 Famotidine 20 Mg/2 Ml Vial IV PUSH 20 mg Q12HR JESSICA Administration Glucagon 1 mg 05/18/24 14:38 Glucagon For Inj 1 Mg Vial IM PRN PRN Hypoglycemia Protocol Glucose 15 gm 05/18/24 14:38 Glucose Oral Gel 15 Gm Of Glucse In 37.5 Gm Tube PO PRN PRN Hypoglycemia Protocol Dextrose 1,000 mls @ 100 mls/hr 05/18/24 14:38 Dextrose 5% 1,000 Ml IVPB PRN PRN Hypoglycemia Protocol Cefepime HCl 1 gm in 50 mls @ 100 mls/hr 05/19/24 06:00 05/21/24 06:34 Maxipime 1 Gm/Ns 50 Ml IVPB Infused Q12H JESSICA Infusion Vancomycin HCl 1,000 mg in 250 mls @ 250 mls/hr 05/20/24 21:00 05/21/24 08:52 Vancomycin 1,000 Mg/Ns 250 Ml IVPB 250 mls/hr Q12H JESSICA Administration Insulin Aspart 3 - 6 units 05/21/24 07:45 05/21/24 08:53 Insulin Aspart (*Bkc) 100 Units/Ml SUB-Q Not Given Q4H [facility] Protocol Insulin Glargine 15 units 05/21/24 07:45 05/21/24 08:53 Insulin Glargine (*Bkc) 100 Units/Ml SUB-Q 15 units QAM [facility] Administration Levothyroxine Sodium 50 mcg 05/18/24 19:55 05/21/24 06:06 Levothyroxine Sodium Inj 100 Mcg/5 Ml Vial IV PUSH 50 mcg DAILY@0630 [facility] Administration Morphine Sulfate 2 mg 05/19/24 09:32 05/20/24 16:56 Morphine Sulfate (*Crx) 2 Mg/Ml Inj IV PUSH 2 mg Q3H PRN Administration Pain Rated 4-6 Morphine Sulfate 4 mg 05/19/24 09:33 05/21/24 05:21 Morphine Sulfate (*Crx) 4 Mg/Ml Inj IV PUSH 4 mg Q3H PRN Administration Pain Rated 7-10 Ondansetron HCl 4 mg 05/18/24 15:55 Ondansetron Inj 4 Mg/2 Ml Vial IV PUSH Q4H PRN Nausea Perflutren Lipid Microsphere 0 ml 05/20/24 07:55 Perflutren Lipid Microspheres 1.5 Ml Vial Diluted To 10 Ml Total Volume IV PUSH 05/23/24 07:57 ONCE PRN adequate visualization Protocol Potassium Chloride 40 meq 05/21/24 10:00 Potassium Chloride 20 Meq Packet (For Liquid) FEED TUBE 05/21/24 10:01 ONCE ONE Sodium Bicarbonate 650 mg 05/21/24 09:00 05/21/24 08:54 Sodium Bicarbonate Tab 650 Mg Tablet FEED TUBE 650 mg BID JESSICA Administration Sodium Hypochlorite 1 applic 05/19/24 09:00 05/21/24 08:54 Sod Hypochlorite 1/4 Strength 473 Ml TOPICAL 1 applic Q12HR JESSICA Administration Tacrolimus 1 applic 05/19/24 09:00 05/21/24 08:53 Tacrolimus 0.1% 30 Gm Ointment TOPICAL 1 applic DAILY JESSICA Administration Radiology Results: ITS Impressions Foot X-Ray 05/18/24 14:50 IMPRESSION: 1. Irregularity of the distal ends of the bones status post transmetatarsal amputation without change, which may be the normal postoperative appearance. No specific evidence of osteomyelitis. Head CT 05/19/24 10:52 IMPRESSION: 1. 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 2. Mild nonspecific cerebral white matter disease, which likely represents chronic small vessel ischemic disease. Neck/Chest/Abdomen/Pelvis CT 05/19/24 11:56 Impression: No acute abnormality evident. 8 mm nonobstructing left renal stone. Mild bibasilar atelectatic change. Dilated common bile duct is probably related to prior cholecystectomy. Foot CT 05/19/24 12:31 IMPRESSION: 1. Osteomyelitis involving first metatarsal. 2. Fractures of the plantar aspects of the ends of the stumps of the third and fourth metatarsals, which is a change from 04/23/2024. 3. Soft tissue gas in the distal forefoot. Abdomen X-Ray 05/20/24 14:10 IMPRESSION: 1. Nasogastric tube tip in the stomach. Labs Labs: Laboratory Results - last 24 hr 05/20/24 05/20/24 05/20/24 09:48 10:47 11:16 WBC RBC Hgb Hct MCV MCH MCHC RDW Plt Count MPV Immature Gran % (Auto) Neut % (Auto) Lymph % (Auto) [place] % (Auto) Eos % (Auto) Baso % (Auto) Lymph # (Auto) [place] # (Auto) Eos # (Auto) Baso # (Auto) Abs Immat Gran (auto) Absolute Neuts (auto) Absolute Nucleated RBC Neutrophils % (Manual) Band Neutrophils % Lymphocytes % (Manual) Monocytes % (Manual) Nucleated RBC % Abs Neuts (Manual) Abs Lymphs (Manual) Abs Monocytes (Manual) Platelet Estimate Schistocytes Sodium 138 Potassium 3.7 Chloride 109 H Carbon Dioxide 15 L Anion Gap 14 H BUN 12 Creatinine 0.70 Estim Creat Clear Calc 40 Estimated GFR > 60 Glucose 344 H POC Capillary Glucose 309 H 333 H Lactic Acid Calcium 8.2 L Magnesium Total Bilirubin AST ALT Alkaline Phosphatase Total Protein Albumin Vancomycin Trough 05/20/24 05/20/24 05/20/24 11:47 13:37 15:34 WBC RBC Hgb Hct MCV MCH MCHC RDW Plt Count MPV Immature Gran % (Auto) Neut % (Auto) Lymph % (Auto) [place] % (Auto) Eos % (Auto) Baso % (Auto) Lymph # (Auto) [place] # (Auto) Eos # (Auto) Baso # (Auto) Abs Immat Gran (auto) Absolute Neuts (auto) Absolute Nucleated RBC Neutrophils % (Manual) Band Neutrophils % Lymphocytes % (Manual) Monocytes % (Manual) Nucleated RBC % Abs Neuts (Manual) Abs Lymphs (Manual) Abs Monocytes (Manual) Platelet Estimate Schistocytes Sodium Potassium Chloride Carbon Dioxide Anion Gap BUN Creatinine Estim Creat Clear Calc Estimated GFR Glucose POC Capillary Glucose 342 H 293 H 338 H Lactic Acid Calcium Magnesium Total Bilirubin AST ALT Alkaline Phosphatase Total Protein Albumin Vancomycin Trough 05/20/24 05/20/24 05/20/24 16:28 18:29 19:06 WBC RBC Hgb Hct MCV MCH MCHC RDW Plt Count MPV Immature Gran % (Auto) Neut % (Auto) Lymph % (Auto) [place] % (Auto) Eos % (Auto) Baso % (Auto) Lymph # (Auto) [place] # (Auto) Eos # (Auto) Baso # (Auto) Abs Immat Gran (auto) Absolute Neuts (auto) Absolute Nucleated RBC Neutrophils % (Manual) Band Neutrophils % Lymphocytes % (Manual) Monocytes % (Manual) Nucleated RBC % Abs Neuts (Manual) Abs Lymphs (Manual) Abs Monocytes (Manual) Platelet Estimate Schistocytes Sodium Potassium Chloride Carbon Dioxide Anion Gap BUN Creatinine Estim Creat Clear Calc Estimated GFR Glucose POC Capillary Glucose 369 H 351 H Lactic Acid Calcium Magnesium Total Bilirubin AST ALT Alkaline Phosphatase Total Protein Albumin Vancomycin Trough 7.9 L 05/20/24 05/20/24 05/20/24 19:42 20:58 22:01 WBC RBC Hgb Hct MCV MCH MCHC RDW Plt Count MPV Immature Gran % (Auto) Neut % (Auto) Lymph % (Auto) [place] % (Auto) Eos % (Auto) Baso % (Auto) Lymph # (Auto) [place] # (Auto) Eos # (Auto) Baso # (Auto) Abs Immat Gran (auto) Absolute Neuts (auto) Absolute Nucleated RBC Neutrophils % (Manual) Band Neutrophils % Lymphocytes % (Manual) Monocytes % (Manual) Nucleated RBC % Abs Neuts (Manual) Abs Lymphs (Manual) Abs Monocytes (Manual) Platelet Estimate Schistocytes Sodium Potassium Chloride Carbon Dioxide Anion Gap BUN Creatinine Estim Creat Clear Calc Estimated GFR Glucose POC Capillary Glucose 310 H 281 H 196 H Lactic Acid Calcium Magnesium Total Bilirubin AST ALT Alkaline Phosphatase Total Protein Albumin Vancomycin Trough 05/20/24 05/21/24 05/21/24 23:14 00:11 01:07 WBC RBC Hgb Hct MCV MCH MCHC RDW Plt Count MPV Immature Gran % (Auto) Neut % (Auto) Lymph % (Auto) [place] % (Auto) Eos % (Auto) Baso % (Auto) Lymph # (Auto) [place] # (Auto) Eos # (Auto) Baso # (Auto) Abs Immat Gran (auto) Absolute Neuts (auto) Absolute Nucleated RBC Neutrophils % (Manual) Band Neutrophils % Lymphocytes % (Manual) Monocytes % (Manual) Nucleated RBC % Abs Neuts (Manual) Abs Lymphs (Manual) Abs Monocytes (Manual) Platelet Estimate Schistocytes Sodium Potassium Chloride Carbon Dioxide Anion Gap BUN Creatinine Estim Creat Clear Calc Estimated GFR Glucose POC Capillary Glucose 175 H 174 H 145 H Lactic Acid Calcium Magnesium Total Bilirubin AST ALT Alkaline Phosphatase Total Protein Albumin Vancomycin Trough 05/21/24 05/21/24 05/21/24 02:09 03:22 04:07 WBC RBC Hgb Hct MCV MCH MCHC RDW Plt Count MPV Immature Gran % (Auto) Neut % (Auto) Lymph % (Auto) [place] % (Auto) Eos % (Auto) Baso % (Auto) Lymph # (Auto) [place] # (Auto) Eos # (Auto) Baso # (Auto) Abs Immat Gran (auto) Absolute Neuts (auto) Absolute Nucleated RBC Neutrophils % (Manual) Band Neutrophils % Lymphocytes % (Manual) Monocytes % (Manual) Nucleated RBC % Abs Neuts (Manual) Abs Lymphs (Manual) Abs Monocytes (Manual) Platelet Estimate Schistocytes Sodium Potassium Chloride Carbon Dioxide Anion Gap BUN Creatinine Estim Creat Clear Calc Estimated GFR Glucose POC Capillary Glucose 129 H 119 H 113 H Lactic Acid Calcium Magnesium Total Bilirubin AST ALT Alkaline Phosphatase Total Protein Albumin Vancomycin Trough 05/21/24 05/21/24 05/21/24 05:00 05:15 06:00 WBC 18.9 H RBC 3.77 L Hgb 10.8 L Hct 32.8 L MCV 87.0 D MCH 28.6 MCHC 32.9 RDW 14.6 H Plt Count 232 MPV 12.8 H Immature Gran % (Auto) Not Reportable Neut % (Auto) Not Reportable Lymph % (Auto) Not Reportable Imperial % (Auto) Not Reportable Eos % (Auto) Not Reportable Baso % (Auto) Not Reportable Lymph # (Auto) Not Reportable [place] # (Auto) Not Reportable Eos # (Auto) Not Reportable Baso # (Auto) Not Reportable Abs Immat Gran (auto) Not Reportable Absolute Neuts (auto) Not Reportable Absolute Nucleated RBC Not Reportable Neutrophils % (Manual) 82 H Band Neutrophils % 3 Lymphocytes % (Manual) 10 L Monocytes % (Manual) 5 Nucleated RBC % Not Reportable Abs Neuts (Manual) 16.06 H Abs Lymphs (Manual) 1.89 Abs Monocytes (Manual) 0.94 H Platelet Estimate Adequate Schistocytes None seen Sodium 141 Potassium 3.0 L Chloride 106 Carbon Dioxide 20 L Anion Gap 15 H BUN 15 Creatinine 0.80 Estim Creat Clear Calc 36 Estimated GFR > 60 Glucose 110 POC Capillary Glucose 123 H Lactic Acid 2.0 Calcium 8.1 L Magnesium 2.0 Total Bilirubin 0.5 AST 74 H ALT 31 Alkaline Phosphatase 187 H Total Protein 7.0 Albumin 3.2 L Vancomycin Trough 05/21/24 05/21/24 05/21/24 06:03 07:51 08:50 WBC RBC Hgb Hct MCV MCH MCHC RDW Plt Count MPV Immature Gran % (Auto) Neut % (Auto) Lymph % (Auto) [place] % (Auto) Eos % (Auto) Baso % (Auto) Lymph # (Auto) [place] # (Auto) Eos # (Auto) Baso # (Auto) Abs Immat Gran (auto) Absolute Neuts (auto) Absolute Nucleated RBC Neutrophils % (Manual) Band Neutrophils % Lymphocytes % (Manual) Monocytes % (Manual) Nucleated RBC % Abs Neuts (Manual) Abs Lymphs (Manual) Abs Monocytes (Manual) Platelet Estimate Schistocytes Sodium Potassium Chloride Carbon Dioxide Anion Gap BUN Creatinine Estim Creat Clear Calc Estimated GFR Glucose POC Capillary Glucose 154 H 133 H 115 H Lactic Acid Calcium Magnesium Total Bilirubin AST ALT Alkaline Phosphatase Total Protein Albumin Vancomycin Trough Quality VTE Prophylaxis VTE prophylaxis: mechanical ordered and pharmacologic ordered
[2024-05-21 10:41] LABS: Glucose Point of Care 95 mg/dl (65-105)
--- NOTE | 2024-05-21 11:39 | PCFNICU ---
ICU Rounding Note: Pt current nutrition is Glucerna 1.2. Nutrition recommendation: goal rate at 50 ml/hr Last recorded weight is 59.8 kg, up from 59.1 kg on admit. Bowel Motility: +BM reported 05/19 Labs Reviewed: K 3.0,Alb 3.2,Hct 32.8,Hgb 10.8 Meds Noted: Lovenox, Vancomycin, Lantus Skin: mid foot amputation-left Additional Notes: Patient currently with NGT feedings of Glucerna 1.2 at 20 ml/hr. Tube feedings are being tolerated. Discussions during rounds regarding advancing tube feeding after possible CAT scan. Following daily in ICU rounds. Will monitor weight, labs, skin, diet orders, meds every Saturday and Saturday.
[2024-05-21] MEDS: CEFEPIME 2 GM/NS 50 ML 2 GM/50 ML BAG IVPB ×2 (11:57→21:04)
[2024-05-21 12:22] LABS: Glucose Point of Care 115 mg/dl (65-105)
--- NOTE | 2024-05-21 14:33 | PM.IMPN ---
Progress Note: A&P Assessment and Plan (1) DKA (diabetic ketoacidosis): Code(s): E11.10 - Type 2 diabetes mellitus with ketoacidosis without coma Status: Acute Assessment and Plan: DKA secondary to noncompliance and sepsis. Patient was given IVF bolus and started on IVF. Started on insulin infusion with Q1H glucose monitoring Serial labs are being done. Anion gap still open but suspect no longer related to DKA. Replace electrolytes as needed Discussed with hot roll inspector and insulin drip stopped and changed to SQ insulin (2) Sepsis: Qualifiers: Sepsis acute organ dysfunction status: unspecified Sepsis type: sepsis due to unspecified organism Qualified Code(s): A41.9 - Sepsis, unspecified organism Code(s): A41.9 - Sepsis, unspecified organism Status: Acute Assessment and Plan: Patient has sepsis secondary to postop wound infection of the foot, osteomyelitis, staph bacteremia, Staph UTI Foot x-ray showing irregularity of the distal ends of the bones status post transmetatarsal amputation without change, which may be the normal postoperative appearance. No specific evidence of osteomyelitis. Foot CT 05/19 showing osteomyelitis involving first metatarsal. Fractures of the plantar aspects of the ends of the stumps of the third and fourth metatarsals, which is a change from 04/23/2024. Soft tissue gas in the distal forefoot. CT neck/chest/abdomen/pelvis showing no acute abnormality evident but with 8mm nonobstructing left renal stone, mild bibasilar atelectatic changes and dilated common bile duct is probably related to prior cholecystectomy. Patient was seen by Orthopedics and recommended local wound care at this time and no surgical intervention. Started on Vancomycin, Flagyl and Cefepime. Flagyl stopped and clindamycin started 05/19 but stopped 109 Wound care consulted for local wound care Blood and urine cultures are growing MSSA Echo showing normal LV size with decreased fxn with EF 40-45%, Grade I diastolic dysfunction, wall motion abnormalities with akinesis c/w infarct or takotsubo. Minor valve disease. No valvuar vegetations. Lactic acid has normalized but still having fevers. Suspect MSSA septicemia from wound that has seeded the urine. Consider other areas such as pericervical or meningitis. Cervical CT and repeat CT Ch/A/P showing no acute findings. Continue vancomycin and cefepime. Repeat blood cultures drawn today. Consider spinal imaging with MRI if able. (3) Postoperative wound infection: Code(s): T81.49XA - Infection following a procedure, other surgical site, initial encounter Status: Deleted Assessment and Plan: See above (4) UTI (urinary tract infection): Qualifiers: Hematuria presence: without hematuria Urinary tract infection type: acute cystitis Qualified Code(s): N30.00 - Acute cystitis without hematuria Code(s): N39.0 - Urinary tract infection, site not specified Status: Acute Assessment and Plan: See above (5) Pain: Code(s): R52 - Pain, unspecified Status: Acute Assessment and Plan: P.r.n. analgesic ordered (6) Encephalopathy: Code(s): G93.40 - Encephalopathy, unspecified Status: Acute Assessment and Plan: Nonfocal exam. 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 Likely related to toxic metabolic encephalopathy. Follow (7) Hypothyroid: Code(s): E03.9 - Hypothyroidism, unspecified Status: Acute Assessment and Plan: TSH normal. Continue levothyroxine IV (8) Electrolyte abnormality: Code(s): E87.8 - Other disorders of electrolyte and fluid balance, not elsewhere classified Status: Acute Assessment and Plan: Replace electrolytes as needed (9) Bacteremia: Code(s): R78.81 - Bacteremia Status: Acute Assessment and Plan: See above Plan DVT prophylaxis - SCDs Nutrition - npo Code Status - Full Code Subjective Date/time seen: 05/21/24 14:33 Interval history: 84yo female with DM, HTN, and Charcot foot here for diabetic foot infection with sepsis. Feeding ube placed and started on TF. Insulin drip stopped. She had just received morphine prior to this visit and had trouble remaining awake. Exam Narrative: Tm 102.5 100.9 128/83 91 21 96% HFNC Gen - NARD lying semi-recumbent in bed Neck - pain with flexion; +Kernig Chest - lungs clear anteriorly. nml RR CV - RRR S1/S2; Tele showing brief run of SVT and NSVT (one time each) Abd - Soft, protuberant, mildly tympanitic. - Vang secured and draining clear yellow urine Ext - No pedal edema. Bilateral forefoot amputation. Left foot dressing clean and dry. Neuro - somnolent Psych - pleasant and cooperative Skin - Warm and dry. Purplish discoloration purplish discoloration. Objective Data Vital Signs Vital Signs: Vital Signs - 24 hr 05/20/24 16:00 05/20/24 16:00 05/20/24 18:00 Temperature 101.5 F H 102.5 F H Pulse Rate 110 H 121 H Respiratory Rate 31 H 30 H Blood Pressure 147/77 H 142/69 H Pulse Oximetry 94 91 Oxygen Delivery Room Air Oxygen Flow Rate 05/20/24 16:00 05/20/24 18:00 05/20/24 20:00 Temperature Pulse Rate 106 H 123 H 106 H Respiratory Rate Blood Pressure Pulse Oximetry Oxygen Delivery Oxygen Flow Rate 05/20/24 20:00 05/20/24 20:00 05/20/24 20:30 Temperature 101.8 F H Pulse Rate 107 H Respiratory Rate 37 H Blood Pressure 140/70 Pulse Oximetry 90 90 88 L Oxygen Delivery High Flow Nasal Cannula High Flow Nasal Cannula Oxygen Flow Rate 6 6 05/20/24 20:45 05/20/24 22:00 05/20/24 22:00 Temperature 100.9 F H Pulse Rate 113 H 113 H Respiratory Rate 27 H Blood Pressure 163/84 H Pulse Oximetry 88 L 95 Oxygen Delivery CPAP Oxygen Flow Rate 05/20/24 22:11 05/20/24 21:00 05/20/24 23:11 Temperature 100.9 F H 100.9 F H Pulse Rate Respiratory Rate Blood Pressure Pulse Oximetry 97 Oxygen Delivery High Flow Nasal Cannula Oxygen Flow Rate 12 05/20/24 21:00 05/21/24 00:00 05/21/24 00:00 Temperature 100.6 F H Pulse Rate 86 Respiratory Rate 21 H Blood Pressure 129/65 Pulse Oximetry 97 98 98 Oxygen Delivery Autopap High Flow Nasal Cannula Oxygen Flow Rate 6 05/21/24 00:13 05/20/24 20:40 05/21/24 00:00 Temperature Pulse Rate 85 Respiratory Rate Blood Pressure Pulse Oximetry 98 89 L Oxygen Delivery Autopap High Flow Nasal Cannula Oxygen Flow Rate 8 05/21/24 03:35 05/21/24 02:00 05/21/24 02:00 Temperature 99.6 F Pulse Rate 93 93 Respiratory Rate 19 22 H Blood Pressure 145/73 H Pulse Oximetry 95 96 Oxygen Delivery Autopap Oxygen Flow Rate 05/21/24 04:00 05/21/24 04:00 05/21/24 04:00 Temperature 99.8 F H Pulse Rate 93 105 H Respiratory Rate 18 Blood Pressure 145/73 H Pulse Oximetry 96 96 Oxygen Delivery CPAP Oxygen Flow Rate 6 05/21/24 05:21 05/21/24 06:21 05/21/24 06:00 Temperature 100.2 F H 100.7 F H Pulse Rate 96 Respiratory Rate Blood Pressure Pulse Oximetry Oxygen Delivery Oxygen Flow Rate 05/21/24 06:00 05/21/24 08:00 05/21/24 08:00 Temperature 100.5 F H 100 F H Pulse Rate 96 94 Respiratory Rate 19 19 Blood Pressure 112/62 128/73 Pulse Oximetry 96 99 99 Oxygen Delivery CPAP Oxygen Flow Rate 05/21/24 10:00 05/21/24 11:56 05/21/24 11:57 Temperature 100.4 F H Pulse Rate 91 Respiratory Rate 21 H Blood Pressure 128/83 Pulse Oximetry 99 98 98 Oxygen Delivery High Flow Nasal Cannula Oxygen Flow Rate 5 05/21/24 11:58 05/21/24 14:21 Temperature 100.9 F H Pulse Rate Respiratory Rate Blood Pressure Pulse Oximetry 96 Oxygen Delivery High Flow Nasal Cannula Oxygen Flow Rate 4 Intake/Output Intake/Output: Intake & Output 05/18/24 05/19/24 05/20/24 05/21/24 23:59 23:59 23:59 23:59 Intake Total 3445.1 3502.3 3370.6 716.0 Output Total 1750 2400 2500 1000 Balance 1695.1 1102.3 870.6 -284.0 Meds/Results Medications: Active Medications Generic Name Dose Route Start Last Admin Trade Name Freq PRN Reason Stop Dose Admin Acetaminophen 650 mg 05/20/24 20:01 05/21/24 11:58 Acetaminophen Elixir 325 Mg/10.15 Ml Udc FEED TUBE 650 mg Q4H PRN Administration Mild Pain (1-3) or Fever Dextrose 12.5 gm 05/18/24 14:38 Dextrose 50% 25 Gm/50 Ml Syringe IV PUSH PRN PRN Hypoglycemia Protocol Enoxaparin Sodium 40 mg 05/19/24 09:10 05/21/24 08:53 Enoxaparin 40 Mg/0.4 Ml Syringe SUB-Q 40 mg DAILY JESSICA Administration Famotidine 20 mg 05/18/24 21:00 05/21/24 08:53 Famotidine 20 Mg/2 Ml Vial IV PUSH 20 mg Q12HR JESSICA Administration Glucagon 1 mg 05/18/24 14:38 Glucagon For Inj 1 Mg Vial IM PRN PRN Hypoglycemia Protocol Glucose 15 gm 05/18/24 14:38 Glucose Oral Gel 15 Gm Of Glucse In 37.5 Gm Tube PO PRN PRN Hypoglycemia Protocol Dextrose 1,000 mls @ 100 mls/hr 05/18/24 14:38 Dextrose 5% 1,000 Ml IVPB PRN PRN Hypoglycemia Protocol Vancomycin HCl 1,000 mg in 250 mls @ 250 mls/hr 05/20/24 21:00 05/21/24 09:52 Vancomycin 1,000 Mg/Ns 250 Ml IVPB Infused Q12H JESSICA Infusion Cefepime HCl 2 gm in 50 mls @ 100 mls/hr 05/21/24 12:00 05/21/24 11:57 Maxipime 2 Gm/Ns 50 Ml IVPB 100 mls/hr Q12HR JESSICA Administration Insulin Aspart 3 - 6 units 05/21/24 07:45 05/21/24 11:58 Insulin Aspart (*Bkc) 100 Units/Ml SUB-Q Not Given Q4H JESSICA Protocol Insulin Glargine 15 units 05/21/24 07:45 05/21/24 08:53 Insulin Glargine (*Bkc) 100 Units/Ml SUB-Q 15 units QAM JESSICA Administration Levothyroxine Sodium 50 mcg 05/18/24 19:55 05/21/24 06:06 Levothyroxine Sodium Inj 100 Mcg/5 Ml Vial IV PUSH 50 mcg DAILY@0630 JESSICA Administration Morphine Sulfate 2 mg 05/21/24 11:53 Morphine Sulfate (*Crx) 2 Mg/Ml Inj IV PUSH Q3H PRN Pain 6-10 Ondansetron HCl 4 mg 05/18/24 15:55 Ondansetron Inj 4 Mg/2 Ml Vial IV PUSH Q4H PRN Nausea Perflutren Lipid Microsphere 0 ml 05/20/24 07:55 Perflutren Lipid Microspheres 1.5 Ml Vial Diluted To 10 Ml Total Volume IV PUSH 05/23/24 07:57 ONCE PRN adequate visualization Protocol Sodium Bicarbonate 650 mg 05/21/24 09:00 05/21/24 08:54 Sodium Bicarbonate Tab 650 Mg Tablet FEED TUBE 650 mg BID JESSICA Administration Sodium Chloride 6 ml 05/22/24 05:00 Sodium Chlor 3% 15 Ml Neb (Respiratory Therapy) INHALATION 05/24/24 05:01 DAILY@0500 JESSICA Sodium Hypochlorite 1 applic 05/19/24 09:00 05/21/24 08:54 Sod Hypochlorite 1/4 Strength 473 Ml TOPICAL 1 applic Q12HR JESSICA Administration Tacrolimus 1 applic 05/19/24 09:00 05/21/24 08:53 Tacrolimus 0.1% 30 Gm Ointment TOPICAL 1 applic DAILY JESSICA Administration Radiology Results: ITS Impressions Foot X-Ray 05/18/24 14:50 IMPRESSION: 1. Irregularity of the distal ends of the bones status post transmetatarsal amputation without change, which may be the normal postoperative appearance. No specific evidence of osteomyelitis. Head CT 05/19/24 10:52 IMPRESSION: 1. 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 2. Mild nonspecific cerebral white matter disease, which likely represents chronic small vessel ischemic disease. Neck/Chest/Abdomen/Pelvis CT 05/19/24 11:56 Impression: No acute abnormality evident. 8 mm nonobstructing left renal stone. Mild bibasilar atelectatic change. Dilated common bile duct is probably related to prior cholecystectomy. Foot CT 05/19/24 12:31 IMPRESSION: 1. Osteomyelitis involving first metatarsal. 2. Fractures of the plantar aspects of the ends of the stumps of the third and fourth metatarsals, which is a change from 04/23/2024. 3. Soft tissue gas in the distal forefoot. Abdomen X-Ray 05/20/24 14:10 IMPRESSION: 1. Nasogastric tube tip in the stomach. Cervical Spine CT 05/21/24 13:01 IMPRESSION: No acute osseous abnormality cervical spine. Multilevel degenerative disc disease, uncovertebral joint osteoarthritic changes, intervertebral foraminal narrowing and facet joint Chest/Abdomen/Pelvis CT 05/21/24 13:03 IMPRESSION: 1. Small pleural effusions. 2. Small pericardial effusion. 3. Moderate intrahepatic and extrahepatic biliary duct dilatation status post cholecystectomy. Consider MRCP. Labs Labs: Laboratory Results - last 24 hr 05/20/24 05/20/24 05/20/24 15:34 16:28 18:29 WBC RBC Hgb Hct MCV MCH MCHC RDW Plt Count MPV Immature Gran % (Auto) Neut % (Auto) Lymph % (Auto) [place] % (Auto) Eos % (Auto) Baso % (Auto) Lymph # (Auto) [place] # (Auto) Eos # (Auto) Baso # (Auto) Abs Immat Gran (auto) Absolute Neuts (auto) Absolute Nucleated RBC Neutrophils % (Manual) Band Neutrophils % Lymphocytes % (Manual) Monocytes % (Manual) Nucleated RBC % Abs Neuts (Manual) Abs Lymphs (Manual) Abs Monocytes (Manual) Platelet Estimate Schistocytes Sodium Potassium Chloride Carbon Dioxide Anion Gap BUN Creatinine Estim Creat Clear Calc Estimated GFR Glucose POC Capillary Glucose 338 H 369 H 351 H Lactic Acid Calcium Magnesium Total Bilirubin AST ALT Alkaline Phosphatase Total Protein Albumin Vancomycin Trough 05/20/24 05/20/24 05/20/24 19:06 19:42 20:58 WBC RBC Hgb Hct MCV MCH MCHC RDW Plt Count MPV Immature Gran % (Auto) Neut % (Auto) Lymph % (Auto) [place] % (Auto) Eos % (Auto) Baso % (Auto) Lymph # (Auto) [place] # (Auto) Eos # (Auto) Baso # (Auto) Abs Immat Gran (auto) Absolute Neuts (auto) Absolute Nucleated RBC Neutrophils % (Manual) Band Neutrophils % Lymphocytes % (Manual) Monocytes % (Manual) Nucleated RBC % Abs Neuts (Manual) Abs Lymphs (Manual) Abs Monocytes (Manual) Platelet Estimate Schistocytes Sodium Potassium Chloride Carbon Dioxide Anion Gap BUN Creatinine Estim Creat Clear Calc Estimated GFR Glucose POC Capillary Glucose 310 H 281 H Lactic Acid Calcium Magnesium Total Bilirubin AST ALT Alkaline Phosphatase Total Protein Albumin Vancomycin Trough 7.9 L 05/20/24 05/20/24 05/21/24 22:01 23:14 00:11 WBC RBC Hgb Hct MCV MCH MCHC RDW Plt Count MPV Immature Gran % (Auto) Neut % (Auto) Lymph % (Auto) [place] % (Auto) Eos % (Auto) Baso % (Auto) Lymph # (Auto) [place] # (Auto) Eos # (Auto) Baso # (Auto) Abs Immat Gran (auto) Absolute Neuts (auto) Absolute Nucleated RBC Neutrophils % (Manual) Band Neutrophils % Lymphocytes % (Manual) Monocytes % (Manual) Nucleated RBC % Abs Neuts (Manual) Abs Lymphs (Manual) Abs Monocytes (Manual) Platelet Estimate Schistocytes Sodium Potassium Chloride Carbon Dioxide Anion Gap BUN Creatinine Estim Creat Clear Calc Estimated GFR Glucose POC Capillary Glucose 196 H 175 H 174 H Lactic Acid Calcium Magnesium Total Bilirubin AST ALT Alkaline Phosphatase Total Protein Albumin Vancomycin Trough 05/21/24 05/21/24 05/21/24 01:07 02:09 03:22 WBC RBC Hgb Hct MCV MCH MCHC RDW Plt Count MPV Immature Gran % (Auto) Neut % (Auto) Lymph % (Auto) [place] % (Auto) Eos % (Auto) Baso % (Auto) Lymph # (Auto) [place] # (Auto) Eos # (Auto) Baso # (Auto) Abs Immat Gran (auto) Absolute Neuts (auto) Absolute Nucleated RBC Neutrophils % (Manual) Band Neutrophils % Lymphocytes % (Manual) Monocytes % (Manual) Nucleated RBC % Abs Neuts (Manual) Abs Lymphs (Manual) Abs Monocytes (Manual) Platelet Estimate Schistocytes Sodium Potassium Chloride Carbon Dioxide Anion Gap BUN Creatinine Estim Creat Clear Calc Estimated GFR Glucose POC Capillary Glucose 145 H 129 H 119 H Lactic Acid Calcium Magnesium Total Bilirubin AST ALT Alkaline Phosphatase Total Protein Albumin Vancomycin Trough 05/21/24 05/21/24 05/21/24 04:07 05:00 05:15 WBC 18.9 H RBC 3.77 L Hgb 10.8 L Hct 32.8 L MCV 87.0 D MCH 28.6 MCHC 32.9 RDW 14.6 H Plt Count 232 MPV 12.8 H Immature Gran % (Auto) Not Reportable Neut % (Auto) Not Reportable Lymph % (Auto) Not Reportable [place] % (Auto) Not Reportable Eos % (Auto) Not Reportable Baso % (Auto) Not Reportable Lymph # (Auto) Not Reportable [place] # (Auto) Not Reportable Eos # (Auto) Not Reportable Baso # (Auto) Not Reportable Abs Immat Gran (auto) Not Reportable Absolute Neuts (auto) Not Reportable Absolute Nucleated RBC Not Reportable Neutrophils % (Manual) 82 H Band Neutrophils % 3 Lymphocytes % (Manual) 10 L Monocytes % (Manual) 5 Nucleated RBC % Not Reportable Abs Neuts (Manual) 16.06 H Abs Lymphs (Manual) 1.89 Abs Monocytes (Manual) 0.94 H Platelet Estimate Adequate Schistocytes None seen Sodium Potassium Chloride Carbon Dioxide Anion Gap BUN Creatinine Estim Creat Clear Calc Estimated GFR Glucose POC Capillary Glucose 113 H 123 H Lactic Acid 2.0 Calcium Magnesium Total Bilirubin AST ALT Alkaline Phosphatase Total Protein Albumin Vancomycin Trough 05/21/24 05/21/24 05/21/24 06:00 06:03 07:51 WBC RBC Hgb Hct MCV MCH MCHC RDW Plt Count MPV Immature Gran % (Auto) Neut % (Auto) Lymph % (Auto) [place] % (Auto) Eos % (Auto) Baso % (Auto) Lymph # (Auto) [place] # (Auto) Eos # (Auto) Baso # (Auto) Abs Immat Gran (auto) Absolute Neuts (auto) Absolute Nucleated RBC Neutrophils % (Manual) Band Neutrophils % Lymphocytes % (Manual) Monocytes % (Manual) Nucleated RBC % Abs Neuts (Manual) Abs Lymphs (Manual) Abs Monocytes (Manual) Platelet Estimate Schistocytes Sodium 141 Potassium 3.0 L Chloride 106 Carbon Dioxide 20 L Anion Gap 15 H BUN 15 Creatinine 0.80 Estim Creat Clear Calc 36 Estimated GFR > 60 Glucose 110 POC Capillary Glucose 154 H 133 H Lactic Acid Calcium 8.1 L Magnesium 2.0 Total Bilirubin 0.5 AST 74 H ALT 31 Alkaline Phosphatase 187 H Total Protein 7.0 Albumin 3.2 L Vancomycin Trough 05/21/24 05/21/24 05/21/24 08:50 10:18 11:53 WBC RBC Hgb Hct MCV MCH MCHC RDW Plt Count MPV Immature Gran % (Auto) Neut % (Auto) Lymph % (Auto) [place] % (Auto) Eos % (Auto) Baso % (Auto) Lymph # (Auto) [place] # (Auto) Eos # (Auto) Baso # (Auto) Abs Immat Gran (auto) Absolute Neuts (auto) Absolute Nucleated RBC Neutrophils % (Manual) Band Neutrophils % Lymphocytes % (Manual) Monocytes % (Manual) Nucleated RBC % Abs Neuts (Manual) Abs Lymphs (Manual) Abs Monocytes (Manual) Platelet Estimate Schistocytes Sodium Potassium Chloride Carbon Dioxide Anion Gap BUN Creatinine Estim Creat Clear Calc Estimated GFR Glucose POC Capillary Glucose 115 H 95 115 H Lactic Acid Calcium Magnesium Total Bilirubin AST ALT Alkaline Phosphatase Total Protein Albumin Vancomycin Trough
[2024-05-21] MEDS: MORPHINE SULFATE (*CRX) 2 MG/ML INJ IV PUSH ×3 (15:10→23:09)
[2024-05-21 15:35] LABS: Glucose Point of Care 125 mg/dl (65-105)
[2024-05-21 16:00] LABS: INR 1.1; Prothrombin Time 15.1 Seconds (11.1-14.7)
[2024-05-21 16:01] LABS: Partial Thromboplastin Time 34.1 Seconds (22.3-36.8)
[2024-05-21 17:54] LABS: Glucose CSF < 30 mg/dL (40-70); Total Protein CSF 246 mg/dL (12-60)
[2024-05-21 18:38] LABS: Appearance CSF Clear (Clear); CSF source CSF
[2024-05-21 18:39] LABS: Color CSF Yellow (Colorless)
[2024-05-21 18:40] LABS: Nucleated Cell CSF 98 /uL (0-5); Red Blood Cell CSF 4 (0-2)
[2024-05-21 18:41] LABS: Lymphocytes CSF 7 % (40-80); Monocytes CSF 5 % (15-45); Neutrophils CSF 88 % (0-6)
--- NOTE | 2024-05-21 20:08 | PC.NURSE ---
RN off floor from [phone] with patient in CAT SCAN. Patient transported by bed with portable monitor.
--- NOTE | 2024-05-21 20:10 | PC.NURSE ---
RN off floor from [id number] in X-ray with patient for lumbar puncture. Patient transported by bed with portable monitor.
[2024-05-21 21:21] LABS: Glucose Point of Care 105 mg/dl (65-105)
[2024-05-21 21:44] LABS: Vancomycin Trough 15.9 ug/mL (10.0-20.0)
[2024-05-21 23:56] LABS: Glucose Point of Care 161 mg/dl (65-105)
[2024-05-22] VITALS (16 sets, daily range): BP systolic 133–145; BP diastolic 71–83; PULSE 101–118; RESP 20–29; TEMP 37–38.3; O2SAT 93–99
[2024-05-22] MEDS: MORPHINE SULFATE (*CRX) 4 MG/ML INJ IV PUSH ×4 (01:10→11:10)
[2024-05-22] MEDS: ACETAMINOPHEN ELIXIR 325 MG/10.15 ML UDC 650 MG FEED TUBE ×3 (03:00→13:15)
[2024-05-22] MEDS: SODIUM CHLOR 3% 15 ML NEB (RESPIRATORY THERAPY) 6 ML INHALATION (05:07)
[2024-05-22 05:30] LABS: Hematocrit 30.7 % (37.0-47.0); Hemoglobin 9.8 g/dL (12.0-15.0); Mean Corpuscular HGB Conc 31.9 g/dl (32-36); Mean Corpuscular Hemoglobin 28.7 pg (26-34); Mean Corpuscular Volume 89.8 fl (80-100); Mean Platelet Volume 12.3 fl (7.4-10.4); Platelet Count Result 258 k/mm3 (150-375); Red Blood Count 3.42 M/mm3 (4.2-5.4); Red Cell Distribution Width 15.1 % (11.5-14.5); White Blood Count 25.1 K/mm3 (4.5-10.0)
[2024-05-22 05:43] LABS: Alanine Aminotransferase 30 U/L (6-35); Alkaline Phosphatase 195 U/L (38-126); Anion Gap 15 mmol/L (4-12); Aspartate Amino Transferase 70 U/L (14-36); Bilirubin,Total 0.6 mg/dL (0.2-1.3); Blood Urea Nitrogen 19 mg/dL (7-17); Calcium 7.6 mg/dL (8.4-10.2); Carbon Dioxide 16 mmol/L (22-30); Chloride 109 mmol/L (98-107); Estimated CRCL calculation 40 ml/min; Estimated Glomerular Filt Rate > 60; Glucose 138 mg/dL (65-110); Potassium 3.4 mmol/L (3.4-5.0); Sodium 140 mmol/L (137-145)
[2024-05-22 05:52] LABS: Anisocytosis 1+; Band Neutrophils Percent 5 % (0-6); Eosinophils Absolute Manual 0.25 K/mm3 (0.02-0.50); Eosinophils Percent Manual 1 % (0-4); Lymphocytes Absolute Manual 1.75 K/mm3 (1.1-4.5); Microcytosis 1+ (NORMAL); Monocytes Absolute Manual 0.25 K/mm3 (0.1-0.90); Monocytes Percent Manual 1 % (3-9); Neutrophils Absolute Manual 22.84 K/mm3 (1.7-7.2); Neutrophils Percent Manual 86 % (46-73); Nucleated Red Blood Cells 1 %; Poikilocytosis 1+; Total Cells Counted 100
[2024-05-22 05:53] LABS: Platelet Estimate Adequate (Adequate); Schistocytes Rare
[2024-05-22 06:14] LABS: Magnesium 1.8 mg/dL (1.6-2.3)
[2024-05-22 06:18] LABS: Glucose Point of Care 139 mg/dl (65-105)
[2024-05-22] MEDS: LEVOTHYROXINE SODIUM INJ 100 MCG/5 ML VIAL 50 MCG IV PUSH (06:31)
[2024-05-22] MEDS: ONDANSETRON INJ 4 MG/2 ML VIAL IV PUSH (07:35)
[2024-05-22 07:47] LABS: Glucose Point of Care 135 mg/dl (65-105)
[2024-05-22] MEDS: CEFEPIME 2 GM/NS 50 ML 2 GM/50 ML BAG IVPB (07:53)
[2024-05-22] MEDS: FAMOTIDINE 20 MG/2 ML VIAL IV PUSH (07:53)
[2024-05-22] MEDS: SODIUM BICARBONATE TAB 650 MG TABLET FEED TUBE (07:54)
[2024-05-22] MEDS: VANCOMYCIN 1,000 MG/NS 250 ML 1,000 MG/250 ML BAG 250 MG IVPB (08:05)
[2024-05-22] MEDS: SOD HYPOCHLORITE 1/4 STRENGTH 473 ML 1 APPLIC TOPICAL (08:06)
[2024-05-22] MEDS: TACROLIMUS 0.1% 30 GM OINTMENT 1 APPLIC TOPICAL (08:06)
[2024-05-22] MEDS: INSULIN GLARGINE (*BKC) 100 UNITS/ML 15 UNITS SUB-Q (08:14)
[2024-05-22] MEDS: POTASSIUM BICARBONATE 25 MEQ TABEF 50 MEQ PO (09:19)
--- NOTE | 2024-05-22 09:38 | WPDINTPN ---
Progress Note: A&P Assessment and Plan (1) Sepsis: Qualifiers: Sepsis acute organ dysfunction status: unspecified Sepsis type: sepsis due to unspecified organism Qualified Code(s): A41.9 - Sepsis, unspecified organism Code(s): A41.9 - Sepsis, unspecified organism Status: Acute Assessment and Plan: Patient has sepsis secondary to postop wound infection of the foot, osteomyelitis, staph bacteremia, Staph UTI, staph meningitis Foot x-ray on presentation 1. Irregularity of the distal ends of the bones status post transmetatarsal amputation without change, which may be the normal postoperative appearance. No specific evidence of osteomyelitis. Foot CT 05/19 on presentation IMPRESSION: 1. Osteomyelitis involving first metatarsal. 2. Fractures of the plantar aspects of the ends of the stumps of the third and fourth metatarsals, which is a change from 04/23/2024. 3. Soft tissue gas in the distal forefoot. CT neck/chest/abdomen on presentation No acute abnormality evident. 8 mm nonobstructing left renal stone. Mild bibasilar atelectatic change. Dilated common bile duct is probably related to prior cholecystectomy. Patient was seen by Orthopedics and recommended local wound care at that time time and no surgical intervention. Wound care consulted and local wound care was initiated 05/18 Blood and urine cultures grew Staph aureus 05/21 repeat blood cultures ordered and pending at this time Patient was treated with IV fluids and Lactic acid normalized. Patient is Off of IV fluids TT Echocardiogram as below and negative for any vegetations Patient continued to be febrile and has WBC elevated Patient states the patient was complaining of neck pain prior to getting sick. Exam and history has been limited and unreliable due to encephalopathy. When asked directly with the patient she states she has pain all over her body. Repeat imaging was performed on 05/21 05/21 CT C-spine shows degenerative joint disease 05/[address] chest abdomen pelvis showed IMPRESSION: 1. Small pleural effusions. 2. Small pericardial effusion. 3. Moderate intrahepatic and extrahepatic biliary duct dilatation status post cholecystectomy. Consider MRCP. There is also possibility of meningitis or spinal cord involvement from staph bacteremia. 05/21 Patient underwent LP. CSF showed for RBC 98 WBC with 88% neutrophils, glucose less than 30 and CSF protein 246 highly suggestive of bacterial meningitis. G stain is negative but cultures are pending Patient was planned to for a GILBERTO but will hold at this time due to patient's borderline status and a it will not make any immediate change in the management. TTE was negative for any significant valve abnormalities Patient would also need MRI of the spine to rule out any abscess diskitis or collection At this point patient has overwhelming infection with bacteremia involving multiple organs and will benefit from a Infectious Disease consultation which we do not have at [facility]. I have discussed possibility of transferring patient to a tertiary facility with patient's who is going to discuss with his family before making any further decisions. Have discussed pros and cons of transfer with patient's Continue cefepime at meningitis dose and change Vancomycin to Zyvox (2) DKA (diabetic ketoacidosis): Code(s): E11.10 - Type 2 diabetes mellitus with ketoacidosis without coma Status: Acute Assessment and Plan: DKA secondary to noncompliance and sepsis Patient was treated with IV fluids and IV insulin infusion. Patient has been transitioned to subcutaneous insulin Patient now on tube feeds (3) Postoperative wound infection: Code(s): T81.49XA - Infection following a procedure, other surgical site, initial encounter Status: Deleted Assessment and Plan: See above (4) UTI (urinary tract infection): Qualifiers: Hematuria presence: without hematuria Urinary tract infection type: acute cystitis Qualified Code(s): N30.00 - Acute cystitis without hematuria Code(s): N39.0 - Urinary tract infection, site not specified Status: Acute Assessment and Plan: See above (5) Pain: Code(s): R52 - Pain, unspecified Status: Acute Assessment and Plan: P.r.n. analgesic ordered (6) Encephalopathy: Code(s): G93.40 - Encephalopathy, unspecified Status: Acute Assessment and Plan: Nonfocal exam. Likely toxic metabolic encephalopathy and meningitis Head CT IMPRESSION: 1. 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 2. Mild nonspecific cerebral white matter disease, which likely represents chronic small vessel ischemic disease. (7) Hypothyroid: Code(s): E03.9 - Hypothyroidism, unspecified Status: Acute Assessment and Plan: Continue levothyroxine (8) Electrolyte abnormality: Code(s): E87.8 - Other disorders of electrolyte and fluid balance, not elsewhere classified Status: Acute Assessment and Plan: Replace low potassium and magnesium (9) Bacteremia: Code(s): R78.81 - Bacteremia Status: Acute Assessment and Plan: See above (10) Obstructive sleep apnea: Code(s): G47.33 - Obstructive sleep apnea (adult) (pediatric) Status: Acute Assessment and Plan: CPAP ordered (11) Hypoxia: Code(s): R09.02 - Hypoxemia Status: Acute Assessment and Plan: DC IV fluids Currently on room air (12) Meningitis: Code(s): G03.9 - Meningitis, unspecified Status: Acute Assessment and Plan: See above Plan DVT prophylaxis -Lovenox Nutrition -tube feeds Code Status -modified code with DNI Case discussed with orthopedics. Dr. Hale recommends local wound care at this time 05/20 I had long discussion with patient's regarding patient's code status. He believes the patient would not want to go on a ventilator. He has himself receive CPR in the past and did okay and believes the patient would do fine with resuscitation in case of cardiac arrest. I tried to explain him multiple times that without mechanical ventilation CPR would not be successful in the event of cardiac arrest but he was adamant and wanted to maintain the modified code status of patient be okay with receiving CPR in the event of cardiac arrest but in no case being put on a ventilator would be against her wishes. Code status has been modified in the chart as per patient's 's request 05/21 spoke to and updated patient's at bedside again today. I answered all his questions. Explained him patient's current status and current treatment plan. Explaining the patient is critically ill with high risk of mortality. I also discussed option of palliative care. I spoke to patient's juany Zackary and updated him with the situation. I requested him to help his dad through this process. Patient has her own son has not been in contact with the patient and family for years. They have been trying to get hold of the face spoke and last known phone numbers but has no success till now.. Patient's himself appears to be overwhelmed with the situation and during discussion keeps on repeating the same things again and again. 05/22 I again spoke to patient's today and discussed results of CSF findings. I updated him that we are going to hold on GILBERTO at this time. I discussed transfer to a facility where Infectious Disease specialist is available due to patient's overwhelming sepsis and bacteremia with multiple system involvement. I also again discussed option of palliative care. He is going to discuss with other family members let me know. Dr. Lopez also had detailed discussion with with him. He seems to be paralyzed in taking decisions and is looking for guidance from the patient herself who at this point is critically ill encephalopathy ache and cannot answer his questions. Total Critical Care Time - 35 minutes Due to a high probability of clinically significant, life threatening deterioration, the patient required my highest level of preparedness to intervene emergently and I personally spent this critical care time directly and personally managing the patient. This critical care time included obtaining a history; examining the patient; pulse oximetry; ordering and review of studies; arranging urgent treatment with development of a management plan; evaluation of patient's response to treatment; frequent reassessment; and discussions with other providers. It was exclusive of separately billable procedures and treating other patients and teaching time. Please see Assessment and Plan section and the rest of the note for further information on patient assessment and treatment Subjective Date/time seen: 05/22/24 Overnight events reviewed. febrile overnight Wore her CPAP only for an hour overnight due to pain and agitation. Required morphine p.r.n. for pain On room air this morning with NG tube in place an and p.o. She is drowsy but arousable and follows commands. Limited history review of system obtainable and patient complains of pain all over her body. Unable to obtain review of systems. She had LP yesterday unknown Urine output is decent Tube feeds on hold Other Vitals acceptable Review of Systems Review of Systems: ROS unobtainable: Yes unobtainable due to medical condition and unobtainable due to mental status Exam Narrative: General: Old frail female who is drowsy but not in distress Lungs/Chest: Trachea central Clear BS B/L, No crackles or wheezing. Cardiac: Tachycardic, regular Normal S1 S2. No murmurs Circulation: Bilateral med flu amputations Abdomen: Normal bowel sounds.. Soft. NT. ND. 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 : Vang in place Neurologic: Drowsy but arousable Moves all 4 extremities to commands but very weak PERRL, AO x0 to place Skin: No Rash Objective Data Vital Signs Vital Signs: Vital Signs - 24 hr 05/21/24:00 05/21/24 11:56 05/21/24 11:57 Temperature 38.0 C H Pulse Rate 91 Respiratory Rate 21 H Blood Pressure 128/83 Pulse Oximetry 99 98 98 Oxygen Delivery High Flow Nasal Cannula Oxygen Flow Rate 5 05/21/24 11:58 05/21/24 14:21 05/21/24 10:00 Temperature 38.3 C H Pulse Rate 91 Respiratory Rate Blood Pressure Pulse Oximetry 96 Oxygen Delivery High Flow Nasal Cannula Oxygen Flow Rate 4 05/21/24 12:00 05/21/24 12:00 05/21/24 14:00 Temperature 38.3 C H 37.9 C H Pulse Rate 108 H 113 H 102 H Respiratory Rate 24 H 22 H Blood Pressure 145/79 H 132/78 Pulse Oximetry 98 96 Oxygen Delivery Oxygen Flow Rate 05/21/24 14:00 05/21/24 12:00 05/21/24 17:02 Temperature Pulse Rate 102 H 109 H Respiratory Rate 15 Blood Pressure 120/82 Pulse Oximetry 96 98 Oxygen Delivery High Flow Nasal Cannula Oxygen Flow Rate 4 05/21/24 17:20 05/21/24 18:00 05/21/24 16:00 Temperature 37.7 C H Pulse Rate 110 H 106 H 103 H Respiratory Rate 20 17 Blood Pressure 142/83 H 160/86 H Pulse Oximetry 99 97 Oxygen Delivery Oxygen Flow Rate 05/21/24 18:00 05/21/24 16:00 05/21/24 20:41 Temperature Pulse Rate 106 H Respiratory Rate Blood Pressure Pulse Oximetry 97 98 Oxygen Delivery High Flow Nasal Cannula High Flow Nasal Cannula Oxygen Flow Rate 4 4 05/21/24 20:07 05/21/24 20:00 05/21/24 20:00 Temperature 37.8 C H 37.7 C H Pulse Rate 117 H Respiratory Rate 18 Blood Pressure 173/89 H Pulse Oximetry 97 97 Oxygen Delivery High Flow Nasal Cannula Oxygen Flow Rate 4 05/21/24 20:00 05/21/24 23:10 05/21/24 22:00 Temperature 38.4 C H 38.2 C H Pulse Rate 111 H 119 H Respiratory Rate 24 H Blood Pressure 165/84 H Pulse Oximetry 97 Oxygen Delivery Oxygen Flow Rate 05/21/24 22:00 05/21/24 22:35 05/22/24 00:00 Temperature 38.2 C H Pulse Rate 119 H 117 H Respiratory Rate 29 H Blood Pressure 144/77 H Pulse Oximetry 98 99 Oxygen Delivery Oxygen Flow Rate 05/22/24 00:00 05/22/24 00:10 05/22/24 00:00 Temperature 38.3 C H Pulse Rate 118 H Respiratory Rate Blood Pressure Pulse Oximetry 99 Oxygen Delivery High Flow Nasal Cannula Oxygen Flow Rate 4 05/22/24 02:00 05/22/24 02:00 05/22/24 03:00 Temperature 37.8 C H 37.8 C H Pulse Rate 109 H 109 H Respiratory Rate 20 Blood Pressure 144/75 H Pulse Oximetry 98 Oxygen Delivery Oxygen Flow Rate 05/22/24 04:00 05/22/24 05:08 05/22/24 05:29 Temperature 37.9 C H Pulse Rate 101 H 108 H Respiratory Rate 24 H Blood Pressure Pulse Oximetry Oxygen Delivery Oxygen Flow Rate 05/22/24 04:00 05/22/24 04:00 05/22/24 04:00 Temperature 37.9 C H Pulse Rate 113 H 107 H Respiratory Rate 24 H Blood Pressure 145/74 H Pulse Oximetry 99 98 Oxygen Delivery High Flow Nasal Cannula Oxygen Flow Rate 4 05/22/24 06:00 05/22/24 06:00 05/22/24 07:35 Temperature 37.0 C 37.7 C H Pulse Rate 105 H 105 H Respiratory Rate 21 H Blood Pressure 145/71 H Pulse Oximetry 98 Oxygen Delivery Oxygen Flow Rate 05/22/24 08:16 05/22/24 09:00 Temperature 37.7 C H Pulse Rate Respiratory Rate Blood Pressure Pulse Oximetry 93 Oxygen Delivery Room Air Oxygen Flow Rate Intake/Output Intake/Output: Intake & Output 05/19/24 05/20/24 05/21/24 05/22/24 23:59 23:59 23:59 23:59 Intake Total 3502.3 3370.6 1732.0 124 Output Total 2400 2500 1600 1400 Balance 1102.3 870.6 132.0 -1276 Meds/Results Medications: Active Medications Generic Name Dose Route Start Last Admin Trade Name Freq PRN Reason Stop Dose Admin Acetaminophen 650 mg 05/20/24 20:01 05/22/24 07:35 Acetaminophen Elixir 325 Mg/10.15 Ml Udc FEED TUBE 650 mg Q4H PRN Administration Mild Pain (1-3) or Fever Dextrose 12.5 gm 10/07/24 14:38 Dextrose 50% 25 Gm/50 Ml Syringe IV PUSH PRN PRN Hypoglycemia Protocol Enoxaparin Sodium 40 mg 05/19/24 09:10 05/21/24 08:53 Enoxaparin 40 Mg/0.4 Ml Syringe SUB-Q 40 mg DAILY JESSICA Administration Famotidine 20 mg 05/18/24 21:00 05/22/24 07:53 Famotidine 20 Mg/2 Ml Vial IV PUSH 20 mg Q12HR JESSICA Administration Glucagon 1 mg 05/18/24 14:38 Glucagon For Inj 1 Mg Vial IM PRN PRN Hypoglycemia Protocol Glucose 15 gm 05/18/24 14:38 Glucose Oral Gel 15 Gm Of Glucse In 37.5 Gm Tube PO PRN PRN Hypoglycemia Protocol Dextrose 1,000 mls @ 100 mls/hr 05/18/24 14:38 Dextrose 5% 1,000 Ml IVPB PRN PRN Hypoglycemia Protocol Vancomycin HCl 1,000 mg in 250 mls @ 250 mls/hr 05/20/24 21:00 05/22/24 08:05 Vancomycin 1,000 Mg/Ns 250 Ml IVPB 250 mls/hr Q12H JESSICA Administration Cefepime HCl 2 gm in 50 mls @ 100 mls/hr 05/21/24 12:00 05/22/24 07:53 Maxipime 2 Gm/Ns 50 Ml IVPB 100 mls/hr Q12HR JESSICA Administration Insulin Aspart 3 - 6 units 05/21/24 07:45 05/22/24 07:45 Insulin Aspart (*Bkc) 100 Units/Ml SUB-Q Not Given Q4H [facility] Protocol Insulin Glargine 12 units 05/22/24 09:00 Insulin Glargine (*Bkc) 100 Units/Ml SUB-Q QAM [facility] Levothyroxine Sodium 50 mcg 05/18/24 19:55 05/22/24 06:31 Levothyroxine Sodium Inj 100 Mcg/5 Ml Vial IV PUSH 50 mcg DAILY@0630 [facility] Administration Morphine Sulfate 4 mg 05/22/24 01:04 05/22/24 07:36 Morphine Sulfate (*Crx) 4 Mg/Ml Inj IV PUSH 4 mg Q3H PRN Administration Pain Rated 7-10 Ondansetron HCl 4 mg 05/18/24 15:55 05/22/24 07:35 Ondansetron Inj 4 Mg/2 Ml Vial IV PUSH 4 mg Q4H PRN Administration Nausea Perflutren Lipid Microsphere 0 ml 05/20/24 07:55 Perflutren Lipid Microspheres 1.5 Ml Vial Diluted To 10 Ml Total Volume IV PUSH 05/23/24 07:57 ONCE PRN adequate visualization Protocol Potassium Chloride 40 meq 05/22/24 13:00 Potassium Chloride 20 Meq Packet (For Liquid) PO 05/22/24 13:01 ONCE ONE Sodium Bicarbonate 650 mg 05/21/24 09:00 05/22/24 07:54 Sodium Bicarbonate Tab 650 Mg Tablet FEED TUBE 650 mg BID JESSICA Administration Sodium Chloride 6 ml 05/22/24 05:00 05/22/24 05:07 Sodium Chlor 3% 15 Ml Neb (Respiratory Therapy) INHALATION 05/24/24 05:01 6 ml DAILY@0500 JESSICA Administration Sodium Hypochlorite 1 applic 05/19/24 09:00 05/22/24 08:06 Sod Hypochlorite 1/4 Strength 473 Ml TOPICAL 1 applic Q12HR JESSICA Administration Tacrolimus 1 applic 05/19/24 09:00 05/22/24 08:06 Tacrolimus 0.1% 30 Gm Ointment TOPICAL 1 applic DAILY JESSICA Administration Radiology Results: ITS Impressions Foot X-Ray 05/18/24 14:50 IMPRESSION: 1. Irregularity of the distal ends of the bones status post transmetatarsal amputation without change, which may be the normal postoperative appearance. No specific evidence of osteomyelitis. Head CT 05/19/24 10:52 IMPRESSION: 1. 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 2. Mild nonspecific cerebral white matter disease, which likely represents chronic small vessel ischemic disease. Neck/Chest/Abdomen/Pelvis CT 05/19/24 11:56 Impression: No acute abnormality evident. 8 mm nonobstructing left renal stone. Mild bibasilar atelectatic change. Dilated common bile duct is probably related to prior cholecystectomy. Foot CT 05/19/24 12:31 IMPRESSION: 1. Osteomyelitis involving first metatarsal. 2. Fractures of the plantar aspects of the ends of the stumps of the third and fourth metatarsals, which is a change from 04/23/2024. 3. Soft tissue gas in the distal forefoot. Abdomen X-Ray 05/20/24 14:10 IMPRESSION: 1. Nasogastric tube tip in the stomach. Cervical Spine CT 05/21/24 13:01 IMPRESSION: No acute osseous abnormality cervical spine. Multilevel degenerative disc disease, uncovertebral joint osteoarthritic changes, intervertebral foraminal narrowing and facet joint Chest/Abdomen/Pelvis CT 05/21/24 13:03 IMPRESSION: 1. Small pleural effusions. 2. Small pericardial effusion. 3. Moderate intrahepatic and extrahepatic biliary duct dilatation status post cholecystectomy. Consider MRCP. Lumbar Puncture Fluoroscopy 05/22/24 08:32 IMPRESSION: 1. Successful fluoro-guided lumbar puncture. 2. Abnormal pale yellow color of the fluid. Labs Labs: Laboratory Results - last 24 hr 05/20/24 05/21/24 05/21/24 17:07 10:18 11:53 WBC RBC Hgb Hct MCV MCH MCHC RDW Plt Count MPV Immature Gran % (Auto) Neut % (Auto) Lymph % (Auto) [place] % (Auto) Eos % (Auto) Baso % (Auto) Lymph # (Auto) [place] # (Auto) Eos # (Auto) Baso # (Auto) Abs Immat Gran (auto) Absolute Neuts (auto) Absolute Nucleated RBC Total Counted Neutrophils % (Manual) Band Neutrophils % Lymphocytes % (Manual) Monocytes % (Manual) Eosinophils % (Manual) Nucleated RBC % Abs Neuts (Manual) Abs Lymphs (Manual) Abs Monocytes (Manual) Absolute Eos (Manual) Nucleated RBCs Platelet Estimate Poikilocytosis Anisocytosis Microcytosis Schistocytes PT INR APTT Sodium Potassium Chloride Carbon Dioxide Anion Gap BUN Creatinine Estim Creat Clear Calc Estimated GFR Glucose POC Capillary Glucose 95 115 H Calcium Magnesium Total Bilirubin AST ALT Alkaline Phosphatase Total Protein Albumin CSF Source Csf CSF Appearance Clear CSF Color Yellow A CSF RBC 4 H CSF Tot Nucleated Cells 98 H CSF Neutrophils 88 H CSF Lymphocytes 7 L CSF Monocytes 5 L CSF Glucose < 30 L CSF Total Protein 246 H Vancomycin Trough 05/21/24 05/21/24 05/21/24 15:19 15:28 20:53 WBC RBC Hgb Hct MCV MCH MCHC RDW Plt Count MPV Immature Gran % (Auto) Neut % (Auto) Lymph % (Auto) [place] % (Auto) Eos % (Auto) Baso % (Auto) Lymph # (Auto) [place] # (Auto) Eos # (Auto) Baso # (Auto) Abs Immat Gran (auto) Absolute Neuts (auto) Absolute Nucleated RBC Total Counted Neutrophils % (Manual) Band Neutrophils % Lymphocytes % (Manual) Monocytes % (Manual) Eosinophils % (Manual) Nucleated RBC % Abs Neuts (Manual) Abs Lymphs (Manual) Abs Monocytes (Manual) Absolute Eos (Manual) Nucleated RBCs Platelet Estimate Poikilocytosis Anisocytosis Microcytosis Schistocytes PT 15.1 H INR 1.1 APTT 34.1 Sodium Potassium Chloride Carbon Dioxide Anion Gap BUN Creatinine Estim Creat Clear Calc Estimated GFR Glucose POC Capillary Glucose 125 H Calcium Magnesium Total Bilirubin AST ALT Alkaline Phosphatase Total Protein Albumin CSF Source CSF Appearance CSF Color CSF RBC CSF Tot Nucleated Cells CSF Neutrophils CSF Lymphocytes CSF Monocytes CSF Glucose CSF Total Protein Vancomycin Trough 15.9 05/21/24 05/21/24 05/22/24 21:04 23:52 04:26 WBC RBC Hgb Hct MCV MCH MCHC RDW Plt Count MPV Immature Gran % (Auto) Neut % (Auto) Lymph % (Auto) [place] % (Auto) Eos % (Auto) Baso % (Auto) Lymph # (Auto) [place] # (Auto) Eos # (Auto) Baso # (Auto) Abs Immat Gran (auto) Absolute Neuts (auto) Absolute Nucleated RBC Total Counted Neutrophils % (Manual) Band Neutrophils % Lymphocytes % (Manual) Monocytes % (Manual) Eosinophils % (Manual) Nucleated RBC % Abs Neuts (Manual) Abs Lymphs (Manual) Abs Monocytes (Manual) Absolute Eos (Manual) Nucleated RBCs Platelet Estimate Poikilocytosis Anisocytosis Microcytosis Schistocytes PT INR APTT Sodium Potassium Chloride Carbon Dioxide Anion Gap BUN Creatinine Estim Creat Clear Calc Estimated GFR Glucose POC Capillary Glucose 105 161 H 139 H Calcium Magnesium Total Bilirubin AST ALT Alkaline Phosphatase Total Protein Albumin CSF Source CSF Appearance CSF Color CSF RBC CSF Tot Nucleated Cells CSF Neutrophils CSF Lymphocytes CSF Monocytes CSF Glucose CSF Total Protein Vancomycin Trough 05/22/24 05/22/24 05:25 07:44 WBC 25.1 H RBC 3.42 L Hgb 9.8 L Hct 30.7 L MCV 89.8 MCH 28.7 MCHC 31.9 L RDW 15.1 H Plt Count 258 MPV 12.3 H Immature Gran % (Auto) Not Reportable Neut % (Auto) Not Reportable Lymph % (Auto) Not Reportable [place] % (Auto) Not Reportable Eos % (Auto) Not Reportable Baso % (Auto) Not Reportable Lymph # (Auto) Not Reportable [place] # (Auto) Not Reportable Eos # (Auto) Not Reportable Baso # (Auto) Not Reportable Abs Immat Gran (auto) Not Reportable Absolute Neuts (auto) Not Reportable Absolute Nucleated RBC Not Reportable Total Counted 100 Neutrophils % (Manual) 86 H Band Neutrophils % 5 Lymphocytes % (Manual) 7.0 L Monocytes % (Manual) 1 L Eosinophils % (Manual) 1 Nucleated RBC % Not Reportable Abs Neuts (Manual) 22.84 H Abs Lymphs (Manual) 1.75 Abs Monocytes (Manual) 0.25 Absolute Eos (Manual) 0.25 Nucleated RBCs 1 Platelet Estimate Adequate Poikilocytosis 1+ Anisocytosis 1+ Microcytosis 1+ Schistocytes Rare PT INR APTT Sodium 140 Potassium 3.4 Chloride 109 H Carbon Dioxide 16 L Anion Gap 15 H BUN 19 H Creatinine 0.70 Estim Creat Clear Calc 40 Estimated GFR > 60 Glucose 138 H POC Capillary Glucose 135 H Calcium 7.6 L Magnesium 1.8 Total Bilirubin 0.6 AST 70 H ALT 30 Alkaline Phosphatase 195 H Total Protein 7.0 Albumin 3.0 L CSF Source CSF Appearance CSF Color CSF RBC CSF Tot Nucleated Cells CSF Neutrophils CSF Lymphocytes CSF Monocytes CSF Glucose CSF Total Protein Vancomycin Trough Quality VTE Prophylaxis VTE prophylaxis: mechanical ordered and pharmacologic ordered
[2024-05-22] MEDS: INSULIN GLARGINE (*BKC) 100 UNITS/ML 12 UNITS SUB-Q (10:31)
[2024-05-22 10:35] LABS: Glucose Point of Care 188 mg/dl (65-105)
[2024-05-22] MEDS: LINEZOLID 600 MG/300 ML 600 MG/300 ML SOLN 300 MG IVPB (11:08)
--- NOTE | 2024-05-22 11:27 | P.PNCROSS_ITS ---
Event Note Event Note Event Note: After discussing with other family members and different physicians patient's meera garcia agreed for transfer. I discussed risks and benefits of transferring patient to tertiary facility for Infectious Disease consultation and he verbalized understanding and agreeable to proceed. I spoke to transfer line and [facility]. Patient has been accepted at [facility] and accepting physician is Dr. Torres. Patient will be transferred once bed is available. I have Updated patient's .
--- NOTE | 2024-05-22 11:47 | PM.PNORT ---
Progress Note: A&P Assessment and Plan (1) UTI (urinary tract infection): Qualifiers: Urinary tract infection type: acute cystitis Hematuria presence: without hematuria Qualified Code(s): N30.00 - Acute cystitis without hematuria Code(s): N39.0 - Urinary tract infection, site not specified Status: Acute Assessment and Plan: Urine cultures with Staph aureus. Blood cultures with Staph aureus. Patient sepsis secondary to urinary tract infection with bacteremia. Left foot without signs of infection. (2) Wound dehiscence, surgical: Qualifiers: Encounter type: subsequent encounter Qualified Code(s): T81.31XD - Disruption of external operation (surgical) wound, not elsewhere classified, subsequent encounter Code(s): T81.31XA - Disruption of external operation (surgical) wound, not elsewhere classified, initial encounter Status: Acute Assessment and Plan: Dressing changed this morning. Overall appearance of foot continues to improve with Dakin's dressing changes. No active drainage, no erythema, no swelling. Plan to continue with Dakin's dressing changes b.i.d. No surgical indication at this time. IV abx. Pressure relief heels (3) S/P transmetatarsal amputation of foot: Qualifiers: Laterality: left Qualified Code(s): Z89.432 - Acquired absence of left foot Code(s): Z89.439 - Acquired absence of unspecified foot Status: Acute Assessment and Plan: 4 weeks status post left TMA. Pathology immediately following left foot, transmetatarsal amputation reveal the following: Decubitus ulcers, great and 3rd toes Osteoporosis No evidence of acute osteomyelitis Viable tissue is noted at the surgical margin Postoperative course complicated by wound dehiscence in patient with uncontrolled diabetes, neuropathy, arterial disease. Continue with current care with offloading, pressure relief and dressing changes b.i.d. with Dakin's. Plans for transfer to tertiary care center due to sepsis. Subjective Subjective Date/Time Seen: 05/22/24 11:47 Post Op day: 29 days Principal diagnosis: LT TMA Interval history: Patient in ICU. On CPAP. Left foot dressing change. Review of Systems Review of Systems: ROS unobtainable: Yes unobtainable due to mental status Exam Const: General: in distress mild and ill appearing acutely; No comfortable HENMT: Head: normal to inspection, normocephalic and atraumatic Neck: Neck: supple and nontender Chest: Chest palpation & inspection: normal inspection of the chest Resp: Effort & Inspection: abnormal respiratory pattern ( CPAP in place.) Extrem: Right upper extremity: normal to inspection Left upper extremity: normal to inspection Right lower extremity: ankle Details: normal to inspection, abnormal ROM Details: with range as follows (ankle dorsiflexion -10 degrees, plantar flexion 40?, inversion 15?, eversion 15?) and other ( good stability all directions); no tenderness, no swelling and no ecchymosis and foot Details: abnormal to inspection ( Status post transmetatarsal amputation with good healing), vascular exam Details: abnormal capillary refill ( transmetatarsal amputation); dorsalis pedis pulse absent, posterior tibial pulse absent and capillary refill abnormal, tendon exam Details: active flexion abnormal and active extension abnormal, motor-sensory exam Details: light-touch abnormal ( foot) and other ( surgical incision well healed) Left lower extremity: ankle Details: normal to inspection and abnormal ROM Details: with range as follows (ankle dorsiflexion -10 degrees, plantar flexion 40?, inversion 15?, eversion 15?); no tenderness and no swelling and foot Details: normal capillary refill, abnormal to inspection ( status post transmetatarsal amputation), vascular exam Details: abnormal capillary refill (foot); dorsalis pedis pulse absent, posterior tivial pulse absent and capillary refill abnormal, tendon exam active flexion abnormal of the great toe and active extension abnormal of the great toe and motor-sensory exam light-touch abnormal ( foot); no tenderness and no crepitus Other: left foot transmetatarsal amputation with wound dehiscence across the distal medial and distal lateral aspects. Necrotic tissue present in the wound bed. No drainage. No surrounding erythema or swelling. No exposed bone or tendon. Objective Data Vital Signs Vital Signs: Vital Signs - 24 hr 05/21/24 11:56 05/21/24 11:57 05/21/24 11:58 Temperature 38.3 C H Pulse Rate Respiratory Rate Blood Pressure Pulse Oximetry 98 98 Oxygen Delivery High Flow Nasal Cannula Oxygen Flow Rate 5 05/21/24 14:21 05/21/24 12:00 05/21/24 12:00 Temperature 38.3 C H Pulse Rate 108 H 113 H Respiratory Rate 24 H Blood Pressure 145/79 H Pulse Oximetry 96 98 Oxygen Delivery High Flow Nasal Cannula Oxygen Flow Rate 4 05/21/24 14:00 05/21/24 14:00 05/21/24 12:00 Temperature 37.9 C H Pulse Rate 102 H 102 H Respiratory Rate 22 H Blood Pressure 132/78 Pulse Oximetry 96 96 Oxygen Delivery High Flow Nasal Cannula Oxygen Flow Rate 4 05/21/24 17:02 05/21/24 17:20 05/21/24 18:00 Temperature 37.7 C H Pulse Rate 109 H 110 H 106 H Respiratory Rate 15 20 17 Blood Pressure 120/82 142/83 H 160/86 H Pulse Oximetry 98 99 97 Oxygen Delivery Oxygen Flow Rate 05/21/24 16:00 05/21/24 18:00 05/21/24 16:00 Temperature Pulse Rate 103 H 106 H Respiratory Rate Blood Pressure Pulse Oximetry 97 Oxygen Delivery High Flow Nasal Cannula Oxygen Flow Rate 4 05/21/24 20:41 05/21/24 20:07 05/21/24 20:00 Temperature 37.8 C H 37.7 C H Pulse Rate 117 H Respiratory Rate 18 Blood Pressure 173/89 H Pulse Oximetry 98 97 Oxygen Delivery High Flow Nasal Cannula Oxygen Flow Rate 4 05/21/24 20:00 05/21/24 20:00 05/21/24 23:10 Temperature 38.4 C H Pulse Rate 111 H Respiratory Rate Blood Pressure Pulse Oximetry 97 Oxygen Delivery High Flow Nasal Cannula Oxygen Flow Rate 4 05/21/24 22:00 05/21/24 22:00 05/21/24 22:35 Temperature 38.2 C H Pulse Rate 119 H 119 H Respiratory Rate 24 H Blood Pressure 165/84 H Pulse Oximetry 97 98 Oxygen Delivery Oxygen Flow Rate 05/22/24 00:00 05/22/24 00:00 05/22/24 00:10 Temperature 38.2 C H 38.3 C H Pulse Rate 117 H Respiratory Rate 29 H Blood Pressure 144/77 H Pulse Oximetry 99 99 Oxygen Delivery High Flow Nasal Cannula Oxygen Flow Rate 4 05/22/24 00:00 05/22/24 02:00 05/22/24 02:00 Temperature 37.8 C H Pulse Rate 118 H 109 H 109 H Respiratory Rate 20 Blood Pressure 144/75 H Pulse Oximetry 98 Oxygen Delivery Oxygen Flow Rate 05/22/24 03:00 05/22/24 04:00 05/22/24 05:08 Temperature 37.8 C H 37.9 C H Pulse Rate 101 H Respiratory Rate 24 H Blood Pressure Pulse Oximetry Oxygen Delivery Oxygen Flow Rate 05/22/24 05:29 05/22/24 04:00 05/22/24 04:00 Temperature 37.9 C H Pulse Rate 108 H 113 H Respiratory Rate 24 H Blood Pressure 145/74 H Pulse Oximetry 99 98 Oxygen Delivery High Flow Nasal Cannula Oxygen Flow Rate 4 05/22/24 04:00 05/22/24 06:00 05/22/24 06:00 Temperature 37.0 C Pulse Rate 107 H 105 H 105 H Respiratory Rate 21 H Blood Pressure 145/71 H Pulse Oximetry 98 Oxygen Delivery Oxygen Flow Rate 05/22/24 07:35 05/22/24 08:16 05/22/24 09:00 Temperature 37.7 C H 37.7 C H Pulse Rate Respiratory Rate Blood Pressure Pulse Oximetry 93 Oxygen Delivery Room Air Oxygen Flow Rate 05/22/24 08:00 05/22/24 08:00 05/22/24 08:00 Temperature 37.7 C H Pulse Rate 107 H 107 H 107 H Respiratory Rate 26 H 26 H Blood Pressure 139/83 Pulse Oximetry 99 99 Oxygen Delivery Room Air Oxygen Flow Rate 05/22/24 10:00 05/22/24 10:00 Temperature 37.4 C Pulse Rate 104 H 104 H Respiratory Rate 23 H Blood Pressure 141/76 H Pulse Oximetry 98 Oxygen Delivery Oxygen Flow Rate Intake/Output Intake/Output: Intake & Output 05/19/24 05/20/24 05/21/24 05/22/24 23:59 23:59 23:59 23:59 Intake Total 3502.3 3370.6 1732.0 124 Output Total 2400 2500 1600 1400 Balance 1102.3 870.6 132.0 -1276 Meds/Results Medications: Active Medications Generic Name Dose Route Start Last Admin Trade Name Freq PRN Reason Stop Dose Admin Acetaminophen 650 mg 05/20/24 20:01 05/22/24 07:35 Acetaminophen Elixir 325 Mg/10.15 Ml Udc FEED TUBE 650 mg Q4H PRN Administration Mild Pain (1-3) or Fever Dextrose 12.5 gm 05/18/24 14:38 Dextrose 50% 25 Gm/50 Ml Syringe IV PUSH PRN PRN Hypoglycemia Protocol Enoxaparin Sodium 40 mg 10/08/24 09:10 05/21/24 08:53 Enoxaparin 40 Mg/0.4 Ml Syringe SUB-Q 40 mg DAILY JESSICA Administration Famotidine 20 mg 05/18/24 21:00 05/22/24 07:53 Famotidine 20 Mg/2 Ml Vial IV PUSH 20 mg Q12HR JESSICA Administration Glucagon 1 mg 05/18/24 14:38 Glucagon For Inj 1 Mg Vial IM PRN PRN Hypoglycemia Protocol Glucose 15 gm 05/18/24 14:38 Glucose Oral Gel 15 Gm Of Glucse In 37.5 Gm Tube PO PRN PRN Hypoglycemia Protocol Dextrose 1,000 mls @ 100 mls/hr 05/18/24 14:38 Dextrose 5% 1,000 Ml IVPB PRN PRN Hypoglycemia Protocol Cefepime HCl 2 gm in 50 mls @ 100 mls/hr 05/21/24 12:00 05/22/24 07:53 Maxipime 2 Gm/Ns 50 Ml IVPB 100 mls/hr Q12HR JESSICA Administration Linezolid 600 mg in 300 mls @ 300 mls/hr 05/22/24 10:45 05/22/24 11:08 Zyvox IVPB 300 mls/hr Q12HR JESSICA Administration Insulin Aspart 3 - 6 units 05/21/24 07:45 05/22/24 10:46 Insulin Aspart (*Bkc) 100 Units/Ml SUB-Q Not Given Q4H [facility] Protocol Insulin Glargine 12 units 05/22/24 09:00 05/22/24 10:31 Insulin Glargine (*Bkc) 100 Units/Ml SUB-Q 12 units QAM JESSICA Administration Levothyroxine Sodium 50 mcg 05/18/24 19:55 05/22/24 06:31 Levothyroxine Sodium Inj 100 Mcg/5 Ml Vial IV PUSH 50 mcg DAILY@0630 JESSICA Administration Morphine Sulfate 4 mg 05/22/24 01:04 05/22/24 11:10 Morphine Sulfate (*Crx) 4 Mg/Ml Inj IV PUSH 4 mg Q3H PRN Administration Pain Rated 7-10 Ondansetron HCl 4 mg 05/18/24 15:55 05/22/24 07:35 Ondansetron Inj 4 Mg/2 Ml Vial IV PUSH 4 mg Q4H PRN Administration Nausea Perflutren Lipid Microsphere 0 ml 05/20/24 07:55 Perflutren Lipid Microspheres 1.5 Ml Vial Diluted To 10 Ml Total Volume IV PUSH 05/23/24 07:57 ONCE PRN adequate visualization Protocol Potassium Chloride 40 meq 05/22/24 13:00 Potassium Chloride 20 Meq Packet (For Liquid) PO 05/22/24 13:01 ONCE ONE Sodium Bicarbonate 650 mg 05/21/24 09:00 05/22/24 07:54 Sodium Bicarbonate Tab 650 Mg Tablet FEED TUBE 650 mg BID JESSICA Administration Sodium Chloride 6 ml 05/22/24 05:00 05/22/24 05:07 Sodium Chlor 3% 15 Ml Neb (Respiratory Therapy) INHALATION 05/24/24 05:01 6 ml DAILY@0500 JESSICA Administration Sodium Hypochlorite 1 applic 05/19/24 09:00 05/22/24 08:06 Sod Hypochlorite 1/4 Strength 473 Ml TOPICAL 1 applic Q12HR JESSICA Administration Tacrolimus 1 applic 05/19/24 09:00 05/22/24 08:06 Tacrolimus 0.1% 30 Gm Ointment TOPICAL 1 applic DAILY JESSICA Administration Radiology Results: ITS Impressions Foot X-Ray 05/18/24 14:50 IMPRESSION: 1. Irregularity of the distal ends of the bones status post transmetatarsal amputation without change, which may be the normal postoperative appearance. No specific evidence of osteomyelitis. Head CT 05/19/24 10:52 IMPRESSION: 1. 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 2. Mild nonspecific cerebral white matter disease, which likely represents chronic small vessel ischemic disease. Neck/Chest/Abdomen/Pelvis CT 05/19/24 11:56 Impression: No acute abnormality evident. 8 mm nonobstructing left renal stone. Mild bibasilar atelectatic change. Dilated common bile duct is probably related to prior cholecystectomy. Foot CT 05/19/24 12:31 IMPRESSION: 1. Osteomyelitis involving first metatarsal. 2. Fractures of the plantar aspects of the ends of the stumps of the third and fourth metatarsals, which is a change from 04/23/2024. 3. Soft tissue gas in the distal forefoot. Cervical Spine CT 05/21/24 13:01 IMPRESSION: No acute osseous abnormality cervical spine. Multilevel degenerative disc disease, uncovertebral joint osteoarthritic changes, intervertebral foraminal narrowing and facet joint Chest/Abdomen/Pelvis CT 05/21/24 13:03 IMPRESSION: 1. Small pleural effusions. 2. Small pericardial effusion. 3. Moderate intrahepatic and extrahepatic biliary duct dilatation status post cholecystectomy. Consider MRCP. Lumbar Puncture Fluoroscopy 05/22/24 08:32 IMPRESSION: 1. Successful fluoro-guided lumbar puncture. 2. Abnormal pale yellow color of the fluid. Abdomen X-Ray 05/22/24 11:01 IMPRESSION: 1. Nasogastric tube tip in the stomach. Labs Labs: Laboratory Results - last 24 hr 05/20/24 05/21/24 05/21/24 17:07 11:53 15:19 WBC RBC Hgb Hct MCV MCH MCHC RDW Plt Count MPV Immature Gran % (Auto) Neut % (Auto) Lymph % (Auto) [place] % (Auto) Eos % (Auto) Baso % (Auto) Lymph # (Auto) [place] # (Auto) Eos # (Auto) Baso # (Auto) Abs Immat Gran (auto) Absolute Neuts (auto) Absolute Nucleated RBC Total Counted Neutrophils % (Manual) Band Neutrophils % Lymphocytes % (Manual) Monocytes % (Manual) Eosinophils % (Manual) Nucleated RBC % Abs Neuts (Manual) Abs Lymphs (Manual) Abs Monocytes (Manual) Absolute Eos (Manual) Nucleated RBCs Platelet Estimate Poikilocytosis Anisocytosis Microcytosis Schistocytes PT INR APTT Sodium Potassium Chloride Carbon Dioxide Anion Gap BUN Creatinine Estim Creat Clear Calc Estimated GFR Glucose POC Capillary Glucose 115 H 125 H Calcium Magnesium Total Bilirubin AST ALT Alkaline Phosphatase Total Protein Albumin CSF Source Csf CSF Appearance Clear CSF Color Yellow A CSF RBC 4 H CSF Tot Nucleated Cells 98 H CSF Neutrophils 88 H CSF Lymphocytes 7 L CSF Monocytes 5 L CSF Glucose < 30 L CSF Total Protein 246 H Vancomycin Trough 05/21/24 05/21/24 05/21/24 15:28 20:53 21:04 WBC RBC Hgb Hct MCV MCH MCHC RDW Plt Count MPV Immature Gran % (Auto) Neut % (Auto) Lymph % (Auto) [place] % (Auto) Eos % (Auto) Baso % (Auto) Lymph # (Auto) [place] # (Auto) Eos # (Auto) Baso # (Auto) Abs Immat Gran (auto) Absolute Neuts (auto) Absolute Nucleated RBC Total Counted Neutrophils % (Manual) Band Neutrophils % Lymphocytes % (Manual) Monocytes % (Manual) Eosinophils % (Manual) Nucleated RBC % Abs Neuts (Manual) Abs Lymphs (Manual) Abs Monocytes (Manual) Absolute Eos (Manual) Nucleated RBCs Platelet Estimate Poikilocytosis Anisocytosis Microcytosis Schistocytes PT 15.1 H INR 1.1 APTT 34.1 Sodium Potassium Chloride Carbon Dioxide Anion Gap BUN Creatinine Estim Creat Clear Calc Estimated GFR Glucose POC Capillary Glucose 105 Calcium Magnesium Total Bilirubin AST ALT Alkaline Phosphatase Total Protein Albumin CSF Source CSF Appearance CSF Color CSF RBC CSF Tot Nucleated Cells CSF Neutrophils CSF Lymphocytes CSF Monocytes CSF Glucose CSF Total Protein Vancomycin Trough 15.9 05/21/24 05/22/24 05/22/24 23:52 04:26 05:25 WBC 25.1 H RBC 3.42 L Hgb 9.8 L Hct 30.7 L MCV 89.8 MCH 28.7 MCHC 31.9 L RDW 15.1 H Plt Count 258 MPV 12.3 H Immature Gran % (Auto) Not Reportable Neut % (Auto) Not Reportable Lymph % (Auto) Not Reportable Newberry % (Auto) Not Reportable Eos % (Auto) Not Reportable Baso % (Auto) Not Reportable Lymph # (Auto) Not Reportable Newberry # (Auto) Not Reportable Eos # (Auto) Not Reportable Baso # (Auto) Not Reportable Abs Immat Gran (auto) Not Reportable Absolute Neuts (auto) Not Reportable Absolute Nucleated RBC Not Reportable Total Counted 100 Neutrophils % (Manual) 86 H Band Neutrophils % 5 Lymphocytes % (Manual) 7.0 L Monocytes % (Manual) 1 L Eosinophils % (Manual) 1 Nucleated RBC % Not Reportable Abs Neuts (Manual) 22.84 H Abs Lymphs (Manual) 1.75 Abs Monocytes (Manual) 0.25 Absolute Eos (Manual) 0.25 Nucleated RBCs 1 Platelet Estimate Adequate Poikilocytosis 1+ Anisocytosis 1+ Microcytosis 1+ Schistocytes Rare PT INR APTT Sodium 140 Potassium 3.4 Chloride 109 H Carbon Dioxide 16 L Anion Gap 15 H BUN 19 H Creatinine 0.70 Estim Creat Clear Calc 40 Estimated GFR > 60 Glucose 138 H POC Capillary Glucose 161 H 139 H Calcium 7.6 L Magnesium 1.8 Total Bilirubin 0.6 AST 70 H ALT 30 Alkaline Phosphatase 195 H Total Protein 7.0 Albumin 3.0 L CSF Source CSF Appearance CSF Color CSF RBC CSF Tot Nucleated Cells CSF Neutrophils CSF Lymphocytes CSF Monocytes CSF Glucose CSF Total Protein Vancomycin Trough 05/22/24 05/22/24 07:44 10:30 WBC RBC Hgb Hct MCV MCH MCHC RDW Plt Count MPV Immature Gran % (Auto) Neut % (Auto) Lymph % (Auto) [place] % (Auto) Eos % (Auto) Baso % (Auto) Lymph # (Auto) [place] # (Auto) Eos # (Auto) Baso # (Auto) Abs Immat Gran (auto) Absolute Neuts (auto) Absolute Nucleated RBC Total Counted Neutrophils % (Manual) Band Neutrophils % Lymphocytes % (Manual) Monocytes % (Manual) Eosinophils % (Manual) Nucleated RBC % Abs Neuts (Manual) Abs Lymphs (Manual) Abs Monocytes (Manual) Absolute Eos (Manual) Nucleated RBCs Platelet Estimate Poikilocytosis Anisocytosis Microcytosis Schistocytes PT INR APTT Sodium Potassium Chloride Carbon Dioxide Anion Gap BUN Creatinine Estim Creat Clear Calc Estimated GFR Glucose POC Capillary Glucose 135 H 188 H Calcium Magnesium Total Bilirubin AST ALT Alkaline Phosphatase Total Protein Albumin CSF Source CSF Appearance CSF Color CSF RBC CSF Tot Nucleated Cells CSF Neutrophils CSF Lymphocytes CSF Monocytes CSF Glucose CSF Total Protein Vancomycin Trough
--- NOTE | 2024-05-22 11:55 | PCNFU ---
Nutrition Follow-Up Complete: Inadequate Oral Intake as related to DKA as evidenced by poor po intake reported and confusion. goal :Meet estimated nutritional needs. Patient is progressing towards goal. We will continue current goal. Pt current nutrition is Glucerna 1.2 at 30 ml/hr. Nutrition recommendation: 50 ml/hr Last recorded weight is 54.7 kg, up from 54.1 kg on admit. Bowel Motility:No BM reported since admit. Labs Reviewed: Glu 138, Bun 19, Alb 3.0 Meds Noted:Lovenox, Vancomycin Skin: left mid foot amp. Additional Notes: GILBERTO will not be performed today, tube feedings have been restarted of Glucerna 1.2 at 30 ml/hr. Recommend tube feedings to goal rate of 50 ml/hr. Total nutrition at goal rate: 1320 kcal/66 gm protein/886 ml water. Meeting 98% kcal needs at 25 kcal/kg and 100% protein needs at 1.0-1.2 gm/kg. Flush 30 ml q 4 hours. Agree with diet orders. Will monitor weight, labs, skin, diet orders, meds in ICU rounds as reassessing every Saturday and Saturday.
--- NOTE | 2024-05-22 12:00 | PC.NURSE ---
[facility] accepted patient and provided bed 360. Report given to Dane. Ambulance expected in 20 minutes for transfer.
[2024-05-22] MEDS: POTASSIUM CHLORIDE 20 MEQ PACKET (FOR LIQUID) 40 MEQ PO (12:03)
--- NOTE | 2024-05-22 16:00 | PM.TDS ---
Transfer Discharge Sum: Prov Provider Date of admission: 05/18/24 22:05 Primary care physician: Phillip Cristina MD Admitting clinician: Randall Ruano MD Consults: 05/18/24 Consult to Physician Routine Comment: Consulting Provider: Dexter Lipscomb Reason for consultation: foot infection Has provider been notified: Yes Wound/ET Consult Routine Reason for Consult:: Left foot postsurgical wound dehiscence 05/18/24 14:38 Consult to Dietitian Routine Reason for Consult:: DKA admission 05/18/24 15:59 Consult to Physician Routine Comment: Consulting Provider: Delfino Cleary Reason for consultation: dka, wound infection Has provider been notified: Yes 05/21/24 Consult to Physician Routine Comment: left voicemail with Dr. Thornton [phone] Consulting Provider: Fany Thornton Reason for consultation: systemic Staph infection Has provider been notified: Yes Receiving physician/facility: [facility] DS: Admitting Diagnosis Discharge Date 05/22/24 Admitting Diagnosis Foot infection DS: Discharge Diagnosis Discharge Diagnosis (1) DKA (diabetic ketoacidosis): Code(s): E11.10 - Type 2 diabetes mellitus with ketoacidosis without coma Status: Acute (2) Sepsis: Qualifiers: Sepsis acute organ dysfunction status: unspecified Sepsis type: sepsis due to unspecified organism Qualified Code(s): A41.9 - Sepsis, unspecified organism Code(s): A41.9 - Sepsis, unspecified organism Status: Acute (3) Meningitis: Code(s): G03.9 - Meningitis, unspecified Status: Acute (4) Bacteremia: Code(s): R78.81 - Bacteremia Status: Acute (5) Osteomyelitis: Code(s): M86.9 - Osteomyelitis, unspecified Status: Acute (6) Postoperative wound infection: Code(s): T81.49XA - Infection following a procedure, other surgical site, initial encounter Status: Deleted (7) UTI (urinary tract infection): Qualifiers: Urinary tract infection type: acute cystitis Hematuria presence: without hematuria Qualified Code(s): N30.00 - Acute cystitis without hematuria Code(s): N39.0 - Urinary tract infection, site not specified Status: Acute (8) Encephalopathy: Code(s): G93.40 - Encephalopathy, unspecified Status: Acute (9) Electrolyte abnormality: Code(s): E87.8 - Other disorders of electrolyte and fluid balance, not elsewhere classified Status: Acute (10) Pain: Code(s): R52 - Pain, unspecified Status: Acute (11) Hypothyroid: Code(s): E03.9 - Hypothyroidism, unspecified Status: Acute (12) LV dysfunction: Code(s): I51.9 - Heart disease, unspecified Status: Acute Transfer Discharge Sum: Med Medications Active and Home Medications: Home Medications gabapentin 800 mg tablet 800 mg PO TID 07/14/19 [History Confirmed 05/18/24] amlodipine 5 mg tablet 10 mg PO DAILY 05/04/20 [History Confirmed 05/18/24] levothyroxine 100 mcg tablet 100 mcg PO QAM 05/04/20 [History Confirmed 05/18/24] losartan 50 mg tablet 50 mg PO QPM 05/04/20 [History Confirmed 05/18/24] metformin 1,000 mg tablet 1,000 mg PO BID 05/04/20 [History Confirmed 05/18/24] pramipexole 0.75 mg tablet 0.75 mg PO HS 05/04/20 [History Confirmed 05/18/24] propranolol 20 mg tablet 20 mg PO Q12H 05/04/20 [History Confirmed 05/18/24] glucose 4 gram chewable tablet 4 g PO Q15M PRN hypoglycemia #10 tabs 05/19/20 [Rx Confirmed 05/18/24] gabapentin 100 mg capsule 100 mg PO TID 04/15/24 [History Confirmed 05/18/24] insulin degludec 100 unit/mL (3 mL) subcutaneous pen (Tresiba FlexTouch U-100 insulin) 28 unit subcut HS 04/15/24 [History Confirmed 05/18/24] tacrolimus 0.1 % topical ointment 1 applic topical DAILY 04/15/24 [History Confirmed 05/18/24] hydrocodone 5 mg-acetaminophen 325 mg tablet 2 tablet PO Q6H PRN pain #30 tabs 04/23/24 [Rx Confirmed 05/18/24] Transfer Discharge Sum: Hosp Hospital Course Hospital course: Melissa Rodriguez is a 84 year old female with DM, HTN, and Charcot foot here for diabetic foot infection with sepsis. Please see H&P for details. Patient has sepsis secondary to postop wound infection of the foot with osteomyelitis that has spread to involve staph bacteremia, Staph UTI and meningitis. Foot x-ray showing irregularity of the distal ends of the bones status post transmetatarsal amputation without change, which may be the normal postoperative appearance. No specific evidence of osteomyelitis. Foot CT 05/19 showing osteomyelitis involving first metatarsal. Fractures of the plantar aspects of the ends of the stumps of the third and fourth metatarsals, which is a change from 04/23/2024. Soft tissue gas in the distal forefoot. CT neck/chest/abdomen/pelvis showing no acute abnormality evident but with 8mm nonobstructing left renal stone, mild bibasilar atelectatic changes and dilated common bile duct is probably related to prior cholecystectomy. Patient was seen by Orthopedics and recommended local wound care at this time and no surgical intervention. Started on Vancomycin, Flagyl and Cefepime. Flagyl stopped and clindamycin started 05/19 but stopped 05/20. Wound care consulted for local wound care. Blood and urine cultures are growing MSSA. Echo showing normal LV size with decreased fxn with EF 40-45%, Grade I diastolic dysfunction, wall motion abnormalities with akinesis c/w infarct or takotsubo. Minor valve disease. No valvular vegetations. Lactic acid has normalized but was still having fevers. Suspect MSSA septicemia from wound that has seeded the urine and possibly the meninges. LP performed 05/22 showing 4RBC, 98WBC, 88% neutrophils, Glucose <30, TP 246. Gram stain showing many WBC but no organisms. CSF Cx NGTD. Findings consistent with meningitis. Would also consider other areas such as pericervical disease. Cervical CT and repeat CT Ch/A/P showing no acute findings. Consider spinal imaging with MRI if able. DKA present on admission secondary to noncompliance and sepsis. Patient was given IVF bolus and started insulin infusion with Q1H glucose monitoring and continuous IVF. Serial labs were done. Anion gap still open but suspect no longer related to DKA. We replaced electrolytes as needed. Insulin drip stopped and changed to SQ insulin. Patient with altered mental status but nonfocal exam. 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 Likely related to toxic metabolic encephalopathy from meningitis with low cerebral glucose. [employer] discussed with family and they were agreeable for transfer. Patient was trassferred in critical but stable condition. Time Spent with Patient Time attestation: Total time spent providing and/or coordinating transfer services: 39 minutes Total time spent: Greater than 30 minutes Exam Narrative: Tm 101.2 100.9 144/71 109 24 98% HFNC Gen - NARD lying semi-recumbent in bed HEENT - NGT secured. Dry MM Chest - coarse BS. CV - RRR S1/S2; Tele showing sinus arrhythmias Abd - Soft, mildly protuberant, +BS - Vang secured and draining clear yellow urine Ext - No pedal edema. Bilateral forefoot amputation. Left foot dressing clean and dry. Neuro - somnolent Psych - pleasant and cooperative Skin - Warm and dry. DS: Data Data Completed and Pending Pending studies at discharge: Pending at discharge 05/21/24 13:56 Cytology [PTH] Routine Labs on day of discharge: Labs from last 24 hours 05/22/24 05/22/24 05/22/24 10:30 07:44 05:25 WBC 25.1 H RBC 3.42 L Hgb 9.8 L Hct 30.7 L MCV 89.8 MCH 28.7 MCHC 31.9 L RDW 15.1 H Plt Count 258 MPV 12.3 H Immature Gran % (Auto) Not Reportable Neut % (Auto) Not Reportable Lymph % (Auto) Not Reportable [place] % (Auto) Not Reportable Eos % (Auto) Not Reportable Baso % (Auto) Not Reportable Lymph # (Auto) Not Reportable [place] # (Auto) Not Reportable Eos # (Auto) Not Reportable Baso # (Auto) Not Reportable Abs Immat Gran (auto) Not Reportable Absolute Neuts (auto) Not Reportable Absolute Nucleated RBC Not Reportable Total Counted 100 Neutrophils % (Manual) 86 H Band Neutrophils % 5 Lymphocytes % (Manual) 7.0 L Monocytes % (Manual) 1 L Eosinophils % (Manual) 1 Nucleated RBC % Not Reportable Abs Neuts (Manual) 22.84 H Abs Lymphs (Manual) 1.75 Abs Monocytes (Manual) 0.25 Absolute Eos (Manual) 0.25 Nucleated RBCs 1 Platelet Estimate Adequate Poikilocytosis 1+ Anisocytosis 1+ Microcytosis 1+ Schistocytes Rare PT INR APTT Sodium 140 Potassium 3.4 Chloride 109 H Carbon Dioxide 16 L Anion Gap 15 H BUN 19 H Creatinine 0.70 Estim Creat Clear Calc 40 Estimated GFR > 60 Glucose 138 H POC Capillary Glucose 188 H 135 H Calcium 7.6 L Magnesium 1.8 Total Bilirubin 0.6 AST 70 H ALT 30 Alkaline Phosphatase 195 H Total Protein 7.0 Albumin 3.0 L CSF Source CSF Appearance CSF Color CSF RBC CSF Tot Nucleated Cells CSF Neutrophils CSF Lymphocytes CSF Monocytes CSF Glucose CSF Total Protein CSF VDRL CSF Cryptococcus Interp CSF Herpes I DNA (PCR) CSF Herpes II DNA (PCR) Vancomycin Trough Cryptococcus Source Cryptococcus Ag HSV (PCR) Source 05/22/24 05/21/24 05/21/24 04:26 23:52 21:04 WBC RBC Hgb Hct MCV MCH MCHC RDW Plt Count MPV Immature Gran % (Auto) Neut % (Auto) Lymph % (Auto) [place] % (Auto) Eos % (Auto) Baso % (Auto) Lymph # (Auto) [place] # (Auto) Eos # (Auto) Baso # (Auto) Abs Immat Gran (auto) Absolute Neuts (auto) Absolute Nucleated RBC Total Counted Neutrophils % (Manual) Band Neutrophils % Lymphocytes % (Manual) Monocytes % (Manual) Eosinophils % (Manual) Nucleated RBC % Abs Neuts (Manual) Abs Lymphs (Manual) Abs Monocytes (Manual) Absolute Eos (Manual) Nucleated RBCs Platelet Estimate Poikilocytosis Anisocytosis Microcytosis Schistocytes PT INR APTT Sodium Potassium Chloride Carbon Dioxide Anion Gap BUN Creatinine Estim Creat Clear Calc Estimated GFR Glucose POC Capillary Glucose 139 H 161 H 105 Calcium Magnesium Total Bilirubin AST ALT Alkaline Phosphatase Total Protein Albumin CSF Source CSF Appearance CSF Color CSF RBC CSF Tot Nucleated Cells CSF Neutrophils CSF Lymphocytes CSF Monocytes CSF Glucose CSF Total Protein CSF VDRL CSF Cryptococcus Interp CSF Herpes I DNA (PCR) CSF Herpes II DNA (PCR) Vancomycin Trough Cryptococcus Source Cryptococcus Ag HSV (PCR) Source 05/21/24 05/21/24 05/20/24 20:53 15:28 17:07 WBC RBC Hgb Hct MCV MCH MCHC RDW Plt Count MPV Immature Gran % (Auto) Neut % (Auto) Lymph % (Auto) [place] % (Auto) Eos % (Auto) Baso % (Auto) Lymph # (Auto) [place] # (Auto) Eos # (Auto) Baso # (Auto) Abs Immat Gran (auto) Absolute Neuts (auto) Absolute Nucleated RBC Total Counted Neutrophils % (Manual) Band Neutrophils % Lymphocytes % (Manual) Monocytes % (Manual) Eosinophils % (Manual) Nucleated RBC % Abs Neuts (Manual) Abs Lymphs (Manual) Abs Monocytes (Manual) Absolute Eos (Manual) Nucleated RBCs Platelet Estimate Poikilocytosis Anisocytosis Microcytosis Schistocytes PT 15.1 H INR 1.1 APTT 34.1 Sodium Potassium Chloride Carbon Dioxide Anion Gap BUN Creatinine Estim Creat Clear Calc Estimated GFR Glucose POC Capillary Glucose Calcium Magnesium Total Bilirubin AST ALT Alkaline Phosphatase Total Protein Albumin CSF Source Csf CSF Appearance Clear CSF Color Yellow A CSF RBC 4 H CSF Tot Nucleated Cells 98 H CSF Neutrophils 88 H CSF Lymphocytes 7 L CSF Monocytes 5 L CSF Glucose < 30 L CSF Total Protein 246 H CSF VDRL Pending CSF Cryptococcus Interp Pending CSF Herpes I DNA (PCR) Pending CSF Herpes II DNA (PCR) Pending Vancomycin Trough 15.9 Cryptococcus Source Pending Cryptococcus Ag Pending HSV (PCR) Source Pending Preliminary micro results at discharge 05/20/24 17:07 CSF Culture - Preliminary Cerebral Spinal Fluid Acid Fast Bacilli Culture - Preliminary 05/21/24 15:40 Blood Culture - Preliminary Blood 05/21/24 15:28 Blood Culture - Preliminary Blood
[2024-05-23 21:13] LABS: Herpes Simplex Type 1 DNA PCR Not Detected (Not Detected); Herpes Simplex Type 2 DNA PCR Not Detected (Not Detected)
[2024-05-26 17:48] LABS: Cryptococcus Antigen NOT DETECTED; Cryptococcus Specimen Source CEREBROSPINAL FLUID
[2024-05-27 02:23] LABS: VDRL Quantitative CSF NON-REACTIVE
--- NOTE | 2024-07-06 07:28 | PC.NURSE ---
AFB cx and smear #[address] Jessica wyatt.
--- NOTE | 2024-07-07 08:05 | PC.NURSE ---
AFB cx #[address] Jessica wyatt.
== END 2024-05-22 14:00 | disposition short-term general hospital (02) | DRG 564 ==
LOC: ANHED 12:48 → ANHICU 16:50
PROVIDERS: Internal Medicine; Nurse Practitioner; Admitting Provider Internal Medicine; Emergency Provider Emergency Medicine; PCP Family Medicine; Visit Provider Internal Medicine
DX: T87.44 Infection of amputation stump, left lower extremity (principal); E11.10 Type 2 diabetes mellitus with ketoacidosis without coma; G92.8 Other toxic encephalopathy; G03.9 Meningitis, unspecified; T81.44XA Sepsis following a procedure, initial encounter; I96 Gangrene, not elsewhere classified; N39.0 Urinary tract infection, site not specified; A52.16 Charcot's arthropathy (tabetic); M86.9 Osteomyelitis, unspecified; B95.61 Methicillin susceptible Staphylococcus aureus infection as the cause of diseases classified elsewhere; T87.81 Dehiscence of amputation stump; E03.9 Hypothyroidism, unspecified; E11.42 Type 2 diabetes mellitus with diabetic polyneuropathy; E11.21 Type 2 diabetes mellitus with diabetic nephropathy; D64.9 Anemia, unspecified; K21.9 Gastro-esophageal reflux disease without esophagitis; I10 Essential (primary) hypertension; E11.69 Type 2 diabetes mellitus with other specified complication; E87.8 Other disorders of electrolyte and fluid balance, not elsewhere classified; I77.1 Stricture of artery; G47.33 Obstructive sleep apnea (adult) (pediatric); R09.02 Hypoxemia; L89.899 Pressure ulcer of other site, unspecified stage; M81.0 Age-related osteoporosis without current pathological fracture; Z85.820 Personal history of malignant melanoma of skin; Z79.4 Long term (current) use of insulin; Z79.84 Long term (current) use of oral hypoglycemic drugs; Z89.411 Acquired absence of right great toe; Z90.49 Acquired absence of other specified parts of digestive tract; Z90.710 Acquired absence of both cervix and uterus; Z87.891 Personal history of nicotine dependence; Z91.199 Patient's noncompliance with other medical treatment and regimen due to unspecified reason
CPT/HCPCS: 36415; 36600; 62328; 70450; 70490; 71250; 72125; 73630; 73700; 74176; 80048; 80053; 80202; 81001; 82010; 82375; 82533; 82550; 82607; 82728; 82746; 82805; 82945; 82948; 83050; 83540; 83550; 83605; 83735; 84100; 84145; 84157; 84443; 85018; 85025; 85610; 85652; 85730; 86140; 86403; 86592; 87015; 87040; 87070; 87086; 87116; 87181; 87206; 87529; 87641; 88108; 89051; 93005; 93306; 94640; 96361; 96365; 96367; 96375; 99285; A9270; G0378; J0650; J0692; J1650; J1815; J1836; J1885; J2020; J2270; J2405; J3010; J3370; J3475; J3480; J7030; J7040; J7070; J7120